=== PATIENT | female | born 1955 | race Asian ===

== ENCOUNTER → 2018-05-23 09:51 | Outpatient (CLI) | payer MEDICARE, SELFPAY ==
[2018-05-25 14:52] LABS: HPV Reflexed? NOT INDICATED
== END ==
PROVIDERS: Visit Provider Obstetrics & Gynecology
DX: Z12.4 Encounter for screening for malignant neoplasm of cervix (principal)
CPT/HCPCS: 88175; G0145

== ENCOUNTER → 2019-08-10 09:49 | Outpatient (CLI) | payer MEDICARE, OTHER, SELFPAY ==
[2019-08-10 12:29] LABS: Absolute Lymphocyte Count 2.22 X10^3/uL (0.83-4.51); Absolute Neutrophil Count 1.4 X10^3/uL (2.0-7.7); Basophil# 0.04 X10^3/uL; Eosinophil# 0.21 X10^3/uL; Eosinophils% 5.1 % (0-5); Hematocrit 44.2 % (37-47); Hemoglobin 14.5 g/dL (12.0-15.0); Lymphocyte # 2.22 X10^3/ul (4.0); Lymphocyte % 54.3 % (19-41); Mean Corp Hgb Conc 32.8 g/dL (32-36); Mean Corpuscular Hgb 28.4 pg (27.0-32.0); Mean Corpuscular Volume 86.7 fL (81-99); Mean Platelet Vol. 9.8 fl (6.2-12.0); Monocyte# 0.25 X10^3/uL; Monocyte% 6.1 % (0-10); NRBC Flagged by Analyzer 0 % (0-5); Neutrophil # 1.36 X10^3/uL (2.7-7.7); Neutrophil % 33.3 % (47-70); Platelet Count 239 K/mm3 (150-450); RBC Distribution Width CV 12.4 % (11.6-14.6); RBC Distribution Width SD 39.4 fl (35.1-43.9); White Blood Count 4.1 K/mm3 (4.4-11.0)
[2019-08-10 12:59] LABS: AST(SGOT) 19 U/L (15-37); Alanine Aminotransfer ALT/SGPT 24 U/L (13-56); Alkaline Phosphatase 66 U/L (45-117); Anion Gap 6 (5-15); BUN 14 mg/dL (7-18); BUN/Creat Ratio 24.7 RATIO (10-20); Calcium,Total 9.3 mg/dL (8.5-10.1); Chloride 105 mmol/L (98-107); Cholesterol 195 mg/dL (200); Creatinine, Serum 0.57 mg/dL (0.55-1.02); EST Glomerular Filtration Rate 114 mL/min (>60); Est Glom Filt Rate - Afr Amer 137 mL/min (>60); Globulin 3.9 g/dL (2.2-4.2); Glucose 82 mg/dL (74-106); High Density Lipoprotein 60 mg/dL; Potassium 3.5 mmol/L (3.5-5.1); Protein, Total 7.9 g/dL (6.4-8.2); Sodium Level 139 mmol/L (136-145); Triglycerides 105 mg/dL; Very Low Density Lipoprotein 21 mg/dL (5-40)
[2019-08-10 13:30] LABS: Hepatitis C Antibody Non-Reactive (Nonreactive)
[2019-08-11 13:04] LABS: H. Pylori Antibody (IgG) 0.44 (0.00-0.79)
== END ==
PROVIDERS: Family Provider Family Medicine; PCP Family Medicine; Visit Provider Family Medicine
DX: Z00.00 Encounter for general adult medical examination without abnormal findings (principal); E78.5 Hyperlipidemia, unspecified; K21.9 Gastro-esophageal reflux disease without esophagitis
CPT/HCPCS: 36415; 80053; 80061; 85025; 86677; 86803

== ENCOUNTER → 2019-10-17 08:36 | Outpatient (CLI) | payer MEDICARE, OTHER, SELFPAY ==
--- NOTE | 2019-10-17 08:42 | BI_ITS ---
MAMMOGRAPHY - BILATERAL SCREENING REASON FOR EXAM: Female, 64 years old. Routine annual screening examination. PERTINENT HISTORY: Sister with breast cancer. TECHNIQUE: Digital bilateral breast jil (3D mammographic acquisition) in the CC and MLO projections. 2-D mediolateral oblique (MLO) and craniocaudad (CC) views of both breasts were obtained. CAD: Full Field Digital Mammography with Computer Added Detection was performed. COMPARISON: Comparison is made with prior study in August 14, 2013. FINDINGS: Breast Composition: The breasts are heterogeneously dense, which may obscure small masses. There are no dominant masses or suspicious calcifications. Stable benign-appearing bilateral axillary lymph nodes. No other significant abnormalities are identified. There has been no significant change since the prior study. BI/SCREEN MAMM (CAD) W/JIL BILAT IMPRESSION: Stable bilateral screening mammogram. Yearly follow-up mammogram recommended. (A) ASSESSMENT CATEGORY: BIRADS Category 2: Benign. A letter regarding these results will be sent to the patient by the facility within 30 days. Approximately 10% of breast cancers are not detected by mammography. A normal mammogram should not delay biopsy of a clinically suspicious abnormality. [id number] Electronically Signed: Alexander Hopkins, at 9:39 EST , Service support ,
== END ==
PROVIDERS: Family Provider Family Medicine; PCP Family Medicine; Referring Provider Family Medicine; Visit Provider Family Medicine
DX: Z12.31 Encounter for screening mammogram for malignant neoplasm of breast (principal); Z80.3 Family history of malignant neoplasm of breast; R51 Headache; Z86.73 Personal history of transient ischemic attack (TIA), and cerebral infarction without residual deficits
CPT/HCPCS: 77063; 77067

== ENCOUNTER → 2020-02-26 13:33 | Outpatient (CLI) | payer MEDICARE, OTHER, SELFPAY ==
[2015-07-04 11:35] VITALS: BMI 22.7
[2020-02-26 16:49] LABS: Absolute Neutrophil Count 1.5 X10^3/uL (2.0-7.7); Basophil# 0.03 X10^3/uL; Basophil% 0.6 % (0-1); Eosinophil# 0.24 X10^3/uL; Eosinophils% 4.6 % (0-5); Hematocrit 41.7 % (37-47); Hemoglobin 13.7 g/dL (12.0-15.0); Lymphocyte % 59.8 % (19-41); Mean Corp Hgb Conc 32.9 g/dL (32-36); Mean Corpuscular Hgb 28.2 pg (27.0-32.0); Mean Corpuscular Volume 85.8 fL (81-99); Mean Platelet Vol. 9.9 fl (6.2-12.0); Monocyte# 0.34 X10^3/uL; Monocyte% 6.6 % (0-10); NRBC Flagged by Analyzer 0 % (0-5); Neutrophil # 1.47 X10^3/uL (2.7-7.7); Neutrophil % 28.4 % (47-70); Platelet Count 254 K/mm3 (150-450); RBC Distribution Width CV 12.7 % (11.6-14.6); RBC Distribution Width SD 39.3 fl (35.1-43.9); Red Blood Count 4.86 M/mm3 (4.2-5.4); White Blood Count 5.2 K/mm3 (4.4-11.0)
== END ==
PROVIDERS: PCP Family Medicine; Visit Provider Family Medicine
DX: L65.9 Nonscarring hair loss, unspecified (principal)
CPT/HCPCS: 36415; 84443; 85025

== ENCOUNTER → 2021-06-29 09:26 | Outpatient (CLI) | payer MEDICARE, OTHER, SELFPAY ==
--- NOTE | 2021-06-29 09:32 | RAD_ITS ---
EXAMINATION: Air contrast UPPER GI SERIES INDICATION: Female, 66 years epigastric pain. Dysphagia. FLUOROSCOPY TIME (if supplied): (1:00) minutes/seconds. 13 images were obtained. TECHNIQUE: Radiographic and fluoroscopic images of the distal esophagus, stomach, and proximal small intestine were obtained following the oral ingestion of barium. COMPARISON: None. FINDINGS: There is no evidence for organomegaly, abnormal calcifications, or abnormal bowel gas pattern. The psoas margins and flank stripes are normal. The visualized osseous structures are normal. The mucosa of the esophagus, stomach and duodenum is normal in appearance without evidence for stricture, ulceration, mass or diverticulum. There is no evidence for hiatal hernia or gastroesophageal reflux. The stomach and duodenum are unremarkable. No evidence of ulceration. RAD/Upper GI Dual Contrast IMPRESSION: 1. Normal upper gastrointestinal study. Electronically Signed: Alexander Hopkins MD at 10:23 EDT , Service support ,
== END ==
LOC: RAD 09:30
PROVIDERS: PCP Family Medicine; Referring Provider Family Medicine; Visit Provider Family Medicine
DX: R13.10 Dysphagia, unspecified (principal)
CPT/HCPCS: 74246

== ENCOUNTER → 2022-07-01 | Outpatient (CLI) | payer MEDICARE, OTHER, SELFPAY ==
--- NOTE | 2022-07-01 10:18 | US_ITS ---
STUDY: ULTRASOUND OF THE FEMALE PELVIS - COMPLETE REASON FOR EXAM: Female, 67 years old. PAIN AND BLOATING LMP: Unknown. TECHNIQUE: Transabdominal and Transvaginal TECHNICAL QUALITY: Adequate. COMPARISON: None. FINDINGS: The uterus is anteverted and is in a midline position. The uterus measures 10.3 x 10.4 x 5.0 cm. Normal uterine cervix. The endometrium measures 2.1 mm in thickness, and is hyperechoic. There is no demonstrated endometrial mass. Multiple uterine fibroids, largest measures 3.6 x 3.8 x 3.4 cm. I.U.D. - The patient does not have an I.U.D. Neither ovary visualized. There is no fluid in the cul-de-sac. The bladder is sonographically normal US/Pelvic (Non ) IMPRESSION: Enlarged fibroid uterus, normal appearing endometrium Neither ovary visualized, no demonstrated free fluid Electronically Signed: Darly Louis MD at 11:52 EDT ,
--- NOTE | 2022-07-01 10:41 | US_ITS ---
STUDY: ULTRASOUND OF THE FEMALE PELVIS - COMPLETE REASON FOR EXAM: Female, 67 years old. PAIN AND BLOATING LMP: Unknown. TECHNIQUE: Transabdominal and Transvaginal TECHNICAL QUALITY: Adequate. COMPARISON: None. FINDINGS: The uterus is anteverted and is in a midline position. The uterus measures 10.3 x 10.4 x 5.0 cm. Normal uterine cervix. The endometrium measures 2.1 mm in thickness, and is hyperechoic. There is no demonstrated endometrial mass. Multiple uterine fibroids, largest measures 3.6 x 3.8 x 3.4 cm. I.U.D. - The patient does not have an I.U.D. Neither ovary visualized. There is no fluid in the cul-de-sac. The bladder is sonographically normal US/Transvaginal Non- IMPRESSION: Enlarged fibroid uterus, normal appearing endometrium Neither ovary visualized, no demonstrated free fluid Electronically Signed: Daryl Louis MD at 11:52 EDT ,
== END | disposition home or self-care (01) ==
PROVIDERS: PCP Family Medicine; Visit Provider Family Medicine
DX: D25.9 Leiomyoma of uterus, unspecified (principal)
CPT/HCPCS: 76830; 76856

== ENCOUNTER → 2022-07-15 | Outpatient (CLI) | payer MEDICARE, OTHER, SELFPAY ==
--- NOTE | 2022-07-15 14:39 | BI_ITS ---
MAMMOGRAPHY - BILATERAL DIAGNOSTIC REASON FOR EXAM: Female, 67 years old. Left breast lump. PERTINENT HISTORY: Sister with breast cancer. TECHNIQUE: Digital bilateral breast jorge (3D mammographic acquisition) in the CC and MLO projections. 2-D mediolateral oblique (MLO) and craniocaudad (CC) views of both breasts were obtained. CAD: Full Field Digital Mammography with Computer Added Detection was performed. COMPARISON: Comparison is made with prior study dated 10/17/2019. FINDINGS: Breast Composition: The breasts are heterogeneously dense, which may obscure small masses. There now is evidence of a 2.5 cm x 1.5 cm spiculated nodule in the slightly upper retroareolar region of the left breast. There is also evidence of a 1.4 cm x 1 cm irregular nodule in the upper lateral aspect of the right breast. Correlation with ultrasound is recommended. Stable small benign-appearing bilateral axillary lymph nodes. No other significant abnormalities are identified. BI/DIAG MAMM W/CAD, BILAT IMPRESSION: Suspicious nodule seen in both breasts as described. These are new as compared to prior study. Correlation with ultrasound recommended. ASSESSMENT CATEGORY: BIRADS Category 0: Incomplete. Need additional imaging evaluation. A letter regarding these results will be sent to the patient by the facility within 30 days. Approximately 10% of breast cancers are not detected by mammography. A normal mammogram should not delay biopsy of a clinically suspicious abnormality. Electronically Signed: Alexander Hopkins MD at 15:39 EDT ,
--- NOTE | 2022-07-15 15:08 | US_ITS ---
STUDY: ULTRASOUND BREAST - LEFT REASON FOR EXAM: Female, 67 years old. Palpable lump left breast. TECHNIQUE: Axial and longitudinal images of the LEFT breast were performed with a high resolution ultrasound transducer. # OF IMAGES: 57 COMPARISON: Comparison is made with prior mammogram done earlier today. FINDINGS: LEFT Breast: There is a 2 cm x 1.8 cm x 1.5 cm hypoechoic irregular solid mass at the 11 o''clock position of the breast at 3 cm from the nipple. Increased vascularity is seen. There is also evidence of a 9 mm x 10 mm by 8mm hypoechoic solid nodule at the 11 o''clock position of the breast. Biopsy is recommended. IMPRESSION: 2 cm x 1.8 cm x 1.5 cm irregular hypoechoic solid mass at 11 o''clock position of the breast at 3 cm from the nipple. Similar appearing nodule measuring 9 mm x 10 mm by 8mm is seen at that site as well. Biopsy recommended. ASSESSMENT CATEGORY: BIRADS Category 4: Suspicious - Biopsy Should Be Considered. A letter regarding these results will be sent to the patient by the facility within 30 days. Electronically Signed: Alexander Hopkins MD at 8:42 EDT , STUDY: ULTRASOUND BREAST - RIGHT REASON FOR EXAM: Female, 67 years old. Abnormal mammogram. TECHNIQUE: Axial and longitudinal images of the RIGHT breast were performed with a high resolution ultrasound transducer. # OF IMAGES: 57 COMPARISON: Comparison is made with prior mammogram done earlier today. FINDINGS: RIGHT Breast: There is a 2 cm x 2 cm x 0.8 cm heterogeneous solid mass at the 10 o''clock position of the breast at 7 cm from the nipple. Biopsy recommended. US/Breast Limited Unilateral IMPRESSION: 2 cm x 2 cm x 0.8 cm heterogeneous solid mass at the 10 o''clock position of the breast at 7 cm a nipple. Biopsy is recommended. ASSESSMENT CATEGORY: BIRADS Category 4: Suspicious - Biopsy Should Be Considered. A letter regarding these results will be sent to the patient by the facility within 30 days. Electronically Signed: Alexander Hopkins MD at 8:44 EDT ,
== END | disposition home or self-care (01) ==
PROVIDERS: PCP Family Medicine; Visit Provider Family Medicine
DX: N63.21 Unspecified lump in the left breast, upper outer quadrant (principal); N63.11 Unspecified lump in the right breast, upper outer quadrant; Z80.3 Family history of malignant neoplasm of breast
CPT/HCPCS: 76642; 77062; 77066; G0279

== ENCOUNTER → 2022-08-17 | Outpatient (CLI) | payer MEDICARE, OTHER, SELFPAY ==
--- NOTE | 2022-08-17 | IMM_PTH ---
PATIENT: CEASAR PALACIOS LOC: [facility] U#:[id number] AGE/SX: 67/F ROOM: RE08/17/[address]: Dr. Lana Mcwilliams MD : 1955 BED: DIS: 08/17/2022 SPEC #: [id number] RECD: 08/18/22 12:36 STATUS: GWEN REQ #: [id number] LELA: 08/17/22 00:[address]: Lana Mcwilliams DEPT: IMMUNOHISTOCHEMISTRY RECD BY: Tara Strauss ENTERED: 08/18/22 12:36 SP TYPE: IMMUNO OTHR DR: Dr. Ifrah Omalley MD Tissues: Right breast, NOS Procedures: Calponin-1(initial) P40 (add) PHYSICIAN & INSTITUTION [place] [id number] SPECIMEN INFORMATION: Tissue Source: Right breast Clinical Info: Right breast mass Specimen Number: [id number] CPT code: 34549, 06692 METHODOLOGY: Deparaffinized sections of prefer/formalin-fixed tissue or PAP/DQ stained slides are incubated with monoclonal/polyclonal antibodies/oligonucleotide probes. Localization is made via biotin free immunoperoxidase method. Appropriate controls are performed and reacted as expected. Results on target cell population are indicated in the following table: RESULTS: ANTIBODY / CLONE RESULT P40 (BC28) positive Calponin-1 (GO262E) positive These tests were developed and their performance characteristics determined by [facility]. They may not have been cleared or approved by the U.S. Food and Drug Administration. The FDA has determined that such clearance or approval is not necessary. The above immunohistochemical/dualISH markers are ordered and reviewed by the Pathologist. INTERPRETATION: Right breast, ultrasound-guided biopsy: Negative for malignancy. JASMYNE:esperanza 08/19/2022
--- NOTE | 2022-08-17 11:52 | US_ITS ---
STUDY: ULTRASOUND BREAST - RIGHT REASON FOR EXAM: Female, 67 years old. Right breast mass. Ultrasound guided core biopsy. TECHNIQUE: Axial and longitudinal images of the RIGHT breast were performed with a high resolution ultrasound transducer. # OF IMAGES: 9 COMPARISON: Comparison is made with prior sonogram of the right breast dated 07/15/2022. FINDINGS: RIGHT Breast: Under direct sonographic guidance, the surgeon performed core biopsies of the 2 cm x 2 cm x 0.8 cm heterogeneous solid mass at the 10 o''clock position of the breast at 7 cm from nipple. US/US Breast Biopsy 1st Lesion IMPRESSION: Successful ultrasound-guided breast biopsy. ASSESSMENT CATEGORY: BIRADS Category 4: Suspicious - Biopsy Should Be Considered. A letter regarding these results will be sent to the patient by the facility within 30 days. Electronically Signed: Alexander Hopkins MD at 15:27 EST ,
--- NOTE | 2022-08-17 12:15 | BRBX_PTH ---
PATIENT: CEASAR PALACIOS LOC: [facility] U#:[id number] AGE/SX: 67/F ROOM: RE08/17/[address]: Dr. Lana Mcwilliams MD : 1955 BED: DIS: 08/17/2022 SPEC #: [id number] RECD: 08/17/22 13:22 STATUS: GWEN REMichelle #: [id number] LELA: 08/17/22 12:[address]: Lana Mcwilliams DEPT: SURGICAL PATHOLOGY RECD BY: Luis Eduardo Caruso ENTERED: 08/17/22 13:57 SP TYPE: BREAST BX OTHR DR: Dr. Ifrah Omalley MD Tissues: Right breast, NOS Procedures: Surgery Specimen Level IV HEADER OPERATION: Right breast biopsy, ultrasound-guided PRE-OP DIAGNOSIS: Right breast mass TISSUE SUBMITTED: Right breast tissue MICROSCOPIC DIAGNOSIS Right breast mass, ultrasound-guided core biopsy: Hyalinized fibroadenoma with focal intraductal hyperplasia without atypia. Focal microcalcification. Negative for malignancy. See comment. JASMYNE:esperanza 08/18/2022 COMMENT Immunohistochemistry ([id number]) supports the above diagnosis. Correlation with clinical, radiologic findings and appropriate follow up are necessary. MICROSCOPIC DESCRIPTION Slides are reviewed. GROSS DESCRIPTION Received in fixative is one container labeled with the patient's name and designated right breast. The specimen consists of multiple elongated fragments of montilla-yellow fibroadipose tissue mixed with blood clot that in aggregate measure 2.5 x 2 x 0.1 cm. The entire specimen is submitted in one cassette. / JASMYNE:esperanza 08/17/2022 TC:1 CPT: 39599
--- NOTE | 2022-08-17 13:24 | PCM.OPRPT ---
Report of Operation Date of Procedure: 08/17/22 Pre-Operative Diagnosis: abnormal ultrasound of right breast Post-Operative Diagnosis: same Surgery/Procedure Performed:: US guided right breast needle core biopsy Surgeon: Lana Mcwilliams Type of Anesthesia: Local Specimen's removed: right breast tissue Estimated Blood Loss (mL): minimal Description of Procedure: After informed consent was given, the patient was brought to the ultrasound suite. Appropriate time out protocol was followed. She was then placed in the supine position. Using the ultrasound transducer, the suspicious lesion was localized and then marked with a marking pen on the patient?s breast. The skin at where the biopsy stylus would be entering into the patient?s breast was then cleansed with alcohol and the skin and subcutaneous tissues at the biopsy site were infiltrated with 1% xylocaine. A small skin incision was made with an 11 blade scalpel. Holding the transducer in my left hand, I guided the biopsy stylus to just beneath the lesion under direct ultrasound guidance. The biopsy trough was then opened and noted under ultrasound guidance, such that it was ensured that the lesion was able to be biopsied. Several core samples of breast tissue were then obtained and this was visualized under ultrasound guidance. A marker clip was then placed into the patient?s breast at the biopsy site and this was visualized under ultrasound guidance. Hemostasis was achieved using pressure. The skin incision was then reapproximated using steristrips and a sterile dressing was applied. The patient tolerated the procedure well. She was discharged from the radiology suite in stable condition. Complications none noted
== END | disposition home or self-care (01) ==
PROVIDERS: PCP Family Medicine; Referring Provider Surgery; Visit Provider Surgery
DX: D24.1 Benign neoplasm of right breast (principal); N60.91 Unspecified benign mammary dysplasia of right breast; R92.0 Mammographic microcalcification found on diagnostic imaging of breast
CPT/HCPCS: 19083; 88305; 88341; 88342

== ENCOUNTER → 2024-05-10 | Outpatient (CLI) | payer MEDICARE, OTHER, SELFPAY ==
--- NOTE | 2024-05-10 13:18 | ECHOD_ITS ---
Reason For Study: ABNORMAL EKG Procedure This was a 2D Doppler, Color Flow transthoracic echocardiogram. Myocardial strain analysis was performed in this exam to aid in the assessment of cardiac function. Exam performed in department. Left Ventricle Normal LV size. The estimated ejection fraction is 60 %. No evidence for diastolic dysfunction. No regional wall motion abnormalities noted. Right Ventricle Normal RV size. Normal systolic function. Atria The left and right atria are normal. No doppler evidence for ASD. Mitral Valve There is no mitral valve stenosis. No mitral valve insufficiency. Tricuspid Valve There is no tricuspid stenosis. Trivial tricuspid valve insufficiency. Pulmonary artery systolic pressure is 30 mmHg. Aortic Valve Trisinus/trileaflet aortic valve. There is no aortic stenosis. No aortic valve insufficiency. Pulmonic Valve There is no pulmonic valvular stenosis. No pulmonic valve insufficiency. Great Vessels Normal aortic root. Pericardium/Pleural No pericardial effusion. Medication 22 gauge I.V. with prn adaptor inserted into right arm. Performed a rapid injection of agitated mix of 9 cc saline and 1cc air to assess for atrial septal defect. MMode/2D Measurements & Calculations LVIDd: 3.7 cm IVSd: 0.97 cm Ao root diam: 3.1 cm LVIDs: 2.5 cm LVPWd: 1.0 cm RVDd: 2.5 cm FS: 33.4 % LAV(MOD-bp): 17.8 ml LVAd ap4: 22.7 cm2 SV(MOD-sp4): 37.0 ml LAV(MOD-bp) Indexed: 12.2 ml/m2 LVLd ap4: 6.7 cm LAV(MOD-sp2): 18.6 ml EDV(MOD-sp4): 62.4 ml LAV(MOD-sp4): 15.6 ml EDV(sp4-el): 65.2 ml LVAs ap4: 13.0 cm2 LVLs ap4: 5.6 cm ESV(MOD-sp4): 25.4 ml ESV(sp4-el): 25.6 ml EF(MOD-sp4): 59.3 % EF(sp4-el): 60.7 % SV(sp4-el): 39.6 ml LA A4 area: 8.7 cm2 LA dimension(2D): 2.7 cm RA A4 area: 8.4 cm2 TAPSE: 1.8 cm Time Measurements MV dec time: 0.24 sec Doppler Measurements & Calculations MV E max laron: 47.1 cm/sec Lat Peak E' Laron: 7.3 cm/sec Med Peak E' Laron: 5.9 cm/sec MV A max laron: 78.6 cm/sec E/E' lat: 6.4 E/E' med: 8.0 MV E/A: 0.60 Ao V2 max: 124.6 cm/sec LV V1 max: 88.6 cm/sec TR max laron: 239.4 cm/sec Ao max P.2 mmHg LV V1 max P.1 mmHg TR max P.9 mmHg ECHO/Echo Complete Interpretation Summary The estimated ejection fraction is 60 %. No evidence for diastolic dysfunction. Ordering Physician: Pam Morris Referring Physician: Pam Morris Performed By: Margie Kerr RDCS
== END | disposition home or self-care (01) ==
PROVIDERS: PCP Internal Medicine; Referring Provider Internal Medicine; Visit Provider Internal Medicine
DX: R94.31 Abnormal electrocardiogram [ECG] [EKG] (principal)
CPT/HCPCS: 93306; A4216

== ENCOUNTER → 2025-05-21 | Outpatient (CLI) | payer MEDICARE, OTHER, SELFPAY ==
--- NOTE | 2025-05-21 08:12 | CT_ITS ---
PROCEDURE: CHEST WITHOUT CONTRAST 05/21/2025 REASON FOR EXAM: LUNG NODULES Follow-up examination. TECHNIQUE: Chest CT without contrast. Coronal and Sagittal reconstruction series were provided. One or more dose reduction techniques were used (e.g., Automated exposure control, adjustment of the mA and/or kV according to patient size, use of iterative reconstruction technique RADIATION DOSE SUMMARY: CTDlvol: 7.24 mGy DLP: 224.24 mGycm COMPARISON: None FINDINGS: Hardware: None Lymph nodes: Small benign-appearing bilateral axillary lymph nodes. Small benign-appearing mediastinal lymph nodes. Heart and Vasculature: The heart is nonenlarged. Coronary Artery Calcifications: Present Lungs and Airways: No pulmonary nodule is seen. Pleura: No pleural effusion. Upper Abdomen: Unremarkable Bones: Degenerative changes of the thoracic spine. CT/Chest without Contrast IMPRESSION: Coronary artery calcification (CAC) is is present No acute abnormality is seen. Reading Location: [place] [id number]
== END | disposition home or self-care (01) ==
LOC: CT 08:11
PROVIDERS: PCP Internal Medicine; Referring Provider Internal Medicine; Visit Provider Internal Medicine
DX: R91.8 Other nonspecific abnormal finding of lung field (principal); E78.5 Hyperlipidemia, unspecified
CPT/HCPCS: 71250

== ENCOUNTER → 2025-07-31 | Outpatient (CLI) | payer MEDICARE, OTHER, SELFPAY ==
--- OUTSIDE RECORDS SUMMARY | 2025-07-31 06:53 | XMS RPT_ITS | CCD ---
Author Organization [facility] Care Team Providers Care Cogeneration Operator Name Role Phone Ifrah Omalley Primary Care Provider Fast DO, Krystle A Unavailable Dr. Emiliano Saleh Unavailable Radha CURRY Yvonne Unavailable Unavailable Neonatal Nurse Practitioner, System Unavailable Unavailable Thania DO Ligia Unavailable [phone] Unavailable Unavailable Ifrah Omalley Primary Care Provider Fast DO, Krystle A Primary Care Provider [phone] Emiliano Saleh DO Unavailable EMILIANO SALEH Referring Unavailable FAST, KRYSTLE A Primary Care Unavailable EMILIANO SALEH Referring Unavailable FAST, KRYSTLE A Primary Care Unavailable KASANDRA CARUSO Attending Unavailable FAST, KRYSTLE A Primary Care Unavailable FAST, KRYSTLE A Referring Unavailable KASANDRA CARUSO Referring Unavailable ROSY DELEON Attending Unavailable FAST, KRYSTLE A Primary Care Unavailable FAST, KRYSTLE A Primary Care Unavailable KASANDRA CARUSO Admitting Unavailable KASANDRA CARUSO Attending Unavailable KASANDRA CARUSO Referring Unavailable FAST, KRYSTLE A Primary Care Unavailable KASANDRA CARUSO Referring Unavailable FAST, KRYSTLE A Primary Care Unavailable KASANDRA CARUSO Referring Unavailable KASANDRA CARUSO Attending Unavailable FAST, KRYSTLE A Primary Care Unavailable FAST, KRYSTLE A Referring Unavailable FAST, KRYSTLE A Primary Care Unavailable CIERRA WHITTEN Attending Unavailabl e FAST, KRYSTLE A Primary Care Unavailable KASANDRA CARUSO Referring Unavailable FAST, KRYSTLE A Primary Care Unavailable KASANDRA CARUSO Referring Unavailable FAST, KRYSTLE A Primary Care Unavailable FAST, KRYSTLE A Primary Care Unavailable AYSE, MELIDA A Attending Unavailabl e KASANDRA CARUSO Attending Unavailable FAST, KRYSTLE A Referring Unavailable FAST, KRYSTLE A Primary Care Unavailable MELIDA TAVERA Attending Unavailabl e FAST, KRYSTLE A Primary Care Unavailable MELIDA TAVERA Attending Unavailabl e FAST, KRYSTLE A Primary Care Unavailable MASCI, EMILIANO A Referring Unavailable IFRAH OMALLEY Primary Care Unavailable Fast DO, Krystle A Attending Unavailable Fast DO, Krystle A Consulting Unavailable Fast DO, Krystle A Referring Unavailable Fast DO, Krystle A Unavailable Fast DO, Krystle A Primary Care Provider [phone] Dr. Deepa Sahni Unavailable Fast DO, Krystle A Primary Care Provider [phone] Ifrah Omalley MD Primary Care Provider Fast DO, Krystle Primary Care Provider [phone] FAST, KRYSTLE Primary Care Unavailable SCOTT ARIAS Attending Unavailable REFERRED, SELF Referring Unavailable FAST, KRYSTLE Primary Care Unavailable SCOTT ARIAS Attending Unavailable SCOTT ARIAS Referring Unavailable Fast DO, Dr. Orozco Primary Care Provider [phone] Fast DO, Dr. Orozco Attending Provider [phone] Fast DO, Dr. Orozco Referring Provider [phone] FAST, KRYSTLE A Primary Care Unavailable IGLESIAS, LIZETTE Attending Unavailable IGLESIAS, LIZETTE Referring Unavailable FAST, KRYSTLE A Primary Care Unavailable MASCI, EMILIANO A Referring Unavailable FAST, KRYSTLE A Primary Care Unavailable IGLESIAS, LIZETTE Referring Unavailable IGLESIAS, LIZETTE Referring Unavailable IGLESIAS, LIZETTE Attending Unavailable FAST, KRYSTLE A Primary Care Unavailable MASCI, EMILIANO A Referring Unavailable FAST, KRYSTLE A Primary Care Unavailable IGLESIAS, LIZETTE Referring Unavailable FAST, KRYSTLE A Primary Care Unavailable IGLESIAS, LIZETTE Referring Unavailable IGLESIAS, LIZETTE Attending Unavailable FAST, KRYSTLE A Primary Care Unavailable MASCI, EMILIANO A Referring Unavailable FAST, KRYSTLE A Primary Care Unavailable IGLESIAS, LIZETTE Referring Unavailable FAST, KRYSTLE A Primary Care Unavailable IGLESIAS, LIZETTE Referring Unavailable FAST, KRYSTLE A Primary Care Unavailable Fast, Krystle Referring Unavailable Fast, Krystle Primary Care Unavailable Fast, Krystle Attending Unavailable Fast, Krystle Referring Unavailable Fast, Krystle Primary Care Unavailable Fast, Krystle Attending Unavailable Fast, Krystle Referring Unavailable Fast, Krystle Primary Care Unavailable Fast, Krystle Attending Unavailable Fast, Krystle Referring Unavailable Fast, Krystle Primary Care Unavailable LemuelMurrayMcintosh Attending Unavailable Medications Current Medications Medication Drug Class(es) Dates Sig (Normalized) Sig (Original) acetaminophen 325 mg / oxyCODONE hydrochloride 5 mg oral tablet (4 sources) Opioid Agonist Start: 07-04-2015 Oxycodone-Acetamin ophen 1 TABLET tablet Active 1 - 2 {tbl} PO EVERY 4 HOURS NEEDED as needed for Pain July 04, 2015 12:00am Start: 07-04-2015 take 1 tablet by sánchez th every four hours as needed Oxycodone-Acetaminophen Active 1 - 2 TABLET PO EVERY 4 HOURS NEEDED July 03, 2015 11:00pm biotin 0.8 mg oral tablet (14 sources) biotin 800 MCG t ablet Take 1 Tablet (800 mcg) by mouth Active End: 01-03-2023 take 1 tablet by mouth once daily BIOTIN ORAL Take 1 tablet by mouth once daily. 0 01/03/2023 Discontinued (Patient chooses alternative therapy) take 1 tablet by sánchez th once daily BIOTIN ORAL Take 1 tablet by mouth once daily. 0 Active Comment on above: Take 1 tablet by sánchez once daily. cyclobenzaprine hydrochloride 10 mg oral tablet (4 sources) Muscle Relaxant Start: 07-04-20 15 take 1 tablet by mouth three times daily as needed for muscle spasms Cyclobenzaprine 10 MG tablet Active 10 mg PO THREE TIMES A DAY as needed for Muscle Spasm 14 July 04, 2015 12:00am doxycycline hyclate 100 mg oral capsule (2 sources) Tetracycline-class Drug Start: 01-11-20 End: 01-21-20 23 take 1 capsule by mouth twice daily doxycycline hyclate (VIBRAMYCIN) 100 mg capsule Take 1 capsule by mouth twice daily for 10 days. 20 capsule 0 01/10/2023 01/20/2023 Active Comment on above: Take 1 capsule by mo [facility] twice daily for 10 days. fexofenadine hydrochloride 180 mg oral tablet (1 source) Histamine-1 Receptor Antagonist Start: 08-17-20 24 take 1 tablet by mouth once daily fexofenadine (SOSA) 180 MG tablet Take 1 Tablet (180 mg) by mouth daily 30 Tablet 11 08/17/2024 Active iv contrast (will be provided with radiology test) (2 sources) Start: 10-28-19 End: 10-29-19 iv contrast (will be provided with radiology test) MRI RT Breast Bx Inject, intravenously, once for 1 dose. No IV access, insert saline lock prior to the beginning of sedation, infusion, injection of imaging exam. Discontinue saline lock post exam. If Pt has a central line or IVAD, may access for administration according to line specific nursing protocol. Once exam is complete flush line and de-access according to line specific nursing protocol in the MR contrast administration guidelines link 1 Each 0 10/28/2022 10/29/2022 Active Start: 09-03-2022 End: 09-04-2022 iv contrast (will be provide d with radiology test) Indications: Malignant neoplasm of upper-inner quadrant of left breast in female, estrogen receptor positive (HCC) MRI Breast [place] Inject, intravenously, once for 1 dose. No IV access, insert saline lock prior to the beginning of sedation, infusion, injection of imaging exam. Discontinue saline lock post exam. If Pt has a central line or IVAD, may access for administration according to line specific nursing protocol. Once exam is complete flush line and de-access according to line specific nursing protocol in the MR contrast administration guidelines link 1 Each 0 09/03/2022 09/04/2022 Active Comment on above: MRI Breast [place] Injec t, intravenously, once for 1 dose. No IV access, insert saline lock prior to the beginning of sedation, infusion, injection of imaging exam. Discontinue saline lock post exam. If Pt has a central line or IVAD, may access for administration according to line specific nursing protocol. Once exam is complete flush line and de-access according to line specific nursing protocol in the MR contrast administration guidelines link MRI RT Breast Bx Inj ect, intravenously, once for 1 dose. No IV access, insert saline lock prior to the beginning of sedation, infusion, injection of imaging exam. Discontinue saline lock post exam. If Pt has a central line or IVAD, may access for administration according to line specific nursing protocol. Once exam is complete flush line and de-access according to line specific nursing protocol in the MR contrast administration guidelines link letrozole 2.5 mg oral tablet (20 sources) Aromatase Inhibitor Start: 4 End: 5 take 1 tablet by mouth once daily letrozole (FEMARA) 2.5 mg tablet Take 1 tablet by mouth once daily. 90 tablet 3 12/19/2024 Active Comment on above: Take 1 tablet by sánchez th once daily. losartan potassium 25 mg oral tablet (1 source) Angiotensin 2 Receptor Arthur take 1 tablet by mouth once daily losartan (COZAAR) 25 MG TABS tablet Take 1 Tablet (25 mg) by mouth daily Active omeprazole 20 mg delayed release oral capsule (20 sources) Proton Pump Inhibitor Start: 3 take 1 capsule by mouth once daily omeprazole (PRILOSEC) 20 mg capsule Take 20 mg by mouth once daily. 12/21/2022 Active Comment on above: Take 20 mg by mouth once daily. Completed/Discontinued Medications Medication Drug Class(es) Dates Sig (Normalized) Sig (Original) anastrozole 1 mg oral tablet (20 sources) Aromatase Inhibitor Start: 10-28-2022 End: 12-22-2022 take 1 tablet by mouth once daily anastrozole (ARIMIDEX) 1 mg tablet Take 1 tablet by mouth once daily. 30 tablet 11 12/22/2022 Active Comment on above: Take 1 tablet by sánchez th once daily. CANCER DOCTOR Calcium (9 sources) Phosphate Binder, Calcium End: 09-03-2022 CALCIUM ORAL Take by mouth once daily. 09/03/2022 Discontinued End: 09-03-2022 CALCIUM ORAL Take by mouth o nce daily. 0 09/03/2022 Discontinued CALCIUM ORAL Robert e by mouth once daily. 0 Active Comment on above: Take by mouth once d aily. calcium carbonate 1250 mg / cholecalciferol 0.01 mg oral tablet (20 sources) Vitamin D End: 5 take 1 tablet by mouth once daily Calcium-Cholecalcifer ol, D3, 500 mg-10 mcg (400 unit) per tablet Take 1 tablet by mouth once daily. 12/19/2024 Discontinued Comment on above: Take 1 tablet by sánchez th once daily. cholecalciferol 0.125 mg oral tablet (20 sources) Vitamin D Start: 3 take 1 tablet by mouth once daily Vitamin D3 125 mcg (5,000 unit) oral tablet 1 (one) tablet qd for 0 days Quantity: 30 {Tablet} Refills: 2 Ordered: 02-Aug-2023 Fast DO, Krystle A Fast DO, Krystle A Start : 02-Aug-2023 Active take 1 tablet by mouth once mervat y Cholecalciferol (VITAMIN D3) 25 MCG (1000 UT) tablet Take 800 Units by mouth daily Active Comment on above: Take 5,000 Units by mouth once daily. cholecalciferol, vitamin D3, (VITAMIN D3 ORAL) (9 sources) End: 09-03-2022 cholecalciferol, vitamin D3, (VITAMIN D3 ORAL) Take by mouth once daily. 09/03/2022 Discontinued End: 09-03-2022 cholecalciferol, vitamin D3, (VITAMIN D3 ORAL) Take by mouth once daily. 0 09/03/2022 Discontinued cholecalciferol, vitamin D3, (VITAMIN D3 ORAL) Take by mouth once daily. 0 Active Comment on above: Take by mouth once d aily. ciprofloxacin 500 mg oral tablet (6 sources) Quinolone Antimicrobial Start: 08-02-20 23 take 1 tablet by mouth twice daily ciprofloxacin HCl 500 mg oral tablet 1 (one) tablet bid for 0 days Quantity: 14 {Tablet} Refills: 0 Ordered: 02-Aug-2023 Fast DO, Krystle A Fast DO, Krystle A Start : 02-Aug-2023 Active glucosamine HCl/chondroitin grover (GLUCOSAMINE-CHONDROI TIN ORAL) (20 sources) End: 12-20-19 25 take 1 tablet by mouth once daily glucosamine HCl/chondroitin grover (GLUCOSAMINE-CHONDROI TIN ORAL) Take 1 tablet by mouth once daily. 12/19/2024 Discontinued take 1 tablet by mouth once mervat y glucosamine HCl/chondroitin grover (GLUCOSAMINE-CHONDROITIN ORAL) Take 1 tablet by mouth once daily. Active take 1 tablet by mouth once mervat y glucosamine HCl/chondroitin grover (GLUCOSAMINE-CHONDROITIN ORAL) Take 1 tablet by mouth once daily. 0 Suspended take 1 tablet by mouth once mervat y glucosamine HCl/chondroitin grover (GLUCOSAMINE-CHONDROITIN ORAL) Take 1 tablet by mouth once daily. 0 Active Comment on above: Take 1 tablet by sánchez th once daily. hydrocortisone valerate 2 mg/ml topical cream (12 sources) Corticosteroid Start: 023 End: 023 apply 1 g topically once daily hydrocortisone valerate 0.2 % topical cream 1 (one) gram apply daily as directed for 0 days Quantity: 30 {Gram} Refills: 0 Ordered: 02-Aug-2023 Fast DO, Krystle A Fast DO, Krystle A Start : 26-Apr-2023 End : 02-Aug-2023 Inactive Start: 02-22-2023 apply 1 g topically twice mervat y hydrocortisone valerate 0.2 % topical cream 1 (one) gram twice a day to affected area for 0 days Quantity: 30 {Gram} Refills: 0 Ordered: 22-Feb-2023 Yvonne Garcia CMA Start : 22-Feb-2023 Active levoFLOXacin 500 mg oral tablet (20 sources) Quinolone Antimicrobial Start: 12-09-2006 End: 08-20-2022 take 1 tablet by mouth once daily LEVAQUIN, 500MG (Oral Tablet) Tablet QD for 0 days Quantity: 10 {Tablet} Refills: 0 Ordered: 09-Dec-2006 Yvonne Garcia CMA Start : 09-Dec-2006 End : 20-Aug-2022 Discontinued Comments: This order discontinued per [facility]. Comment on above: finish course of ant ibiotic This order discontin ued per [facility]. lidocaine 25 mg/ml / prilocaine 25 mg/ml topical cream (9 sources) Antiarrhythmic, Amide Local Anesthetic Start: 11-25-2022 lidocaine-prilocai ne (EMLA) 2.5-2.5 % cream Apply 1 application to affected area as needed. 10 g 0 11/25/2022 Active Comment on above: Apply 1 application to affected area as needed. Magnesium (8 sources) End: 09-03-2022 Magnesium 200 mg tab Take by mouth once daily. 0 09/03/2022 Discontinued Magnesium 200 mg tab Take by mouth once daily. 0 Active Comment on above: Take by mouth once d aily. Multivitamin preparation (13 sources) End: 01-03-2023 take 1 tablet by mouth once daily multivitamin (MULTIPLE VITAMIN ORAL) Take 1 tablet by mouth once daily. 0 01/03/2023 Discontinued (Patient chooses alternative therapy) take 1 tablet by mouth once mervat y multivitamin (MULTIPLE VITAMIN ORAL) Take 1 tablet by mouth once daily. 0 Active Comment on above: Take 1 tablet by sánchez th once daily. OTC NUTRITIONAL SUPPLEMENT (9 sources) End: 09-03-2022 End: 09-03-2022 Comment on above: assorted supplements - unknown OTC PRODUCT (13 sources) End: 01-03-2023 OTC PRODUCT Tumeric 1 capsule daily 0 01/03/2023 Discontinued (Patient chooses alternative therapy) OTC PRODUCT Tume gaby 1 capsule daily 0 Active Comment on above: Tumeric 1 capsule da jen oxyCODONE hydrochloride 5 mg oral tablet (4 sources) Opioid Agonist Start: 01-11-20 take 1 tablet by mouth every four hours as needed for pain oxyCODONE IR (ROXICODONE) 5 mg immediate release tablet Indications: Cancer of central portion of left breast (HCC) Take 1 tablet by mouth every 4 hours as needed for pain. Take by mouth as directed. 15 tablet 0 01/10/2023 Active Comment on above: Take 1 tablet by sánhcez th every 4 hours as needed for pain. Take by mouth as directed. predniSONE 10 mg oral tablet (12 sources) Start: 03-30-20 End: 04-26-20 predniSONE 10 mg oral tablet 3 (three) Tablet for 4 days 2 tabs for 4 days 1 tab for 4 days for 0 days Quantity: 24 {Tablet} Refills: 0 Ordered: 26-Apr-2023 Yvonne Garcia CMA Start : 30-Mar-2023 End : 26-Apr-2023 Inactive Comments: take with food in am Comment on above: take with food in am 72 hr scopolamine 0.0139 mg/hr transdermal system (8 sources) Anticholinergic Start: 07-04-20 End: 08-02-20 scopolamine 1 mg over 3 days transdermal patch 1 (one) patch,transdermal 3 day q 72 hours for 0 days Quantity: 8 {Patch} Refills: 0 Ordered: 02-Aug-2023 Fast DO, Krystle A Fast DO, Krystle A Start : 04-Jul-2023 End : 02-Aug-2023 Inactive Vitamin B Complex (9 sources) End: 09-03-20 vitamin B complex (B COMPLEX 1 ORAL) Take by mouth once daily. 09/03/2022 Discontinued End: 09-03-2022 vitamin B complex (B COMPLEX 1 ORAL) Take by mouth once daily. 0 09/03/2022 Discontinued vitamin B comple x (B COMPLEX 1 ORAL) Take by mouth once daily. 0 Active Comment on above: Take by mouth once d aily. 100 ml zoledronic acid 0.04 mg/ml injection (3 sources) Bisphosphonate Start: 06-07-2025 End: 06-07-2025 4 mg, INTRAVENOUS, Administer over 15 Minutes, ONCE, 1 dose, On Tue06/07/25 at 1000, Hazardous Potential Reproductive Risk Drug: Use appropriate PPE. Start: 12-19-2024 End: 12-19-2024 4 mg, INTRAVENOUS, Administe r over 15 Minutes, ONCE, 1 dose, On Tue12/19/24 at 1130, Hazardous Potential Reproductive Risk Drug: Use appropriate PPE. Start: 06-28-2024 End: 06-28-2024 4 mg, INTRAVENOUS, Administe r over 15 Minutes, ONCE, 1 dose, On Zandra 06/28/24 at 1000, Hazardous Potential Reproductive Risk Drug: Use appropriate PPE. Problems Active Problems Problem Classification Problem Date Documented Da te Episodic/Chronic Acquired foot deformities (12 sources) Bunion; Translations: [Bunion, left foot] 08-02-2023 Episodic Allergic reactions (20 sources) Inflammatory dermatosis; Translations: [Dermatitis] Onset: 4 03-30-2023 Episodic Cancer of breast (20 sources) Malignant tumor of breast ; Translations: [Breast cancer] Onset: 2 08-19-2022 Chronic Comment on above: has followup esperanza com ing up with masci Coronary atherosclerosis and other heart disease (1 source) Atherosclerotic heart disease of [place] coronary artery without angina pectoris; Translations: [Atherosclerotic heart disease of [place] coronary artery without angina pectoris] Onset: Chronic Deficiency and other anemia (1 source) Increased hemoglobin; Translations: [Other hemoglobinopathies] 08-03-2023 Chronic Diabetes mellitus without complication (20 sources) High hemoglobin A1c level; Translations: [Elevated hemoglobin A1c] 12-21-2022 Episodic Comment on above: discussed diet and e x sugar higher was jus t on cruise discussed diet and ex Disorders of lipid metabolism (20 sources) Hyperlipidemia; Translations: [Hyperlipidemia] Onset: 5 12-21-2022 Chronic Esophageal disorders (20 sources) Gastroesophageal reflux disease; Translations: [GERD (gastroesophageal reflux disease)] Onset: 3 08-23-2022 Chronic Comment on above: try otc prilosec for 4-6 weeks minimize caffeine dont eat 3 hours prior to bed take med daily avoid eating late or overeating hob up good if takes meds encourage med routin angelic Nonmalignant breast conditions (20 sources) Lump in upper inner quadrant of left breast; Translations: [Unspecified lump in the left breast, upper inner quadrant] Resolved: 3 Episodic Comment on above: have asked her to st op using as much continue massage ice- Nutritional deficiencies (20 sources) Vitamin D deficiency; Translations: [Vitamin D deficiency] 12-21-2022 Chronic Other and unspecified benign neoplasm (20 sources) Leiomyoma; Translations: [Fibroid] 08-23-2022 Episodic Comment on above: stable Other and unspecified benign neoplasm (1 source) Fibroadenoma of right breast; Translations: [Benign neoplasm of right breast] Episodic Other and unspecified benign neoplasm (1 source) Benign neoplasm of right breast; Translations: [Fibroadenoma of right breast] Onset: 3 Episodic Other circulatory disease (1 source) Elevated blood-pressure reading, without diagnosis of hypertension; Translations: [Elevated blood-pressure reading without diagnosis of hypertension] Onset: 3 Episodic Other connective tissue disease (20 sources) Osteophyte of bone; Translations: [Bone spur of foot] 08-23-2022 Episodic Comment on above: gave stretching exer cises Other connective tissue disease (20 sources) Pain in both feet; Translations: [Bilateral foot pain] 12-21-2022 Episodic Comment on above: feet ache but the no t the pain she was having Other ear and sense organ disorders (20 sources) Hearing loss; Translations: [Hearing loss] 12-21-2022 Chronic Comment on above: refer to sanitary landfill operator Other gastrointestinal disorders (20 sources) Alteration in bowel elimination; Translations: [Change in bowel habits] 08-23-2022 Episodic Comment on above: get copy of last col onosoocpy Other gastrointestinal disorders (20 sources) Altered bowel function; Translations: [Change in bowel habits] 08-23-2022 Episodic Comment on above: get copy of last col onosoocpy Other lower respiratory disease (1 source) Other nonspecific abnormal finding of lung field; Translations: [Other nonspecific abnormal finding of lung field] Onset: 5 Episodic Other nutritional; endocrine; and metabolic disorders (20 sources) Overweight in adulthood with body mass index of 25 or more but less than 30; Translations: [BMI 25.0-25.9,adult] 08-23-2022 Episodic Other screening for suspected conditions (not mental disorders or infectious disease) (20 sources) Ultrasonography of breast abnormal; Translations: [Other abnormal and inconclusive findings on diagnostic imaging of breast] Onset: 3 Episodic Other skin disorders (20 sources) Skin lesion; Translations: [Skin lesion] Resolved: 9 03-27-2009 Episodic Comment on above: orally Other skin disorders (20 sources) Eruption; Translations: [Rash] 03-30-2023 Episodic Comment on above: she used a product t hat was outdated so dont use again use sparinlgy onface - encourage call and followup with masci as think could be due to med better Other skin disorders (2 sources) Rash and other nonspecific skin eruption; Translations: [Rash and other nonspecific skin eruption] Onset: 4 11-28-2024 Episodic Other upper respiratory disease (1 source) Allergic rhinitis due to pollen; Translations: [Allergic rhinitis due to pollen] Onset: 4 08-17-2024 Chronic Pneumonia (except that caused by tuberculosis or sexually transmitted disease) (20 sources) Bacterial pneumonia; Translations: [Pneumonia due to other specified bacteria] Resolved: 9 03-27-2009 Episodic Comment on above: still some [facility] in [facility] use mucinez, more ATB Residual codes; unclassified (20 sources) Obstructive sleep apnea syndrome; Translations: [Obstructive sleep apnea (adult) (pediatric)] Onset: 3 Chronic Residual codes; unclassified (1 source) Obstructive sleep apnea (adult) (pediatric); Translations: [LAMINE (obstructive sleep apnea)] Onset: 3 Chronic Residual codes; unclassified (20 sources) Non-smoker; Translations: [Nonsmoker] 08-23-2022 Episodic Residual codes; unclassified (3 sources) Family history of malignant neoplasm of breast in first degree relative; Translations: [Family history of malignant neoplasm of breast] Episodic Residual codes; unclassified (20 sources) Middle insomnia; Translations: [Trouble staying asleep] 12-21-2022 Episodic Comment on above: will try melatonin Residual codes; unclassified (1 source) Postoperative state; Translations: [Other specified postprocedural states] Episodic Residual codes; unclassified (1 source) Other specified postprocedural states; Translations: [Post-operative state] Onset: 3 Episodic Residual codes; unclassified (20 sources) Postmenopausal state; Translations: [Postmenopausal (Renamed from Postmenopausal status)] 04-26-2023 Episodic Unclassified (20 sources) Unclassified (1 source) New Patient Onset: 3 Unclassified (12 sources) traveling 08-02-2023 Unclassified (2 sources) Patient encounter status 12-19-2024 Varicose veins of lower extremity (20 sources) Venous varices; Translations: [Varicose veins] Resolved: 2 08-23-2022 Episodic Comment on above: wear support hose Past or Other Problems Problem Classification Problem Date Documented Da te Episodic/Chronic Esophageal disorders (12 sources) Esophageal disorders Other circulatory disease (20 sources) Elevated blood-pressure reading without diagnosis of hypertension; Translations: [Elevated blood-pressure reading without diagnosis of hypertension] Onset: 01-03-2023 07-15-2015 Episodic Comment on above: no history of htn watch salt and caffe ine BETTER Other lower respiratory disease (2 sources) Multiple nodules of lung; Translations: [Other nonspecific abnormal finding of lung field] 11-05-2023 Episodic Pneumonia (except that caused by tuberculosis or sexually transmitted disease) (20 sources) Pneumonia (except that caused by tuberculosis or sexually transmitted disease) Residual codes; unclassified (3 sources) Estrogen receptor positive status [ER+]; Translations: [Malignant neoplasm of upper-inner quadrant of left breast in female, estrogen receptor positive (HCC)] Onset: 09-15-2022 Episodic Residual codes; unclassified (20 sources) Family history of breast cancer; Translations: [Family history of malignant neoplasm of breast] Onset: 10-28-2022 10-28-2022 Episodic Residual codes; unclassified (2 sources) Family history of malignant neoplasm of breast; Translations: [Family history of malignant neoplasm of breast] Onset: 10-28-2022 Episodic Unclassified (20 sources) no past medical history Resolved: 08-23-2022 11-17-2006 Unclassified (20 sources) MDVI WELLNESS EXAM 12-21-2022 Unclassified (16 sources) Unspecified Diagnosis 07-04-2023 Unclassified (2 sources) Cancer of central portion of left breast (HCC) 03-26-2025 Results Test Name Value Interpretation Reference Range Facility Basic metabolic 2000 panelon 06-07-2025 Anion gap [Moles/Vol] 9 mmol/L Normal 8-15 [facility] Comment on above: Order Comment: Speci men Type: BLOOD SPECIMENOrdering Facility: [facility] Address: [address] [place] [address] Performed By: #### 2 4321-2 ####[facility] KENNETH MILLTOWNCLIA [id number] [place] [address] [place] Calcium [Mass/Vol] 9.8 mg/dL Normal 8.5-10.2 [facility] Comment on above: Order Comment: Speci men Type: BLOOD SPECIMENOrdering Facility: [facility] Address: [address] [place] [address] Performed By: #### 2 4321-2 ####[facility] KENNETH MILLTOWNCLIA [id number] [place] [address] [place] Chloride [Moles/Vol] 103 mmol/L Normal 98-107 [facility] Comment on above: Order Comment: Speci men Type: BLOOD SPECIMENOrdering Facility: [facility] Address: [address] [place] [address] Performed By: #### 2 4321-2 ####[facility] KENNETH MILLTOWNCLIA [id number] [place] [address] [place] CO2 [Moles/Vol] 28 mmol/L Normal 22-30 [facility] Comment on above: Order Comment: Speci men Type: BLOOD SPECIMENOrdering Facility: [facility] Address: [address] [place], [place] [address] Performed By: #### 2 4321-2 ####[facility] KENNETH MILLTOWNCLIA [id number] [place] [address] [place] Creatinine [Mass/Vol] 0.63 mg/dL Normal 0.58-0.96 [facility] Comment on above: Order Comment: Rachel cam Type: BLOOD SPECIMENOrdering Facility: [facility] Address: [address] [place] [address] Performed By: #### 2 4321-2 ####[facility] [id number] [place] [address] [place] eGFRcr SerPlBld CKD-EPI 2020 94 mL/min/1.73m??? Normal >=60 [facility] Comment on above: Order Comment: Rachel cam Type: BLOOD SPECIMENOrdering Facility: [facility] Address: [address] [place] [address] Result Comment: Sherry mated Glomerular Filtration Rate (eGFR) is calculated using the 2020 CKD-EPI creatinine equation. This equation utilizes serum creatinine, sex, and age as parameters. The creatinine assay has traceable calibration to isotope dilution-mass spectrometry. Refer to KDIGO guidelines for clinical interpretation. In patients with unstable renal function, e.g. those with acute kidney injury, the eGFR may not accurately reflect actual GFR. Performed By: #### 2 4321-2 ####[facility] [id number] [place] [address] [place] Glucose [Mass/Vol] 109 mg/dL High 74-99 [facility] Comment on above: Order Comment: Rachel cam Type: BLOOD SPECIMENOrdering Facility: [facility] Address: [address] [place] [address] Result Comment: The [place] Diabetes Association (ADA) provides guidance for cutoff values for fasting glucose and random glucose. The ADA defines fasting as no caloric intake for at least 8 hours. Fasting plasma glucose results between 100 to 125 mg/dL indicate increased risk for diabetes (prediabetes). Fasting plasma glucose results greater than or equal to 126 mg/dL meet the criteria for diagnosis of diabetes. In the absence of unequivocal hyperglycemia, results should be confirmed by repeat testing. In a patient with classic symptoms of hyperglycemia or hyperglycemic crisis, random plasma glucose results greater than or equal to 200 mg/dL meet the criteria for diagnosis of diabetes. Reference: Standards of Medical Care in Diabetes 2016, [place] Diabetes Association. Diabetes Care. 2016.39(Suppl 1). Performed By: #### 2 4321-2 ####[facility] TARANShardaNCZENAKale [id number] [place] [address] [place] Potassium [Moles/Vol] 5.0 mmol/L Normal 3.7-5.1 [facility] Comment on above: Order Comment: Rachel cam Type: BLOOD SPECIMENOrdering Facility: [facility] Address: [address] [place] [address] Performed By: #### 2 4321-2 ####[facility]OSPITALHERMINIAKale [id number] [place] [address] [place] Sodium [Moles/Vol] 140 mmol/L Normal 136-144 [facility] Comment on above: Order Comment: Rachel cam Type: BLOOD SPECIMENOrdering Facility: [facility] Address: [address] [place] [address] Performed By: #### 2 4321-2 ####[facility] [id number] [place] [address] [place] Urea nitrogen [Mass/Vol] 14 mg/dL Normal 7-21 [facility] Comment on above: Order Comment: Rachel cam Type: BLOOD SPECIMENOrdering Facility: [facility] Address: [address] [place] [address] Performed By: #### 2 4321-2 ####[facility] CENTERLIA [id number] [place] [address] [place] CNOVSPon 06-07-2025 CNOVSP Visit (SP) Office (HEMAWS) CEASAR PALACIOS ([id number]) 1955 F BEV Date Time Provider Department 06/07/25 9:00 AM LIZETTE IGLESIAS During your visit today, we recorded the following information about you: Temperature Pulse Blood pressure Weight 98.7 degrees 62/minute 132/76 55.7 kg Lizette Iglesias APRN.SISAL PICKER 06/07/2025 9:52 AM Signed Chief Complaint Patient presents with: Established Patient HPI: Ceasar Palacios is a 70 year old female who presents here today for follow up breast cancer. Per Dr. Saleh's previous note: H/o varicose veins. Patient underwent recent evaluation for palpable mass in the left breast. She appreciated a lump around 03/2022. A diagnostic mammogram at [facility] 07/15/2022 revealed heterogeneously dense breasts but with evidence of a 2.5 x 1.5 cm spiculated nodule in the slightly upper retroareolar region of the LEFT breast. There was also evidence of a 1.4 x 1 cm irregular nodule in the upper lateral aspect of the RIGHT breast. Ultrasound of the LEFT breast same day on 07/15/2022 revealed a 2 x 1.8 x 1.5 cm hypoechoic irregular solid mass at the 11 o'clock position 3 cm from the nipple in the left breast. There was also evidence of a 9 x 10 mm x 8 mm hypoechoic solid nodule at the 11 o'clock position in the LEFT breast. Patient underwent ultrasound-guided biopsy of the LEFT breast lesion along with clip placement on 08/04/[address] Mcwilliams here in the office. The lesion in the right breast was not able to be identified by ultrasound. Pathology: Invasive ductal carcinoma with micropapillary features, provisional Friona grade 2, measuring 7 mm in greatest dimension ER positive, 91 200%, strong staining intensity. HI positive, 91 to 100%, strong staining intensity HER2 2+ on IHC. HER2 (ERBB2) Status by FISH: Non amplified Patient returned to [facility] on 08/17 for an ultrasound of the RIGHT breast. That study identified a 2 x 2 x 0.8 cm heterogeneous solid mass at the 10 o'clock position 7 cm from the nipple in the right breast. This lesion was biopsied at that time. Clip was placed according to operative note by Dr. Mcwilliams. Pathology: Hyalinized fibroadenoma with focal intraductal hyperplasia without atypia. Focal microcalcification. Negative for malignancy. MRI breasts and subsequent b/l diagnostic mammogram and b/l US. Started on anastrozole piror to surgery due to travel delays. Tolerating well. Pathology: A. 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 - Margins are negative for carcinoma. - Biopsy site changes present. - Unremarkable nipple/areola complex. - Please see comment and synoptic report. B. [place] lymph node, left axillary, excision: - 1 lymph node, negative for carcinoma (0/1). C. [place] lymph node, left axillary, excision: - 3 lymph nodes, negative for carcinoma (0/3). Current therapy:Femara Previous therapy:arimidex Began February 2023. Stopped due to rash. Pt. here today with her daughter. No new concerns today. Pt. was in [place] for 2 months. Daughter not sure if she was taking her femara regularly while there. Appetite:"Good." Wt. down 6# since last visit. Energy level:"Ok." Denies fevers. Resp:denies cough or sob Cardiac:denies chest pain/palpitations GI:denies abd pain, n/v, moving bowels regularly :denies dysuria/hematuria Extrem:chronic R knee pain, denies new pain Endo:denies hot flashes Skin:denies new rash, followed by derm Heme:denies bleeding The ROS is otherwise negative. Past medical history, appointments, medications, allergies reviewed. No changes. EXAM: BP 132/76 Pulse 62 Temp 37.1 ?C (98.7 ?F) (Temporal) Wt 55.7 kg (122 lb 12.7 oz) SpO2 97% BMI 26.57 kg/m? APPEARANCE Well appearing, alert, in no acute distress, well-hydrated, well nourished. HEART RRR with normal S1 and S2, no murmurs LUNG clear to auscultation BREAST FEMALE R no mass/nodule, L mastectomy scar no nodule/skin changes LYMPH NODES No cervical lymphadenopathy, No supraclavicular lymphadenopathy, and No axillary lymphadenopathy. ABDOMEN bowel sounds normoactive, soft, non-tender EXTREMITIES No edema NEURO Awake, alert and oriented x 3, Normal gait, and No involuntary motions. SKIN Skin color, texture, turgor normal, no suspicious rashes or lesions LABS: BMP: Pending ASSESSMENT/PLAN: 1. Malignant neoplasm of upper-inner quadrant of left breast in female, estrogen receptor positive (HCC) - ICD9: 174.2, V86.0, ICD10: C50.212, Z17.0 (primary diagnosis) - No concerning findings on exam. - Tolerating femara well. - BMP pending. - Continue femara. - Continue follow up with PCP for routine care and for chronic R knee pain. - Continue zometa every 6 months with BMP for a total of 6 dos (more content not included)... Normal [facility] Chest without Contraston Chest without Contrast [facility] Imaging Services [address] [place] [address] [id number] Chest without Contrast MR#: [id number] Acct: [id number] Name: CEASAR PALACIOS Rep #: [id number] : 1955 F 70 From: Alexander fox MD PCP: Dr. Krystle Alford DO Status: REG CLI Study: Chest without Contrast Date of Exam: 05/21/25 Exam# [id number] Ordering Dr: Krystle Alford DO PROCEDURE: CHEST WITHOUT CONTRAST 05/21/2025 REASON FOR EXAM: LUNG NODULES Follow-up examination. TECHNIQUE: Chest CT without contrast. Coronal and Sagittal reconstruction series were provided. One or more dose reduction techniques were used (e.g., Automated exposure control, adjustment of the mA and/or kV according to patient size, use of iterative reconstruction technique RADIATION DOSE SUMMARY: CTDlvol: 7.24 mGy DLP: 224.24 mGycm COMPARISON: None FINDINGS: Hardware: None Lymph nodes: Small benign-appearing bilateral axillary lymph nodes. Small benign-appearing mediastinal lymph nodes. Heart and Vasculature: The heart is nonenlarged. Coronary Artery Calcifications: Present Lungs and Airways: No pulmonary nodule is seen. Pleura: No pleural effusion. Upper Abdomen: Unremarkable Bones: Degenerative changes of the thoracic spine. CT/Chest without Contrast IMPRESSION: Coronary artery calcification (CAC) is is present No acute abnormality is seen. Reading Location: [facility] CC: Dr. Krystle Alford DO Grinding And Polishing Laborer: Signed Normal [facility] Coronary Angiography CTon Coronary Angiography CT [facility] Imaging Services [address] [address] 05/21/251910 MR#: [id number] Acct: [id number] Name: CEASAR PALACIOS Rep #: [id number] : 1955 70 From: Marco Hdez MD PCP: Dr. Krystle Alford DO Status:REG REF Y Location: CT Calcium Scoring Date of Study:: 05/21/25 Indications Indications: Screening Coronary Calcium Scoring: High-resolution Computed Tomographic imaging of the chest was performed on [05/21/2025], with particular attention paid to the coronary arteries. Images from the examination were analyzed for the presence and extent of coronary artery calcification , using coronary calcium quantification software. The patient tolerated the procedure well and there were no complications. The results of the coronary calcification analysis are provided below. Findings Coronary Artery Left Main (LM): 47 Left Anterior Descending (LAD): 33.5 Left Circumflex (LCX): 0 Right Coronary Artery (RCA): 297 Total Agatston Score: 377.5 Percentile Rankinth to 90th percentile Calcium Scoring Interpretation: Different methods to categorize the overall amount of coronary plaque. Overall amount CAC SIS Visual of coronary plaque P1 Mild -100 <2 1-2 vessels with mild amount of plaque P2 Moderate 101-300 3-4 1-2 vessels with moderate amount, 3 vessels with mild amount of plaque P3 Severe 301-999 5-7 3 vessels with moderate amount, 1 vessel with severe amount of plaque P4 Extensive >1000 >8 2-3 vessels with severe amount of plaque Calcium Score: Severe: 3 vessels w/moderate amount, 1 vessel w/severe amt of plaque Conclusion: Significant single-vessel atherosclerotic calcification and mild one-vessel calcification 05/21/251911 Date Marco Hdez MD Cosigner Signature (if applicable): Date CC: Dr. Marco Hdez MD; Dr. Krystle Alford DO Signed Normal [facility] Limited Chest CT Cardiac Onl yon 05-21-[address] Cardiac Only [facility] Imaging Services [address] [place], [place] [address] Limited Chest CT Cardiac Only MR#: [id number] Acct: [id number] Name: CEASAR PALACIOS Rep #: [id number] : 1955 F 70 From: Alexander fox MD PCP: Dr. Krystle Alford DO Status: REG REF Study: Limited Chest CT Cardiac Only Date of Exam: Exam# [id number] Ordering Dr: Krystle Alford DO PROCEDURE: LIMITED CHEST CT CARDIAC ONLY 05/21/2025 REASON FOR EXAM: HYPERLIPIDEMIA TECHNIQUE: LIMITED CHEST CT CARDIAC ONLY CONTRAST: None One or more dose reduction techniques were used (e.g., Automated exposure control, adjustment of the mA and/or kV according to patient size, use of iterative reconstruction technique). RADIATION DOSE SUMMARY: CTDlvol: 12.19 mGy DLP: 219.42 mGycm COMPARISON: None FINDINGS: Atherosclerotic calcification of the aortic arch. Coronary artery calcification. The heart is nonenlarged. The lungs are clear. Left breast implant. CT/Limited Chest CT Cardiac Only IMPRESSION: Coronary artery calcification. Reading Location: [place] [address] CC: Dr. Krystle Alford DO Grinding And Polishing Laborer: Signed Normal [facility] LORENA SCREENING W TOMOon 01-22 LORENA SCREENING W JIL * * *Final Report* * * DATE OF EXAM: Jan 22 2025 8:55AM [id number] - LORENA SCREENING W JIL / PROCEDURE REASON: multiple diagnoses * * * * Physician Interpretation * * * * RESULT: [facility] [address] [place] [address] #[id number] - LORENA SCREENING W JIL HISTORY: 69 year-old patient seen for screening, and focal pain in the right breast. The patient has the following personal history of breast cancer: breast cancer in the left breast in 2022. COMPARISON STUDIES: The present examination has been compared to prior imaging studies dated 10/25/2022 (mammogram), 10/25/2022 (ultrasound), 11/17/2022 (mammogram) and 01/11/2024 (mammogram). MAMMOGRAM TECHNIQUE: The study was acquired using full field digital technology and interpreted from soft copy. Digital Breast Tomosynthesis (DBT) images were obtained and used to assist in the interpretation of this examination. MAMMOGRAM FINDINGS: There are scattered areas of fibroglandular density. Finding 1: There are post-operative changes from left mastectomy with tissue flap reconstruction. There are biopsy markers seen in the right breast. Finding 2: There are no suspicious mammographic findings to correspond with the focal pain in the right breast. IMPRESSION: Finding 1: Post-operative changes from left mastectomy with tissue flap reconstruction is benign. Finding 2: The focal pain in the right breast requires additional evaluation. Diagnostic ultrasound is recommended. BI-RADS Category 0: Incomplete: Needs Additional Imaging Evaluation RISK: Due to the reported patient's history, the patient's estimated lifetime risk of developing breast cancer cannot be assessed at this time. We encourage all patients to talk with their providers about their risk assessment, further recommendations for managing breast health, and appropriate supplemental screening options if the patient has dense breast tissue. Interpreting Radiologist: Aman Metcalf M.D. Electronically signed on: 01/23/2025 Grinding And Polishing Laborer: BHARGAVI Transcribe Date/Time: Jan 22 2025 8:27A Dictated by: AMAN METCALF MD This examination was interpreted and the report reviewed and electronically signed by: AMAN METCALF MD on Jan 23 2025 9:20AM EST [id number] Normal [facility] Basic metabolic 2000 panelon 12-19-2024 Anion gap [Moles/Vol] 9 mmol/L Normal 8-15 [facility] Comment on above: Order Comment: Speci men Type: BLOOD SPECIMENOrdering Facility: [facility] Address: [address] [place] [address] Performed By: #### 2 4321-2 ####[facility] DIONICIOA [id number] [place] [address] [place] Calcium [Mass/Vol] 9.5 mg/dL Normal 8.5-10.2 [facility] Comment on above: Order Comment: Speci men Type: BLOOD SPECIMENOrdering Facility: [facility] Address: [address] [place] [address] Performed By: #### 2 4321-2 ####[facility]ITALNCLIA [id number] [place] [address] [place] Chloride [Moles/Vol] 102 mmol/L Normal 98-107 [facility] Comment on above: Order Comment: Speci men Type: BLOOD SPECIMENOrdering Facility: [facility] Address: [address] [place] [address] Performed By: #### 2 4321-2 ####[facility] [id number] [place] [address] [place] CO2 [Moles/Vol] 24 mmol/L Normal 22-30 [facility] Comment on above: Order Comment: Speci men Type: BLOOD SPECIMENOrdering Facility: [facility] Address: [address] [place] [address] Performed By: #### 2 4321-2 ####[facility]ITALNCLIA [id number] [place] [address] [place] Creatinine [Mass/Vol] 0.56 mg/dL Low 0.58-0.96 [facility] Comment on above: Order Comment: Speci men Type: BLOOD SPECIMENOrdering Facility: [facility] Address: [address] [place] [address] Performed By: #### 2 4321-2 ####[facility]ITALNCDAV[facility] [id number] [place] [address] [place] Creatinine and Glomerular filtration rate.predicted panel (S/P/Bld) 98 mL/min/1.73m??? Normal >=60 [facility] Comment on above: Order Comment: Rachel cam Type: BLOOD SPECIMENOrdering Facility: [facility] Address: [address] [place] [address] Result Comment: Sherry mated Glomerular Filtration Rate (eGFR) is calculated using the 2020 CKD-EPI creatinine equation. This equation utilizes serum creatinine, sex, and age as parameters. The creatinine assay has traceable calibration to isotope dilution-mass spectrometry. Refer to KDIGO guidelines for clinical interpretation. In patients with unstable renal function, e.g. those with acute kidney injury, the eGFR may not accurately reflect actual GFR. Performed By: #### 2 4321-2 ####[facility] [id number] [place] [address] [place] Glucose [Mass/Vol] 121 mg/dL High 74-99 [facility] Comment on above: Order Comment: Rachel cam Type: BLOOD SPECIMENOrdering Facility: [facility] Address: [address] [place] [address] Result Comment: The [place] Diabetes Association (ADA) provides guidance for cutoff values for fasting glucose and random glucose. The ADA defines fasting as no caloric intake for at least 8 hours. Fasting plasma glucose results between 100 to 125 mg/dL indicate increased risk for diabetes (prediabetes). Fasting plasma glucose results greater than or equal to 126 mg/dL meet the criteria for diagnosis of diabetes. In the absence of unequivocal hyperglycemia, results should be confirmed by repeat testing. In a patient with classic symptoms of hyperglycemia or hyperglycemic crisis, random plasma glucose results greater than or equal to 200 mg/dL meet the criteria for diagnosis of diabetes. Reference: Standards of Medical Care in Diabetes 2016, [place] Diabetes Association. Diabetes Care. 2016.39(Suppl 1). Performed By: #### 2 4321-2 ####[facility] [id number] [place] [address] [place] Potassium [Moles/Vol] 4.1 mmol/L Normal 3.7-5.1 [facility] Comment on above: Order Comment: Speci men Type: BLOOD SPECIMENOrdering Facility: [facility] Address: [address] [place] [address] Performed By: #### 2 4321-2 ####[facility]ENTERLI [id number] [place] [address] [place] Sodium [Moles/Vol] 135 mmol/L Low 136-144 [facility] Comment on above: Order Comment: Speci men Type: BLOOD SPECIMENOrdering Facility: [facility] Address: [address] [place] [address] Performed By: #### 2 4321-2 ####[facility] HOSPITALNCLIKale [id number] [place] [address] [place] Urea nitrogen [Mass/Vol] 9 mg/dL Normal 7-21 [facility] Comment on above: Order Comment: Speci men Type: BLOOD SPECIMENOrdering Facility: [facility] Address: [address] [place] [address] Performed By: #### 2 4321-2 ####[facility]ITALNCLIA [id number] [place] [address] [place] CNOVSPon 12-19-2024 CNOVSP Visit (SP) Office (BREANN) CEASAR PALACIOS ([id number]) 1955 [facility] Date Time Provider Department 12/19/24 11:00 LIZETTE LINDSEY During your visit today, we recorded the following information about you: Temperature Pulse Blood pressure Weight 97.4 degrees 66/minute 147/87 58.4 kg Lizette Iglesias APRN.CNP 12/19/2024 12:30 PM Signed Chief Complaint Patient presents with: Established Patient HPI: Ceasar Palacios is a 69 year old female who presents here today for follow up breast cancer. Per Dr. Saleh's previous note: H/o varicose veins. Patient underwent recent evaluation for palpable mass in the left breast. She appreciated a lump around 03/2022. A diagnostic mammogram at [facility] 07/15/2022 revealed heterogeneously dense breasts but with evidence of a 2.5 x 1.5 cm spiculated nodule in the slightly upper retroareolar region of the LEFT breast. There was also evidence of a 1.4 x 1 cm irregular nodule in the upper lateral aspect of the RIGHT breast. Ultrasound of the LEFT breast same day on 07/15/2022 revealed a 2 x 1.8 x 1.5 cm hypoechoic irregular solid mass at the 11 o'clock position 3 cm from the nipple in the left breast. There was also evidence of a 9 x 10 mm x 8 mm hypoechoic solid nodule at the 11 o'clock position in the LEFT breast. Patient underwent ultrasound-guided biopsy of the LEFT breast lesion along with clip placement on 08/04/[address] Mcwilliams here in the office. The lesion in the right breast was not able to be identified by ultrasound. Pathology: Invasive ductal carcinoma with micropapillary features, provisional Dolores grade 2, measuring 7 mm in greatest dimension ER positive, 91 200%, strong staining intensity. HI positive, 91 to 100%, strong staining intensity HER2 2+ on IHC. HER2 (ERBB2) Status by FISH: Non amplified Patient returned to [facility] on 08/17 for an ultrasound of the RIGHT breast. That study identified a 2 x 2 x 0.8 cm heterogeneous solid mass at the 10 o'clock position 7 cm from the nipple in the right breast. This lesion was biopsied at that time. Clip was placed according to operative note by Dr. Mcwilliams. Pathology: Hyalinized fibroadenoma with focal intraductal hyperplasia without atypia. Focal microcalcification. Negative for malignancy. MRI breasts and subsequent b/l diagnostic mammogram and b/l US. Started on anastrozole piror to surgery due to travel delays. Tolerating well. Pathology: A. 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 - Margins are negative for carcinoma. - Biopsy site changes present. - Unremarkable nipple/areola complex. - Please see comment and synoptic report. B. [place] lymph node, left axillary, excision: - 1 lymph node, negative for carcinoma (0/1). C. [place] lymph node, left axillary, excision: - 3 lymph nodes, negative for carcinoma (0/3). Current therapy:Femara Previous therapy:arimidex Began February 2023. Stopped due to rash. Pt. here today with her grandson. No new concerns today. Appetite:"Good." Wt. stable. Energy level:"Ok." Denies fevers. Resp:denies cough or sob Cardiac:denies chest pain/palpitations GI:denies abd pain, n/v, moving bowels regularly :denies dysuria/hematuria Extrem:chronic R knee pain, denies new pain Endo:denies hot flashes Skin:denies new rash Heme:denies bleeding The ROS is otherwise negative. Past medical history, appointments, medications, allergies reviewed. No changes. EXAM: BP 147/87 Pulse 66 Temp 36.3 ?C (97.4 ?F) Wt 58.4 kg (128 lb 12 oz) SpO2 97% BMI 27.86 kg/m? APPEARANCE Well appearing, alert, in no acute distress, well-hydrated, well nourished. HEART RRR with normal S1 and S2, no murmurs LUNG clear to auscultation BREAST FEMALE R no mass/nodule, L mastectomy scar no nodule LYMPH NODES No cervical lymphadenopathy, No supraclavicular lymphadenopathy, and No axillary lymphadenopathy. ABDOMEN bowel sounds normoactive, soft, non-tender EXTREMITIES No edema NEURO Awake, alert and oriented x 3, Normal gait, and No involuntary motions. SKIN Skin color, texture, turgor normal, no suspicious rashes or lesions LABS: Pending ASSESSMENT/PLAN: 1. Malignant neoplasm of upper-inner quadrant of left breast in female, estrogen receptor positive (HCC) - ICD9: 174.2, V86.0, ICD10: C50.212, Z17.0 - No concerning findings on exam. - Tolerating femara well. - BMP pending. - Continue femara. Rx sent. - Continue follow up with PCP for routine care and for chronic R knee pain. - Continue zometa every 6 months with BMP for a total of 6 doses. - Proceed with #4 zometa today-pending today's BMP. - R mammogram due next month. - Follow up as scheduled otherwise. - Pt. aware to call office with any questions/concerns. (more content not included)... Normal [facility] VINEET AB WITH REFLEXon 025 VINEET AB Screen Negative Invalid Interpretation Code Negative [facility] Comment on above: Order Comment: TEST METHOD: Indirect fluorescent antibody technique for qualitative and semi-quantitative detection of circulating antinuclear antibodies in human sera using HEp-2000 cells. Release to patient->Automatic COMPLETE BLOOD COUNT WITH DI FFERENTIALon 11-28-2024 Basophil \\P\\ 0.03 10E3/???L Invalid Interpretation Code 0.02-0.06 [facility] Comment on above: Order Comment: Has t he specimen been drawn from a line flushed with Heparin?->No Release to patient->Automatic Basophils/100 WBC (Bld) 0.6 % Invalid Interpretation Code 0.3-0.9 [facility] Comment on above: Order Comment: Has t he specimen been drawn from a line flushed with Heparin?->No Release to patient->Automatic Eosinophil \\P\\ 0.22 10E3/???L Invalid Interpretation Code 0.04-0.27 [facility] Comment on above: Order Comment: Has t he specimen been drawn from a line flushed with Heparin?->No Release to patient->Automatic Eosinophils/100 WBC (Bld) 4.5 % High 0.6-3.8 [facility] Comment on above: Order Comment: Has t he specimen been drawn from a line flushed with Heparin?->No Release to patient->Automatic Erythrocyte distribution width (RBC) [Ratio] 12.7 % Invalid Interpretation Code 11.9-14.8 [facility] Comment on above: Order Comment: Has t he specimen been drawn from a line flushed with Heparin?->No Release to patient->Automatic Hematocrit (Bld) [Volume fraction] 39.9 % Invalid Interpretation Code 35.5-44.6 [facility] Comment on above: Order Comment: Has t he specimen been drawn from a line flushed with Heparin?->No Release to patient->Automatic Hemoglobin (Bld) [Mass/Vol] 13.6 g/dL Invalid Interpretation Code 11.4-14.8 [facility] Comment on above: Order Comment: Has t he specimen been drawn from a line flushed with Heparin?->No Release to patient->Automatic Immature granulocytes/100 WBC (Bld) 0.2 % Invalid Interpretation Code 0.2-0.5 [facility] Comment on above: Order Comment: Has t he specimen been drawn from a line flushed with Heparin?->No Release to patient->Automatic Result Comment: Harriet ture Granulocyte Percent includes promyelocytes, myelocytes,and metamyelocytes. IG% > 1.0 indicates a left shift is present. With automated differentials, bands are included in the neutrophil count and not in the Immature Granulocyte Percent. Lymphocyte \\P\\ 2.74 10E3/???L Invalid Interpretation Code 1.51-2.99 [facility] Comment on above: Order Comment: Has t he specimen been drawn from a line flushed with Heparin?->No Release to patient->Automatic Lymphocytes/100 WBC (Bld) 56.4 % High 21.8-42.1 [facility] Comment on above: Order Comment: Has t he specimen been drawn from a line flushed with Heparin?->No Release to patient->Automatic MCH (RBC) [Entitic mass] 28.8 pg Invalid Interpretation Code 25.7-31.2 [facility] Comment on above: Order Comment: Has t he specimen been drawn from a line flushed with Heparin?->No Release to patient->Automatic MCHC 34.1 % High 31.3-34.0 [facility] Comment on above: Order Comment: Has t he specimen been drawn from a line flushed with Heparin?->No Release to patient->Automatic MCV (RBC) [Entitic vol] 84.5 fL Invalid Interpretation Code 80.7-93.7 [facility] Comment on above: Order Comment: Has t he specimen been drawn from a line flushed with Heparin?->No Release to patient->Automatic Monocyte \\P\\ 0.34 10E3/???L Low 0.36-0.77 [facility] Comment on above: Order Comment: Has t he specimen been drawn from a line flushed with Heparin?->No Release to patient->Automatic Monocytes/100 WBC (Bld) 7.0 % Invalid Interpretation Code 5.6-10.2 [facility] Comment on above: Order Comment: Has t he specimen been drawn from a line flushed with Heparin?->No Release to patient->Automatic Neutrophil \\P\\ 1.52 10E3/???L Low 2.43-6.42 [facility] Comment on above: Order Comment: Has t he specimen been drawn from a line flushed with Heparin?->No Release to patient->Automatic Neutrophils/100 WBC (Bld) 31.3 % Low 46.0-68.6 [facility] Comment on above: Order Comment: Has t he specimen been drawn from a line flushed with Heparin?->No Release to patient->Automatic Nucleated RBC/100 WBC (Bld) [Ratio] 0.0 % Invalid Interpretation Code 0.0-0.0 [facility] Comment on above: Order Comment: Has t he specimen been drawn from a line flushed with Heparin?->No Release to patient->Automatic Platelet mean volume (Bld) [Entitic vol] 10.4 fL Invalid Interpretation Code 9.6-11.9 [facility] Comment on above: Order Comment: Has t he specimen been drawn from a line flushed with Heparin?->No Release to patient->Automatic Platelets 144 10E3/???L Low 150-400 [facility] Comment on above: Order Comment: Has t he specimen been drawn from a line flushed with Heparin?->No Release to patient->Automatic RBC 4.72 10E6/???L Invalid Interpretation Code 4.03-4.91 [facility] Comment on above: Order Comment: Has t he specimen been drawn from a line flushed with Heparin?->No Release to patient->Automatic WBC 4.9 10E3/???L Invalid Interpretation Code 4.9-10.0 [facility] Comment on above: Order Comment: Has t he specimen been drawn from a line flushed with Heparin?->No Release to patient->Automatic COMPREHENSIVE METABOLIC PANE Carl 11-28-2024 Albumin [Mass/Vol] 4.2 g/dL Invalid Interpretation Code 3.4-4.8 [facility] Comment on above: Order Comment: Relea se to patient->Automatic ALP [Catalytic activity/Vol] 49 U/L Invalid Interpretation Code 35-104 [facility] Comment on above: Order Comment: Relea se to patient->Automatic ALT [Catalytic activity/Vol] 24 U/L Invalid Interpretation Code <=34 [facility] Comment on above: Order Comment: Relea se to patient->Automatic AST [Catalytic activity/Vol] 30 U/L Invalid Interpretation Code <=31 [facility] Comment on above: Order Comment: Relea se to patient->Automatic BILI,TOTAL 0.4 mg/dL Invalid Interpretation Code <=1.0 [facility] Comment on above: Order Comment: Relea se to patient->Automatic Calcium [Mass/Vol] 9.3 mg/dL Invalid Interpretation Code 7.6-11.0 [facility] Comment on above: Order Comment: Relea se to patient->Automatic Chloride [Moles/Vol] 105 mmol/L Invalid Interpretation Code 96-108 [facility] Comment on above: Order Comment: Relea se to patient->Automatic CO2 [Moles/Vol] 23.6 mmol/L Invalid Interpretation Code 22.0-29.0 [facility] Comment on above: Order Comment: Relea se to patient->Automatic Creatinine [Mass/Vol] 0.58 mg/dL Invalid Interpretation Code 0.50-1.00 [facility] Comment on above: Order Comment: Relea se to patient->Automatic GFR/1.73 sq M.predicted among non-blacks MDRD (S/P/Bld) [Vol rate/Area] mL/min/{1.73_m2} Invalid Interpretation Code >=60 [facility] Comment on above: Order Comment: Relea se to patient->Automatic Glucose [Mass/Vol] 99 mg/dL Invalid Interpretation Code 70-99 [facility] Comment on above: Order Comment: Relea se to patient->Automatic Result Comment: Preet myles for Diagnosis of Diabetes: Fasting Specimen (no caloric intake for at least 8 hours): <100 mg/dL Normal 100-125 mg/dL Increased risk for Diabetes >125 mg/dL Diagnostic for Diabetes Random Glucose (any time of day without regard to last meal): > or = 200 mg/dL plus Classic Symptoms of Diabetes Potassium [Moles/Vol] 4.1 mmol/L Invalid Interpretation Code 3.3-5.1 [facility] Comment on above: Order Comment: Relea se to patient->Automatic Protein [Mass/Vol] 6.9 g/dL Invalid Interpretation Code 5.9-8.4 [facility] Comment on above: Order Comment: Relea se to patient->Automatic Sodium [Moles/Vol] 139 mmol/L Invalid Interpretation Code 133-145 [facility] Comment on above: Order Comment: Relea se to patient->Automatic Urea nitrogen [Mass/Vol] 14 mg/dL Invalid Interpretation Code 4-19 [facility] Comment on above: Order Comment: Relea se to patient->Automatic Complete Blood Count with Di fferentialOrdered By: Monique Gardner on 11-28-2024 Basophils (Bld) [#/Vol] 0.03 10*3/uL [facility] Basophils/100 WBC (Bld) 0.6 % 0.3 - 0.9 % [facility] Eosinophils (Bld) [#/Vol] 0.22 10*3/uL [facility] Eosinophils/100 WBC (Bld) 4.5 % High 0.6 - 3.8 % [facility] Erythrocyte distribution width (RBC) [Ratio] 12.7 % 11.9 - 14.8 % [facility] Hematocrit (Bld) [Volume fraction] 39.9 % 35.5 - 44.6 % [facility] Hemoglobin (Bld) [Mass/Vol] 13.6 g/dL 11.4 - 14.8 g/dL [facility] Immature granulocytes/100 WBC (Bld) 0.2 % 0.2 - 0.5 % [facility] Comment on above: Immature Granulocyte Percent includes promyelocytes, myelocytes,and metamyelocytes. IG% > 1.0 indicates a left shift is present. With automated differentials, bands are included in the neutrophil count and not in the Immature Granulocyte Percent. Interpretation and review of laboratory results Abnormal [facility] Lymphocytes (Bld) [#/Vol] 2.74 10*3/uL [facility] Lymphocytes/100 WBC (Bld) 56.4 % High 21.8 - 42.1 % [facility] MCH (RBC) [Entitic mass] 28.8 pg 25.7 - 31.2 pg [facility] MCHC (RBC) [Mass/Vol] 34.1 % High 31.3 - 34.0 % [facility] MCV (RBC) [Entitic vol] 84.5 fL 80.7 - 93.7 fL [facility] Monocytes (Bld) [#/Vol] 0.34 10*3/uL Low [facility] Monocytes/100 WBC (Bld) 7 % 5.6 - 10.2 % [facility] Neutrophils (Bld) [#/Vol] 1.52 10*3/uL Low [facility] Neutrophils/100 WBC (Bld) 31.3 % Low 46.0 - 68.6 % [facility] Nucleated RBC/100 WBC (Bld) [Ratio] 0 % 0.0 - 0.0 % [facility] Platelet mean volume (Bld) [Entitic vol] 10.4 fL 9.6 - 11.9 fL [facility] Platelets (Bld) [#/Vol] 144 10*3/uL Low [facility] RBC (Bld) [#/Vol] 4.72 10*6/uL [facility] WBC (Bld) [#/Vol] 4.9 10*3/uL [facility] Comprehensive metabolic pane lOrdered By: Background Lab on 11-28-2024 Albumin BCG dye [Mass/Vol] 4.2 g/dL 3.4 - 4.8 g/dL [facility] ALP [Catalytic activity/Vol] 49 U/L 35 - 104 U/L [facility] ALT With P-5'-P [Catalytic activity/Vol] 24 U/L BANNER - 34 U/L [facility] AST With P-5'-P [Catalytic activity/Vol] 30 U/L [place]ANNER - 31 U/L [facility] Bilirubin [Mass/Vol] 0.4 mg/dL NINF - 1.0 mg/dL [facility] Calcium [Mass/Vol] 9.3 mg/dL 7.6 - 11. 0 mg/dL [facility] Chloride [Moles/Vol] 105 mmol/L 96 - 10 8 mmol/L [facility] Creatinine [Mass/Vol] 0.58 mg/dL 0.50 - 1.00 mg/dL [facility] eGFR - PINF [facility] Glucose [Mass/Vol] 99 mg/dL 70 - 99 mg/dL [facility] Comment on above: Criteria for Diagnos is of Diabetes: Fasting Specimen (no caloric intake for at least 8 hours): <100 mg/dL Normal 100-125 mg/dL Increased risk for Diabetes >125 mg/dL Diagnostic for Diabetes Random Glucose (any time of day without regard to last meal): > or = 200 mg/dL plus Classic Symptoms of Diabetes HCO3 (P) [Moles/Vol] 23.6 mmol/L 22.0 - 29.0 mmol/L [facility] Potassium (BldA) [Moles/Vol] 4.1 mmol/L 3.3 - 5.1 mmol/L [facility] Protein [Mass/Vol] 6.9 g/dL 5.9 - 8.4 g/dL [facility] Sodium [Moles/Vol] 139 mmol/L 133 - 145 mmol/L [facility] Urea nitrogen [Mass/Vol] 14 mg/dL 4 - 19 mg/dL [facility] MISCELLANEOUS SENDOUTon 11-28-2024 Interface Scan Result SEE COMMENTS Invalid Interpretation Code [facility] Comment on above: Order Comment: [place]' s Test ID and Test Name:->STRNG Reason for preventing automatic release->Other Release to patient->Manual release only Result Comment: Test Result Flag Unit RefValue ------- Strongyloides Ab, IgG, S Negative Negative No detectable levels of IgG antibodies to Strongyloides. Repeat testing in 1-2 weeks if clinically indicated. Test Performed by: [facility] [address] [place] [address] Oil Pipe Inspector: Jayne Wood Ph.D.; CLIA# [id number] No Panel InformationOrdered By: Background Lab on 11-28-2024 Interpretation and review of laboratory results Normal [facility] PROTEIN ELECTROPHORESIS, SER UMon 11-28-2024 Flag, M-protein Isotype Negative Invalid Interpretation Code Negative [facility] Comment on above: Order Comment: Relea se to patient->Automatic Glycosylation DNR Invalid Interpretation Code [facility] Comment on above: Order Comment: Relea se to patient->Automatic Immunoglobulin A (IgA) 164 mg/dL Invalid Interpretation Code 61 356 [facility] Comment on above: Order Comment: Relea se to patient->Automatic Immunoglobulin G (IgG) 1020 mg/dL Invalid Interpretation Code 507 - 4520 [facility] Comment on above: Order Comment: Relea se to patient->Automatic Immunoglobulin M (IgM) 43 mg/dL Invalid Interpretation Code 37 - 710 [facility] Comment on above: Order Comment: Relea se to patient->Automatic M-protein AK DNR Invalid Interpretation Code [facility] Comment on above: Order Comment: Relea se to patient->Automatic M-protein AL DNR Invalid Interpretation Code [facility] Comment on above: Order Comment: Relea se to patient->Automatic M-protein GK DNR Invalid Interpretation Code [facility] Comment on above: Order Comment: Relea se to patient->Automatic M-protein GL DNR Invalid Interpretation Code [facility] Comment on above: Order Comment: Relea se to patient->Automatic M-protein MK DNR Invalid Interpretation Code [facility] Comment on above: Order Comment: Mariza bradley to patient->Automatic M-protein ML DNR Invalid Interpretation Code [facility] Comment on above: Order Comment: [place] to patient->Automatic QMPTS Interpretation SEE COMMENTS Invalid Interpretation Code [facility] Comment on above: Order Comment: [place] se to patient->Automatic Result Comment: RESU LT: No monoclonal protein detected. ADDITIONAL INFORMATION The submitted sample was assayed by five separate immunopurifications for IgG, IgA, IgM, kappa and lambda. The result reflects the findings of either no monoclonal protein detected or those monoclonal immunoglobulins that were detected. This test was developed and its performance characteristics determined by [facility] in a manner consistent with CLIA requirements. This test has not been cleared or approved by the U.S. Food and Drug Administration. Therapeutic Antibody Administered? Unknown Invalid Interpretation Code [facility] Comment on above: Order Comment: Mariza bradley to patient->Automatic Result Comment: Test Performed by: [facility] [address] [place] [address] Oil Pipe Inspector: Jayne Wood Ph.D.; CLIA# [id number] [facility] 11-28-2024 TSH Qn 1.51 m[IU]/L [facility] TSH 1.510 ???IU/mL Invalid Interpretation Code 0.300-4.200 [facility] Comment on above: Order Comment: Mariza bradley to patient->Automatic CNPNon 11-16-2024 NADIAN Telephone (SHANE) CEASAR PALACIOS ([id number]) 1955 F BEV Date Time Provider Department 11/16/24 JORDAN DELATORRE During your visit today, we recorded the following information about you: Jordan Delatorre APRN.NADIA 11/16/2024 12:04 PM Signed Actionable Finding Follow up Patient Name: Ceasar Palacios eMRN: [id number] : 1955 Patient Preferred PCP: Krystle Alford, DO 12/21/2024 in LAB [facility] with LAB [facility] - (SO)BMP(S)* 12/21/2024 in [facility] with LIZETTE IGLESIAS - OV/LAB EARLY/ZOMETA TODAY* [facility] - pt requested date/time, 2nd, Q6MO ZOMETA/LABANDOV EARLY/AUTH EXP 05/16/25* Situation: Date of Actionable Finding Scan: 01/04/2024 Type of Imaging: CT chest Actionable Finding(s): Multiple subcentimeter groundglass nodules are unchanged" Radiologist recommendation: Consider additional follow-up in 6 to 12 months Chart review summarized: Breast cancer diagnosis No imaging ordered Outreach attempts for Actionable Finding: MYC user active Outcome: Per our protocol, this Actionable Finding is Closed based on the Final Criterion : Added to Lung Nodule High Priority List [phone] Caesar Palacios 8 mm groundglass AW Cancer diagnosis Jordan Delatorre APRN.NADIA Actionable Findings Diagnostic [place] Office: [phone] Allergies As of Date: 11/16/2024 (No Known Allergies) Date Reviewed: 06/28/2024 Reviewed by: Charu Tello, YIMI - Fully Assessed Prescriptions as of 11/16/2024 - letrozole (FEMARA) 2.5 mg tablet Take 1 tablet by mouth once daily. - cholecalciferol (VITAMIN D-3) 5,000 unit tab Take 5,000 Units by mouth once daily. - omeprazole (PRILOSEC) 20 mg capsule Take 20 mg by mouth once daily. - glucosamine HCl/chondroitin grover (GLUCOSAMINE-CHONDROI TIN ORAL) Take 1 tablet by mouth once daily. - Calcium-Cholecalcifer ol, D3, 500 mg-10 mcg (400 unit) per tablet Take 1 tablet by mouth once daily. Problem List As Of Date 11/16/2024 Noted Resolved Cancer of central portion of left breast (HCC) *10/28/2022 Abnormal finding on breast imaging [R92.8] 10/28/2022 Family history of breast cancer [Z80.3] 10/28/2022 Elevated blood-pressure reading without diagnos*01/03/2023 Gastroesophageal reflux disease [K21.9] 01/03/2023 LAMINE (obstructive sleep apnea) [G47.33] 01/03/2023 Preop testing [Z01.818] 01/03/2023 Breast cancer, female (HCC) [C50.919] 01/10/2023 Encounter Status:Closed by JORDAN DELATORRE on 11/16/24 [facility] Gold 10-30-2024 VLADIMIR Telephone (BREANN) CEASAR PALACIOS ([id number]) 1955 [facility] Time Provider Department 10/30/24 LIZETTE IGLESIAS During your visit today, we recorded the following information about you: Lizette Iglesias APRN.SISAL PICKER 10/30/2024 12:48 PM Signed Please see my chart request. This needs to be addressed by PCP. Thank you. Lizette Iglesias APRN.Monika Davidson LPN 10/30/2024 1:16 PM Signed Spoke with pts. Daughter informed a referral for colonoscopy, which was requested on my chart message needs to come from her PCP. Daughter voiced understanding. Monika Churchill LPN Allergies As of Date: 10/30/2024 (No Known Allergies) Date Reviewed: 06/28/2024 Reviewed by: Charu Tello, RN - Fully Assessed Prescriptions as of 10/30/2024 - letrozole (FEMARA) 2.5 mg tablet Take 1 tablet by mouth once daily. - cholecalciferol (VITAMIN D-3) 5,000 unit tab Take 5,000 Units by mouth once daily. - omeprazole (PRILOSEC) 20 mg capsule Take 20 mg by mouth once daily. - glucosamine HCl/chondroitin grover (GLUCOSAMINE-CHONDROI TIN ORAL) Take 1 tablet by mouth once daily. - Calcium-Cholecalcifer ol, D3, 500 mg-10 mcg (400 unit) per tablet Take 1 tablet by mouth once daily. Problem List As Of Date 10/30/2024 Noted Resolved Cancer of central portion of left breast (HCC) *10/28/2022 Abnormal finding on breast imaging [R92.8] 10/28/2022 Family history of breast cancer [Z80.3] 10/28/2022 Elevated blood-pressure reading without diagnos*01/03/2023 Gastroesophageal reflux disease [K21.9] 01/03/2023 LAMINE (obstructive sleep apnea) [G47.33] 01/03/2023 Preop testing [Z01.818] 01/03/2023 Breast cancer, female (HCC) [C50.919] 01/10/2023 Encounter Status:Closed by MONIKA CHURCHILL on 10/30/24 Normal [facility] Basic metabolic 2000 panelon 06-28-2024 Anion gap [Moles/Vol] 11 mmol/L Normal 8-15 [facility] Comment on above: Order Comment: Speci men Type: BLOOD SPECIMENOrdering Facility: [facility] Address: [address] [place] [address] Performed By: #### 2 4321-2 ####[facility] [id number] [place] [address] [place] Calcium [Mass/Vol] 9.2 mg/dL Normal 8.5-10.2 [facility] Comment on above: Order Comment: Speci men Type: BLOOD SPECIMENOrdering Facility: [facility] Address: [address] [place] [address] Performed By: #### 2 4321-2 ####[facility]ITALNCPIPE [id number] [place] [address] [place] Chloride [Moles/Vol] 101 mmol/L Normal 98-107 [facility] Comment on above: Order Comment: Speci men Type: BLOOD SPECIMENOrdering Facility: [facility] Address: [address] [place] [address] Performed By: #### 2 4321-2 ####[facility] [id number] [place] [address] [place] CO2 [Moles/Vol] 24 mmol/L Normal 22-30 [facility] Comment on above: Order Comment: Speci men Type: BLOOD SPECIMENOrdering Facility: [facility] Address: [address] [place] [address] Performed By: #### 2 4321-2 ####[facility] [id number] [place] [address] [place] Creatinine [Mass/Vol] 0.58 mg/dL Normal 0.58-0.96 [facility] Comment on above: Order Comment: Speci men Type: BLOOD SPECIMENOrdering Facility: [facility] Address: [address] [place] [address] Performed By: #### 2 4321-2 ####[facility] [id number] [place] [address] [facility] Creatinine and Glomerular filtration rate.predicted panel (S/P/Bld) 97 mL/min/1.73m??? Normal >=60 [facility] Comment on above: Order Comment: Speci men Type: BLOOD SPECIMENOrdering Facility: [facility] Address: [address] [place] [address] Result Comment: Sherry mated Glomerular Filtration Rate (eGFR) is calculated using the 2020 CKD-EPI creatinine equation. This equation utilizes serum creatinine, sex, and age as parameters. The creatinine assay has traceable calibration to isotope dilution-mass spectrometry. Refer to KDIGO guidelines for clinical interpretation. In patients with unstable renal function, e.g. those with acute kidney injury, the eGFR may not accurately reflect actual GFR. Performed By: #### 2 4321-2 ####[facility] TARANWNCLIA [id number] [place] [id number] [place] Glucose [Mass/Vol] 103 mg/dL High 74-99 [facility] Comment on above: Order Comment: Speci men Type: BLOOD SPECIMENOrdering Facility: [facility] Address: [address] [place] [address] Result Comment: The Citizen Of [place] Diabetes Association (ADA) provides guidance for cutoff values for fasting glucose and random glucose. The ADA defines fasting as no caloric intake for at least 8 hours. Fasting plasma glucose results between 100 to 125 mg/dL indicate increased risk for diabetes (prediabetes). Fasting plasma glucose results greater than or equal to 126 mg/dL meet the criteria for diagnosis of diabetes. In the absence of unequivocal hyperglycemia, results should be confirmed by repeat testing. In a patient with classic symptoms of hyperglycemia or hyperglycemic crisis, random plasma glucose results greater than or equal to 200 mg/dL meet the criteria for diagnosis of diabetes. Reference: Standards of Medical Care in Diabetes 2016, Citizen Of [place] Diabetes Association. Diabetes Care. 2016.39(Suppl 1). Performed By: #### 2 4321-2 ####[facility] [id number] [place] [address] [place] Potassium [Moles/Vol] 3.8 mmol/L Normal 3.7-5.1 [facility] Comment on above: Order Comment: Speci men Type: BLOOD SPECIMENOrdering Facility: [facility] Address: [address] [place] [address] Performed By: #### 2 4321-2 ####[facility] [id number] [place] [address] [place] Sodium [Moles/Vol] 136 mmol/L Normal 136-144 [facility] Comment on above: Order Comment: Speci men Type: BLOOD SPECIMENOrdering Facility: [facility] Address: [address] [place], [place] [id number] Performed By: #### 2 4321-2 ####[facility] TARANTOWNCLIA [id number] [address] [place] Urea nitrogen [Mass/Vol] 15 mg/dL Normal 7-21 [facility] Comment on above: Order Comment: Speci men Type: BLOOD SPECIMENOrdering Facility: [facility] Address: [facility] [place] [address] Performed By: #### 2 4321-2 ####[facility] TARANWNCLIA [id number] [place], [place] [id number] [place] [address] OF [facility] CNOVSPon 06-28-2024 CNOVSP Visit (SP) Office (HEMAWS) CEASAR PALACIOS ([id number]) 1955 [facility] Date Time Provider Department 06/28/24 9:30 AM TREATMENT RM 15 JÚ[facility]OR [facility] WSTRHEMAWS During your visit today, we recorded the following information about you: Referring Provider: EMILIANO SALEH [[id number]] Allergies As of Date: 06/28/2024 (No Known Allergies) Date Reviewed: 06/28/2024 Reviewed by: Charu Tello RN - Fully Assessed Reason for Visit: Non-Chemotherapy Treatment [795] Primary Visit Diagnosis:Malignant neoplasm of upper-inner quadrant of left breast in female, estrogen receptor positive (HCC) [C50.212, Z17.0] Other Visit Diagnosis:Cancer of central portion of left breast (HCC) [C50.112] Order(s):PHARMACY COMMUNICATION PATIENT ARRIVEDDisp: Rfl: [] zoledronic wa-cmomalkn-5.9NaCl 4 mg iv piggyback 100 mL (ZOMETA)Disp: Rfl: BCN NURSING COMMUNICATION [[id number]] Order #: [id number]: 1 STANDING Prescriptions as of 06/28/2024 - letrozole (FEMARA) 2.5 mg tablet Take 1 tablet by mouth once daily. - cholecalciferol (VITAMIN D-3) 5,000 unit tab Take 5,000 Units by mouth once daily. - omeprazole (PRILOSEC) 20 mg capsule Take 20 mg by mouth once daily. - glucosamine HCl/chondroitin grover (GLUCOSAMINE-CHONDROI TIN ORAL) Take 1 tablet by mouth once daily. - Calcium-Cholecalcifer ol, D3, 500 mg-10 mcg (400 unit) per tablet Take 1 tablet by mouth once daily. Facility-Administered Medications as of 06/28/2024 - PHARMACY COMMUNICATION PATIENT ARRIVED Problem List As Of Date 06/28/2024 Noted Resolved Cancer of central portion of left breast (HCC) *10/28/2022 Abnormal finding on breast imaging [R92.8] 10/28/2022 Family history of breast cancer [Z80.3] 10/28/2022 Elevated blood-pressure reading without diagnos*01/03/2023 Gastroesophageal reflux disease [K21.9] 01/03/2023 LAMINE (obstructive sleep apnea) [G47.33] 01/03/2023 Preop testing [Z01.818] 01/03/2023 Breast cancer, female (HCC) [C50.919] 01/10/2023 Encounter Status:Closed by CHARU TELLO on 06/28/24 [facility] Visit (SP) Office (BREANN) CEASAR PALACIOS ([id number]) 1955 F BEV Date Time Provider Department 06/28/24 8:30 AM LIZETTE IGLESIAS During your visit today, we recorded the following information about you: Temperature Pulse Blood pressure Weight 98 degrees 62/minute 157/88 58.8 kg Lizette Iglesias APRN.SISAL PICKER 06/28/2024 1:56 PM Signed Chief Complaint Patient presents with: Established Patient HPI: Ceasar Palacios is a 69 year old female who presents here today for follow up breast cancer. Per Dr. Saleh's previous note: H/o varicose veins. Patient underwent recent evaluation for palpable mass in the left breast. She appreciated a lump around 03/2022. A diagnostic mammogram at [facility] 07/15/2022 revealed heterogeneously dense breasts but with evidence of a 2.5 x 1.5 cm spiculated nodule in the slightly upper retroareolar region of the LEFT breast. There was also evidence of a 1.4 x 1 cm irregular nodule in the upper lateral aspect of the RIGHT breast. Ultrasound of the LEFT breast same day on 07/15/2022 revealed a 2 x 1.8 x 1.5 cm hypoechoic irregular solid mass at the 11 o'clock position 3 cm from the nipple in the left breast. There was also evidence of a 9 x 10 mm x 8 mm hypoechoic solid nodule at the 11 o'clock position in the LEFT breast. Patient underwent ultrasound-guided biopsy of the LEFT breast lesion along with clip placement on 08/04/[address] Mcwilliams here in the office. The lesion in the right breast was not able to be identified by ultrasound. Pathology: Invasive ductal carcinoma with micropapillary features, provisional Friona grade 2, measuring 7 mm in greatest dimension ER positive, 91 200%, strong staining intensity. HI positive, 91 to 100%, strong staining intensity HER2 2+ on IHC. HER2 (ERBB2) Status by FISH: Non amplified Patient returned to [facility] on 08/17 for an ultrasound of the RIGHT breast. That study identified a 2 x 2 x 0.8 cm heterogeneous solid mass at the 10 o'clock position 7 cm from the nipple in the right breast. This lesion was biopsied at that time. Clip was placed according to operative note by Dr. Mcwilliams. Pathology: Hyalinized fibroadenoma with focal intraductal hyperplasia without atypia. Focal microcalcification. Negative for malignancy. MRI breasts and subsequent b/l diagnostic mammogram and b/l US. Started on anastrozole piror to surgery due to travel delays. Tolerating well. Pathology: A. 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 - Margins are negative for carcinoma. - Biopsy site changes present. - Unremarkable nipple/areola complex. - Please see comment and synoptic report. B. [place] lymph node, left axillary, excision: - 1 lymph node, negative for carcinoma (0/1). C. [place] lymph node, left axillary, excision: - 3 lymph nodes, negative for carcinoma (0/3). Current therapy:Femara Previous therapy:arimidex Began February 2023. Stopped due to rash. Pt. here today with her daughter. Pt. on prednisone for facial rash that has occurred twice. Has appt. with allergy in August. Appetite:"Good." Wt. up. Energy level:"Ok." Denies fevers. Resp:denies cough or sob Cardiac:denies chest pain/palpitations GI:denies abd pain, n/v, moving bowels regularly :denies dysuria/hematuria Extrem:chronic R knee pain, denies new pain Endo:denies hot flashes Skin:rashes as above Heme:denies bleeding The ROS is otherwise negative. Past medical history, appointments, medications, allergies reviewed. No changes. EXAM: BP 157/88 Pulse 62 Temp 36.7 ?C (98 ?F) (Temporal) Wt 58.8 kg (129 lb 10.1 oz) SpO2 96% BMI 28.05 kg/m? APPEARANCE Well appearing, alert, in no acute distress, well-hydrated, well nourished. HEART RRR with normal S1 and S2, no murmurs LUNG clear to auscultation BREAST FEMALE R no mass/nodule, L mastectomy scar no nodule LYMPH NODES No cervical lymphadenopathy, No supraclavicular lymphadenopathy, and No axillary lymphadenopathy. ABDOMEN bowel sounds normoactive, soft, non-tender EXTREMITIES No edema NEURO Awake, alert and oriented x 3, Normal gait, and No involuntary motions. SKIN Skin color, texture, turgor normal, no suspicious rashes or lesions, no current facial rash LABS: BMP: Pending ASSESSMENT/PLAN: 1. Malignant neoplasm of upper-inner quadrant of left breast in female, estrogen receptor positive (HCC) - ICD9: 174.2, V86.0, ICD10: C50.212, Z17.0 - No concerning findings on exam. - Tolerating femara well. - BMP pending. - Continue femara. - Follow up with Dr. Caruso as scheduled. - Continue follow up with PCP for routine care and for chronic R knee pain. - Continue zometa every 6 months with BMP for a total of 6 doses. - Proceed with #3 zometa pending tod (more content not included)... Normal [facility] CBC W Auto Differential pane l (Bld)on 08-03-2023 Basophils (Bld) [#/Vol] 0.04 10*3/uL <0.11 k/uL [facility] Basophils/100 WBC (Bld) 0.8 % [facility] Differential cell count method Nom (Bld) Auto [facility] Eosinophils (Bld) [#/Vol] 0.18 10*3/uL <0.46 k/uL [facility] Eosinophils/100 WBC (Bld) 3.5 % [facility] Erythrocyte distribution width (RBC) [Ratio] 13.2 % 11.5 - 15.0 % [facility] Hematocrit (Bld) [Volume fraction] 41.5 % 36.0 - 46.0 % [facility] Hemoglobin (Bld) [Mass/Vol] 13.9 g/dL 11.5 - 15.5 g/dL [facility] Immature granulocytes (Bld) [#/Vol] <0.10 k/uL [facility] Immature granulocytes/100 WBC (Bld) 0.2 % [facility] Lymphocytes (Bld) [#/Vol] 2.46 10*3/uL 1.00 - 4.00 k/uL [facility] Lymphocytes/100 WBC (Bld) 48.3 % [facility] MCH (RBC) [Entitic mass] 28.0 pg 26.0 - 34.0 pg [facility] MCHC (RBC) [Mass/Vol] 33.5 g/dL 30.5 - 36.0 g/dL [facility] MCV (RBC) [Entitic vol] 83.5 fL 80.0 - 100.0 fL [facility] Monocytes (Bld) [#/Vol] 0.46 10*3/uL <0.87 k/uL [facility] Monocytes/100 WBC (Bld) 9.0 % [facility] Neutrophils (Bld) [#/Vol] 1.94 10*3/uL 1.45 - 7.50 k/uL [facility] Neutrophils/100 WBC (Bld) 38.2 % [facility] Nucleated RBC (Bld) [#/Vol] <0.01 k/uL [facility] Nucleated RBC/100 WBC (Bld) [Ratio] 0.0 /100 WBC [facility] Platelet mean volume (Bld) [Entitic vol] 9.3 fL 9.0 - 12.7 fL [facility] Platelets (Bld) [#/Vol] 255 10*3/uL 150 - 400 k/uL [facility] RBC (Bld) [#/Vol] 4.97 10*6/uL 3.90 - 5.2 0 m/uL [facility] WBC (Bld) [#/Vol] 5.09 10*3/uL 3.70 - 11.00 k/uL [facility] Comprehensive metabolic 2000 panelon 08-03-2023 Albumin [Mass/Vol] 4.6 g/dL 3.9 - 4.9 g/dL [facility] ALP [Catalytic activity/Vol] 61 U/L 34 - 123 U/L [facility] ALT [Catalytic activity/Vol] 13 U/L 7 - 38 U/L [facility] Anion gap [Moles/Vol] 12 mmol/L 9 - 18 mmol/L [facility] AST [Catalytic activity/Vol] 14 U/L 13 - 35 U/L [facility] Bilirubin [Mass/Vol] 0.6 mg/dL 0.2 - 1 .3 mg/dL [facility] Calcium [Mass/Vol] 9.3 mg/dL 8.5 - 10. 2 mg/dL [facility] Chloride [Moles/Vol] 102 mmol/L 97 - 10 5 mmol/L [facility] CO2 [Moles/Vol] 24 mmol/L 22 - 30 mmol/L [facility] Creatinine [Mass/Vol] 0.60 mg/dL 0.58 - 0.96 mg/dL [facility] Estimated Glomerular Filtration Rate 97 mL/min/1.73m >=60 mL/min/1.73 m [facility] Glucose [Mass/Vol] 96 mg/dL 74 - 99 mg/dL [facility] Potassium [Moles/Vol] 4.1 mmol/L 3.7 - 5.1 mmol/L [facility] Protein [Mass/Vol] 7.4 g/dL 6.3 - 8.0 g/dL [facility] Sodium [Moles/Vol] 138 mmol/L 136 - 144 mmol/L [facility] Urea nitrogen [Mass/Vol] 12 mg/dL 7 - 21 mg/dL [facility] Lipid 1996 panelon Cholesterol [Mass/Vol] 204 mg/dL High <200 mg/dL Cl [facility] Cholesterol in HDL [Mass/Vol] 50 mg/dL >39 mg/dL [facility] Cholesterol in LDL [Mass/Vol] 135 mg/dL High <100 mg/dL [facility] Cholesterol in LDL/Cholesterol in HDL [Mass ratio] 2.70 {ratio} High <2.54 [facility] Cholesterol in VLDL [Mass/Vol] 19 mg/dL <30 mg/dL [facility] Cholesterol non HDL [Mass/Vol] 154 mg/dL High <130 mg/dL [facility] Cholesterol.total/Chol esterol in HDL [Mass ratio] 4.08 {ratio} <5.10 [facility] Fasting Time 12 hrs [facility] Triglyceride [Mass/Vol] 97 mg/dL <150 mg/dL [facility] VITAMIN D 25 HYDROXYon 08-03 25-hydroxyvitamin D3 [Mass/Vol] 51.9 ng/mL 31.0 - 80.0 ng/mL [facility] HgA1C , Office ([id number])on HbA1c (Bld) [Mass fraction] 5.9 % Normal 4.6 - 7.1 [facility] Work Phone: DXA-AXIAL SKELETONon 023 [facility] CNOVon 02-08-2023 CNOV Office Visit (AGPLASBTH) CEASAR PALACIOS ([id number]) 1955 F BEV Date Time Provider Department 02/08/23 2:00 PM MELIDA TAVERA During your visit today, we recorded the following information about you: Melida Tavera PA-C 02/08/2023 2:16 PM Signed Plastic Surgery Postop Note Subjective: Ceasar Palacios is a 67 year old female who presents 1 month(s) post-op: Left mastectomy with complex closure . Has obtained full arm ROM. Some discomfort with reaching up. 2/10 pain. 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 Incision healing well. ROS: Review of Systems Constitutional: Negative for chills and fever. Cardiovascular: Negative for chest pain. Skin: Negative for rash. Physical Exam There were no vitals taken for this visit. General Appearance: Well appearing, alert, in no acute distress, well-hydrated, well nourished.. Skin: Skin color, texture, turgor normal, no suspicious rashes or lesions. Neurologic: Gait normal. Reflexes normal and symmetric. Sensation grossly intact.. INCISION: left breast incision Dry and intact, without redness Assessment:(Z98.890) Post-operative state (primary encounter diagnosis) Plan: - Aquaphor massage to incisions - Progress to full activity - FU as needed Melida Tavera PA-C Allergies As of Date: 02/08/2023 (No Known Allergies) Date Reviewed: 02/08/2023 Reviewed by: Dionne Blum MA - Fully Assessed Reason for Visit: Post Op [174] Primary Visit Diagnosis:Post-operat [place] [Z98.890] Prescriptions as of 02/08/2023 - oxyCODONE IR (ROXICODONE) 5 mg immediate release tablet Take 1 tablet by mouth every 4 hours as needed for pain. Take by mouth as directed. - omeprazole (PRILOSEC) 20 mg capsule Take 20 mg by mouth once daily. - anastrozole (ARIMIDEX) 1 mg tablet Take 1 tablet by mouth once daily. - lidocaine-prilocaine (EMLA) 2.5-2.5 % cream Apply 1 application to affected area as needed. - glucosamine HCl/chondroitin grover (GLUCOSAMINE-CHONDROI TIN ORAL) Take 1 tablet by mouth once daily. - Calcium-Cholecalcifer ol, D3, 500 mg-10 mcg (400 unit) per tablet Take 1 tablet by mouth once daily. Problem List As Of Date 02/08/2023 Noted Resolved Cancer of central portion of left breast (HCC) *10/28/2022 Abnormal finding on breast imaging [R92.8] 10/28/2022 Family history of breast cancer [Z80.3] 10/28/2022 Elevated blood-pressure reading without diagnos*01/03/2023 Gastroesophageal reflux disease [K21.9] 01/03/2023 LAMINE (obstructive sleep apnea) [G47.33] 01/03/2023 Preop testing [Z01.818] 01/03/2023 Breast cancer, female (HCC) [C50.919] 01/10/2023 Encounter Status:Closed by MELIDA TAVERA on 02/08/23 [facility] CNOVon 01-25-2023 CN Office Visit (AGPLASBTH) CEASAR PALACIOS ([id number]) 1955 [facility] Date Time Provider Department 01/25/23 2:00 PM [facility] During your visit today, we recorded the following information about you: Melida Tavera PA-C 01/25/2023 4:50 PM Signed Plastic Surgery Postop Note Subjective: Ceasar Palacios is a 67 year old female who presents 3 week(s) post-op: left breast complex closure s/p mastectomy. With daughter for translation assistance. She is still having some superior lateral discomfort and feels some firm scar formation. ROS: Review of Systems Constitutional: Negative for chills and fever. Skin: Negative for rash. Physical Exam General Appearance: Well appearing, alert, in no acute distress, well-hydrated, well nourished.. Skin: Skin color, texture, turgor normal, no suspicious rashes or lesions. Neurologic: Gait normal. Sensation grossly intact.. INCISION: Dry and intact, without redness, No e/o hematoma or infection Assessment: (Z98.890) Post-operative state (primary encounter diagnosis) Plan: - OK to shower - continue activity/ lifting restrictions until 3 weeks post-op - breast massage and Aquaphor to incision once tape comes off - FU in a month Melida Tavera PA-C Allergies As of Date: 01/25/2023 (No Known Allergies) Date Reviewed: 01/25/2023 Reviewed by: Dionne lBum MA - Fully Assessed Primary Visit Diagnosis:Post-operat [place] [Z98.890] Prescriptions as of 01/25/2023 - oxyCODONE IR (ROXICODONE) 5 mg immediate release tablet Take 1 tablet by mouth every 4 hours as needed for pain. Take by mouth as directed. - omeprazole (PRILOSEC) 20 mg capsule Take 20 mg by mouth once daily. - anastrozole (ARIMIDEX) 1 mg tablet Take 1 tablet by mouth once daily. - lidocaine-prilocaine (EMLA) 2.5-2.5 % cream Apply 1 application to affected area as needed. - glucosamine HCl/chondroitin grover (GLUCOSAMINE-CHONDROI TIN ORAL) Take 1 tablet by mouth once daily. - Calcium-Cholecalcifer ol, D3, 500 mg-10 mcg (400 unit) per tablet Take 1 tablet by mouth once daily. Problem List As Of Date 01/25/2023 Noted Resolved Cancer of central portion of left breast (HCC) *10/28/2022 Abnormal finding on breast imaging [R92.8] 10/28/2022 Family history of breast cancer [Z80.3] 10/28/2022 Elevated blood-pressure reading without diagnos*01/03/2023 Gastroesophageal reflux disease [K21.9] 01/03/2023 LAMINE (obstructive sleep apnea) [G47.33] 01/03/2023 Preop testing [Z01.818] 01/03/2023 Breast cancer, female (HCC) [C50.919] 01/10/2023 Disposition: Return in about 1 month (around 02/24/2023). Follow-up and Disposition History for Encounter Date Provider Department Center 01/[facility]2023 [facility] Encounter Status:Closed by MELIDA TAVERA on 01/25/23 [facility] CNOVon 01-19-2023 CNOV Office Visit (AGGBRCR) CEASAR PALACIOS ([id number]) 1955 F BEV Date Time Provider Department 01/19/23 10:15 AM [facility] During your visit today, we recorded the following information about you: Pulse Blood pressure Weight Height 71/minute 132/79 56[address] [facility] 01/19/2023 10:33 AM Signed Patient is here for her post op visit. Patient states that she is having constant dull pain at the middle of her chest and at the surgical site. Patient states that for the first 3 days she was fine but once the nerve block wore off is when the pain begun. Patient states that she is having trouble breathing. ST Kasandra Ruff MD 01/19/2023 11:01 AM Signed Kasandra Caruso MD [facility] [address] [place] [address] HPI: Ms. Palacios is a Unavailable 67 year old woman who presents for follow up after left breast mastectomy with complex closure by plastics for recent diagnosis of left breast cancer. FAMILY HISTORY Problem Relation Age of Onset Diabetes Mother Cancer Father 79 stomach Breast Cancer Sister 50 Diabetes Sister Diabetes Brother PAST MEDICAL HISTORY Diagnosis Date Arthritis Breast cancer (HCC) 2022 left GERD (gastroesophageal reflux disease) HTN (hypertension) diet controlled Osteopenia Sleep apnea moderate, no cpap Varicose veins of lower extremities with inflammation PAST SURGICAL HISTORY Procedure Laterality Date BREAST BIOPSY HX Left 08/04/2022 BREAST BIOPSY HX Right 08/17/2022 BX OF BREAST; INCISIONAL Right 11/17/2022 COLONOSCOPY 02/24/2015 MASTECTOMY, SIMPLE, COMPLETE Left 01/10/2023 Social History Tobacco Use Smoking status: Never Smokeless tobacco: Never Vaping Use Vaping Use: Never used Substance Use Topics Alcohol use: Never Drug use: Never No question data found. LAB AND IMAGING RESULTS: FINAL DIAGNOSIS A. 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 - Margins are negative for carcinoma. - Biopsy site changes present. - Unremarkable nipple/areola complex. - Please see comment and synoptic report. B. [place] lymph node, left axillary, excision: - 1 lymph node, negative for carcinoma (0/1). C. [place] lymph node, left axillary, excision: - 3 lymph nodes, negative for carcinoma (0/3). Diagnosis Comment A. Sampling of the tumor shows predominantly well-formed tubules with approximately 30% of the tumor showing micropapillary architecture. Dr. Flori Underwood has reviewed part A of this case and agrees with the above diagnosis. Synoptic Report INVASIVE CARCINOMA OF THE BREAST: Resection 8th Edition - Protocol posted: 09/22/2022 INVASIVE CARCINOMA OF THE BREAST: EXCISION - All Specimens SPECIMEN Procedure Total mastectomy Specimen Laterality Left TUMOR Tumor Site Upper inner quadrant Histologic Type Invasive carcinoma with features of: micropapillary Histologic Grade (Friona Histologic Score) Glandular (Acinar) / Tubular Differentiation Score 2 Nuclear Pleomorphism Score 2 Mitotic Rate Score 1 Overall Grade Grade 1 (scores of 3, 4 or 5) Tumor Size Greatest dimension of largest invasive focus (Millimeters): 17 mm Tumor Focality Single focus of invasive carcinoma Ductal Carcinoma In Situ (DCIS) Not identified Lobular Carcinoma In Situ (LCIS) Not identified Lymphatic and / or Vascular Invasion Not identified Dermal Lymphovascular Invasion Not identified Microcalcifications Present in invasive carcinoma Treatment Effect in the Breast No known presurgical therapy MARGINS Margin Status for Invasive Carcinoma All margins negative for invasive carcinoma Distance from Invasive Carcinoma to Closest Margin 2 mm Closest Margin(s) to Invasive Carcinoma Superior REGIONAL LYMPH NODES Regional Lymph Node Status All regional lymph nodes negative for tumor Total Number of Lymph Nodes Examined (sentinel and non-sentinel) 4 Number of [place] Nodes Examined 4 pTNM CLASSIFICATION (AJCC 8th Edition) Reporting of pT, pN, and (when applicable) pM categories is based on information available to the pathologist at the time the report is issued. As per the AJCC (Chapter 1, 8th Ed.) it is the managing physician?s responsibility to establish the final pathologic stage based upon all pertinent information, including but potentially not limited to this pathology report. pT Category pT1c pN Category pN0 N Suffix (sn) Review of Systems Constitutional: Positive for malaise/fatigue. Negative for chills and fever. PHYSICAL EXAMINATION: BP 132/79 Pulse 71 Ht 144.8 cm (4' 9") Wt 56.2 kg (124 lb) SpO2 97% BMI 26.83 kg/m? General appearance: Well appearing, alert, in no acute distress Skin (more content not included)... Normal [facility] CNOVon 01-18-2023 CN Office Visit (AGPLASBTH) CEASAR PALACIOS ([id number]) 1955 BEV Time Provider Department 01/18/23 3:30 PM MELIDA TAVERA [facility] During your visit today, we recorded the following information about you: Melida Tavera PA-C 01/18/2023 5:13 PM Signed Plastic Surgery Postop Note Subjective: Ceasar Palacios is a 67 year old female who presents 1 week(s) post-op: left breast complex closure s/p mastectomy . With daughter for translation assistance. No complaints, pain is mild. Taking Tylenol as needed. No bleeding or drainage. Left drain 15 cc the past 2 days, fluid serosang ROS: Review of Systems Constitutional: Negative for chills and fever. Skin: Negative for rash. Physical Exam General Appearance: Well appearing, alert, in no acute distress, well-hydrated, well nourished.. Skin: Skin color, texture, turgor normal, no suspicious rashes or lesions. Neurologic: Gait normal. Sensation grossly intact.. INCISION: Dry and intact, without redness, drain removed, no e/o hematoma or infection Assessment: (Z98.890) Post-operative state (primary encounter diagnosis) Plan: - OK to shower - Continue activity/lifting restrictions - Continue surgical bra - FU in 1 week Melida Tavera PA-C Allergies As of Date: 01/18/2023 (No Known Allergies) Date Reviewed: 01/18/2023 Reviewed by: Dionne Blum MA - Fully Assessed Reason for Visit: Established Patient [175] Primary Visit Diagnosis:Post-operat [place] [Z98.890] Prescriptions as of 01/18/2023 - oxyCODONE IR (ROXICODONE) 5 mg immediate release tablet Take 1 tablet by mouth every 4 hours as needed for pain. Take by mouth as directed. - doxycycline hyclate (VIBRAMYCIN) 100 mg capsule Take 1 capsule by mouth twice daily for 10 days. - omeprazole (PRILOSEC) 20 mg capsule Take 20 mg by mouth once daily. - anastrozole (ARIMIDEX) 1 mg tablet Take 1 tablet by mouth once daily. - lidocaine-prilocaine (EMLA) 2.5-2.5 % cream Apply 1 application to affected area as needed. - glucosamine HCl/chondroitin grover (GLUCOSAMINE-CHONDROI TIN ORAL) Take 1 tablet by mouth once daily. - Calcium-Cholecalcifer ol, D3, 500 mg-10 mcg (400 unit) per tablet Take 1 tablet by mouth once daily. Problem List As Of Date 01/18/2023 Noted Resolved Cancer of central portion of left breast (HCC) *10/28/2022 Abnormal finding on breast imaging [R92.8] 10/28/2022 Family history of breast cancer [Z80.3] 10/28/2022 Elevated blood-pressure reading without diagnos*01/03/2023 Gastroesophageal reflux disease [K21.9] 01/03/2023 LAMINE (obstructive sleep apnea) [G47.33] 01/03/2023 Preop testing [Z01.818] 01/03/2023 Breast cancer, female (HCC) [C50.919] 01/10/2023 Disposition: Return in about 1 week (around 01/25/2023) for Post Op. Follow-up and Disposition History for Encounter Date Provider Department Center 01/18/2023 2545-MELIDA TAVERA [facility] Encounter Status:Closed by MELIDA TAVERA on 01/18/23 [facility] Basic metabolic 2000 panelon 01-11-2023 Anion gap [Moles/Vol] 10 mmol/L Normal 9-18 [facility] Comment on above: Order Comment: Speci men Type: BLOOD SPECIMENOrdering Facility: [facility] Address: [address] [place] [address] Performed By: #### 2 4321-2 ####[facility]ATORYCLIA [id number] [place] [address] [place] Calcium [Mass/Vol] 9.1 mg/dL Normal 8.5-10.2 [facility] Comment on above: Order Comment: Speci men Type: BLOOD SPECIMENOrdering Facility: [facility] Address: [address] [place] [address] Performed By: #### 2 4321-2 ####[facility] LABORATORYCLIA [id number] [place] [address] [place] Chloride [Moles/Vol] 107 mmol/L High 97-105 [facility] Comment on above: Order Comment: Speci men Type: BLOOD SPECIMENOrdering Facility: [facility] Address: [address] [place] [address] Performed By: #### 2 4321-2 ####[facility]ATORYCLIA [id number] [place] [address] [place] CO2 [Moles/Vol] 24 mmol/L Normal 22-30 [facility] Comment on above: Order Comment: Speci men Type: BLOOD SPECIMENOrdering Facility: [facility] Address: [address] [place] [address] Performed By: #### 2 4321-2 ####[facility]ATORYCLIA [id number] [place] [address] [place] Creatinine [Mass/Vol] 0.54 mg/dL Low 0.58-0.96 [facility] Comment on above: Order Comment: Speci men Type: BLOOD SPECIMENOrdering Facility: [facility] Address: [address] [place] [address] Performed By: #### 2 4321-2 ####[facility]ORATORYCLIA [id number] [place] [id number] [place] ESTIMATED GLOMERULAR FILTRATION RATE 100 mL/min/1.73m??? Normal >=60 [facility] Comment on above: Order Comment: Rachel cam Type: BLOOD SPECIMENOrdering Facility: [facility] Address: [address] [place] [address] Result Comment: Sherry mated Glomerular Filtration Rate (eGFR) is calculated using the 2020 CKD-EPI creatinine equation. This equation utilizes serum creatinine, sex, and age as parameters. The creatinine assay has traceable calibration to isotope dilution-mass spectrometry. Refer to KDIGO guidelines for clinical interpretation. In patients with unstable renal function, e.g. those with acute kidney injury, the eGFR may not accurately reflect actual GFR. Performed By: #### 2 4321-2 ####[facility] [id number] [place] [address] [place] Glucose [Mass/Vol] 118 mg/dL High 74-99 [facility] Comment on above: Order Comment: Rachel cam Type: BLOOD SPECIMENOrdering Facility: [facility] Address: [address] [place] [address] Result Comment: The Citizen Of [place] Diabetes Association (ADA) provides guidance for cutoff values for fasting glucose and random glucose. The ADA defines fasting as no caloric intake for at least 8 hours. Fasting plasma glucose results between 100 to 125 mg/dL indicate increased risk for diabetes (prediabetes). Fasting plasma glucose results greater than or equal to 126 mg/dL meet the criteria for diagnosis of diabetes. In the absence of unequivocal hyperglycemia, results should be confirmed by repeat testing. In a patient with classic symptoms of hyperglycemia or hyperglycemic crisis, random plasma glucose results greater than or equal to 200 mg/dL meet the criteria for diagnosis of diabetes. Reference: Standards of Medical Care in Diabetes 2016, Citizen Of [place] Diabetes Association. Diabetes Care. 2016.39(Suppl 1). Performed By: #### 2 4321-2 ####[facility] LABORATORYCLIA [id number] [place] [id number] [place] Potassium [Moles/Vol] 4.2 mmol/L Normal 3.7-5.1 [facility] Comment on above: Order Comment: Speci men Type: BLOOD SPECIMENOrdering Facility: [facility] Address: [address] [place] [address] Performed By: #### 2 4321-2 ####[facility] LABORATORYCLIA [id number] [address] [place] [facility] Sodium [Moles/Vol] 141 mmol/L Normal 136-144 [facility] Comment on above: Order Comment: Speci men Type: BLOOD SPECIMENOrdering Facility: [facility] Address: [address] [place] [address] Performed By: #### 2 4321-2 ####[facility] LABORATORYCLIA [id number] [address] [place] [facility] Urea nitrogen [Mass/Vol] 12 mg/dL Normal 7-21 [facility] Comment on above: Order Comment: Speci men Type: BLOOD SPECIMENOrdering Facility: [facility] Address: [address] [place] [address] Performed By: #### 2 4321-2 ####[facility] LABORATORYCLIA [id number] [address] [place] CBC W Auto Differential pane l (Bld)on 01-11-2023 Basophils (Bld) [#/Vol] 10*3/uL Normal <0.11 [facility] Comment on above: Order Comment: Speci men Type: BLOOD SPECIMENOrdering Facility: [facility] Address: [address] [place] [address] Performed By: #### 5 7021-8 ####[facility] LABORATORYCLIA [id number] [address] [place] [facility] Basophils/100 WBC (Bld) 0.1 % Normal [facility] Comment on above: Order Comment: Speci men Type: BLOOD SPECIMENOrdering Facility: [facility] Address: [address] [place] [address] Performed By: #### 5 7021-8 ####[facility] LABORATORYCLIA [id number] [place] [address] [place] Differential cell count method Nom (Bld) Auto Normal [facility] Comment on above: Order Comment: Speci men Type: BLOOD SPECIMENOrdering Facility: [facility] Address: [address] [place] [address] Performed By: #### 5 7021-8 ####[facility]ATORYCLIA [id number] [address] [place] Eosinophils (Bld) [#/Vol] 10*3/uL Normal <0.46 [facility] Comment on above: Order Comment: Speci men Type: BLOOD SPECIMENOrdering Facility: [facility] Address: [address] [place] [address] Performed By: #### 5 7021-8 ####[facility] LABORATORYCLIA [id number] [address] Eosinophils/100 WBC (Bld) 0.0 % Normal [facility] Comment on above: Order Comment: Speci men Type: BLOOD SPECIMENOrdering Facility: [facility] Address: [address] [place] [address] Performed By: #### 5 7021-8 ####[facility]ATORYCLIA [id number] [address] Erythrocyte distribution width (RBC) [Ratio] 12.7 % Normal 11.5-15.0 [facility] Comment on above: Order Comment: Speci men Type: BLOOD SPECIMENOrdering Facility: [facility] Address: [address] [place] [address] Performed By: #### 5 7021-8 ####[facility]ORYCLIA [id number] [address] [place] Hematocrit (Bld) [Volume fraction] 36.2 % Normal 36.0-46.0 [facility] Comment on above: Order Comment: Speci men Type: BLOOD SPECIMENOrdering Facility: [facility] Address: [address] [place] [address] Performed By: #### 5 7021-8 ####[facility]ATORYCLIA [id number] [place] [address] [place] Hemoglobin (Bld) [Mass/Vol] 12.3 g/dL Normal 11.5-15.5 [facility] Comment on above: Order Comment: Speci men Type: BLOOD SPECIMENOrdering Facility: [facility] Address: [address] [place] [address] Performed By: #### 5 7021-8 ####[facility] LABORATORYCLIA [id number] [place] [address] [place] Immature granulocytes (Bld) [#/Vol] 0.03 10*3/uL Normal <0.10 [facility] Comment on above: Order Comment: Speci men Type: BLOOD SPECIMENOrdering Facility: [facility] Address: [address] [place] [address] Performed By: #### 5 7021-8 ####[facility] LABORATORYCLIA [id number] [address] [place] Immature granulocytes/100 WBC (Bld) 0.3 % Normal [facility] Comment on above: Order Comment: Speci men Type: BLOOD SPECIMENOrdering Facility: [facility] Address: [address] [place] [address] Performed By: #### 5 7021-8 ####[facility] LABORATORYCLIA [id number] [place] [address] [place] Lymphocytes (Bld) [#/Vol] 1.36 10*3/uL Normal 1.00-4.00 [facility] Comment on above: Order Comment: Speci men Type: BLOOD SPECIMENOrdering Facility: [facility] Address: [address] [place] [address] Performed By: #### 5 7021-8 ####[facility] LABORATORYCLIA [id number] [address] [place] Lymphocytes/100 WBC (Bld) 15.6 % Normal [facility] Comment on above: Order Comment: Speci men Type: BLOOD SPECIMENOrdering Facility: [facility] Address: [address] [place] [address] Performed By: #### 5 7021-8 ####[facility] LABORATORYCLIA [id number] [address] MCH (RBC) [Entitic mass] 28.9 pg Normal 26.0-34.0 [facility] Comment on above: Order Comment: Speci men Type: BLOOD SPECIMENOrdering Facility: [facility] Address: [address] [place] [address] Performed By: #### 5 7021-8 ####[facility] LABORATORYCLIA [id number] [address] OF [facility] MCHC (RBC) [Mass/Vol] 34.0 g/dL Normal 30.5-36.0 [facility] Comment on above: Order Comment: Speci men Type: BLOOD SPECIMENOrdering Facility: [facility] Address: [address] [place] [address] Performed By: #### 5 7021-8 ####[facility] LABORATORYCLIA [id number] [address] MCV (RBC) [Entitic vol] 85.2 fL Normal 80.0-100.0 [facility] Comment on above: Order Comment: Speci men Type: BLOOD SPECIMENOrdering Facility: [facility] Address: [address] [place] [address] Performed By: #### 5 7021-8 ####[facility] LABORATORYCLIA [id number] [address] Monocytes (Bld) [#/Vol] 0.40 10*3/uL Normal <0.87 [facility] Comment on above: Order Comment: Speci men Type: BLOOD SPECIMENOrdering Facility: [facility] Address: [address] [place] [address] Performed By: #### 5 7021-8 ####[facility] LABORATORYCLIA [id number] [address] Monocytes/100 WBC (Bld) 4.6 % Normal [facility] Comment on above: Order Comment: Speci men Type: BLOOD SPECIMENOrdering Facility: [facility] Address: [address] [place] [address] Performed By: #### 5 7021-8 ####[facility] LABORATORYCLIA [id number] [address] [place] Neutrophils (Bld) [#/Vol] 6.94 10*3/uL Normal 1.45-7.50 [facility] Comment on above: Order Comment: Speci men Type: BLOOD SPECIMENOrdering Facility: [facility] Address: [address] [place] [address] Performed By: #### 5 7021-8 ####[facility] LABORATORYCLIA [id number] [address] Neutrophils/100 WBC (Bld) 79.4 % Normal [facility] Comment on above: Order Comment: Speci men Type: BLOOD SPECIMENOrdering Facility: [facility] Address: [address] [place] [address] Performed By: #### 5 7021-8 ####[facility] LABORATORYCLIA [id number] [address] Nucleated RBC (Bld) [#/Vol] 10*3/uL Normal <0.01 [facility] Comment on above: Order Comment: Speci men Type: BLOOD SPECIMENOrdering Facility: [facility] Address: [address] [place] [address] Performed By: #### 5 7021-8 ####[facility] LABORATORYCLIA [id number] [address] Nucleated RBC/100 WBC (Bld) [Ratio] 0.0 /100 WBC Normal [facility] Comment on above: Order Comment: Speci men Type: BLOOD SPECIMENOrdering Facility: [facility] Address: [address] [place] [address] Performed By: #### 5 7021-8 ####[facility] LABORATORYCLIA [id number] [address] [place] [facility] Platelet mean volume (Bld) [Entitic vol] 10.1 fL Normal 9.0-12.7 [facility] Comment on above: Order Comment: Speci men Type: BLOOD SPECIMENOrdering Facility: [facility] Address: [address] [place] [address] Performed By: #### 5 7021-8 ####[facility] LABORATORYCLIA [id number] [place] [address] [place] Platelets (Bld) [#/Vol] 221 10*3/uL Normal 150-400 [facility] Comment on above: Order Comment: Speci men Type: BLOOD SPECIMENOrdering Facility: [facility] Address: [address] [place] [address] Performed By: #### 5 7021-8 ####[facility] LABORATORYCLIA [id number] [address] RBC (Bld) [#/Vol] 4.25 10*6/uL Normal 3.90-5.20 [facility] Comment on above: Order Comment: Speci men Type: BLOOD SPECIMENOrdering Facility: [facility] Address: [address] [place] [address] Performed By: #### 5 7021-8 ####[facility] LABORATORYCLIA [id number] [address] [place] WBC (Bld) [#/Vol] 8.74 10*3/uL Normal 3.70-11.00 [facility] Comment on above: Order Comment: Speci men Type: BLOOD SPECIMENOrdering Facility: [facility] Address: [address] [place] [address] Performed By: #### 5 7021-8 ####[facility] LABORATORYCLIA [id number] [address] OF [facility] ALLIED HEALTHon 01-10-2023 ALLIED HEALTH HNO ID: [id number] Author: Chaplain Karen Student Service: Spiritual Care Author Type: Student Type: Allied Health Filed: 01/10/2023 10:41 AM Note Text: SPIRITUAL CARE PROGRESS NOTE SERVICE DATE: 01/10/2023 SERVICE TIME: 10:11AM I was paged that patient requested prayer before surgery. Patient's daughter was bedside and assisted with translation. I offered prayer for the patient and her daughter. I encouraged them to contact spiritual care should additional needs arise. To contact the Spiritual Care Department: Please call [phone]. SIGNATURE: Chaplain Karen Student PATIENT NAME: Ceasar Palacios DATE: January 10, 2023 TIME: 10:40 AM PAGER/CONTACT #: [phone] Normal [facility] ANES POSTPROC EVALon 023 ANES POSTPROC EVAL HNO ID: [id number] Author: Thalia Gonzales MD Service: Anesthesiology Author Type: Anesthesiologist Type: Anesthesia Postprocedure Evaluation Filed: 01/10/2023 4:27 PM Note Text: POST ANESTHESIA EVALUATION NOTE : 1955 Procedure Summary Date: 01/10/23 Room / Location: [place] OR 02 / [place] Anesthesia Start: 1154 Anesthesia Stop: 1439 Procedures: LEFT BREAST NIPPLE SKIN SPARING MASTECTOMY, RIGHT PROPHYLACTIC NIPPLE SKIN SPARING MASTECTOMY (Bilateral: Breast) SENTINEL NODE BIOPSY (Left: Breast) NUCLEAR INJECTION (Left: Breast) INJECTION OF LYMPHAZURIN (Left: Breast) LEFT VS BILATERAL COMPLEX CLOSURE FOLLOWING MASTECTOMY (Bilateral: Breast) Diagnosis: Cancer of central portion of left breast (HCC) (Cancer of central portion of left breast (HCC) [C50.112]) Surgeons: Kasandra Caruso MD; Cierra Whitten MD Responsible Provider: Thalia Gonzales MD Anesthesia Type: general ASA Status: 2 Anesthesia Type: general Airway Type: ETT Last Vitals Vitals Value Taken Time BP 147/78 01/10/23 1530 Temp 36 ?C (96.8 ?F) 01/10/23 1515 HR SpO2 58 01/10/23 1534 Resp 17 01/10/23 1534 SpO2 98 % 01/10/23 1534 Vitals shown include unvalidated device data. Post Anesthesia Patient Status Patient Evaluation: PACU. PACU/ICU Patient Condition: stable. Anticipated Disposition: phase 2 then home. Neurological Status: aware and responsive. Pulmonary Status: breathing comfortably on room air Airway Control: returned to baseline unsupported. Cardiovascular Status: stable. Pain Management: clinically adequate Postoperative Hydration: acceptable. Intraoperative Events: no significant anesthesia events Post Operative Nausea/Vomiting Status: no significant post operative nausea or vomiting Recommendation: continue current plan of care. Anesthesia Observations No Documentation SIGNATURE: Thalia Gonzales MD PATIENT NAME: Ceasar Palacios DATE: January 10, 2023 TIME: 4:27 PM CSN: [id number] Normal [facility] ANES PRE-OPon 01-10-2023 ANES PRE-OP HNO ID: [id number] Author: Thalia Gonzales MD Service: Anesthesiology Author Type: Anesthesiologist Type: Anesthesia Preprocedure Evaluation Filed: 01/10/2023 11:14 AM Note Text: ANESTHESIOLOGY DAY OF SURGERY NOTE : 1955 Procedure Information Date/Time: 01/10/23 1130 Procedures: LEFT BREAST NIPPLE SKIN SPARING MASTECTOMY, RIGHT PROPHYLACTIC NIPPLE SKIN SPARING MASTECTOMY (Bilateral: Breast) - ERAS PROTOCOL, PEC BLOCK SENTINEL NODE BIOPSY (Left: Breast) NUCLEAR INJECTION (Left: Breast) INJECTION OF LYMPHAZURIN (Left: Breast) LEFT VS BILATERAL COMPLEX CLOSURE FOLLOWING MASTECTOMY (Bilateral: Breast) Location: [place] Surgeons: Kasandra Caruso MD; Cierra Whitten MD Estimated body mass index is 26.4 kg/m? as calculated from the following: Height as of 01/03/23: 144.8 cm (4' 9"). Weight as of 01/03/23: 55.3 kg (122 lb). Most recent hematocrit and potassium results: Hematocrit 39.6 10/28/2022 Potassium 3.8 10/28/2022 Relevant Problems ANESTHESIA (+) LAMINE (obstructive sleep apnea) GI (+) Gastroesophageal reflux disease PULMONARY (+) LAMINE (obstructive sleep apnea) I - PHYSICAL EVALUATION AIRWAY Patient intubated: No. Tracheostomy tube not present Mallampati: III. TM distance: >3 FB. Neck ROM: full ROM without neurological symptoms. Mouth opening: adequate. Short neck: no. Thick neck: no DENTAL Dentures, upper: complete. II - ANESTHESIA PLAN ASA Score: 2 Anesthetic Plan: general Airway type: ETT The patient is not a current smoker. NPO Status: adequate Beta Arthur Perioperative beta-arthur/statin: n/a. Monitoring Plan Monitoring plan: standard ASA. Post Procedure Analgesic Plan Postoperative analgesic plan: multimodal analgesia. Informed Consent Anesthetic risks, benefits, alternatives, personnel and consent discussed: yes. Patient / Responsible Republican agrees to proceed: yes Patient / Surrogate agrees to blood products: blood products not planned Significant changes in the patient condition since the History and Physical, not otherwise documented in primary service progress note: no. Potential Anesthesia issues that may suggest increased risk of complications or contraindication to planned procedure: none. Vitals Value Taken Time BP 147/78 01/10/23 1040 Pulse 64 01/10/23 1040 Resp 18 01/10/23 1040 Temp 35.9 ?C (96.6 ?F) 01/10/23 1040 SpO2 97 % 01/10/23 1040 Facility-Administered Medications as of 01/10/2023 Medication Dose Route Frequency - lidocaine 10 mg/mL (1 %) 1-2 mg injection (XYLOCAINE) 0.1-0.2 mL INTRADERMAL PRN - lactated ringers iv infusion 5-30 mL/hr INTRAVENOUS CONTINUOUS - NaCl 0.9% iv flush bag 20 mL INTRAVENOUS PRN - [COMPLETED] acetaminophen 975 mg tab(s) (TYLENOL) 975 mg ORAL Pre-Op Once - [COMPLETED] celecoxib 400 mg cap(s) (CeleBREX) 400 mg ORAL Pre-Op Once - [COMPLETED] gabapentin 100 mg cap(s) (NEURONTIN) 100 mg ORAL Pre-Op Once - ceFAZolin iv piggyback 2 g in D5W (iso-osmotic) 100 mL (ANCEF) 2 g INTRAVENOUS Pre-Op Once - [COMPLETED] dronabinol 2.5 mg cap(s) (MARINOL) 2.5 mg ORAL ONCE Outpatient Medications as of 01/10/2023 Medication Sig - omeprazole (PRILOSEC) 20 mg capsule Take 20 mg by mouth once daily. - lidocaine-prilocaine (EMLA) 2.5-2.5 % cream Apply 1 application to affected area as needed. - glucosamine HCl/chondroitin grover (GLUCOSAMINE-CHONDROI TIN ORAL) Take 1 tablet by mouth once daily. - Calcium-Cholecalcifer ol, D3, 500 mg-10 mcg (400 unit) per tablet Take 1 tablet by mouth once daily. I have interviewed and examined the patient. I have reviewed the medical record and/or the pre-anesthesia evaluation, pertinent labs, and test results. This contains updated information obtained within 48 hours of Surgery/Procedure. SIGNATURE: Thalia Gonzales MD PATIENT NAME: Ceasar Palacios DATE: January 10, 2023 TIME: 11:09 AM CSN: [id number] [facility] BRIEF OP NOTon 01-10-2023 BRIEF OP NOT HNO ID: [id number] Author: Cierra Whitten MD Service: Plastic Surgery Author Type: Physician Type: Brief Op Note Filed: 01/10/2023 5:54 PM Note Text: BRIEF OPERATIVE / PROCEDURE NOTE LOG ID: [id number] SURGERY/PROCEDURE DATE: 01/10/2023 INCISION/PROCEDURE START TIME: 12:36 PM INCISION CLOSE/PROCEDURE END TIME: 2:26 PM SURGEON(S)/PROCEDURAL IST(S) AND FAUCETS ASSEMBLER(S): Surgeon(s) and Role: Panel 1: * Kasandra Caruso MD - Primary * Tasneem Lockwood MD - Fellow Panel 2: * Cierra Whitten MD - Primary Floriculture Professor: Ines Ledezma SA; Mike Hanson SA SURGERY/PROCEDURE(S): 1. Complex closure left chest [id number] 2. ATT trunk 30cm2 ANESTHESIA: General FINDINGS: see dictation - nerve sparing ESTIMATED BLOOD LOSS: 10 mls SPECIMENS: None COMPLICATIONS: None DRAINS: Modified CLOSURE TECHNIQUE: Non-primary PRE-OP/PRE-PROCEDURE DIAGNOSIS: acquired absence of left breast POST-OP/POST-PROCEDUR E DIAGNOSIS: Same as Preop SIGNATURE: Cierra Whitten MD PATIENT NAME: Ceasar Palacios DATE: January 10, 2023 TIME: 5:53 PM [facility] BRIEF OP NOT HNO ID: [id number] Author: Kasandra Caruso MD Service: General Surgery Author Type: Physician Type: Brief Op Note Filed: 01/10/2023 1:48 PM Note Text: BRIEF OPERATIVE / PROCEDURE NOTE LOG ID: [id number] SURGERY/PROCEDURE DATE: 01/10/2023 INCISION/PROCEDURE START TIME: 12:36 PM INCISION CLOSE/PROCEDURE END TIME: SURGEON(S)/PROCEDURAL IST(S) AND FAUCETS ASSEMBLER(S): Surgeon(s) and Role: Panel 1: * Kasandra Caruso MD - Primary * Tasneem Lockwood MD - Fellow Panel 2: * Cierra Whitten MD - Primary Floriculture Professor: Ines Ledezma SA; Mike Hanson SA SURGERY/PROCEDURE(S): left breast skin sparing mastectomy ANESTHESIA: General FINDINGS: clip was in the specimen ESTIMATED BLOOD LOSS: 50 mls SPECIMENS: left breast mastectomy, sentinel lymph node x 2 COMPLICATIONS: None CLOSURE TECHNIQUE: Primary PRE-OP/PRE-PROCEDURE DIAGNOSIS: left breast cancer POST-OP/POST-PROCEDUR E DIAGNOSIS: same SIGNATURE: Kasandra Caruso MD PATIENT NAME: Ceasar Palacios DATE: January 10, 2023 TIME: 1:46 PM [facility] SURGICAL BREAST SPECIMEN LTon 01-10-2023 [facility] SURGICAL BREAST SPECIMEN LT * * *Final Report* * * DATE OF EXAM: Jan 10 2023 2:01PM [facility] 0638 - [facility] SURGICAL BREAST SPECIMEN LT / PROCEDURE REASON: BREAST SPECIMEN * * * * Physician Interpretation * * * * #[id number] - [facility] SURGICAL BREAST SPECIMEN LT UNI-PLANAR RADIOGRAPH SPECIMEN IMAGING LEFT BREAST: 01/10/2023 HISTORY: /Breast specimen radiograph. Correlation is made to exams dated: 09/15/2022 breast MRI - [facility], 08/17/2022 ultrasound biopsy, 07/15/2022 mammogram, and 07/15/2022 ultrasound. A full mastectomy specimen was imaged using uni-planar radiograph specimen imaging for the concerning previous biopsy site located in the left breast. This was described on the previous biopsy report. The imaged specimen includes the mass and a biopsy clip. IMPRESSION: UNI-PLANAR RADIOGRAPH SPECIMEN IMAGING The imaged specimen includes the mass and a biopsy clip. The specimen shows characteristics of the findings. Addie crawford/stephanie:01/11/2023 16:17:42 [employer] Mill Grader(s): Papo [facility] Multiple national specialty organizations have released breast cancer screening guidelines for women at average risk for developing breast cancer - guidelines that are based on both evidence and opinion, yet differ on when to start and how often to screen for breast cancer. With representation from Breast Imaging, Internal Medicine, Women's Health, Family Medicine, and Medical/Surgical Oncology, the [facility] has carefully reviewed the data and reached the following consensus: 1) All women should engage in shared decision-making with their providers to decide when to start and how often to screen; 2) All women should have the opportunity to start screening mammography at age 40; 3) For women ages 45-55, we recommend annual screening mammograms; 4) For women ages 55 and over, we support both the transition from an annual to a biennial interval if this aligns more with patient's values and preferences, or continuation with annual screening; 5) All women should discuss with their providers when to stop screening mammograms. Grinding And Polishing Laborer: Stephanie Transcribe Date/Time: Jan 10 2023 7:10A Dictated by : ADDIE TOM MD This examination was interpreted and the report reviewed and electronically signed by: ADDIE TOM MD on Jan 11 2023 4:17PM EST [id number] N Normal [facility] NM INJ SENT NODE BREAST LTon 01-10-2023 NM INJ SENT NODE BREAST LT * * *Final Report* * * DATE OF EXAM: Jan 10 2023 9:44AM [facility] 2191 - NM INJ SENT NODE BREAST LT / PROCEDURE REASON: C50.112 * * * * Physician Interpretation * * * * EXAM TITLE: SENTINEL LYMPH NODE INJECTION DATE: 01/10/2023 9:44 AM CLINICAL INDICATION/HISTORY: The patient is a 67-year-old female with carcinoma of the left breast. COMPARISON: None TECHNIQUE: A total dose of 1.1 mCi of 99m Technetium Tilmanocept was injected in 4 nearly equal aliquots. Four subdermal injections were made in each of the 4 quadrants of the left breast in the periareolar region. FINDINGS: Successful injection of radionuclide in 4 separate regions at the juan pablo-areolar skin of the left breast for sentinel lymph node identification. IMPRESSION: Successful left-sided sentinel lymph node breast injection prior to sentinel lymph node biopsy. Grinding And Polishing Laborer: ELYSIA Transcribe Date/Time: Jan 10 2023 11:15A Dictated by : KELSEY TAYLOR MD This examination was interpreted and the report reviewed and electronically signed by: KELSEY TAYLOR MD on Jan 10 2023 11:36AM EST [id number] N [facility] NM INJ SENTINEL NODE BREAST LEFTon 01-10-2023 [facility] NURSING PROGon 01-10-2023 NURSING PROG HNO ID: [id number] Author: Kasandra Velazco, RN Service: Nursing Author Type: Registered Nurse Type: Nursing Progress Note Filed: 01/10/2023 3:04 PM Note Text: Other: Dr. Lockwood notified of pt's AND daughter stating " that pt's to stay tonight not being discharged home. Dr. Lockwood will speak with the attending physicians. [facility] OPERATIVE NOon 01-10-2023 OPERATIVE NO HNO ID: [id number] Author: Kasandra Caruso MD Service: General Surgery Author Type: Physician Type: Operative Report Filed: 01/10/2023 3:12 PM Note Text: OPERATIVE/PROCEDURE REPORT LOG ID: [id number] SURGERY/PROCEDURE DATE: 01/10/2023 INCISION/PROCEDURE START TIME: 12:36 PM INCISION CLOSE/PROCEDURE END TIME: 2:26 PM SURGEON(S)/PROCEDURAL IST(S) AND FAUCETS ASSEMBLER(S): Surgeon(s) and Role: Panel 1: * Kasandra Caruso MD - Primary * Tasneem Lockwood MD - Fellow Panel 2: * Cierra Whitten MD - Primary Floriculture Professor: Ines Ledezma SA; Mike Hanson SA SURGERY/PROCEDURE(S): Left skin sparing mastectomy Left axillary sentinel lymph node biopsy Injection of blue dye Complex wound closure by plastic surgery team (see separate operative dictation) ANESTHESIA: General SURGERY/PROCEDURE DETAILS: Indications and Consent: The patient is a 67 year old female was found to have a invasive ductal carcinoma of the left breast. Discussed a skin sparing mastectomy and sentinel lymph node biopsy with the patient. The risks, benefits, options potential complications of reaction to anesthesia, infection, bleeding, nerve injury, lymphedema, seroma, skin necrosis, anaphylaxis, and need for additional procedures have been reviewed with the patient. All questions have been answered and the patient wishes to proceed. Informed consent was obtained preoperatively. Description of procedure: The patient was brought to the operating room after injection of technetium sulfur colloid in the left breast in the radiology suite. She was placed in the supine position on the operating table. After satisfactory induction of anesthesia, a time-out was completed verifying correct patient, procedure, site, positioning, and implant(s) and/or special equipment prior to beginning this procedure. The patient was provided a pectoralis block by anesthesia. The procedure was begun by injecting 5cc of isosulfan blue followed by 10cc of injectable saline in an upper out subareolar space and massaging the breast for five minutes prior to an incision. The patient's left breast and axilla were prepped with ChloraPrep and draped in the usual sterile fashion. She was given intravenous antibiotics. Using hand-held gamma probe, there was no evidence of internal mammary or infraclavicular moraima drainage. A hot spot was identified in the axilla. An elliptical skin incision was made using a 10 blade scalpel encompassing the nipple areolar complex and approximately 4 cm of surrounding skin. Skin flaps were developed in the avascular plane using electrocautery between subcutaneous tissue and breast tissue from the clavicle superiorly, the sternum medially, the anterior rectus sheath inferiorly, and past the lateral border of the pectoralis major muscle laterally. The breast was then removed from the chest wall using electrocautery progressing medially to laterally, including the pectoral fascia when at all possible. At the lateral border of the pectoralis major muscle, the breast tissue was swung laterally and a lateral pedicle identified where breast tissue gave way to fat of axilla. The lateral pedicle was incised and the specimen removed. Perforating branches of the internal mammary vessels were spared spared. Hemostasis was achieved using electrocautery. The specimen was oriented with short suture superiorly and long suture laterally and submitted as permanent pathology. A specimen mammogram was obtained which revealed the presence of the biopsy clip. The wound was irrigated with sterile saline and packed. Via the left mastectomy incision clavipectoral fascia was divided and the axilla was explored. Two sentinel nodes were identified. First node had the ex-vivo count of 1567 and was blue stained. The second [place] [address] and was blue stained. No other palpable blue or hot sentinel lymph nodes were identified in the axilla. Background counts were less than 90. The sentinel lymph nodes were sent for permanent pathology. At this point the plastic surgical team took over to perform the reconstruction. A separate operative note will be dictated for that portion of the surgery. The patient tolerated this portion of the procedure well. All instrument, sponge, and needle counts were correct at the end of the case. Surgical debriefing was completed prior to leaving the operating room. PRE-OP/PRE-PROCEDURE DIAGNOSIS: Invasive ductal carcinoma of the left breast POST-OP/POST-PROCEDUR E DIAGNOSIS: Same as Preop [place] Node Biopsy for Breast Cancer - Left Operation performed with curative intent. Yes Tracer(s) used to identify sentinel nodes in the upfront surgery (non-neoadjuvant) setting (select all that apply). Dye and Radioactive tracer Tracer(s) used to identify sentinel nodes in the neoadjuvant setting (select all that apply). N/A All nodes (colored or non-colored) present a (more content not included)... [facility] OPERATIVE NO HNO ID: [id number] Author: Cierra Whitten MD Service: Plastic Surgery Author Type: Physician Type: Operative Report Filed: 01/24/2023 8:13 PM Note Text: OPERATIVE / PROCEDURE NOTE LOG ID: [id number] SURGERY/PROCEDURE DATE: 01/10/2023 INCISION/PROCEDURE START TIME: 12:36 PM INCISION CLOSE/PROCEDURE END TIME: 2:26 PM SURGEON(S)/PROCEDURAL IST(S) AND FAUCETS ASSEMBLER(S): Surgeon(s) and Role: Panel 1: * Kasandra Caruso MD - Primary * Tasneem Lockwood MD - Fellow Panel 2: * Cierra Whitten MD - Primary Floriculture Professor: Ines Ledezma SA; Mike Hanson SA SURGERY/PROCEDURE(S): 1. Complex closure left chest [id number] 2. ATT trunk 30cm2 ANESTHESIA: General FINDINGS: see dictation - nerve sparing ESTIMATED BLOOD LOSS: 10 mls SPECIMENS: None COMPLICATIONS: None DRAINS: Modified CLOSURE TECHNIQUE: Non-primary PRE-OP/PRE-PROCEDURE DIAGNOSIS: invasive ductal carcinoma of the left breast POST-OP/POST-PROCEDUR E DIAGNOSIS: Same as Preop SIGNATURE: Cierra Whitten MD PATIENT NAME: Ceasar Palacios DATE: January 10, 2023 TIME: 5:53 PM Indications for procedure: This is a 67-year-old female undergoing left-sided mastectomy. She was seen in the office and despite the fact that she is a reconstructive candidate, after discussing the expected perioperative and postoperative courses as well as the potential for complications, the patient is electing to not have any reconstruction and instead a complex closure with adjacent tissue transfer. We discussed all the risk and benefits with the patient. She signed a written informed consent. Description of procedure: The patient was already brought back to the operating room and in the supine position. She received appropriate perioperative antibiotics. The left sided skin sparing mastectomy had already been performed. Meticulous hemostasis was achieved under normotension. A 19 Lao drain was placed and secured. The upper flap was then mobilized over the lower flap to assess the lower incision. This was marked and then incised using a 10 blade. This portion of tissue measured approximately 3 x 10 cm for a total area 30 cm?. This was de-epithelialized and then a backcut was made through the dermis alone. There was bright red bleeding from the edges of the tissue and therefore this was advanced underneath the superior flap and secured to the chest wall using 2-0 Vicryl in interrupted fashion. We then proceeded with placing progressive tension sutures in the upper flap using 2-0 Vicryl to obliterate the space and decrease the tension on the final closure. The total closure measured approximately 25 cm. This was closed in layers using 3-0 and 4-0 Monocryl for the deep dermal and subcuticular layers respectively. Dressings and a surgical bra and fluffs were placed. At that point the patient was emerged from anesthesia uneventfully be transferred to the PACU in stable condition. There were no immediate complications and I was present for the critical portions of my procedure. [facility] SURGICAL PATHOLOGYon 023 CASE REPORT Normal [facility] Comment on above: Order Comment: Speci men Type: TISSUE SPECIMEN Ordering Facility: [facility] Address: [address] [place] [id number] Result Comment: Surg [facility] Pathology Report Case: [id number] Authorizing Provider: Kasandra Caruso MD Collected: 01/10/2023 01:16 PM Ordering Location: [facility] Received: 01/11/2023 11:13 AM Pathologist: Kassandra Birmingham DO Specimens: A) - BREAST MASTECTOMY LEFT, LEFT BREAST SHORT SUPERIOR LONG LATERAL OOB @13:14 B) - SENTINEL LYMPH NODE LEFT, oob @ 13:32 SLN # 1 # [id number] HOT & BLUE C) - SENTINEL LYMPH NODE LEFT, SNLN # 2 #[id number] HOT & BLUE OOB at 13:36 Performed By: #### S #### [facility] CLIA [id number] [address] CLINICAL HISTORY Normal [facility] Comment on above: Order Comment: Speci dorina Type: TISSUE SPECIMEN Ordering Facility: [facility] Address: [address] [place] [address] Result Comment: Pre- op diagnosis: Cancer of central portion of left breast (HCC) [C50.112] Performed By: #### S #### [facility] CLIA [id number] [address] DIAGNOSIS COMMENT Normal [facility] Comment on above: Order Comment: Speci men Type: TISSUE SPECIMEN Ordering Facility: [facility] Address: [address] [place] [address] Result Comment: A. S ampling of the tumor shows predominantly well-formed tubules with approximately 30% of the tumor showing micropapillary architecture. Dr. Flori Underwood has reviewed part A of this case and agrees with the above diagnosis. Performed By: #### S #### [facility] CLIA [id number] [address] FINAL DIAGNOSIS Normal [facility] Comment on above: Order Comment: Speci dorina Type: TISSUE SPECIMEN Ordering Facility: [facility] Address: [address] [place] [address] Result Comment: A. L eft breast, mastectomy: - Invasive ductal carcinoma with focal micropapillary features, histologic grade 1 (17 mm, pT1c). - Margins are negative for carcinoma. - Biopsy site changes present. - Unremarkable nipple/areola complex. - Please see comment and synoptic report. B. [place] lymph node, left axillary, excision: - 1 lymph node, negative for carcinoma (0/1). C. [place] lymph node, left axillary, excision: - 3 lymph nodes, negative for carcinoma (0/3). Performed By: #### S #### [facility] CLIA [id number] [address] FINAL PERFORMING LAB Normal [facility] Comment on above: Order Comment: Speci men Type: TISSUE SPECIMEN Ordering Facility: [facility] Address: [address] Result Comment: Diag nostic interpretation performed at [facility], [address] [place] [address] CLIA# [id number] Reconnaissance Crewmember: David Benavidez M.D. Performed By: #### S #### [facility] CLIA [id number] [address] GROSS DESCRIPTION Normal [facility] Comment on above: Order Comment: Speci men Type: TISSUE SPECIMEN Ordering Facility: [facility] Address: [place] [address] Result Comment: A. B REAST MASTECTOMY LEFT Received in formalin labeled "left breast mastectomy" is an oriented left nipple skin sparing mastectomy weighing 276 g and measuring 14.0 cm (medial to lateral) x 13.0 cm (superior to inferior) x 4.0 cm (anterior to posterior). The specimen is oriented per requisition as short suture pierre the superior margin and a long suture pierre the lateral margin. There are no segments of muscle. There is an unremarkable excision of skin on the radial margin measuring 7.5 cm (medial to lateral) x 3.5 cm (superior to inferior). The unremarkable nipple-areolar complex measures 3.0 cm in greatest diameter. The everted nipple measures 1.5 x 1.5 x 0.5 cm. Epic imaging does reveal one biopsy marker clip. The specimen is inked by the surgeon as follows: Upper inner quadrant-green, upper outer quadrant-orange, lower outer quadrant-blue, lower inner quadrant-red, deep margin-black, and skin-yellow. The breast is serially sectioned to reveal one lesion. Mass #1: White firm with barbell clip measuring 1.7 cm (medial to lateral) x 1.3 cm (superior to inferior) x 0.7 cm (anterior to posterior). The lesion is situated at 11:00, 5.0 cm from the nipple in the upper inner quadrant. This lesion is located 1.1 cm from the deep margin, 0.5 cm from the superior radial margin, and 5.0 cm from the nipple. The remaining breast parenchyma is soft adipose tissue with dense fibrous tissue (10%). An axillary tail is not present. Lymph nodes are not identified. The specimen was removed from the patient on 01/11/2023 at 1314 hrs. and placed in formalin at 1407 hrs. Artist'S Manager sections are submitted as follows: A1-A7 mass #1 associated with barbell clip in upper inner quadrant; consecutive section along the longest linear dimension from lateral to medial: A1-A3 lesion with radial margin A4-A5 lesion with radial and deep margins A6-A7 remainder of lesion with radial margin A8-life assurance representative slice medial to lesion with radial margin A9-life assurance representative slice lateral to lesion with radial margin S20-jvbyr inner quadrant with inferior radial margin L38-jgobh outer quadrant with inferior radial margin A12-A14 entire nipple Gross examination performed at [facility], [address] [place] [id number] CLIA#[id number] [facility] January 12, 2023 9:20 AM B. SENTINEL LYMPH NODE LEFT Received in formalin labeled as "sentinel lymph node left #1" is irregular shaped segment of yellow fibrofatty tissue measuring 2.0 x 1.0 x 0.5 cm. Palpation reveals 1 mnotilla firm nodule, resembling a lymph node, measuring 1.5 cm in greatest dimension. The nodule is serially sectioned and totally submitted in formalin in 1 cassette. The specimen was removed from the patient at 1332 hrs. on 01/11/2023 and placed in formalin at 1334 hrs. C. SENTINEL LYMPH NODE LEFT Received in formalin labeled as "sentinel lymph node left #2" is irregular shaped segment of yellow fibrofatty tissue measuring 3.0 x 2.5 x 0.8 cm. Palpation reveals three montilla firm nodules, resembling a lymph node, ranging in size from 1.0- 1.5 cm in greatest dimension. The nodules are serially sectioned and totally submitted in formalin as follows: C1- one nodule C2- one nodule C3- one nodule The specimen was removed from the patient at 1336 hrs. on 01/11/2023 and placed in formalin at 1339 hrs. Gross examination performed at [facility], [address] [place] [id number] CLIA#[id number] [facility] January 12, 2023 9:30 AM Performed By: #### S #### [facility] CLIA [id number] [address] [place] [id number] [facility] SYNOPTIC REPORT Normal [facility] Comment on above: Order Comment: Speci men Type: TISSUE SPECIMEN Ordering Facility: [facility] Address: [place] [address] Result Comment: INVA SIVE CARCINOMA OF THE BREAST: Resection INVASIVE CARCINOMA OF THE BREAST: EXCISION - All Specimens 8th Edition - Protocol posted: 09/22/2022 SPECIMEN Procedure: Total mastectomy Specimen Laterality: Left TUMOR Tumor Site: Upper inner quadrant Histologic Type: Invasive carcinoma with features of: micropapillary Histologic Grade (Friona Histologic Score): Glandular (Acinar) / Tubular Differentiation: Score 2 Nuclear Pleomorphism: Score 2 Mitotic Rate: Score 1 Overall Grade: Grade 1 (scores of 3, 4 or 5) Tumor Size: Greatest dimension of largest invasive focus (Millimeters): 17 mm Tumor Focality: Single focus of invasive carcinoma Ductal Carcinoma In Situ (DCIS): Not identified Lobular Carcinoma In Situ (LCIS): Not identified Lymphatic and / or Vascular Invasion: Not identified Dermal Lymphovascular Invasion: Not identified Microcalcifications: Present in invasive carcinoma Treatment Effect in the Breast: No known presurgical therapy MARGINS Margin Status for Invasive Carcinoma: All margins negative for invasive carcinoma Distance from Invasive Carcinoma to Closest Margin: 2 mm Closest Margin(s) to Invasive Carcinoma: Superior REGIONAL LYMPH NODES Regional Lymph Node Status: : All regional lymph nodes negative for tumor Total Number of Lymph Nodes Examined (sentinel and non-sentinel): 4 Number of [place] Nodes Examined: 4 pTNM CLASSIFICATION (AJCC 8th Edition) Reporting of pT, pN, and (when applicable) pM categories is based on information available to the pathologist at the time the report is issued. As per the AJCC (Chapter 1, 8th Ed.) it is the managing physician???s responsibility to establish the final pathologic stage based upon all pertinent information, including but potentially not limited to this pathology report. pT Category: pT1c pN Category: pN0 N Suffix: (sn) SPECIAL STUDIES Testing Performed on Performed By: #### S #### [facility] CLIA [id number] [address] [place] HISTORY PHYSICALon HISTORY PHYSICAL HNO ID: [id number] Author: Emmy Lopez APRN.SISAL PICKER Service: ? Author Type: Nurse Practitioner Type: HANDP Filed: 01/03/2023 2:08 PM Note Text: HISTORY AND PHYSICAL EXAMINATION SERVICE DATE: 01/03/2023 SERVICE TIME: 2:07 PM PRIMARY CARE PHYSICIAN: Krystle Alford, REASON FOR VISIT: Ceasar Palacios is a 67 year old female who is scheduled for Procedure(s) with comments: LEFT BREAST NIPPLE SKIN SPARING MASTECTOMY, RIGHT PROPHYLACTIC NIPPLE SKIN SPARING MASTECTOMY (Bilateral) - ERAS PROTOCOL, PEC BLOCK SENTINEL NODE BIOPSY (Left) NUCLEAR INJECTION (Left) INJECTION OF LYMPHAZURIN (Left) LEFT VS BILATERAL COMPLEX CLOSURE FOLLOWING MASTECTOMY (Bilateral) at the request of Dr. Kasandra Caruso for routine HANDP. My final recommendation will be communicated back to the requesting physician by way of shared medical record or letter. 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 CHIEF COMPLAINT: The reason for this visit is to perform a comprehensive review of the patient's past medical history, assess their current health status and obtain any additional testing required based on anesthesia guidelines. We will also identify any potential anesthesia problems or contraindications to the planned procedure. HPI: Ceasar is a 67 year old female presenting for PAT. She is here with her daughter who will help interpret. She was fund to have left breast cancer and plans to have mastectomy with reconstruction. Does have a family history of breast cancer. Denies pain today. Taking Arimidex. After discussion with the surgeon, the patient agrees to surgical intervention. REVIEW OF SYSTEMS: General: No weight loss, malaise or fevers. Neurological: No history of TIA's, stroke, PANAMA HAT HYDRAULIC PRESS OPERATOR tumor, impaired sensorium, hemiplegia, paraplegia or quadraplegia. No neurological symptoms or problems. Respiratory: Positive for: obstructive sleep apnea and CPAP/BiPAP noncompliant. Negative for: asthma, COPD, current cough, home oxygen, pneumonia within 6 weeks and tobacco use. Cardiovascular: Positive for: hypertension Negative for: abdominal aortic aneurysm, AICD/PPM, anticoagulation therapy, CAD, chest pain, CHF, DVT/PE and hyperlipidemia. GI: Positive for: GERD Negative for: abdominal pain. : No history of dysuria, frequency or incontinence, stones or chronic kidney disease. No difficulty urinating, nocturia > 1 time per night or hematuria. ROLLER INSPECTOR AND MENDER: Negative for abnormal vaginal bleeding, abnormal vaginal discharge. Endocrine: No history of diabetes. Has not taken steroids within the past 30 days. No history of endocrinological symptoms or problems. Hematology: No history of bleeding or clotting disorder. Patient is not taking anti-coagulation or platelet medications. No history of hematological symptoms or problems. Oncology: No history of CA metastasis, chemo within 30 days, or radiotherapy within 90 days. No history of oncological symptoms or problems. Psych: No history of psychiatric symptoms or problems. Musculoskeletal: Negative for joint pain or swelling, back pain or muscle pain. Skin: Negative for lesions, rash and itching. PAST MEDICAL HISTORY Diagnosis Date Breast cancer (HCC) 2022 left GERD (gastroesophageal reflux disease) HTN (hypertension) diet controlled Osteopenia Sleep apnea moderate, no cpap Varicose veins of lower extremities with inflammation PAST SURGICAL HISTORY Procedure Laterality Date BREAST BIOPSY HX Left 08/04/2022 BREAST BIOPSY HX Right 08/17/2022 BX OF BREAST; INCISIONAL Right 11/17/2022 COLONOSCOPY 02/24/2015 FAMILY HISTORY Problem Relation Age of Onset Diabetes Mother Cancer Father 79 stomach Breast Cancer Sister 50 Diabetes Sister Diabetes Brother Social History Tobacco Use Smoking status: Never Smokeless tobacco: Never Vaping Use Vaping Use: Never used Substance Use Topics Alcohol use: Never Drug use: Never Prior to Admission medications as of 01/03/23 1343 Medication Sig Last Dose Taking omeprazole (PRILOSEC) 20 mg capsule Take 20 mg by mouth once daily. Taking Yes anastrozole (ARIMIDEX) 1 mg tablet Take 1 tablet by mouth once daily. Taking Yes glucosamine HCl/chondroitin grover (GLUCOSAMINE-CHONDROI TIN ORAL) Take 1 tablet by mouth once daily. Taking Yes Calcium-Cholecalcifer ol, D3, 500 mg-10 mcg (400 unit) per tablet Take 1 tablet by mouth once daily. Taking Yes lidocaine-prilocaine (EMLA) 2.5-2.5 % cream Apply 1 application to affected area as neede (more content not included)... Normal [facility] CNOVon 11-26-2022 CNOV Office Visit (PLHWBA ) CEASAR PALACIOS ([id number]) 1955 F BEV Date Time Provider Department 11/26/22 9:00 AM [facility] your visit today, we recorded the following information about you: Weight Height 55.8 kg 1.448 m Cierra Whitten MD 11/29/2022 10:40 AM Signed [facility] Department of Plastic Surgery BREAST RECONSTRUCTION EVALUATION Name: Ceasar Palacios : 1955 Comorbidities: Hypertension Sleep Apnea Type of Mastectomy: Bilateral Mastectomy Side of Diagnosis: left Prior Breast Surgery: None Prior Abdominal Surgery: None History of Bleeding Disorder: No History of DVT/Pulmonary Embolism: No History of MRSA: No MRSA Infection History of Diabetes: No History of Sleep Apnea: Yes History of HTN: Yes History of Nicotine Use: No CC: breast cancer HPI: Ceasar Palacios is a 67 year old female that presents today for breast reconstruction evaluation. Ceasar Palacios was found to have left breast cancer by recent biopsy. She would like to learn more about her options for reconstruction decide if she would like to proceed with reconstructive surgery. Current Bra Size: 36 B Genetic Testing Results: Negative Radiation Therapy: N/A Chemotherapy: N/A Breast Surgeon: Dr. Caruso Oncologist: Dr. Emiliano Saleh Family History of Breast Cancer: Yes: sister Family History of Bleeding Disorder: No OB HISTORY: OB History No obstetric history on file. PMH: PAST MEDICAL HISTORY Diagnosis Date Breast cancer (HCC) 2022 Osteopenia Sleep apnea Varicose veins of lower extremities with inflammation PSH: PAST SURGICAL HISTORY Procedure Laterality Date BREAST BIOPSY HX Left 08/04/2022 BREAST BIOPSY HX Right 08/17/2022 BX OF BREAST; INCISIONAL Right 11/17/2022 COLONOSCOPY 02/24/2015 Social History Tobacco Use Smoking status: Never Smokeless tobacco: Never Vaping Use Vaping Use: Never used Substance Use Topics Alcohol use: Never Drug use: Never Breast Fed: Yes REVIEW OF SYSTEMS: ROS Meds: Current Outpatient Medications Medication Sig Dispense Refill anastrozole (ARIMIDEX) 1 mg tablet Take 1 tablet by mouth once daily. 30 tablet 1 lidocaine-prilocaine (EMLA) 2.5-2.5 % cream Apply 1 application to affected area as needed. 10 g 0 glucosamine HCl/chondroitin grover (GLUCOSAMINE-CHONDROI TIN ORAL) Take 1 tablet by mouth once daily. multivitamin (MULTIPLE VITAMIN ORAL) Take 1 tablet by mouth once daily. Calcium-Cholecalcifer ol, D3, 500 mg-10 mcg (400 unit) per tablet Take 1 tablet by mouth once daily. BIOTIN ORAL Take 1 tablet by mouth once daily. OTC PRODUCT Tumeric 1 capsule daily No current facility-administered medications for this visit. Use of OTC or Vitamins/Supplements: Yes PHYSICAL EXAM: Ht 4' 9" (1.45m) Wt 123 lb (55.8kg) BMI 26.61 kg/(m2). GENERAL: Well appearing, in no acute distress, speaking in complete sentences. Breast Exam/Assessment: Asymmetry: Minimal Masses: no Subaxillary Rolls: No Notch to Nipple: L 21 R23 Nipple to Crease: L 8 R 7 Base Diameter: 12.5 Note: measurements are in centimeters Ptosis: R: Grade I L: Grade I Medial Displacement of the Nipple: None Striae of the breast skin: No Assessment: 67 year old female who desires to have the least amount of surgery with least amount of risk involved. After a long discussion with the daughter and patient, patient is electing for left sided mastectomy and complex closure without implant reconstruction. She would like to avoid a right sided mastectomy if possible. Plan: Plan for below The risks/benefits of surgery were discussed. I have explained the risks and benefits including but not limited to infection, hematoma, seroma, open wounds, chronic wounds, prolonged time off and possibility for additional surgery. I have answered all patients questions to the best of my ability and to the patients satisfaction. The patient voiced understanding of the above and had no further questions and agreed to proceed with surgery. The patient is seen and examined by Dr. Whitten and the following reflects his/her service. Scribed by Dionne Blum MA I agree with the Chief Complaint, ROS, and Past Histories independently gathered by the clinical technical support internship and the remaining scribed note accurately describes my personal service to the patient. Surgery Scheduling Ceasar Palacios 1955 Procedure: left vs bilateral complex closure following mastectomy OR Time Needed: 1.5 vs 3 hours [place] or [facility] Equipment Request: plastics set, lighted retractors (do not open), 19F drain SA Requested: Yes Anesthesia: General Post op appointment: 1,3,6 Inpatient stay:No Block Needed: Yes Pre Testing Needed: Yes Occupati (more content not included)... 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 She was last seen on 10/28/22 and her diagnosis was discussed at that time. Given the volume of her breast tissue in relation to the size of the IDC, it was recommended she undergo a left breast mastectomy as BCT would result in poor cosmesis. She also elects for contralateral right prophylactic mastectomy with reconstruction as well. A referral was made to plastic surgery as well as genetics due to a history of breast cancer in her sister and she was started on anastrozole in the interim. She is here today for pre-operative planning. PAST MEDICAL HISTORY Diagnosis Date Breast cancer (HCC) 2022 Osteopenia Sleep apnea Varicose veins of lower extremities with inflammation PAST SURGICAL HISTORY Procedure Laterality Date BREAST BIOPSY HX Left 08/04/2022 BREAST BIOPSY HX Right 08/17/2022 BX OF BREAST; INCISIONAL Right 11/17/2022 COLONOSCOPY 02/24/2015 FAMILY HISTORY Problem Relation Age of Onset Diabetes Mother Cancer Father 79 stomach Breast Cancer Sister 50 Diabetes Sister Diabetes Brother Social History Tobacco Use Smoking status: Never Smokeless tobacco: Never Vaping Use Vaping Use: Never used Substance Use Topics Alcohol use: Never Drug use: Never ALLERGIES No Known Allergies There are no exam notes on file for this visit. No question data found. Pathology: FINAL DIAGNOSIS A. Breast, right 9:30 8 cm FN, core biopsy: - Fibroadenoma. REVIEW OF SYSTEMS GENERAL: No weight loss, malaise or fevers Current Outpatient Medications Medication Sig Dispense Refill glucosamine HCl/chondroitin grover (GLUCOSAMINE-CHONDROI TIN ORAL) Take 1 tablet by mouth once daily. multivitamin (MULTIPLE VITAMIN ORAL) Take 1 tablet by mouth once daily. Calcium-Cholecalcifer ol, D3, 500 mg-10 mcg (400 unit) per tablet Take 1 tablet by mouth once daily. BIOTIN ORAL Take 1 tablet by mouth once daily. OTC PRODUCT Tumeric 1 capsule daily anastrozole (ARIMIDEX) 1 mg tablet Take 1 tablet by mouth once daily. 30 tablet 1 No current facility-administered medications for this visit. There were no vitals taken for this visit. PHYSICAL EXAMINATION Exam: General: Alert and oriented x 3. No acute distress. HEENT: Atraumatic, no midline tenderness, no step off deformities CV: Regular rate Respiratory: Unlabored breathing on RA, equal chest rise bilaterally. Abdomen: Soft, nondistended, NTP, no rebound, guarding. Neuro: AANDOx3, CNII-XII grossly intact, sensorimotor function grossly intact. Heme: No bleeding, no ecchymoses Skin: Skin warm and dry. MSK: AROM grossly wnl in all four extremities. Breast: The incision is clean dry intact. There is no evidence of infection or hematoma. ASSESSMENT/PLAN Patient has biopsy proven stage Ib (T2, N0, M0) invasive ductal carcinoma grade 2 ER/HI positive, HER 2 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 Will plan for left nipple sparing mastectomy with left sentinel lymph node biopsy with prophylactic right nipple sparing mastectomy and immediate reconstruction with plastic surgery. She meets with plastic surgery tomorrow. Consent form was signed and surgery will be scheduled. Procedure: Bilateral nipple skin sparing mastectomy and left sentinel lymph node biopsy, nuclear injection, injection of Lymphazurin The risks, benefits and anticipated outcomes of the procedure, the risks and benefits of the alternatives to the procedure, and the roles and tasks of the personnel to be involved, were discussed with the patient, and the patient consents to the procedure and agrees to proceed. Name: Chandler DelarosaDO yolanda Date: 11/25/2022 Time: 7:03 AM SONJA Camacho 11/25/2022 9:08 AM Signed Patient here for follow up after breast biopsy. Patient states steri strips are still intact. Denies redness, swelling, or drainage at biopsy site. SONJA Camacho Referring Provider: KRYSTLE ALFORD [[id number]] Allergies As of Date: 11/25/2022 (No Known Allergies) Date Reviewed: 11/25/2022 Reviewed by: Kasandra Caruso MD - Fully Assessed Reason for Visit: Follow Up Tests Results [770] Primary Visit Diagnosis:Cancer of central portion of left breast (HCC) [C50.112] Other Visit Diagnoses:Fibroadenom a of right breast [D24.1] Fami (more content not included)... Normal [facility]20[facility] PALACOISCE[facility]AR GROSS ([id number]) 1955 F BEV Date Time Provider Department 11/22/22 KASANDRA CARUSO During your visit today, we recorded the following information about you: Amita Acevedo RN 11/22/2022 1:21 PM Signed Called and spoke with patient's daughter Adelaida and reviewed pathology results. Patient speaks limited Cymraes. No questions at this time. Instructed to keep follow up appointment as physician will discuss final recommendations for care. Understanding verbalized. Amita Acevedo, MSN, RN Allergies As of Date: 11/22/2022 (No Known Allergies) Date Reviewed: 11/17/2022 Reviewed by: RT Zina(R) - Fully Assessed Reason for Visit: Results [95] Prescriptions as of 11/22/2022 - glucosamine HCl/chondroitin grover (GLUCOSAMINE-CHONDROI TIN ORAL) Take 1 tablet by mouth once daily. - multivitamin (MULTIPLE VITAMIN ORAL) Take 1 tablet by mouth once daily. - Calcium-Cholecalcifer ol, D3, 500 mg-10 mcg (400 unit) per tablet Take 1 tablet by mouth once daily. - BIOTIN ORAL Take 1 tablet by mouth once daily. - OTC PRODUCT Tumeric 1 capsule daily - anastrozole (ARIMIDEX) 1 mg tablet Take 1 tablet by mouth once daily. Problem List As Of Date 11/22/2022 Noted Resolved Cancer of central portion of left breast (HCC) *10/28/2022 Abnormal finding on breast imaging [R92.8] 10/28/2022 Family history of breast cancer [Z80.3] 10/28/2022 Encounter Status:Closed by AMITA ACEVEDO on 11/22/22 Normal [facility] DIAGNOSTIC RTon 11-17-19 [facility] RT * * *Final Report* * * * * * SEE BOTTOM OF REPORT FOR ADDENDED TEXT * * * DATE OF EXAM: Nov 17 2022 11:43AM AAW [id number] - [facility] RT / PROCEDURE REASON: Abnormal finding on breast imaging * * * * Physician Interpretation * * * * FINAL REPORT #[id number] - LORENA US BIOPSY BREAST RT #[id number] - [facility] DIAG[facility]IC RT #[id number] - MRI BREAST CLIP PLACEMENT RT -NB ULTRASOUND GUIDED BIOPSY RIGHT BREAST WITH MARKING DEVICE INSERTED AND POST DIGITAL MAMMOGRAPHIC, ULTRASOUND, AND MRI IMAGIN11/17/2022 HISTORY: Abnormal Finding On Breast Imaging /Patient presents for an ultrasound guided biopsy of the right breast. Abnormal Finding On Breast Imaging /Post breast biopsy clip placement. Abnormal Finding On Breast Imaging The right breast was re-evaluated sonographically in the region of the mammographic asymmetry and region of enhancement described on prior breast MRI. There is a 2.3 x 2.3 x 1.8 cm area at 9:30 9 cm FN, which is felt to correlate with the breast MRI finding in question. As such, ultrasound guided core biopsy was performed, as below. PATIENT CONSENT: A time out was performed immediately prior to procedure start with the nursing and radiology team, correctly identifying the patient name, date of , procedure, anatomy (including marking of site and side), patient position, relevant diagnostic and radiology test results, safety precautions, and procedure-specific equipment needs. The procedure was explained to the patient including the risks, benefits and alternatives. Medications were also reviewed. The risks, including but not limited to infection and bleeding, were reviewed by the performing physician and the patient agreed to undergo the procedure. Dr. Tom and a electroneurodiagnostic technologist were present throughout the entire procedure. Audible Time Out Time: 1120 Procedure Start Time: 1125 Procedure Stop Time: 1130 Dr. Tom performed the entire procedure without an administrative sales assistant. PROCEDURE: Correlation is made to exams dated: 09/15/2022 breast MRI - [facility], 08/17/2022 ultrasound biopsy, 07/15/2022 ultrasound, and 07/15/2022 mammogram. An ultrasound guided biopsy using real-time ultrasound was performed for the concerning region located in the right breast at 10 o'clock middle depth. This was described on the previous ultrasound and MRI reports. The skin was prepped in the usual manner. Local anesthetic was administered to the access site. A skin virginia was made in the breast. The abnormality was approached from the lateral aspect. A 14 gauge biopsy needle was placed adjacent to the abnormality under ultrasound guidance. Once the needle was documented to be in the correct location, three cores were obtained using a BARD biopsy device. A coil type clip was inserted into the biopsy cavity. Post procedure digital mammographic, ultrasound, and MRI imaging demonstrates the location device at the targeted area. The specimens were sent to the laboratory for pathological analysis. IMPRESSION: ULTRASOUND GUIDED BIOPSY BENIGN Ultrasound guided biopsy of the region in the right breast at 10 o'clock middle depth with placement of a clip was successful with no apparent post procedure complications. Pathology indicates benign fibroadenoma (FA). Pathology results are concordant with imaging findings. SUMMARY: Pathology results are as follows: FINAL DIAGNOSIS A. Breast, right 9:30 8 cm FN, core biopsy: ? Fibroadenoma. The patient is under the care of Dr. Kasandra Caruso for follow up of the above benign concordant biopsy results. Addie crawford/stephanie:12/01/2022 17:31:29 [employer] Mill Grader(s): Sebastián Izaguirre(R)(M), [facility]; Monica Kaur, [facility]; RT Chad(R)(M), [facility] Multiple national specialty organizations have released breast cancer screening guidelines for women at average risk for developing breast cancer - guidelines that are based on both evidence and opinion, yet differ on when to start and how often to screen for breast cancer. With representation from Breast Imaging, Internal Medicine, Women's Health, Family Medicine, and Medical/Surgical Oncology, the [facility] has carefully reviewed the data and reached the following consensus: 1) All women should engage in shared decision-making with their providers to decide when to start and how often to screen; 2) All women should have the opportunity to start screening mammography at age 40; 3) For women ages 45-55, we recommend annual screening mammograms; 4) For women ages 55 and over, we support both the transition from an annual to a biennial interval if this aligns more with patient's values and preferences, or continuation with annual screening; 5) All women should discuss with their providers when to stop screening mammograms. Grinding And Polishing Laborer: Stephanie (more content not included)... Normal [facility] US BIOPSY BREAST RTon [facility] US BIOPSY BREAST RT * * *Final Report* * * * * * SEE BOTTOM OF REPORT FOR ADDENDED TEXT * * * DATE OF EXAM: Nov 17 2022 11:42AM AAW 0598 - [facility] US BIOPSY BREAST RT / PROCEDURE REASON: Abnormal finding on breast imaging * * * * Physician Interpretation * * * * FINAL REPORT #[id number] - [facility] US BIOPSY BREAST RT #[id number] - [facility] DIAGNOSTIC RT #[id number] - MRI BREAST CLIP PLACEMENT RT -NB ULTRASOUND GUIDED BIOPSY RIGHT BREAST WITH MARKING DEVICE INSERTED AND POST DIGITAL MAMMOGRAPHIC, ULTRASOUND, AND MRI IMAGIN11/17/2022 HISTORY: Abnormal Finding On Breast Imaging /Patient presents for an ultrasound guided biopsy of the right breast. Abnormal Finding On Breast Imaging /Post breast biopsy clip placement. Abnormal Finding On Breast Imaging The right breast was re-evaluated sonographically in the region of the mammographic asymmetry and region of enhancement described on prior breast MRI. There is a 2.3 x 2.3 x 1.8 cm area at 9:30 9 cm FN, which is felt to correlate with the breast MRI finding in question. As such, ultrasound guided core biopsy was performed, as below. PATIENT CONSENT: A time out was performed immediately prior to procedure start with the nursing and radiology team, correctly identifying the patient name, date of , procedure, anatomy (including marking of site and side), patient position, relevant diagnostic and radiology test results, safety precautions, and procedure-specific equipment needs. The procedure was explained to the patient including the risks, benefits and alternatives. Medications were also reviewed. The risks, including but not limited to infection and bleeding, were reviewed by the performing physician and the patient agreed to undergo the procedure. Dr. Tom and a electroneurodiagnostic technologist were present throughout the entire procedure. Audible Time Out Time: 1120 Procedure Start Time: 1125 Procedure Stop Time: 1130 Dr. Tom performed the entire procedure without an administrative sales assistant. PROCEDURE: Correlation is made to exams dated: 09/15/2022 breast MRI - [facility], 08/17/2022 ultrasound biopsy, 07/15/2022 ultrasound, and 07/15/2022 mammogram. An ultrasound guided biopsy using real-time ultrasound was performed for the concerning region located in the right breast at 10 o'clock middle depth. This was described on the previous ultrasound and MRI reports. The skin was prepped in the usual manner. Local anesthetic was administered to the access site. A skin virginia was made in the breast. The abnormality was approached from the lateral aspect. A 14 gauge biopsy needle was placed adjacent to the abnormality under ultrasound guidance. Once the needle was documented to be in the correct location, three cores were obtained using a Moneero biopsy device. A coil type clip was inserted into the biopsy cavity. Post procedure digital mammographic, ultrasound, and MRI imaging demonstrates the location device at the targeted area. The specimens were sent to the laboratory for pathological analysis. IMPRESSION: ULTRASOUND GUIDED BIOPSY BENIGN Ultrasound guided biopsy of the region in the right breast at 10 o'clock middle depth with placement of a clip was successful with no apparent post procedure complications. Pathology indicates benign fibroadenoma (FA). Pathology results are concordant with imaging findings. SUMMARY: Pathology results are as follows: FINAL DIAGNOSIS A. Breast, right 9:30 8 cm FN, core biopsy: ? Fibroadenoma. The patient is under the care of Dr. Kasandra Caruso for follow up of the above benign concordant biopsy results. Addie crawford/stephanie:12/01/2022 17:31:29 [employer] Mill Grader(s): Sebastián Izaguirre(R)(M), [facility]; Monica Kuar, [facility]; RT Chad(R)(M), [facility] Multiple national specialty organizations have released breast cancer screening guidelines for women at average risk for developing breast cancer - guidelines that are based on both evidence and opinion, yet differ on when to start and how often to screen for breast cancer. With representation from Breast Imaging, Internal Medicine, Women's Health, Family Medicine, and Medical/Surgical Oncology, the [facility] has carefully reviewed the data and reached the following consensus: 1) All women should engage in shared decision-making with their providers to decide when to start and how often to screen; 2) All women should have the opportunity to start screening mammography at age 40; 3) For women ages 45-55, we recommend annual screening mammograms; 4) For women ages 55 and over, we support both the transition from an annual to a biennial interval if this aligns more with patient's values and preferences, or continuation with annual screening; 5) All women should discuss with their providers when to stop screening mammograms. Grinding And Polishing Laborer: (more content not included)... Normal [facility] MRI BREAST CLIP PLACEMENT RT on 11-17-2022 [facility] MRI BREAST CLIP PLACEMENT RT -NBon 11-17-2022 MRI BREAST CLIP PLACEMENT RT -NB * * *Final Report* * * * * * SEE BOTTOM OF REPORT FOR ADDENDED TEXT * * * DATE OF EXAM: Nov 17 2022 12:16PM [facility] 0766 - MRI BREAST CLIP PLACEMENT RT -NB / PROCEDURE REASON: Abnormal finding on breast imaging * * * * Physician Interpretation * * * * FINAL REPORT #[id number] - [facility] US BIOPSY BREAST RT #[id number] - [facility] DIAGNOSTIC RT #[id number] - MRI BREAST CLIP PLACEMENT RT -NB ULTRASOUND GUIDED BIOPSY RIGHT BREAST WITH MARKING DEVICE INSERTED AND POST DIGITAL MAMMOGRAPHIC, ULTRASOUND, AND MRI IMAGIN11/17/2022 HISTORY: Abnormal Finding On Breast Imaging /Patient presents for an ultrasound guided biopsy of the right breast. Abnormal Finding On Breast Imaging /Post breast biopsy clip placement. Abnormal Finding On Breast Imaging The right breast was re-evaluated sonographically in the region of the mammographic asymmetry and region of enhancement described on prior breast MRI. There is a 2.3 x 2.3 x 1.8 cm area at 9:30 9 cm FN, which is felt to correlate with the breast MRI finding in question. As such, ultrasound guided core biopsy was performed, as below. PATIENT CONSENT: A time out was performed immediately prior to procedure start with the nursing and radiology team, correctly identifying the patient name, date of , procedure, anatomy (including marking of site and side), patient position, relevant diagnostic and radiology test results, safety precautions, and procedure-specific equipment needs. The procedure was explained to the patient including the risks, benefits and alternatives. Medications were also reviewed. The risks, including but not limited to infection and bleeding, were reviewed by the performing physician and the patient agreed to undergo the procedure. Dr. Tom and a electroneurodiagnostic technologist were present throughout the entire procedure. Audible Time Out Time: 1120 Procedure Start Time: 1125 Procedure Stop Time: 1130 Dr. Tom performed the entire procedure without an administrative sales assistant. PROCEDURE: Correlation is made to exams dated: 09/15/2022 breast MRI - [facility], 08/17/2022 ultrasound biopsy, 07/15/2022 ultrasound, and 07/15/2022 mammogram. An ultrasound guided biopsy using real-time ultrasound was performed for the concerning region located in the right breast at 10 o'clock middle depth. This was described on the previous ultrasound and MRI reports. The skin was prepped in the usual manner. Local anesthetic was administered to the access site. A skin virginia was made in the breast. The abnormality was approached from the lateral aspect. A 14 gauge biopsy needle was placed adjacent to the abnormality under ultrasound guidance. Once the needle was documented to be in the correct location, three cores were obtained using a BARD biopsy device. A coil type clip was inserted into the biopsy cavity. Post procedure digital mammographic, ultrasound, and MRI imaging demonstrates the location device at the targeted area. The specimens were sent to the laboratory for pathological analysis. IMPRESSION: ULTRASOUND GUIDED BIOPSY BENIGN Ultrasound guided biopsy of the region in the right breast at 10 o'clock middle depth with placement of a clip was successful with no apparent post procedure complications. Pathology indicates benign fibroadenoma (FA). Pathology results are concordant with imaging findings. SUMMARY: Pathology results are as follows: FINAL DIAGNOSIS A. Breast, right 9:30 8 cm FN, core biopsy: ? Fibroadenoma. The patient is under the care of Dr. Kasandra Caruso for follow up of the above benign concordant biopsy results. Addie crawford/stephanie:12/01/2022 17:31:29 [employer] Grader(s): Sebastián Izaguirre(R)(M), [facility]; Monica Kaur, [facility]; RT Chad(R)(M), [facility] Multiple national specialty organizations have released breast cancer screening guidelines for women at average risk for developing breast cancer - guidelines that are based on both evidence and opinion, yet differ on when to start and how often to screen for breast cancer. With representation from Breast Imaging, Internal Medicine, Women's Health, Family Medicine, and Medical/Surgical Oncology, the [facility] has carefully reviewed the data and reached the following consensus: 1) All women should engage in shared decision-making with their providers to decide when to start and how often to screen; 2) All women should have the opportunity to start screening mammography at age 40; 3) For women ages 45-55, we recommend annual screening mammograms; 4) For women ages 55 and over, we support both the transition from an annual to a biennial interval if this aligns more with patient's values and preferences, or continuation with annual screening; 5) All women should discuss with their providers when to stop screening mammograms. Transcrip (more content not included)... Normal [facility] SURGICAL PATHOLOGYon 023 CASE REPORT Normal [facility] Comment on above: Order Comment: Speci men Type: TISSUE SPECIMENOrdering Facility: [facility] Address: [address] [place] [address] Result Comment: Surg ical Pathology Report Case: [id number] Authorizing Provider: Addie Tom MD Collected: 11/17/2022 11:27 AM Ordering Location: [facility] Received: 11/18/2022 09:35 AM [facility] Pathologist: Soledad Hamilton MD Specimen: BREAST CORE BIOPSY RIGHT, 9:30 8 cm FN, collection 1127, formulin 1127, coil clip Performed By: #### S ####[facility] [id number] [address] CLINICAL HISTORY Suspicious irregular mass. Known breast cancer in the contralateral breast Normal [facility] Comment on above: Order Comment: Speci men Type: TISSUE SPECIMENOrdering Facility: [facility] Address: [address] [place] [address] Performed By: #### S ####[facility] [id number] [address] DIAGNOSIS COMMENT Dr. Flori Underwood reviewed the case and agrees with the diagnosis. [facility] Comment on above: Order Comment: Speci men Type: TISSUE SPECIMENOrdering Facility: [facility] Address: [address] [place] [address] Performed By: #### S ####[facility] LABORATORYCLIA [id number] [address] FINAL DIAGNOSIS Normal [facility] Comment on above: Order Comment: Speci men Type: TISSUE SPECIMENOrdering Facility: [facility] Address: [address] [place] [address] Result Comment: A. B reast, right 9:30 8 cm FN, core biopsy: - Fibroadenoma. Performed By: #### S ####[facility] LABORATORYCLIA [id number] [address] FINAL PERFORMING LAB Normal [facility] Comment on above: Order Comment: Speci men Type: TISSUE SPECIMENOrdering Facility: [facility] Address: [address] [place] [address] Result Comment: Diag nostic interpretation performed at [facility], [address] [place] [address] CLIA# [id number] Reconnaissance Crewmember: David Benavidez M.D. Performed By: #### S ####[facility] LABORATORYCLIA [id number] [address] GROSS DESCRIPTION Normal [facility] Comment on above: Order Comment: Speci men Type: TISSUE SPECIMENOrdering Facility: [facility] Address: [address] [place] [address] Result Comment: A. B REAST CORE BIOPSY RIGHT A. Received in formalin labeled "breast core biopsy right 938 cm from nipple coil clip" are multiple white-yellow cylindrical segments of tissue aggregating to 1.5 x 0.6 x 0.2 cm. The specimens are totally submitted in formalin and one cassette. Time or from patient is 11:27 AM on 11/17/2022. Time placed in formalin is 1127 on 11/17/2022. Gross examination performed at [facility], [address] [place] [address] KVB November 18, 2022 11:38 AM Performed By: #### S ####[facility] LABORATORYCLIA [id number] [address] [place] US BIOPSY BREAST RTon 2022 [facility] CBC W/AUTO DIFF WBC (80790)O rdered By: Loss Prevention Officer on 11-04-2022 Basophils (Bld) [#/Vol] 0.0 10*3/uL Normal 0.0-0.2 [facility]; [facility] Work Phone: Comment on above: PATIENT WAS FASTINGP ERFORMED BY: [facility] [address]Dublin [place] [id number] Basophils/100 WBC (Bld) 1 % Normal [facility]; [facility] Work Phone: Comment on above: PATIENT WAS FASTINGP ERFORMED BY: RICH Verdugolin6370 [facility] [id number] Eosinophils (Bld) [#/Vol] 0.3 10*3/uL Normal 0.0-0.4 [facility]; [facility] Work Phone: Comment on above: PATIENT WAS FASTINGP ERFORMED BY: Lab[place] [id number] [facility] [id number] Eosinophils/100 WBC (Bld) 6 % Normal [facility]; [facility] Work Phone: Comment on above: PATIENT WAS FASTINGP ERFORMED BY: [facility] Yscfwr0926 [facility] [id number] Erythrocyte distribution width (RBC) [Ratio] 13.2 % Normal 11.7-15.4 [facility]; [facility] Work Phone: Comment on above: PATIENT WAS FASTINGP ERFORMED BY: [facility] Modlad7444 [facility] [id number] Hematocrit (Bld) [Volume fraction] 43.7 % Normal 34.0-46.6 [facility]; [facility] Work Phone: Comment on above: PATIENT WAS FASTINGP ERFORMED BY: [facility] [id number] [facility] [id number] Hemoglobin (Bld) [Mass/Vol] 13.9 g/dL Normal 11.1-15.9 [facility]; [facility] Work Phone: Comment on above: PATIENT WAS FASTINGP ERFORMED BY: LabcoHealthSouth [facility] Hospital of UnionNwafjs[address] [facility] [id number] Immature granulocytes (Bld) [#/Vol] 0.0 10*3/uL Normal 0.0-0.1 [facility]; [facility] Work Phone: Comment on above: PATIENT WAS FASTINGP ERFORMED BY: LabMcLaren Oakland[address] [facility] [place] [id number] Immature granulocytes/100 WBC (Bld) 0 % Normal [facility]; [facility] Work Phone: Comment on above: PATIENT WAS FASTINGP ERFORMED BY: [facility]st[facility] Qwulan[address] [facility] [id number] Lymphocytes (Bld) [#/Vol] 2.7 10*3/uL Normal 0.7-3.1 [facility]; [facility] Work Phone: Comment on above: PATIENT WAS FASTINGP ERFORMED BY: LabMcLaren Oakland[address] [facility] [id number] Lymphocytes/100 WBC (Bld) 55 % Normal [facility]; [facility] Work Phone: Comment on above: PATIENT WAS FASTINGP ERFORMED BY: [facility]6370 [facility] [id number] MCH (RBC) [Entitic mass] 27.7 pg Normal 26.6-33.0 [facility]; [facility] Work Phone: Comment on above: PATIENT WAS FASTINGP ERFORMED BY: [facility]6370 [facility] [id number] MCHC (RBC) [Mass/Vol] 31.8 g/dL Normal 31.5-35.7 [facility] prehensive Internal Medicine; [facility] Work Phone: Comment on above: PATIENT WAS FASTINGP ERFORMED BY: LabMc[facility]6370 [facility] [id number] MCV (RBC) [Entitic vol] 87 fL Normal 79-97 [facility]; [facility] Work Phone: Comment on above: PATIENT WAS FASTINGP ERFORMED BY: LabMc[facility] [facility] [id number] Monocytes (Bld) [#/Vol] 0.4 10*3/uL Normal 0.1-0.9 [facility]; [facility] Work Phone: Comment on above: PATIENT WAS FASTINGP ERFORMED BY: CB [facility] Fxkisv4837 [address] RoadDublin [place] [id number] Monocytes/100 WBC (Bld) 8 % Normal [facility]; [facility] Work Phone: Comment on above: PATIENT WAS FASTINGP ERFORMED BY: CB [facility] Mgvcwu6[address] RoadDublin [place] [id number] Neutrophils (Bld) [#/Vol] 1.5 10*3/uL Normal 1.4-7.0 [facility]; [facility] Work Phone: Comment on above: PATIENT WAS FASTINGP ERFORMED BY: CB [facility] Jikafo45[address] RoadDublin [place] [id number] Neutrophils/100 WBC (Bld) 30 % Normal [facility]; [facility] Work Phone: Comment on above: PATIENT WAS FASTINGP ERFORMED BY: CB [facility] Dyynla6735 [address] RoadDublin [place] [id number] Platelets (Bld) [#/Vol] 256 10*3/uL Normal 150-450 [facility]; [facility] Work Phone: Comment on above: PATIENT WAS FASTINGP ERFORMED BY: CB [facility] Mmokpe60[address] RoadDublin [place] [id number] RBC (Bld) [#/Vol] 5.02 10*6/uL Normal 3.77-5.28 Compr ehensive Internal Medicine; [facility] Work Phone: Comment on above: PATIENT WAS FASTINGP ERFORMED BY: CB [facility] Zenkhw1506 [address] RoadDublin [place] [id number] WBC (Bld) [#/Vol] 4.9 10*3/uL Normal 3.4-10.8 Compre hensive Internal Medicine; [facility] Work Phone: Comment on above: PATIENT WAS FASTINGP ERFORMED BY: CB [facility] Pfghos1965 [address] RoadDublin [place] [id number] METABOLIC PANEL, COMPREHENSI VE ([id number])Ordered By: Loss Prevention Officer on 11-04-2022 Albumin [Mass/Vol] 4.2 g/dL Normal 3.8-4.8 [facility] Internal Medicine; [facility] Work Phone: Comment on above: PATIENT WAS FASTINGP ERFORMED BY: RICH Labcojaime Fzkzwh5119 [address] Roadblin [place] [id number]; these are her wellness labs, nothing urgent Albumin/Globulin [Mass ratio] 1.6 {ratio} Normal 1.2-2.2 [facility]; [facility] Work Phone: Comment on above: PATIENT WAS FASTINGP ERFORMED BY: RICH [facility] Kupbxz62[address] Roadblin [place] [id number]; these are her wellness labs, nothing urgent ALP [Catalytic activity/Vol] 60 U/L Normal 44-121 [facility]; [facility] Work Phone: Comment on above: PATIENT WAS FASTINGP ERFORMED BY: RICH [facility] Qveidb70[address] Roadblin [place] [id number]; these are her wellness labs, nothing urgent ALT [Catalytic activity/Vol] 13 U/L Normal 0-32 [facility]; [facility] Work Phone: Comment on above: PATIENT WAS FASTINGP ERFORMED BY: RICH [facility] Cueqah7[address] Roadblin [place] [id number]; these are her wellness labs, nothing urgent AST [Catalytic activity/Vol] 19 U/L Normal 0-40 [facility]; [facility] Work Phone: Comment on above: PATIENT WAS FASTINGP ERFORMED BY: CB [facility] Hnqqbm4573 [address] RoadMartin General Hospitalin [place] [id number]; these are her wellness labs, nothing urgent Bilirubin [Mass/Vol] 0.6 mg/dL Normal 0.0-1.2 [facility] Internal Medicine; [facility] Work Phone: Comment on above: PATIENT WAS FASTINGP ERFORMED BY: RICH [facility] Hgdfpa7080 [address] Roadblin [place] [id number]; these are her wellness labs, nothing urgent Calcium [Mass/Vol] 9.4 mg/dL Normal 8.7-10.3 [facility] Internal Medicine; [facility] Work Phone: Comment on above: PATIENT WAS FASTINGP ERFORMED BY: RICH Labsabrina Oojgde30[address] RoadDublin [place] [id number]; these are her wellness labs, nothing urgent Chloride [Moles/Vol] 102 mmol/L Normal 96-106 [facility] rehensive Internal Medicine; [facility] Work Phone: Comment on above: PATIENT WAS FASTINGP ERFORMED BY: RICH [facility] Sfzahy8[address] RoadDublin [place] [id number]; these are her wellness labs, nothing urgent CO2 [Moles/Vol] 23 mmol/L Normal 20-29 [facility] Internal Medicine; [facility] Work Phone: Comment on above: PATIENT WAS FASTINGP ERFORMED BY: RICH [facility] Zfvrke17[address] RoadMartin General Hospitalin [place] [id number]; these are her wellness labs, nothing urgent Creatinine [Mass/Vol] 0.66 mg/dL Normal 0.57-1.00 [facility]; [facility] Work Phone: Comment on above: PATIENT WAS FASTINGP ERFORMED BY: RICH Labsabrina Xlvegu2354 [address] RoadMartin General Hospitalin [place] [id number]; these are her wellness labs, nothing urgent GFR/1.73 sq M.predicted among non-blacks MDRD (S/P/Bld) [Vol rate/Area] 95 mL/min/{1.73_m2} Normal Comprehens e Internal Medicine; [facility] Work Phone: Comment on above: PATIENT WAS FASTINGP ERFORMED BY: RICH [facility] Yodewo3339 [address] RoadMartin General Hospitalin [place] [id number]; these are her wellness labs, nothing urgent Globulin (S) [Mass/Vol] 2.7 g/dL Normal 1.5-4.5 [facility]; [facility] Work Phone: Comment on above: PATIENT WAS FASTINGP ERFORMED BY: RICH [facility] Jbossi67[address] Roadblin [place] [id number]; these are her wellness labs, nothing urgent Glucose [Mass/Vol] 98 mg/dL Normal 70-99 [facility] Internal Medicine; [facility] Work Phone: Comment on above: PATIENT WAS FASTINGP ERFORMED BY: RICH Labcojaime Xnlyjk13[address] RoadDublin [place] [id number]; these are her wellness labs, nothing urgent Potassium [Moles/Vol] 4.4 mmol/L Normal 3.5-5.2 [facility] [email or web address]] Internal Medicine; [facility] Work Phone: Comment on above: PATIENT WAS FASTINGP ERFORMED BY: RICH [facility] Hvcvxy6624 [address] Roadblin [place] [id number]; these are her wellness labs, nothing urgent Protein [Mass/Vol] 6.9 g/dL Normal 6.0-8.5 [facility] Internal Medicine; [facility] Work Phone: Comment on above: PATIENT WAS FASTINGP ERFORMED BY: RICH [facility] Pqpofw3[address] RoadMartin General Hospitalin [place] [id number]; these are her wellness labs, nothing urgent Sodium [Moles/Vol] 138 mmol/L Normal 134-144 [facility] Internal Medicine; [facility] Work Phone: Comment on above: PATIENT WAS FASTINGP ERFORMED BY: RICH Labsabrina [id number] Weaver RoadMartin General Hospitalin [place] [id number]; these are her wellness labs, nothing urgent Urea nitrogen [Mass/Vol] 16 mg/dL Normal 8-27 [facility] Internal Medicine; [facility] Work Phone: Comment on above: PATIENT WAS FASTINGP ERFORMED BY: RICH [facility] [id number]blin [place] [id number]; these are her wellness labs, nothing urgent Urea nitrogen/Creatinine [Mass ratio] 24 mg/mg Normal 12-28 [facility] Internal Medicine; [facility] Work Phone: Comment on above: PATIENT WAS FASTINGP ERFORMED BY: RICH [facility] [id number]bl[address] [place] [id number]; these are her wellness labs, nothing urgent URINALYSIS, W/ MICRO ([id number]) Ordered By: Loss Prevention Officer on 11-04-2022 Appearance (U) Clear Normal Comprehens [place] Internal Medicine; [facility] Work Phone: Comment on above: PATIENT WAS FASTINGP ERFORMED BY: RICH Loo6370 [facility] [id number] Bilirubin Ql (U) Negative Normal Comprehe nsive Internal Medicine; [facility] Work Phone: Comment on above: PATIENT WAS FASTINGP ERFORMED BY: RICH Loo6370 [facility] [id number] Color (U) Yellow Normal [facility]; [facility] Work Phone: Comment on above: PATIENT WAS FASTINGP ERFORMED BY: RICH Verdugolin6370 [facility] [id number] Glucose Ql (U) Negative Normal Comprehens [place] Internal Medicine; [facility] Work Phone: Comment on above: PATIENT WAS FASTINGP ERFORMED BY: RICH Verdugolin6370 [facility] [id number] Hemoglobin Ql (U) Negative Normal Compreh ensive Internal Medicine; [facility] Work Phone: Comment on above: PATIENT WAS FASTINGP ERFORMED BY: RICH Verdugolin6370 [facility] [id number] Ketones Ql (U) Negative Normal Comprehens [place] Internal Medicine; [facility] Work Phone: Comment on above: PATIENT WAS FASTINGP ERFORMED BY: RICH Verdugolin6370 [facility] [id number] Leukocyte esterase Test strip Ql (U) Negative Normal [facility]; [facility] Work Phone: Comment on above: PATIENT WAS FASTINGP ERFORMED BY: RICH Verdugolin6370 [facility] [id number] Microscopic observation LM Nom (Urine sed) MICRON Normal [facility]; [facility] Work Phone: Comment on above: Microscopic follows if indicated. PATIENT WAS FASTINGP ERFORMED BY: RICH Verdugo60 King StreetDublin [place] [id number] Microscopic observation LM Nom (Urine sed) See below: Normal [facility]; [facility] Work Phone: Comment on above: Microscopic was sarmad cated and was performed. PATIENT WAS FASTINGP ERFORMED BY: RICH [facility] [id number] [facility] [place] [id number] Nitrite Ql (U) Negative Normal Comprehens [place] Internal Medicine; [facility] Work Phone: Comment on above: PATIENT WAS FASTINGP ERFORMED BY: RICH [facility] [id number] [facility] [id number] pH (U) 6.0 [pH] Normal 5.0-7.5 [facility]; [facility] Work Phone: Comment on above: PATIENT WAS FASTINGP ERFORMED BY: Lab[facility]6370 [facility] [id number] Protein Ql (U) Negative Normal Comprehens [place] Internal Medicine; [facility] Work Phone: Comment on above: PATIENT WAS FASTINGP ERFORMED BY: LabMc[facility]6370 [facility] [id number] Specific gravity (U) [Rel density] 1.011 1 Normal 1.005-1.030 [facility]; [facility] Work Phone: Comment on above: PATIENT WAS FASTINGP ERFORMED BY: [facility] [id number] [facility] [id number] Urobilinogen (U) [Mass/Vol] 0.2 mg/dL Normal 0.2-1.0 [facility]; [facility] Work Phone: Comment on above: PATIENT WAS FASTINGP ERFORMED BY: [facility] [id number] [facility] [id number] CBC W Auto Differential pane l (Bld)on 10-28-2022 Basophils (Bld) [#/Vol] 0.04 10*3/uL <0.11 k/uL [facility] Basophils/100 WBC (Bld) 0.8 % [facility] Differential cell count method Nom (Bld) Auto [facility] Eosinophils (Bld) [#/Vol] 0.24 10*3/uL <0.46 k/uL [facility] Eosinophils/100 WBC (Bld) 5.0 % [facility] Erythrocyte distribution width (RBC) [Ratio] 13.2 % 11.5 - 15.0 % [facility] Hematocrit (Bld) [Volume fraction] 39.6 % 36.0 - 46.0 % [facility] Hemoglobin (Bld) [Mass/Vol] 13.3 g/dL 11.5 - 15.5 g/dL [facility] Immature granulocytes (Bld) [#/Vol] <0.10 k/uL [facility] Immature granulocytes/100 WBC (Bld) 0.2 % [facility] Lymphocytes (Bld) [#/Vol] 2.30 10*3/uL 1.00 - 4.00 k/uL [facility] Lymphocytes/100 WBC (Bld) 48.3 % [facility] MCH (RBC) [Entitic mass] 29.0 pg 26.0 - 34.0 pg [facility] MCHC (RBC) [Mass/Vol] 33.6 g/dL 30.5 - 36.0 g/dL [facility] MCV (RBC) [Entitic vol] 86.5 fL 80.0 - 100.0 fL [facility] Monocytes (Bld) [#/Vol] 0.42 10*3/uL <0.87 k/uL [facility] Monocytes/100 WBC (Bld) 8.8 % [facility] Neutrophils (Bld) [#/Vol] 1.75 10*3/uL 1.45 - 7.50 k/uL [facility] Neutrophils/100 WBC (Bld) 36.9 % [facility] Nucleated RBC (Bld) [#/Vol] <0.01 k/uL [facility] Nucleated RBC/100 WBC (Bld) [Ratio] 0.0 /100 WBC [facility] Platelet mean volume (Bld) [Entitic vol] 9.4 fL 9.0 - 12.7 fL [facility] Platelets (Bld) [#/Vol] 242 10*3/uL 150 - 400 k/uL [facility] RBC (Bld) [#/Vol] 4.58 10*6/uL 3.90 - 5.2 0 m/uL [facility] WBC (Bld) [#/Vol] 4.76 10*3/uL 3.70 - 11.00 k/uL [facility] CNOVon 10-28-2022 CNOV Office Visit (AGGBRCR) CEASAR PALACIOS ([id number]) 1955 F BEV Date Time Provider Department 10/28/22 2:00 PM KASANDRA CARUSO AGGBRCR During your visit today, we recorded the following information about you: Pulse Blood pressure Weight Height 72/minute 121/67 56.2 kg 1.448 m SONJA Camacho 10/28/2022 2:10 PM Signed New patient here for second opinion. SONJA Camacho MD 10/29/2022 9:46 AM [place] [address] HPI: Ceasar Palacios is a 67 year old female who presents to discuss surgical management of recent diagnosis of left breast cancer. The patient found the left breast lump in March 2022. She underwent diagnostic breast imaging revealing bilateral breast lesions for which biopsy was recommended. 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 Biopsy of the right breast lesion revealed fibroadenoma. Bilateral breast MRI revealed additional enhancing foci concerning for satellite lesions in the left breast. In addition, it could not be determined if clip placement from the right biopsy was centered within the area of enhancement on MRI. A second look ultrasound was recommended and either ultrasound guided or MRI guided biopsy to ensure that the area of right breast MRI enhancement was adequately sampled. The biopsy proven IDC measures 2.6 cm in max dimension on MRI. There are no abnormal axillary or internal mammary lymph nodes. Nursing Notes: SONJA Camacho 10/28/2022 2:10 PM Signed New patient here for second opinion. SONJA Camacho No question data found. Obstetric History No data available PAST MEDICAL HISTORY Diagnosis Date Breast cancer (HCC) 2022 Osteopenia Sleep apnea Varicose veins of lower extremities with inflammation PAST SURGICAL HISTORY Procedure Laterality Date BREAST BIOPSY HX Left 08/04/2022 BREAST BIOPSY HX Right 08/17/2022 COLONOSCOPY 02/24/2015 FAMILY HISTORY Problem Relation Age of Onset Diabetes Mother Cancer Father stomach Breast Cancer Sister Diabetes Sister Diabetes Brother CURRENT MEDICATIONS: glucosamine HCl/chondroitin grover (GLUCOSAMINE-CHONDROI TIN ORAL) Take 1 tablet by mouth once daily. multivitamin (MULTIPLE VITAMIN ORAL) Take 1 tablet by mouth once daily. Calcium-Cholecalcifer ol, D3, 500 mg-10 mcg (400 unit) per tablet Take 1 tablet by mouth once daily. BIOTIN ORAL Take 1 tablet by mouth once daily. OTC PRODUCT Tumeric 1 capsule daily iv contrast (will be provided with radiology test) MRI RT Breast Bx Inject, intravenously, once for 1 dose. No IV access, insert saline lock prior to the beginning of sedation, infusion, injection of imaging exam. Discontinue saline lock post exam. If Pt has a central line or IVAD, may access for administration according to line specific nursing protocol. Once exam is complete flush line and de-access according to line specific nursing protocol in the MR contrast administration guidelines link anastrozole (ARIMIDEX) 1 mg tablet Take 1 tablet by mouth once daily. CURRENT ALLERGIES: ALLERGIES No Known Allergies Social History Tobacco Use Smoking status: Never Smokeless tobacco: Never Vaping Use Vaping Use: Never used Substance Use Topics Alcohol use: Never Drug use: Never LABS AND IMAGING: IMPRESSION: SUSPICIOUS FINDING - BIOPSY SHOULD BE CONSIDERED The 2.3 cm area in the right breast at 10 o'clock middle depth is indeterminate. This area is felt to correlate with the previously imaged mammographic/sonograp hic finding (10:00 7 cm FN), which was targeted for biopsy. Clip placement is documented on biopsy images dated 08/17/2022. However, no post biopsy mammogram was performed and potential clip artifact by MRI is not centered within the area of enhancement. Repeat/second look ultrasound and diagnostic mammography is recommended to confirm correlation of findings as well as clip placement. If the biopsy clip is not centered within the mammographic/sonograp hic finding, re-biopsy would be recommended given enhancement by MRI. The 2.6 cm x 1.8 cm x 2.2 cm irregular mass in the left breast at 11 o'clock posterior depth is consistent with the known carcinoma and is a known biopsy positive for malignancy. Note that this measurement is inclusive of both masses described on prior ultrasound, which appear contiguous by MRI. A surgical consult is recommended. - Multiple additional small foci of enhancement inferior/inferior lateral to the index malignancy may represent satellite lesions. If breast conservation is desired, then second look ultrasound and biopsy of the two farthest away (1.2 and 1.7 cm apart) could be performed. If no sonographic correlate, these would be amenable to MRI guided biopsy. - Diagno (more content not included)... Normal [facility] Comprehensive metabolic 2000 panelon 10-28-2022 Albumin [Mass/Vol] 4.1 g/dL 3.9 - 4.9 g/dL [facility] ALP [Catalytic activity/Vol] 63 U/L 34 - 123 U/L [facility] ALT [Catalytic activity/Vol] 13 U/L 7 - 38 U/L [facility] Anion gap [Moles/Vol] 7 mmol/L Low 9 - 18 mmol/L [facility] AST [Catalytic activity/Vol] 14 U/L 13 - 35 U/L [facility] Bilirubin [Mass/Vol] 0.5 mg/dL 0.2 - 1 .3 mg/dL [facility] Calcium [Mass/Vol] 9.4 mg/dL 8.5 - 10. 2 mg/dL [facility] Chloride [Moles/Vol] 104 mmol/L 97 - 10 5 mmol/L [facility] CO2 [Moles/Vol] 29 mmol/L 22 - 30 mmol/L [facility] Creatinine [Mass/Vol] 0.61 mg/dL 0.58 - 0.96 mg/dL [facility] Estimated Glomerular Filtration Rate 97 mL/min/1.73m >=60 mL/min/1.73 m [facility] Glucose [Mass/Vol] 97 mg/dL 74 - 99 mg/dL [facility] Potassium [Moles/Vol] 3.8 mmol/L 3.7 - 5.1 mmol/L [facility] Protein [Mass/Vol] 6.7 g/dL 6.3 - 8.0 g/dL [facility] Sodium [Moles/Vol] 140 mmol/L 136 - 144 mmol/L [facility] Urea nitrogen [Mass/Vol] 19 mg/dL 7 - 21 mg/dL [facility] GRACE Robin JIL BILon 2022 [facility] GRACE Robin JIL MONROE * * *Final Report* * * DATE OF EXAM: Oct 25 2022 2:09PM [facility] 0627 - [place] Robin JIL MONROE / PROCEDURE REASON: Malignant neoplasm of upper-inner quadrant of left breast in female, * * * * Physician Interpretation * * * * BILATERAL DIGITAL DIAGNOSTIC MAMMOGRAM TOMOSYNTHESIS WITH CAD: 10/25/2022 CLINICAL: Malignant Neoplasm Of Upper-Inner Quadrant Of Left Breast In Female, Comparison is made to exam dated: 07/15/2022 mammogram - [facility]. The tissue of both breasts is heterogeneously dense. This may lower the sensitivity of mammography. Digital Breast Tomosynthesis was performed. Current study was also evaluated with a Computer Aided Detection (CAD) system. There is an irregular focal asymmetry with an indistinct margin in the right breast upper outer aspect middle depth. There is a biopsy clip which is 8 mm lateral and 1.2 cm superior to the asymmetry. There is an irregular mass with a circumscribed margin in the left breast upper inner aspect anterior depth. There is a biopsy clip associated with the mass. No other significant masses or calcifications are seen in either breast. SUSPICIOUS OF MALIGNANCY The irregular focal asymmetry in the right breast upper outer aspect middle depth is suspicious of malignancy. An MRI guided biopsy is recommended. The irregular mass in the left breast upper inner aspect anterior depth is a known biopsy positive for malignancy. The false-negative rate of mammography is approximately 10%. Management of a palpable abnormality must be based upon clinical grounds. ULTRASOUND OF RIGHT BREAST: 10/25/2022 Comparison is made to exam dated: 07/15/2022 mammogram - [facility]. Color flow ultrasound of the right breast was performed. Bland scale images of the real-time examination were reviewed. There is a 2.8 cm irregular mass with an indistinct margin in the right breast upper outer aspect middle depth. This irregular mass is of mixed echogenicity. This abnormality is increased in size compared to prior ultrasound. No biopsy clip seen. Color flow imaging demonstrates that there is increased vascularity in surrounding tissue. IMPRESSION: SUSPICIOUS OF MALIGNANCY - FOLLOW-UP RECOMMENDED 2.8 cm irregular mass in the right breast. This mass may correlate with the MRI finding or be incidental however no clip was seen within the mass. An MRI guided biopsy of the MRI finding is recommended. Results discussed with the patient and patient's daughter. Nurse navigator was notified. ULTRASOUND OF LEFT BREAST: 10/25/2022 Comparison is made to exam dated: 07/15/2022 mammogram - [facility]. Color flow ultrasound of the left breast was performed. Bland scale images of the real-time examination were reviewed. There is a 2.4 cm irregular mass in the left breast upper inner aspect middle depth. This abnormality is increased in size. There is an associated biopsy clip. IMPRESSION: KNOWN BIOPSY PROVEN MALIGNANCY - FOLLOW-UP RECOMMENDED The 2.4 cm irregular mass in the left breast is consistent with known malignancy. No ultrasound correlate for the satellite lesions seen on MRI. Surgical consult is recommended. Findings discussed with the patient and patient's daughter. The nurse navigator was notified. Martin Leger M.D. kk/:10/25/2022 15:39:05 [employer] Grader: Melida MENON(Joshua)(Zoila), [facility] letter sent: Abnormal Exam BI-RADS: 4 Suspicious abnormality Ultrasound BI-RADS: 4 Suspicious abnormality [employer]inding [employer] Polishing Laborer: Stephanie Transcribe Date/Time: Oct 25 2022 1:16P Dictated by : MARTIN LEGER MD This examination was interpreted and the report reviewed and electronically signed by: MARTIN LEGER MD on Oct 25 2022 3:39PM EST [id number] N [facility] [email or web address] BREAST LTD LTon 10-25 [facility] [email or web address] BREAST LTD LT * * *Final Report* * * DATE OF EXAM: Oct 25 2022 2:55PM [facility] 0[facility] - [place] US BREAST LTD LT / PROCEDURE REASON: Malignant neoplasm of upper-inner quadrant of left breast in female, * * * * Physician Interpretation * * * * BILATERAL DIGITAL DIAGNOSTIC MAMMOGRAM TOMOSYNTHESIS WITH CAD: 10/25/2022 CLINICAL: Malignant Neoplasm Of Upper-Inner Quadrant Of Left Breast In Female, Comparison is made to exam dated: 07/15/2022 mammogram - [facility]. The tissue of both breasts is heterogeneously dense. This may lower the sensitivity of mammography. Digital Breast Tomosynthesis was performed. Current study was also evaluated with a Computer Aided Detection (CAD) system. There is an irregular focal asymmetry with an indistinct margin in the right breast upper outer aspect middle depth. There is a biopsy clip which is 8 mm lateral and 1.2 cm superior to the asymmetry. There is an irregular mass with a circumscribed margin in the left breast upper inner aspect anterior depth. There is a biopsy clip associated with the mass. No other significant masses or calcifications are seen in either breast. SUSPICIOUS OF MALIGNANCY The irregular focal asymmetry in the right breast upper outer aspect middle depth is suspicious of malignancy. An MRI guided biopsy is recommended. The irregular mass in the left breast upper inner aspect anterior depth is a known biopsy positive for malignancy. The false-negative rate of mammography is approximately 10%. Management of a palpable abnormality must be based upon clinical grounds. ULTRASOUND OF RIGHT BREAST: 10/25/2022 Comparison is made to exam dated: 07/15/2022 mammogram - [facility]. Color flow ultrasound of the right breast was performed. Bland scale images of the real-time examination were reviewed. There is a 2.8 cm irregular mass with an indistinct margin in the right breast upper outer aspect middle depth. This irregular mass is of mixed echogenicity. This abnormality is increased in size compared to prior ultrasound. No biopsy clip seen. Color flow imaging demonstrates that there is increased vascularity in surrounding tissue. IMPRESSION: SUSPICIOUS OF MALIGNANCY - FOLLOW-UP RECOMMENDED 2.8 cm irregular mass in the right breast. This mass may correlate with the MRI finding or be incidental however no clip was seen within the mass. An MRI guided biopsy of the MRI finding is recommended. Results discussed with the patient and patient's daughter. Nurse navigator was notified. ULTRASOUND OF LEFT BREAST: 10/25/2022 Comparison is made to exam dated: 07/15/2022 mammogram - [facility]. Color flow ultrasound of the left breast was performed. Bland scale images of the real-time examination were reviewed. There is a 2.4 cm irregular mass in the left breast upper inner aspect middle depth. This abnormality is increased in size. There is an associated biopsy clip. IMPRESSION: KNOWN BIOPSY PROVEN MALIGNANCY - FOLLOW-UP RECOMMENDED The 2.4 cm irregular mass in the left breast is consistent with known malignancy. No ultrasound correlate for the satellite lesions seen on MRI. Surgical consult is recommended. Findings discussed with the patient and patient's daughter. The nurse navigator was notified. Martin Leger M.D. kk/:10/25/2022 15:39:05 [employer]ader: Melida Brice RTFrench)(Zoila), [facility] letter sent: Abnormal Exam BI-RADS: 4 Suspicious abnormality Ultrasound BI-RADS: 4 Suspicious abnormality [employer] Laborer: Stephanie Transcribe Date/Time: Oct 25 2022 1:16P Dictated by : MARTIN LEGER MD This examination was interpreted and the report reviewed and electronically signed by: MARTIN LEGER MD on Oct 25 2022 3:39PM EST [id number] N [facility] US BREAST LTD RTon 10-25 [facility] US BREAST LTD RT * * *Final Report* * * DATE OF EXAM: Oct 25 2022 2:55PM [facility] 0[facility] - [facility] US BREAST LTD RT / PROCEDURE REASON: Malignant neoplasm of upper-inner quadrant of left breast in female, * * * * Physician Interpretation * * * * BILATERAL DIGITAL DIAGNOSTIC MAMMOGRAM TOMOSYNTHESIS WITH CAD: 10/25/2022 CLINICAL: Malignant Neoplasm Of Upper-Inner Quadrant Of Left Breast In Female, Comparison is made to exam dated: 07/15/2022 mammogram - [facility]. The tissue of both breasts is heterogeneously dense. This may lower the sensitivity of mammography. Digital Breast Tomosynthesis was performed. Current study was also evaluated with a Computer Aided Detection (CAD) system. There is an irregular focal asymmetry with an indistinct margin in the right breast upper outer aspect middle depth. There is a biopsy clip which is 8 mm lateral and 1.2 cm superior to the asymmetry. There is an irregular mass with a circumscribed margin in the left breast upper inner aspect anterior depth. There is a biopsy clip associated with the mass. No other significant masses or calcifications are seen in either breast. SUSPICIOUS OF MALIGNANCY The irregular focal asymmetry in the right breast upper outer aspect middle depth is suspicious of malignancy. An MRI guided biopsy is recommended. The irregular mass in the left breast upper inner aspect anterior depth is a known biopsy positive for malignancy. The false-negative rate of mammography is approximately 10%. Management of a palpable abnormality must be based upon clinical grounds. ULTRASOUND OF RIGHT BREAST: 10/25/2022 Comparison is made to exam dated: 07/15/2022 mammogram - [facility]. Color flow ultrasound of the right breast was performed. Bland scale images of the real-time examination were reviewed. There is a 2.8 cm irregular mass with an indistinct margin in the right breast upper outer aspect middle depth. This irregular mass is of mixed echogenicity. This abnormality is increased in size compared to prior ultrasound. No biopsy clip seen. Color flow imaging demonstrates that there is increased vascularity in surrounding tissue. IMPRESSION: SUSPICIOUS OF MALIGNANCY - FOLLOW-UP RECOMMENDED 2.8 cm irregular mass in the right breast. This mass may correlate with the MRI finding or be incidental however no clip was seen within the mass. An MRI guided biopsy of the MRI finding is recommended. Results discussed with the patient and patient's daughter. Nurse navigator was notified. ULTRASOUND OF LEFT BREAST: 10/25/2022 Comparison is made to exam dated: 07/15/2022 mammogram - [facility]. Color flow ultrasound of the left breast was performed. Bland scale images of the real-time examination were reviewed. There is a 2.4 cm irregular mass in the left breast upper inner aspect middle depth. This abnormality is increased in size. There is an associated biopsy clip. IMPRESSION: KNOWN BIOPSY PROVEN MALIGNANCY - FOLLOW-UP RECOMMENDED The 2.4 cm irregular mass in the left breast is consistent with known malignancy. No ultrasound correlate for the satellite lesions seen on MRI. Surgical consult is recommended. Findings discussed with the patient and patient's daughter. The nurse navigator was notified. Martin Leger M.D. kk/:10/25/2022 15:39:05 [employer]: Melida Brice RT(R)(M), [facility] letter sent: Abnormal Exam BI-RADS: 4 Suspicious abnormality Ultrasound BI-RADS: 4 Suspicious abnormality Grinding And Polishing Laborer: Stephanie Transcribe Date/Time: Oct 25 2022 1:16P Dictated by : MARTIN LEGER MD This examination was interpreted and the report reviewed and electronically signed by: MARTIN LEGER MD on Oct 25 2022 3:39PM EST [id number] N Normal [facility] MRI BREAST WO/W IVCON BILon 09-15-2022 MRI BREAST WO/W IVCON MONROE * * *Final Report* * * DATE OF EXAM: Sep 15 2022 9:23AM [id number] - MRI BREAST WO/W IVCON MONROE / PROCEDURE REASON: multiple diagnoses * * * * Physician Interpretation * * * * #[id number] - MRI BREAST WO/W IVCON [place] BREAST MRI OF BOTH BREASTS- WITH CAD: 09/15/2022 HISTORY: Patient with newly diagnosed left breast invasive ductal carcinoma (11:00 3 cm FN). Additional right breast core biopsy (10:00 7 cm FN) yielded benign concordant results. MRI performed for evaluation of extent of/occult disease. RESULT: Comparison is made to exams dated: 07/15/2022 mammogram, 07/15/2022 ultrasound, and 08/17/2022 ultrasound biopsy. Interpretation of this MRI was correlated with available mammograms, ultrasounds, and clinical information. MRI images were obtained with a dedicated breast coil. Post processing was performed including 3D multiplanar reconstruction. TECHNIQUE: MRI images were obtained with a dedicated breast coil. The patient was studied using the dedicated breast coil in the Siemens 1.5 Heena scanner. Initial axial STIR imaging was carried out followed by axial T1-weighted GRE imaging both before and after IV administration of 11 ml of Dotarem. Subsequently, subtraction imaging and 3-D reconstruction were completed on an independent workstation. An additional 4 minute high resolution sequence was performed after the first two 1 minute post-contrast sequences. RESULT: The tissue of both breasts is heterogeneously fibroglandular tissue. Bilateral background breast enhancement is mild. Current study was also evaluated with a Computer Aided Detection (CAD) system. There is 2.3 cm area in the right breast at 10 o'clock middle depth. This shows non-mass like enhancement and delayed persistent type vascular enhancement. The abnormality is best seen on the subtraction axial 104 slice. This area is felt to correlate with the previously imaged mammographic/sonograp hic finding (10:00 7 cm FN), which was targeted for biopsy. Images from the ultrasound guided biopsy document a clip was placed. However, the likely clip artifact by MRI is not centered within the area, rather oriented anterior and superior to the enhancement. There is 2.6 cm x 1.8 cm x 2.2 cm irregular mass with an irregular margin in the left breast at 11 o'clock posterior depth. This shows heterogeneous enhancement and rapid initial rise and delayed washout type vascular enhancement. The abnormality is best seen on the subtraction axial 87 slice. This correlates with mammography and ultrasound findings. This measurement is inclusive of both masses described on prior ultrasound, which appear contiguous by MRI. A biopsy clip is seen along the superior aspect of the larger component. No abnormal enhancement is seen extending to the nipple, skin, or pectoralis muscle. There are multiple foci of enhancement inferior to the index malignancy, which may represent small satellite lesions. One is located approximately 5-6 mm inferiorly, and will likely be included in the surgical excision. Two additional foci are located central to the nipple and 9:00 axis middle depth; these are located approximately 1.2 cm and 1.7 cm from the index malignancy. These foci are relatively discrete from the background parenchyma. There are no abnormalities seen in the axillary nodes region or internal mammary nodes. IMPRESSION: SUSPICIOUS FINDING - BIOPSY SHOULD BE CONSIDERED The 2.3 cm area in the right breast at 10 o'clock middle depth is indeterminate. This area is felt to correlate with the previously imaged mammographic/sonograp hic finding (10:00 7 cm FN), which was targeted for biopsy. Clip placement is documented on biopsy images dated 08/17/2022. However, no post biopsy mammogram was performed and potential clip artifact by MRI is not centered within the area of enhancement. Repeat/second look ultrasound and diagnostic mammography is recommended to confirm correlation of findings as well as clip placement. If the biopsy clip is not centered within the mammographic/sonograp hic finding, re-biopsy would be recommended given enhancement by MRI. The 2.6 cm x 1.8 cm x 2.2 cm irregular mass in the left breast at 11 o'clock posterior depth is consistent with the known carcinoma and is a known biopsy positive for malignancy. Note that this measurement is inclusive of both masses described on prior ultrasound, which appear contiguous by MRI. A surgical consult is recommended. - Multiple additional small foci of enhancement inferior/inferior lateral to the index malignancy may represent satellite lesions. If breast conservation is desired, then second look ultrasound and biopsy of the two farthest away (1.2 and 1.7 cm apart) could be performed. If no sonographic correlate, these would be amenable to MRI guided biopsy. - Diagnostic mammogram is also recommended for evaluation of clip placement (not performed post biopsy (more content not included)... 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 Bilateral hallux valgus deformity. Grinding And Polishing Laborer: ELYSIA Transcribe Date/Time: Jun 04 2021 3:13P Dictated by : Carli THOMAS MD This examination was interpreted and the report reviewed and electronically signed by: Carli THOMAS MD on Jun 04 2021 3:20PM [facility] DIVISION OF RADIOLOGY * * *Final Report* * * DATE OF EXAM: Jun 04 2021 2:46PM [id number] - XR FOOT 3V AP/LAT/OBL RT / PROCEDURE REASON: heel pain * * * * Physician Interpretation * * * * EXAM: XR FOOT 3V AP/LAT/OBL RT HISTORY: Right heel pain x2 months. VIEWS: Bilateral weightbearing AP, right foot oblique and lateral. COMPARISON: No relevant comparison. FINDINGS: No dislocation or acute fracture. Bilateral hallux valgus deformity, worse at left foot. Right plantar heel spur. Benign cyst at right tarsal navicular. 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 DIVISION OF RADIOLOGY Provider, [facility] Antonio gibbons Dixon - 06/04/2021 * * *Final Report* * * DATE OF EXAM: Jun 04 2021 2:46PM [id number] - XR FOOT 3V AP/LAT/OBL RT / PROCEDURE REASON: heel pain * * * * Physician Interpretation * * * * EXAM: XR FOOT 3V AP/LAT/OBL RT HISTORY: Right heel pain x2 months. VIEWS: Bilateral weightbearing AP, right foot oblique and lateral. COMPARISON: No relevant comparison. FINDINGS: No dislocation or acute fracture. Bilateral hallux valgus deformity, worse at left foot. Right plantar heel spur. Benign cyst at right tarsal navicular. 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 Bilateral hallux valgus deformity. Grinding And Polishing Laborer: ELYSIA Transcribe Date/Time: Jun 04 2021 3:13P Dictated by : Carli THOMAS MD This examination was interpreted and the report reviewed and electronically signed by: Carli THOMAS MD on Jun 04 2021 3:20PM EST [facility] Radiology Study observation (narrative) [facility] XR Foot - right AP and Later al and obliqueOrdered By: [facility] Provider on 06-04-2021 [facility] Vital Signs Date Time Vital Sign Value Performing Clinician Facility 06-07-2025 09:05-0400 Body mass index (BMI) [Ratio] 26.57 kg/m2 Lizette Iglesias [employer]LE[employer]ER[employer] Work Phone: [facility] 06-07-2025 09:05-0400 Body temperature 98.71 [degF] [place] Iglesias [employer]LE[employer]ER Work Phone: [facility] 06-07-2025 09:05-0400 Body weight 55.7 kg Lizette Iglesias [employer]LE[employer]ER[employer] Work Phone: [facility] 06-07-2025 09:05-0400 Diastolic blood pressure 76 mm[Hg] Lizette Iglesias [employer]LE[employer]ER[employer] PICKER Work Phone: [facility] 06-07-2025 09:05-0400 Heart rate 62 /min Lizette Iglesias [employer]LE[employer]ER[employer] PICKER Work Phone: [facility] 06-07-2025 09:05-0400 SaO2% (BldA) [Mass fraction] 97 % Lizette Iglesias [employer] Work Phone: [facility] 06-07-2025 09:05-0400 Systolic blood pressure 132 mm[Hg] [place] Iglesias [employer]LE[employer] Work Phone: [facility] 12-19-2024 10:50-0400 Body mass index (BMI) [Ratio] 27.86 kg/m2 [place] Iglesias [employer]LE[employer]ER[employer] P[employer]ER Work Phone: [facility] 12-19-2024 10:50-0400 Body temperature 97.39 [degF] [place] Iglesias [employer]LE[employer] P[employer]ER Work Phone: [facility] 12-19-2024 10:50-0400 Body weight 58.4 kg Lizette Iglesias [employer]LE[employer]ER[employer]ER Work Phone: [facility] 12-19-2024 10:50-0400 Diastolic blood pressure 87 mm[Hg] Lizette Iglesias [employer]LE[employer]ER[employer] P[employer]ER Work Phone: [facility] 12-19-2024 10:50-0400 Heart rate 66 /min Lizette Iglesias [employer]LETTER[employer]SIS[employer] PICKER Work Phone: [facility] 12-19-2024 10:50-0400 SaO2% (BldA) [Mass fraction] 97 % [place] Iglesias [employer]LETTER[employer]SIS[employer] PICKER Work Phone: [facility] 12-19-2024 10:50-0400 Systolic blood pressure 147 mm[Hg] Lizette Iglesias [employer]LETTER[employer]SIS[employer] PICKER Work Phone: [facility] 06-28-2024 08:59-0400 Body mass index (BMI) [Ratio] 28.05 kg/m2 [place] Iglesias [employer]LE[employer]ER[employer]SIS[employer] PICKER Work Phone: [facility] 06-28-2024 08:59-0400 Body temperature 98.01 [degF] [place] Iglesias [employer]LE[employer] P[employer]ER Work Phone: [facility] 06-28-2024 08:59-0400 Body weight 58.8 kg [place] Iglesias [employer]LE[employer]ER[employer]SIS[employer] PICKER Work Phone: [facility] 06-28-2024 08:59-0400 Diastolic blood pressure 88 mm[Hg] Lizette Iglesias [employer]LE[employer]ER[employer] P[employer]ER Work Phone: [facility] 06-28-2024 08:59-0400 Heart rate 62 /min Lizette Iglesias EYELETTER[employer]SISAL PICKER Work Phone: [facility] 06-28-2024 08:59-0400 SaO2% (BldA) [Mass fraction] 96 % [place] Iglesias [employer]LE[employer]ER[employer]SISAL PICKER Work Phone: [facility] 06-28-2024 08:59-0400 Systolic blood pressure 157 mm[Hg] [place] Iglesias [employer]LE[employer]ER[employer] PICKER Work Phone: [facility] 01-12-2024 08:33-0400 Body temperature 99.1 [degF] [place] Iglesias [employer]LE[employer]ER[employer]SIS[employer] PICKER Work Phone: [facility] 01-12-2024 08:33-0400 Body weight 56.52 kg [place] Iglesias [employer]LE[employer]ER[employer]SIS[employer] PICKER Work Phone: [facility] 01-12-2024 08:33-0400 Diastolic blood pressure 95 mm[Hg] [place] Iglesias [employer]LE[employer]ER[employer]IS[employer] P[employer]ER Work Phone: [facility] 01-12-2024 08:33-0400 Heart rate 57 /min [place] Iglesias [employer]LETTER[employer]SIS[employer] PICKER Work Phone: [facility] 01-12-2024 08:33-0400 SaO2% (BldA) [Mass fraction] 95 % Lizette Iglesias EYELETTER[employer]SISAL PICKER Work Phone: [facility] 01-12-2024 08:33-0400 Systolic blood pressure 171 mm[Hg] [place] Iglesias [employer]LE[employer]ER Work Phone: [facility] 08-03-2023 08:31-0400 Body temperature 98.2 [degF] [place] Iglesias [employer] Work Phone: [facility] 08-03-2023 08:31-0400 Body weight 56.93 kg [place] Iglesias [employer]LE[employer]ER[employer] P[employer]ER Work Phone: [facility] 08-03-2023 08:31-0400 Diastolic blood pressure 77 mm[Hg] Lizette Iglesias [employer]LE[employer]ER[employer]SIS[employer] PICKER Work Phone: [facility] 08-03-2023 08:31-0400 Heart rate 76 /min Lizette Iglesias [employer]LE[employer]ER[employer]SIS[employer] PICKER Work Phone: [facility] 08-03-2023 08:31-0400 SaO2% (BldA) [Mass fraction] 95 % Lizette Iglesias [employer]LETTER[employer]SISAL PICKER Work Phone: [facility] 08-03-2023 08:31-0400 Systolic blood pressure 119 mm[Hg] [place] Igelsias [employer]LE[employer]ER[employer]SIS[employer] PICKER Work Phone: [facility] 08-02-2023 08:34-0400 Body height 147.32 cm Yvonne Garcia CMA [facility]; [facility] Work Phone: 08-02-2023 08:34-0400 Body mass index (BMI) [Ratio] 25.94 kg/m2 Yvonne Garcia CMA [facility]; [facility] Work Phone: 08-02-2023 08:34-0400 Body surface area Derived from formula 1.49 m2 Yvonne Garcia CMA [facility]; [facility] Work Phone: 08-02-2023 08:34-0400 Body temperature 98.2 [degF] Yvonne Garcia CMA Comprehensi ve [facility]; [facility] Work Phone: Comment on above: Method: Thermal Scan 08-02-2023 08:34-0400 Body weight 56.3 kg Yvonne Garcia CMA [facility]; [facility] Work Phone: 08-02-2023 08:34-0400 Diastolic blood pressure 70 mm[Hg] Yvonne Garcia CMA [facility]; [facility] Work Phone: Comment on above: Patient Position: Sitting; Cuff Location : Left Arm; Cuff Size: Standard 08-02-2023 08:34-0400 Heart rate 69 /min Yvonne Garcia CMA [facility]; [facility] Work Phone: Comment on above: Pattern: Regular 08-02-2023 08:34-0400 Respiratory rate 16 /min Yvonne Garcia CMA [facility]; [facility] Work Phone: Comment on above: Pattern: Unlabored 08-02-2023 08:34-0400 SaO2% (BldA) [Mass fraction] 99 % Yvonne Garcia [facility]; [facility] Work Phone: Comment on above: Room air 08-02-2023 08:34-0400 Systolic blood pressure 124 mm[Hg] Yvonne Garcia TEACHER'S ASSISTANT [facility]; [facility] Work Phone: Comment on above: Patient Position: Sitting; Cuff Location : Left Arm; Cuff Size: Standard 06-07-2023 14:42-0400 Body temperature 97.59 [degF] Treatment Wstr Work Phone: [facility] 06-07-2023 14:42-0400 Diastolic blood pressure 70 mm[Hg] Treatment Wstr Work Phone: [facility] 06-07-2023 14:42-0400 Heart rate 92 /min Treatment Wstr Work Phone: [facility] 06-07-2023 14:42-0400 Respiratory rate 18 /min Treatment Wstr Work Phone: [facility] 06-07-2023 14:42-0400 SaO2% (BldA) [Mass fraction] 99 % Treatment Wstr Work Phone: [facility] 06-07-2023 14:42-0400 Systolic blood pressure 152 mm[Hg] Treatment Wstr Work Phone: [facility] 04-26-2023 08:33-0400 Body height 147.[address] [facility] Comprehens[facility] e [facility]; [facility] Work Phone: 04-26-2023 08:33-0400 Body mass index (BMI) [Ratio] 25.56 kg/m2 [facility]; [facility] Work Phone: 04-26-2023 08:33-0400 Body surface area Derived from formula 1.[address] [facility]; [facility] Work Phone: 04-26-2023 08:33-0400 Body temperature 98.8 [degF] [facility]; [facility] Work Phone: Comment on above: Method: Thermal Scan 04-26-2023 08:33-0400 Body weight 55.[address] [facility] Comprehensiv e [facility]; [facility] Work Phone: 04-26-2023 08:33-0400 Diastolic blood pressure 62 mm[Hg] Yvonne Garcia CMA [facility]; [facility] Work Phone: Comment on above: Patient Position: Sitting; Cuff Location : Left Arm; Cuff Size: Standard 04-26-2023 08:33-0400 Heart rate 73 /min Yvonne Garcia CMA [facility]; [facility] Work Phone: Comment on above: Pattern: Regular 04-26-2023 08:33-0400 Respiratory rate 16 /min Yvonne Garcia CMA [facility]; [facility] Work Phone: Comment on above: Pattern: Unlabored 04-26-2023 08:33-0400 Systolic blood pressure 108 mm[Hg] Yvonne Garcia CMA [facility]; [facility] Work Phone: Comment on above: Patient Position: Sitting; Cuff Location : Left Arm; Cuff Size: Standard 03-30-2023 13:38-0400 Body height 147.32 cm Yvonne Garcia CMA [facility]; [facility] Work Phone: 03-30-2023 13:38-0400 Body mass index (BMI) [Ratio] 25.56 kg/m2 Yvonne Garcia TEACHER'S ASSISTANT [facility]; [facility] Work Phone: 03-30-2023 13:38-0400 Body surface area Derived from formula 1.48 m2 Yvonne Garcia CMA [facility]; [facility] Work Phone: 03-30-2023 13:38-0400 Body temperature 98.4 [degF] Yvonne Garcia CMA [facility]; [facility] Work Phone: Comment on above: Method: Thermal Scan 03-30-2023 13:38-0400 Body weight 55.48 kg Yvonne Garcia CMA [facility]; [facility] Work Phone: 03-30-2023 13:38-0400 Diastolic blood pressure 68 mm[Hg] Yvonne Garcia CMA [facility]; [facility] Work Phone: Comment on above: Patient Position: Sitting; Cuff Location : Left Arm; Cuff Size: Standard 03-30-2023 13:38-0400 Heart rate 67 /min Yvonne Garcia [facility] Comprehensiv e Internal Medicine; [facility] Work Phone: Comment on above: Pattern: Regular 03-30-2023 13:38-0400 Respiratory rate 16 /min Yvonne Garcia [facility] Comprehensi ve [facility]; [facility] Work Phone: Comment on above: Pattern: Unlabored 03-30-2023 13:38-0400 Systolic blood pressure 112 mm[Hg] Yvonne Garcia [facility]; [facility] Work Phone: Comment on above: Patient Position: Sitting; Cuff Location : Left Arm; Cuff Size: Standard 02-22-2023 11:51-0400 Body height 147.32 cm Santiago Salas [facility]; [facility] Work Phone: 02-22-2023 11:51-0400 Body mass index (BMI) [Ratio] 25.56 kg/m2 Santiago [facility]; [facility] Work Phone: 02-22-2023 11:51-0400 Body surface area Derived from formula 1.48 m2 Santiago [facility]; [facility] Work Phone: 02-22-2023 11:51-0400 Body temperature 96.9 [degF] Santiago Salas [facility]; [facility] Work Phone: 02-22-2023 11:51-0400 [facility] Work Phone: 02-22-2023 11:51-0400 Diastolic blood pressure 80 mm[facility]Hg[facility]; [facility] Work Phone: Comment on above: Patient Position: Sitting; Cuff Location : Left Arm; Cuff Size: Standard 02-22-2023 11:51-0400 Heart rate 76 /min Santiago Salas [facility]; [facility] Work Phone: Comment on above: Pattern: Regular 02-22-2023 11:51-0400 Respiratory rate 16 /min Santiago Tian [facility] Comprehens[facility] e [facility]; [facility] Work Phone: Comment on above: Pattern: Unlabored 02-22-2023 11:51-0400 SaO2% (BldA) [Mass fraction] 96 % Santiago Salas [facility]; [facility] Work Phone: Comment on above: Room air 02-22-2023 11:51-0400 Systolic blood pressure 130 mm[Hg] Santiago Tian [facility]; [facility] Work Phone: Comment on above: Patient Position: Sitting; Cuff Location : Left Arm; Cuff Size: Standard 01-19-2023 10:28-0400 Body height 144.8 cm Kasandra Caruso MD Work Phone: [facility] 01-19-2023 10:280400 Body weight 56.25 kg Kasandra Caruso MD Work Phone: [facility] 01-19-2023 10:28-0400 Diastolic blood pressure 79 mm[Hg] Kasandra Caruso MD Work Phone: [facility] 01-19-2023 10:28-0400 Heart rate 71 /min Kasandra Caruso MD Work Phone: [facility] 01-19-2023 10:28-0400 SaO2% (BldA) [Mass fraction] 97 % Kasandra Caruso MD Work Phone: [facility] 01-19-2023 10:28-0400 Systolic blood pressure 132 mm[Hg] Kasandra Caruso MD Work Phone: [facility] 01-03-2023 13:49-0400 Body height 144.8 cm Pst 1 [facility] 01-03-2023 13:49-0400 Body temperature 99.1 [degF] Pst 1 [facility] 01-03-2023 13:49-0400 Body weight 55.34 kg Pst 1 [facility] 01-03-2023 13:49-0400 Diastolic blood pressure 54 mm[Hg] Pst 1 [facility] 01-03-2023 13:49-0400 Heart rate 70 /min Pst 1 [facility] 01-03-2023 13:49-0400 Respiratory rate 18 /min Pst 1 [facility] 01-03-2023 13:49-0400 SaO2% (BldA) [Mass fraction] 96 % Pst 1 [facility] 01-03-2023 13:49-0400 Systolic blood pressure 129 mm[Hg] Pst 1 [facility] 12-21-2022 10:52-0400 Body height 147.32 cm Yvonne Garcia CMA [facility]; [facility] Work Phone: 12-21-2022 10:52-0400 Body mass index (BMI) [Ratio] 25.56 kg/m2 Yvonne Garcia CMA [facility]; [facility] Work Phone: 12-21-2022 10:52-0400 Body surface area Derived from formula 1.48 m2 Yvonne Garica CMA [facility]; [facility] Work Phone: 12-21-2022 10:52-0400 Body temperature 99 [degF] Yvonne Garcia CMA [facility]; [facility] Work Phone: Comment on above: Method: Infrared 12-21-2022 10:52-0400 Body weight 55.48 kg Yvonne Garcia CMA [facility]; [facility] Work Phone: 12-21-2022 10:52-0400 Diastolic blood pressure 70 mm[Hg] Yvonne Garcia CMA [facility]; [facility] Work Phone: Comment on above: Patient Position: Sitting; Cuff Location : Left Arm; Cuff Size: Standard 12-21-2022 10:52-0400 Heart rate 75 /min Yvonne Garcia CMA [facility]; [facility] Work Phone: Comment on above: Pattern: Regular 12-21-2022 10:52-0400 Respiratory rate 16 /min Yvonne Garcia CMA [facility]; [facility] Work Phone: Comment on above: Pattern: Unlabored 12-21-2022 10:52-0400 SaO2% (BldA) [Mass fraction] 98 % Yvonne Garcia CMA [facility]; [facility] Work Phone: Comment on above: Room air 12-21-2022 10:52-0400 Systolic blood pressure 120 mm[Hg] Yvonne Garcia TEACHER'S ASSISTANT [facility]; [facility] Work Phone: Comment on above: Patient Position: Sitting; Cuff Location : Left Arm; Cuff Size: Standard 11-26-2022 09:05-0500 Body height 144.8 cm Cierra Whitten MD Work Phone: [facility] 11-26-2022 09:05-0500 Body weight 55.79 kg Cierra Whitten MD Work Phone: [facility] 11-25-2022 09:05-0500 Body height 144.8 cm Kasandra Caruso MD Work Phone: [facility] 11-25-2022 09:05-0500 Body weight 56.25 kg Kasandra Caruso MD Work Phone: [facility] 11-25-2022 09:05-0500 Diastolic blood pressure 76 mm[Hg] Kasandra Caruso MD Work Phone: [facility] 11-25-2022 09:05-0500 Heart rate 73 /min Kasandra Caruso MD Work Phone: [facility] 11-25-2022 09:05-0500 Systolic blood pressure 153 mm[Hg] Kasandra Caruso MD Work Phone: [facility] 10-28-2022 14:03-0500 Body height 144.8 cm Kasandra Caruso MD Work Phone: [facility] 10-28-2022 14:03-0500 Body weight 56.25 kg Kasandra Caruso MD Work Phone: [facility] 10-28-2022 14:03-0500 Diastolic blood pressure 67 mm[Hg] Kasandra Caruso MD Work Phone: [facility] 10-28-2022 14:03-0500 Heart rate 72 /min Kasandra Caruso MD Work Phone: [facility] 10-28-2022 14:03-0500 Systolic blood pressure 121 mm[Hg] Kasandra Caruso MD Work Phone: [facility] 10-28-2022 09:57-0500 Body height 146.3 cm Emiliano Masci DO Work Phone: [facility] 10-28-2022 09:57-0500 Body temperature 97.9 [degF] Emiliano Masci DO Work Phone: [facility] 10-28-2022 09:57-0500 Body weight 56.25 kg Emiliano Masci DO Work Phone: [facility] 10-28-2022 09:57-0500 Diastolic blood pressure 65 mm[Hg] Emiliano Masci DO Work Phone: [facility] 10-28-2022 09:57-0500 Heart rate 70 /min Emiliano Masci DO Work Phone: [facility] 10-28-2022 09:57-0500 Systolic blood pressure 140 mm[Hg] Emiliano Masci DO Work Phone: [facility] 09-03-2022 13:34-0500 Body height 146.1 cm Emiliano Masci DO Work Phone: [facility] 09-03-2022 13:34-0500 Body temperature 98.1 [degF] Emiliano Masci DO Work Phone: [facility] 09-03-2022 13:34-0500 Body weight 55.11 kg Emiliano Masci DO Work Phone: [facility] 09-03-2022 13:34-0500 Diastolic blood pressure 62 mm[Hg] Emiliano Masci DO Work Phone: [facility] 09-03-2022 13:34-0500 Heart rate 73 /min Emiliano Masci DO Work Phone: [facility] 09-03-2022 13:34-0500 Systolic blood pressure 111 mm[Hg] Emiliano Saleh DO Work Phone: [facility] 08-23-2022 16:09-0500 Body height 147.32 cm Yvonne Garcia CMA [facility]; [facility] Work Phone: 08-23-2022 16:09-0500 Body mass index (BMI) [Ratio] 25.56 kg/m2 Yvonne Garcia CMA [facility]; [facility] Work Phone: 08-23-2022 16:09-0500 Body surface area Derived from formula 1.48 m2 Yvonne Garcia CMA [facility]; [facility] Work Phone: 08-23-2022 16:09-0500 Body temperature 97.9 [degF] Yvonne Garcia CMA Comprehensi ve Internal Medicine; [facility] Work Phone: Comment on above: Method: Thermal Scan 08-23-2022 16:09-0500 Body weight 55.48 kg Yvonne Garcia CMA [facility]; [facility] Work Phone: 08-23-2022 16:09-0500 Diastolic blood pressure 80 mm[Hg] Yvonne Garcia CMA [facility]; [facility] Work Phone: Comment on above: Patient Position: Sitting; Cuff Location : Left Arm; Cuff Size: Standard 08-23-2022 16:09-0500 Heart rate 59 /min Yvonne Garcia CMA [facility]prehens[facility]; [facility] Work Phone: Comment on above: Pattern: Regular 08-23-2022 16:09-0500 Respiratory rate 16 /min Yvonne Garcia CMA Comprehensi ve Internal [facility]; [facility] Work Phone: Comment on above: Pattern: Unlabored 08-23-2022 16:09-0500 Systolic blood pressure 140 mm[Hg] Yvonne Garcia CMA [facility]; [facility] Work Phone: Comment on above: Patient Position: Sitting; Cuff Location : Left Arm; Cuff Size: Standard 08-03-2022 08:36-0400 Body height 152.4 cm Lana Mcwilliams MD Work Phone: [facility] 08-03-2022 08:36-0400 Body temperature 98.49 [degF] Lana Mcwilliams MD Work Phone: [facility] 08-03-2022 08:36-0400 Body weight 55.34 kg Lana Mcwilliams MD Work Phone: [facility] 08-03-2022 08:36-0400 Diastolic blood pressure 80 mm[Hg] Lana Mcwilliams MD Work Phone: [facility] 08-03-2022 08:36-0400 Heart rate 66 /min Lana Mcwilliams MD Work Phone: [facility] 08-03-2022 08:36-0400 SaO2% (BldA) [Mass fraction] 99 % Lana Mcwilliams MD Work Phone: [facility] 08-03-2022 08:36-0400 Systolic blood pressure 138 mm[Hg] Lana Mcwilliams MD Work Phone: [facility] 12-09-2006 12:04-0500 Body height 0 cm Krystle Fast DO Work Phone: [facility]; [facility] Work Phone: 12-09-2006 12:04-0500 Body temperature 97.7 [degF] Krystle Fast DO Work Phone: [facility]; [facility] Work Phone: Comment on above: Method: Oral 12-09-2006 12:04-0500 Body weight 0 kg Krystle Fast DO Work Phone: [facility]; [facility] Work Phone: 12-09-2006 12:04-0500 Diastolic blood pressure 62 mm[Hg] Krystle Fast DO Work Phone: [facility]; [facility] Work Phone: Comment on above: Patient Position: Sitting; Cuff Location : Left Arm; Cuff Size: Standard 12-09-2006 12:04-0500 Head Occipital-frontal circumference 0 cm Krystle Fast DO Work Phone: [facility]; [facility] Work Phone: 12-09-2006 12:04-0500 Heart rate 72 /min Krystle Fast DO Work Phone: [facility]; [facility] Work Phone: Comment on above: Pattern: Regular 12-09-2006 12:04-0500 Respiratory rate 16 /min Krystle Fast DO Work Phone: [facility]; [facility] Work Phone: Comment on above: Pattern: Unlabored 12-09-2006 12:04-0500 Systolic blood pressure 98 mm[Hg] Krystle Fast DO Work Phone: [facility]; [facility] Work Phone: Comment on above: Patient Position: Sitting; Cuff Location : Left Arm; Cuff Size: Standard 11-17-2006 11:37-0500 Body height 151.13 cm Krystle Fast DO Work Phone: [facility]; [facility] Work Phone: 11-17-2006 11:37-0500 Body mass index (BMI) [Ratio] 23.1 kg/m2 Krystle Fast DO Work Phone: [facility]; [facility] Work Phone: 11-17-2006 11:37-0500 Body surface area Derived from formula 1.47 m2 Krystle Fast DO Work Phone: [facility]; [facility] Work Phone: 11-17-2006 11:37-0500 Body temperature 98.5 [degF] Krystle Fast DO Work Phone: [facility]; [facility] Work Phone: Comment on above: Method: Undefined 11-17-2006 11:37-0500 Body weight 52.76 kg Krystle Fast DO Work Phone: [facility]; [facility] Work Phone: 11-17-2006 11:37-0500 Diastolic blood pressure 80 mm[Hg] Krystle Fast DO Work Phone: [facility]; [facility] Work Phone: Comment on above: Patient Position: Sitting; Cuff Location : Right Arm; Cuff Size: Standard 11-17-2006 11:37-0500 Head Occipital-frontal circumference 0 cm Krystle Fast DO Work Phone: [facility]; [facility] Work Phone: 11-17-2006 11:37-0500 Heart rate 68 /min Krystle Fast DO Work Phone: [facility]; [facility] Work Phone: Comment on above: Pattern: Regular 11-17-2006 11:37-0500 Respiratory rate 16 /min Krystle Fast DO Work Phone: [facility]; [facility] Work Phone: Comment on above: Pattern: Undefined 11-17-2006 11:37-0500 Systolic blood pressure 160 mm[Hg] Krystle Fast DO Work Phone: [facility]; [facility] Work Phone: Comment on above: Patient Position: Sitting; Cuff Location : Right Arm; Cuff Size: Standard Encounters Encounter Date Encounter Type Care Provider Facility Start: 07-31-2025 ambulatory Krystle Alford Facility:[facility] Start: 06-07-2025 End: 06-07-2025 Patient encounter procedure Lizette Iglesias EYELETTER.SISAL PICKER Work Phone: Hematology/Oncology Start: 06-07-2025 End: 06-07-2025 ambulatory Lizette Iglesias EYELETTER.SISAL PICKER Work Phone: Hematology/Oncology Comment on above: 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 Krystle Alford D O -Cat Scan [facility] Work Phone: Start: 05-21-2025 End: 05-21-[address] Krystle Alford DO Work Phone: -Cat Scan [facility] Start: 05-21-2025 End: 05-21-[address] 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, estrogen receptor positive (HCC) [C50.212, Z17.0] Start: 12-19-2024 End: 12-19-2024 ambulatory Treatment Rm 18 Júnior [facility] Work Phone: Hematology/Oncology Comment on above: Cancer of central po rtion of left breast (HCC) (Primary Dx) 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, estrogen receptor positive (HCC) (Primary Dx); Encounter for screening mammogram for high-risk patient Start: 12-19-2024 End: 12-19-2024 Patient encounter procedure Lizette Iglesias APRN.SISAL PICKER Work Phone: Hematology/Oncology Start: 12-19-2024 End: 12-19-2024 ambulatory [facility] Facility:[facility] Start: 12-17-2024 End: 12-17-2024 ambulatory Twyla Mancia [facility] Pulmonary Medicine Start: 12-10-2024 End: 12-10-2024 ambulatory Twyla Mancia [facility] Pulmonary Medicine Start: 11-30-2024 End: 11-30-2024 ambulatory Gely Salazar APRN.SISAL PICKER Work Phone: Pulmonary Medicine Start: 11-28-2024 End: 11-28-2024 ambulatory [facility] Start: 11-28-2024 End: 11-28-2024 Subsequent hospital visit by physician Scott Arias MD Work Phone: [facility] Comment on above: Chronic idiopathic u rticaria; Urticaria; Facial rash Start: 11-16-2024 End: 11-16-2024 Telephone encounter Jordan Delatorre APRN.SISAL PICKER Work Phone: [facility] Start: 10-30-2024 End: 10-30-2024 Telephone encounter Lizette Iglesias EYELETTER.SISAL PICKER Work Phone: Hematology/Oncology Start: 08-17-2024 End: 08-17-2024 ambulatory [facility] Start: 06-28-2024 End: 06-28-2024 ambulatory Lizette Iglesias APRN.SISAL PICKER Work Phone: Hematology/Oncology Comment on above: 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, estrogen receptor positive (HCC) (Primary Dx); Cancer of central portion of left breast (HCC) 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, estrogen receptor positive (HCC) (Primary Dx) Start: 06-28-2024 End: 06-28-2024 Patient encounter procedure Treatment Rm 15 Júnior [facility] Work Phone: Hematology/Oncology Start: 01-12-2024 Documentation procedure Mammog seamus Coordinator [facility] Start: 01-12-2024 Letter encounter Mammography Coordinator [facility] Department Start: 01-12-2024 Telephone encounter Lizette ndiaye APRN.SISAL PICKER Work Phone: Hematology/Oncology Start: 01-12-2024 End: 01-12-2024 ambulatory Treatment Rm 7 Júnior [facility] Work Phone: Hematology/Oncology Comment on above: Cancer of central po rtion of left breast (HCC) (Primary Dx) 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, estrogen receptor positive (HCC) (Primary Dx); Lung nodules Start: 01-12-2024 End: 01-12-2024 Patient encounter procedure Lizettealtagracia Iglesias EYELETTER.SISAL PICKER Work Phone: [facility] Start: 01-11-2024 End: 01-11-2024 Subsequent hospital visit by physician Screen Mammo [facility] Comment on above: Visit for screening mammogram [Z12.31] Start: 11-05-2023 Telephone encounter Emiliano cerrato DO Work Phone: Hematology/Oncology Comment on above: Follow Up Start: 08-03-2023 End: 08-03-2023 ambulatory Lizette Iglesias EYELETTER.SISAL PICKER Work Phone: Hematology/Oncology Comment on above: 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, estrogen receptor positive (HCC) (Primary Dx); Hyperlipidemia, unspecified hyperlipidemia type; Elevated hemoglobin (HCC); Vitamin D deficiency Start: 08-03-2023 End: 08-03-2023 Patient encounter procedure Lizette Iglesias APRN.SISAL PICKER Work Phone: [facility] Start: 08-02-2023 Review Krystle Fast DO Work Phone: [facility] Start: 08-02-2023 End: 08-02-2023 Office outpatient visit 25 minutes Krystle Fast DO Work Phone: [facility] Start: 07-04-2023 End: 07-04-2023 Phone Encounter Krystle Fast DO Work Phone: [facility] Start: 07-04-2023 End: 07-04-2023 Subsequent hospital visit by physician Bone Density [facility] Work Phone: Radiology Start: 06-07-2023 End: 06-07-2023 ambulatory Treatment Rm 2 J[facility]ior [facility] Work Phone: Hematology/Oncology Comment on above: Cancer of central po rtion of left breast (HCC) (Primary Dx) Start: 04-26-2023 End: 05-24-2023 Office outpatient visit 15 minutes Krystle Fast DO Work Phone: [facility] Start: 04-26-2023 Review Krystle Fast DO Work Phone: [facility] Start: 03-30-2023 End: 04-11-2023 Office outpatient visit 10 minutes Krystle Fast DO Work Phone: [facility] Start: 02-22-2023 End: 02-24-2023 Office outpatient visit 25 minutes Krystle Fast DO Work Phone: [facility] Start: 02-21-2023 ambulatory Krystle A Fast DO Com[facility] Start: 02-10-2023 Telephone encounter Emiliano cerrato DO Work Phone: Hematology/Oncology Comment on above: Results (Oncotype DX ) Start: 02-08-2023 End: 02-08-2023 ambulatory MELIDA TAVERA Facility:[facility] Start: 01-25-2023 End: 01-25-2023 ambulatory MELIDA TAVERA Facility:[facility] Start: 01-19-2023 End: 01-19-2023 ambulatory KASANDRA CARUSO Facility:[facility] Start: 01-19-2023 End: 01-19-2023 Patient encounter procedure Kasandra Caruso MD Work Phone: [facility] Comment on above: Cancer of central po rtion of left breast (HCC) (Primary Dx); Family history of breast cancer in sister; Visit for screening mammogram Start: 01-18-2023 End: 01-18-2023 ambulatory KRYSTLE A FAST Facility:[facility] Start: 01-18-2023 End: 01-18-2023 Patient encounter procedure Melida Tavera PA-C Work Phone: [facility] Plastic Surgery Comment on above: Post-operative state (Primary Dx) Start: 01-16-2023 Telephone encounter Emiliano cerrato DO Work Phone: Hematology/Oncology Comment on above: Follow Up Start: 01-10-2023 End: 01-11-2023 Evaluation and management of inpatient KRYSTLE A FAST Facility:[facility] Start: 01-10-2023 ambulatory KRYSTLE A FAST Facility:[facility] Start: 01-10-2023 End: 01-10-2023 Subsequent hospital visit by physician Thang Gore Work Phone: Molecular Imaging Comment on above: Cancer of central po rtion of left breast (HCC) [C50.112] Start: 01-03-2023 Encounter for other preprocedural examination KAASNDRA CARUSO [facility] Start: 01-03-2023 End: 01-04-2023 ambulatory KRYSTLE A FAST Facility:[facility] Start: 01-03-2023 End: 01-03-2023 Admission to establishment [facility] Start: 01-03-2023 End: 01-03-2023 ambulatory Pst 1 Pre Surgical Testing Comment on above: Cancer of central po rtion of left breast (HCC) [C50.112 (ICD-10-CM)] (Primary Dx); LAMINE (obstructive sleep apnea); Preop testing; Elevated blood-pressure reading without diagnosis of hypertension; Gastroesophageal reflux disease without esophagitis Start: 01-03-2023 End: 01-03-2023 Patient encounter status Pst 1 Pre Surgical Te sting Start: 12-22-2022 Refill Kasandra Caruso MD Work Phone: [facility] Start: 12-21-2022 Review Krystle Fast DO Work Phone: [facility] Start: 11-26-2022 End: 11-26-2022 ambulatory KRYSTLE A FAST Facility:[facility] Start: 11-26-2022 End: 11-26-2022 Patient encounter procedure Cierra Whitten MD Work Phone: Plastic Surgery Comment on above: Abnormal finding on breast imaging (Primary Dx) Start: 11-25-2022 End: 11-25-2022 ambulatory KASANDRA CARUSO Facility:[facility] Start: 11-25-2022 End: 11-25-2022 Patient encounter procedure Kasandra Caruso MD Work Phone: [facility] Comment on above: Cancer of central po rtion of left breast (HCC) (Primary Dx); Fibroadenoma of right breast; Family history of breast cancer in sister Start: 11-22-2022 Telephone encounter Kasandra berrios MD Work Phone: [facility] Comment on above: Results Start: 11-17-2022 ambulatory KRYSTLE A FAST [facility] Start: 11-17-2022 Telephone encounter Rosy ponce [facility] Work Phone: [facility] Comment on above: Results (Genetic juan j ting negative ) Start: 11-17-2022 End: 11-17-2022 Subsequent hospital visit by physician Mri 2 [facility] (I-Stat/Lg Bore/1.5t) [facility] Start: 11-17-2022 ambulatory KRYSTLE A FAST Facility:[facility] Start: 11-17-2022 End: 11-17-2022 Subsequent hospital visit by physician Procedure Mammo [facility] M[facility]MO REFLE[facility] Comment on above: Abnormal finding on breast imaging [R92.8] Start: 11-03-2022 End: 11-03-2022 ambulatory KASANDRA CARUSO Facility:[facility] Start: 11-03-2022 End: 11-03-2022 ambulatory Rosy Deleon [facility] Work Phone: [facility] Comment on above: Cancer of central po rtion of left breast (HCC) (Primary Dx); Family history of malignant neoplasm of breast Start: 11-03-2022 End: 11-03-2022 Telemedicine consultation with patient Rosy Deleon [facility] Work Phone: [facility] Start: 10-29-2022 Telephone encounter Emiliano cerrato DO Work Phone: Hematology/Oncology Comment on above: Results (Mildly low vit D) Start: 10-28-2022 End: 10-28-2022 ambulatory KASANRDA CARUSO Facility:[facility] Start: 10-28-2022 End: 10-28-2022 ambulatory Emiliano Saleh DO Work Phone: Hematology/Oncology Comment on above: 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, estrogen receptor positive (HCC) (Primary Dx) Start: 10-28-2022 End: 10-28-2022 Patient encounter procedure Emiliano Saleh DO Work Phone: [facility] Comment on above: Cancer of central po rtion of left breast (HCC) (Primary Dx); Abnormal finding on breast imaging; Family history of breast cancer in sister; Family history of breast cancer Start: 10-25-2022 ambulatory EMILIANO SALEH Facility:1 [id number] Start: 10-25-2022 End: 10-25-2022 Subsequent hospital visit by physician Screen/Diagnostic Mammo [facility] Comment on above: 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, estrogen receptor positive (HCC) [C50.212, Z17.0] Start: 09-13-2022 Telephone encounter Emiliano cerrato DO Work Phone: Hematology/Oncology Comment on above: Appointment Start: 09-07-2022 Telephone encounter Emiliano cerrato DO Work Phone: Hematology/Oncology Comment on above: Patient Question Start: 09-03-2022 End: 09-03-2022 ambulatory Emiliano Saleh DO Work Phone: Hematology/Oncology Comment on above: 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, estrogen receptor positive (HCC) (Primary Dx) Start: 09-03-2022 End: 09-03-2022 Patient encounter procedure Emiliano Saleh DO Work Phone: [facility] Start: 09-01-2022 Review Krystle Alford DO Work Phone: [facility] Start: 08-24-2022 Telephone encounter Emiliano cerrato DO Work Phone: Hematology/Oncology Comment on above: New Patient Start: 08-23-2022 End: 09-06-2022 Office outpatient new 45 minutes Krystle Fast DO Work Phone: [facility] Start: 08-23-2022 Review Krystle Fast DO Work Phone: [facility] Start: 08-20-2022 Telephone encounter Lana Cortes MD Work Phone: General Surgery Comment on above: Results Start: 08-19-2022 End: 08-19-2022 Phone Encounter Krystle Fast DO Work Phone: [facility] Start: 08-17-2022 End: 08-17-2022 ambulatory [facility] Work Phone: Start: 08-17-2022 End: 08-17-2022 Patient encounter procedure [facility]-Breast Imaging - Biopsy/Stero Start: 08-09-2022 Telephone encounter Lana Cortes MD Work Phone: General Surgery Comment on above: 08/17 RT U/S GUIDED B REATS NEEDLE CORE BX [facility] Start: 08-06-2022 Telephone encounter Lana Cortes MD Work Phone: General Surgery Comment on above: 08-17-22 [facility] US GUID ED BREAST NEEDLE CORE BX Start: 08-05-2022 Telephone encounter Lana Cortes MD Work Phone: General Surgery Comment on above: Results Start: 08-04-2022 End: 08-04-2022 Patient encounter procedure Lana Mcwilliams MD Work Phone: General Surgery Comment on above: Abnormal ultrasound of breast; Mass of upper inner quadrant of left breast Start: 08-03-2022 End: 08-03-2022 Patient encounter procedure Lana Mcwilliams MD Work Phone: General Surgery Comment on above: Mass of upper outer quadrant of left breast (Primary Dx); Abnormal mammogram; Abnormal ultrasound of breast Start: 07-15-2022 End: 07-15-2022 [facility] Work Phone: Start: 07-15-2022 End: 07-15-2022 Patient encounter procedure [facility]-Outpatient Breast Imaging Start: 07-01-2022 End: 07-01-2022 ambulatory [facility] Work Phone: Start: 07-01-2022 End: 07-01-2022 Patient encounter procedure [facility]-Ultrasound, [facility] Start: 06-04-2021 End: 06-04-2021 Subsequent hospital visit by physician Xr [facility] Work Phone: Radiology Start: 12-09-2006 End: 12-09-2006 Patient encounter procedure Krystle Alford DO Work Phone: [facility] Start: 11-17-2006 End: 11-17-2006 Office outpatient new 45 minutes Krystle Alford DO Work Phone: [facility] Procedures Date Procedure Procedure Detail Performing Clinician Start: 05-21-2025 CT angiography of co ronary arteries Dr. Krystle Alford DO Work Phone: Start: 05-21-2025 CT of chest without contrast Dr. Krystle Alford DO Work Phone: Start: 11-28-2024 Comprehensive metabo lic panel Scott Arias MD Work Phone: Start: 08-03-2023 Lipid 1996 panel - S ramez or Plasma Lizette Iglesias EYELETTER.SISAL PICKER Work Phone: Start: 07-04-2023 Dxa bone density jennifer dy 1/> sites axial skel [facility] Provider Start: 01-10-2023 Lymphatics & lymph n odes imaging Kasandra Caruso MD Work Phone: Start: 11-17-2022 End: 11-17-2022 Perq breast loc device placemd 1st lesio mr guid Kasandra Caruso MD Work Phone: Start: 11-17-2022 Diagnostic mammograp hy computer-aided detcj uni Kasandra Caruso MD Work Phone: Start: 10-25-2022 Mammography Emiliano Yasmeencheri DO Work Phone: Start: 08-17-2022 Ultrasonography guid ed biopsy of breast Start: 08-04-2022 US BREAST BIOPSY RIG HT (POC) SURG USE ONLY Lana Mcwilliams MD Work Phone: Start: 07-15-2022 Bilateral mammography Start: 07-15-2022 End: 07-15-2022 Ultrasonography of breast Start: 07-01-2022 Transvaginal echography Start: 07-01-2022 Pelvic echography Start: 06-04-2021 Radex foot complete minimum 3 views [facility] Provider colooscopy / Krystle A Fast DO Work Phone: colooscopy 5/15 Yvonne Manc hak TEACHER'S ASSISTANT colooscopy /15 Yvonne Manc hak TEACHER'S ASSISTANT colooscopy /15 Yvonne Manc hak TEACHER'S ASSISTANT colooscopy /15 Yvonne Manc hak TEACHER'S ASSISTANT left breat mastectomy 2022 D ebra A Fast DO Work Phone: Plan of Treatment Date Care Activity Detail Author Start: 08-03-2028 Lipid 1996 panel - S ramez or Plasma Lipid Screening [facility] Start: 08-03-2028 Lipid panel Lipid Screening [facility] Start: 06-07-2028 Diabetes Screening Diabetes Screenin [facility] Start: 2028 RSV Vaccine (1 - 1-d ose 75+ series) RSV Vaccine (1 - 1-dose 75+ series) [facility] Start: 12-20-2027 Diabetes Screening Diabetes Screenin [facility] Start: 06-28-2027 Diabetes Screening Diabetes Screenin g [facility] Start: 01-11-2027 Diabetes Screening Diabetes Screenin g [facility] Start: 10-17-2026 Diabetes Screening Diabetes Screenin g [facility] Start: 08-03-2026 Diabetes Screening Diabetes Screenin g [facility] Start: 06-07-2026 DIABETES SCREEN DIABETES SCREEN [facility] Start: 01-29-2026 End: 01-29-2026 Patient encounter procedure 01/29/2026 9:10 AM EDT Appointment Mammogram [address] [place] [place] [address] LORENA SCREENING [facility] Mammogram Comment on above: LORENA SCREENING W JIL Start: 01-11-2026 DIABETES SCREEN DIABETES SCREEN [facility] Start: 12-11-2025 End: 12-11-2025 ambulatory [facility] Comment on above: (SO)BMP(S)* OV/LAB EARLY/ZOMETA TODAY* 2nd Start: 10-28-2025 DIABETES SCREEN DIABETES SCREEN [facility] Start: 06-10-2025 Influenza vaccination Influenza Vacc ine (#1) [facility] Start: 06-07-2025 End: 06-07-2025 ambulatory [facility] Comment on above: (SO)BMP(S)* OV/LAB EARLY/ZOMETA TODAY* 2nd Start: 01-22-2025 End: 01-22-2025 Patient encounter procedure 01/22/2025 8:30 AM EDT Appointment Mammogram [address] [place] [address] MAMMO W JIL Mammogram Comment on above: MAMMO W JIL Start: 01-19-2025 End: 01-18-2026 DBT Breast - bilateral screening LORENA SCREENING W JIL Radiology Routine Malignant neoplasm of upper-inner quadrant of left breast in female, estrogen receptor positive (HCC) Encounter for screening mammogram for high-risk patient Expected: 01/19/2025 (Approximate), Expires: 01/18/2026 [facility] Work Phone: Comment on above: Expected: 01/19/2025 (Approximate), Expires: 01/18/2026 Start: 01-10-2025 Screening for malign ant neoplasm of breast Mammogram Screening [facility] Start: 12-21-2024 End: 12-21-2024 [facility] Comment on above: (SO)BMP(S)* OV/LAB EARLY/ZOMETA TODAY* pt requested date/ti me Start: 12-20-2024 End: 12-20-2024 Patient encounter procedure 12/20/2024 1:50 PM EDT Office Visit [facility] [address] [place] [address] Scott Arias MD [place], [place] [id number] [facility] Comment on above: [facility] Start: 12-19-2024 End: 12-19-2024 Patient encounter procedure 12/19/2024 11:00 AM EDT Visit (SP) Office Hematology/Oncology [address] [place] [address] Lizette Iglesias APRN.SISAL PICKER [address] [place] [address] Daughter called stating numerical control machine operator over the phone will be needed if she is unable to make appointment with patient Hematology/Oncology Comment on above: Daughter called stat ing numerical control machine operator over the phone will be needed if she is unable to make appointment with patient Start: 12-19-2024 End: 12-19-2024 ambulatory [facility] Comment on above: (SO)BMP(S)* daughter requested d ate/time Start: 12-13-2024 End: 12-13-2024 ambulatory [facility] Comment on above: (SO)BMP(S)* OV/LAB EARLY/ZOMETA TODAY* 2nd Start: 10-10-2024 Advance Directive Discussion Advance Directive Discussion [facility] Start: 10-10-2024 Medicare Advantage Annual Wellness Visit Medicare Advantage Annual Wellness Visit [facility] Start: 06-10-2024 COVID-19 (2023-11 5 season) COVID-19 ( season) [facility] Start: 06-10-2024 Covid-19 Vaccine ( season) Covid-19 Vaccine ( season) [facility] Start: 06-10-2024 Covid-19 Vaccine ( season) Covid-19 Vaccine ( season) [facility] Start: 06-10-2024 FLU (#1) FLU (#1) [facility] Start: 06-10-2024 Influenza vaccination Influenza Vacc ine (#1) [facility] Start: 10-25-2023 Mammography [facility] Start: 10-25-2023 Screening for malign ant neoplasm of breast Mammogram Screening [facility] Start: 10-10-2023 Advance Directive Discussion Advance Directive Discussion [facility] Start: 10-10-2023 Behavioral Health Screening Behavioral Health Screening [facility] Start: 10-10-2023 Depression Assessment Depression Ass essment [facility] Start: 08-29-2023 Shingrix Vaccine (2 of 2) Shingrix Vaccine (2 of 2) [facility] Start: 08-02-2023 Procedure Education Eprescribe d prescriptions (G8553) [facility]; [facility] Work Phone: Start: 08-02-2023 Blood count complete auto&auto difrntl wbc CBC W/AUTO DIFF WBC (83042) [facility]; [facility] Work Phone: Start: 08-02-2023 Comprehensive metabo lic panel METABOLIC PANEL, COMPREHENSIVE (05507) [facility]; [facility] Work Phone: Start: 08-02-2023 Blood count complete auto&auto difrntl wbc CBC W/AUTO DIFF WBC (03372) [facility]; [facility] Work Phone: Start: 08-02-2023 Comprehensive metabo lic panel METABOLIC PANEL, COMPREHENSIVE (75594) [facility]; [facility] Work Phone: Start: 08-02-2023 25 hydroxy includes fractions if performed Vitamin D Hydroxy (06583) [facility]; [facility] Work Phone: Start: 08-02-2023 Lipid panel LIPID PANEL (26858) [facility]; [facility] Work Phone: Start: 06-22-2023 Pneumococcal Vaccine : 50+ (2 of 2 - PCV) Pneumococcal Vaccine: 50+ (2 of 2 - PCV) [facility] Start: 06-22-2023 Pneumococcal Vaccine : 65+ (2 - PCV) Pneumococcal Vaccine: 65+ (2 - PCV) [facility] Start: 06-22-2023 Pneumococcal Vaccine : 65+ (2 of 2 - PCV) Pneumococcal Vaccine: 65+ (2 of 2 - PCV) [facility] Start: 06-10-2023 Covid-19 Vaccine () Covid-19 Vaccine () [facility] Start: 09-01-2023 Influenza vaccination INFLUENZA (#1) [facility] Start: 04-26-2023 Procedure Education Eprescribe d prescriptions (G8553) [facility]; [facility] Work Phone: Start: 04-26-2023 25 hydroxy includes fractions if performed Vitamin D Hydroxy (61776) [facility]; [facility] Work Phone: Start: 04-26-2023 Blood count complete auto&auto difrntl wbc CBC with auto diff (15507) [facility]; [facility] Work Phone: Start: 04-26-2023 Urine albumin quantitative MICROALBUMIN: CREATININE RATIO (44884) AND (54713) [facility]; [facility] Work Phone: Start: 04-26-2023 Comprehensive metabo lic panel METABOLIC PANEL, COMPREHENSIVE (29982) [facility]; [facility] Work Phone: Start: 04-26-2023 Lipid panel LIPID PANEL (64125) [facility]; [facility] Work Phone: Start: 04-26-2023 Hemoglobin glycosyla maggie a1c HGB A1C (71392) [facility]; [facility] Work Phone: Start: 04-09-2023 Urine microalbumin profile DTaP,Tdap,Td Vaccine (2 - Td or Tdap) [facility] Start: 03-30-2023 Procedure Education Eprescribe d prescriptions (G8553) [facility]; [facility] Work Phone: Start: 02-22-2023 Procedure Education Eprescribe d prescriptions (G8553) [facility]; [facility] Work Phone: Start: 12-21-2022 Procedure Education Eprescribe d prescriptions (G8553) [facility]; [facility] Work Phone: Start: 12-21-2022 Lipid panel LIPID PANEL (84840) [facility]; [facility] Work Phone: Start: 12-21-2022 Comprehensive metabo lic panel METABOLIC PANEL, COMPREHENSIVE (74834) [facility]; [facility] Work Phone: Start: 12-21-2022 Hemoglobin glycosyla maggie a1c HGB A1C (40908) [facility]; [facility] Work Phone: Start: 12-21-2022 25 hydroxy includes fractions if performed Vitamin D Hydroxy (73298) [facility]; [facility] Work Phone: Start: 11-03-2022 End: 01-03-2023 MISC SEND OUT TST 1 MISC SEND OUT TST 1 Lab Routine Cancer of central portion of left breast (HCC) Family history of malignant neoplasm of breast Expected: 11/03/2022, Expires: 01/03/2023 [facility] Work Phone: Comment on above: Expected: 11/03/2022 , Expires: 01/03/2023 Start: 10-28-2022 End: 12-28-2022 25-hydroxyvitamin D3 [Mass/volume] in Serum or Plasma [facility] Work Phone: Comment on above: Expected: 10/28/2022 , Expires: 12/28/2022 Start: 10-28-2022 End: 12-28-2022 Chronic hepatitis differentiation between hepatitis B and C virus panel - Serum or Plasma [facility] Work Phone: Comment on above: Expected: 10/28/2022 , Expires: 12/28/2022 Start: 10-10-2022 ADVANCE DIRECTIVE DISCUSSION ADVANCE DIRECTIVE DISCUSSION [facility] Start: 10-10-2022 DEPRESSION ASSESSMENT DEPRESSION ASS ESSMENT [facility] Start: 08-23-2022 25 hydroxy includes fractions if performed Vitamin D Hydroxy (94612) [facility]; [facility] Work Phone: Start: 08-23-2022 Urnls dip stick/tabl et reagent auto microscopy URINALYSIS, W/ MICRO (10207) [facility]; [facility] Work Phone: Start: 08-23-2022 Blood count complete auto&auto difrntl wbc CBC W/AUTO DIFF WBC (02786) [facility]; [facility] Work Phone: Start: 08-23-2022 Comprehensive metabo lic panel METABOLIC PANEL, COMPREHENSIVE (93819) [facility]; [facility] Work Phone: Start: 08-23-2022 Procedure Education Eprescribe d prescriptions (G8553) [facility]; [facility] Work Phone: Start: 10-10-2021 ADVANCE DIRECTIVE DISCUSSION ADVANCE DIRECTIVE DISCUSSION [facility] Start: 10-10-2021 DEPRESSION ASSESSMENT DEPRESSION ASS ESSMENT [facility] Start: 2018 BONE DENSITY BONE DENSITY [facility] Start: 2018 PNEUMOCOCCAL: 65+ (1 - PCV) PNEUMOCOCCAL: 65+ (1 - PCV) [facility] Start: 2013 RSV Vaccine (1 - 1-d ose 60+ series) RSV Vaccine (1 - 1-dose 60+ series) [facility] Start: 2013 RSV Vaccine (1 - Ris k 60-74 years 1-dose series) RSV Vaccine (1 - Risk 60-74 years 1-dose series) [facility] Start: 11-17-2006 Provider Instruction s for Treatment [facility]; [facility] Work Phone: Start: 2003 SHINGRIX VACCINE (1 of 2) SHINGRIX VACCINE (1 of 2) [facility] Start: 1998 COLOGUARD (FIT-DNA) COLOGUARD (FIT-D NA) [facility] Start: 1998 Colonoscopy COLONOSCOPY [facility] Start: 1998 COLORECTAL CANCER SCREENING COLORECTAL CANCER SCREENING [facility] Start: [address] COLONOGRAPHY [facility] Start: 1998 DIABETES SCREEN DIABETES SCREEN [facility] Start: 1998 FECAL OCCULT BLOOD FECAL OCCULT BLOO D [facility] Start: 1998 LIPID SCREEN LIPID SCREEN [facility] Start: 1998 Screening for malign ant neoplasm of colon [facility] Start: 1998 SIGMOIDOSCOPY SIGMOIDOSCOPY [facility] Start: 1993 Mammography MAMMOGRAM [facility] Start: 1974 Microscopic observat ion [Identifier] in Cervix by Cyto stain Pap Smear [facility] Start: 1972 Urine microalbumin profile DTAP,TDAP,TD (1 - Tdap) [facility] Start: 1971 Anxiety Screening Anxiety Screening [facility] Start: 1971 Depression Screening Depression Scre randal [facility] Start: 1971 HEPATITIS C SCREENING HEPATITIS C SC SHILPIMATI [facility] Start: 1969 MenB (1 of 2 - MenB 2-Dose Series Bexsero) MenB (1 of 2 - MenB 2-Dose Series Bexsero) [facility] Start: 1966 Varicella (1 of 2 - 13+ 2-dose series) Varicella (1 of 2 - 13+ 2-dose series) [facility] Start: 1960 Tetanus Diphtheria a nd Pertussis Vaccines (1 - Tdap) Tetanus Diphtheria and Pertussis Vaccines (1 - Tdap) [facility] Start: 1954 MMR (1 of 1 - Standa rd series) MMR (1 of 1 - Standard series) [facility] Start: 1953 COVID-19 VACCINE (#1) COVID-19 VACCI NE (#1) [facility] End: 11-28-2024 VINEET Ab with reflex [facility] Work Phone: Comment on above: 1 Occurrences starti ng 11/28/2024 until 11/28/2024 End: 11-27-2023 Bx breast w/device 1st lesion magnetic res guid MRI BREAST BX WO/W IVCON RT Radiology Routine Abnormal finding on breast imaging 1 Occurrences starting 10/28/2022 until 11/27/2023 [facility] Work Phone: Comment on above: 1 Occurrences starti ng 10/28/2022 until 11/27/2023 End: 11-27-2023 Bx breast w/device 1st lesion ultrasound guid US BIOPSY BREAST RT Radiology Routine Abnormal finding on breast imaging 1 Occurrences starting 10/28/2022 until 11/27/2023 [facility] Work Phone: Comment on above: 1 Occurrences starti ng 10/28/2022 until 11/27/2023 End: 12-04-2024 Ct thorax w/o contrast material CT CHEST WO IVCON Radiology Routine Lung nodules Cancer of central portion of left breast (HCC) 1 Occurrences starting 11/05/2023 until 12/04/2024 [facility] Work Phone: Comment on above: 1 Occurrences starti ng 11/05/2023 until 12/04/2024 DBT Breast - bilater al screening LORENA SCREENING W JIL Radiology Routine Visit for screening mammogram 01/11/2024 2:[address] [facility] Work Phone: DBT Breast - bilater al screening LORENA SCREENING W JIL Radiology Routine Malignant neoplasm of upper-inner quadrant of left breast in female, estrogen receptor positive (HCC) Encounter for screening mammogram for high-risk patient 01/22/2025 8:[address] [facility] Work Phone: End: 07-07-2026 DBT Breast - bilateral screening LORENA SCREENING W JIL Radiology Routine Malignant neoplasm of upper-inner quadrant of left breast in female, estrogen receptor positive (HCC) Encounter for screening mammogram for high-risk patient 1 Occurrences starting 06/07/2025 until 07/07/2026 [facility] Work Phone: Comment on above: 1 Occurrences starti ng 06/07/2025 until 07/07/2026 End: 09-03-2023 Diagnostic mammography computer-aided detcj bi [facility] DIAGNOSTIC BILAT Radiology Routine Abnormal ultrasound of breast 1 Occurrences starting 08/04/2022 until 09/03/2023 [facility] Work Phone: Comment on above: 1 Occurrences starti ng 08/04/2022 until 09/03/2023 End: 10-17-2023 Diagnostic mammography computer-aided detcj [facility] Work Phone: Comment on above: 1 Occurrences starti ng 09/17/2022 until 10/17/2023 Digital breast tomosynthesis bilateral LORENA DIAG W JIL BILAT Radiology Routine 10/25/2022 2:[address] [facility] Work Phone: End: 02-18-2024 LORENA SCREENING W JIL LORENA SCREENING W JIL Radiology Routine Visit for screening mammogram 1 Occurrences starting 01/19/2023 until 02/18/2024 [facility] Work Phone: Comment on above: 1 Occurrences starti ng 01/19/2023 until 02/18/2024 End: 02-23-2026 MG Breast - right Diagnostic for implant L[facility] DIAGNOSTIC RIGHT Radiology Routine Cancer of central portion of left breast (HCC) Abnormal mammogram of right breast 1 Occurrences starting 01/24/2025 until 02/23/2026 [facility] Work Phone: Comment on above: 1 Occurrences starti ng 01/24/2025 until 02/23/2026 End: 11-28-2024 Miscellaneous Sendout: Strongyloides Antibody, IgG [facility] Comment on above: 1 Occurrences starti ng 11/28/2024 until 11/28/2024 End: 10-03-2023 Mri breast without&with contrast w/cad bilateral MRI BREAST WO/W IVCON BILAT Radiology STAT Malignant neoplasm of upper-inner quadrant of left breast in female, estrogen receptor positive (HCC) 1 Occurrences starting 09/03/2022 until 10/03/2023 [facility] Work Phone: Comment on above: 1 Occurrences starti ng 09/03/2022 until 10/03/2023 End: 09-15-2022 Mri breast without&with contrast w/cad bilateral [facility] Work Phone: Comment on above: 1 Occurrences starti ng 09/15/2022 until 09/15/2022 End: 12-25-2023 NM INJ SENTINEL NODE BREAST LT NM INJ SENTINEL NODE BREAST LT Radiology Routine Cancer of central portion of left breast (HCC) 1 Occurrences starting 11/25/2022 until 12/25/2023 [facility] Work Phone: Comment on above: 1 Occurrences starti ng 11/25/2022 until 12/25/2023 End: 01-10-2023 NM INJ SENTINEL NODE BREAST LT NM INJ SENTINEL NODE BREAST LT Radiology Routine Cancer of central portion of left breast (HCC) 1 Occurrences starting 01/10/2023 until 01/10/2023 [facility] Work Phone: Comment on above: 1 Occurrences starti ng 01/10/2023 until 01/10/2023 Patient Education RAD RN Ultraso und Breast Biopsy Discharge Instructions [facility] Work Phone: Patient referral [facility] Work Phone: End: 11-28-2024 Protein electrophoresis, serum [facility] Comment on above: 1 Occurrences starti ng 11/28/2024 until 11/28/2024 SURGICAL PATHOLOGY SURGICAL PATH OLOGY Lab Routine Abnormal ultrasound of breast 08/04/2022 2:[address] [facility] Work Phone: End: 02-23-2026 US Breast - right limited US BREAST LTD RIGHT Radiology Routine Cancer of central portion of left breast (HCC) Abnormal mammogram of right breast 1 Occurrences starting 01/24/2025 until 02/23/2026 [facility] Comment on above: 1 Occurrences starti ng 01/24/2025 until 02/23/2026 US BREAST BIOPSY LEF T (POC) SURG USE ONLY US BREAST BIOPSY LEFT (POC) SURG USE ONLY Imaging Procedures Routine Abnormal ultrasound of breast Ordered: 08/04/2022 [facility] Work Phone: Comment on above: Ordered: 08/04/2022 End: 10-17-2023 Us breast uni real time with image limited [facility] Work Phone: Comment on above: 1 Occurrences starti ng 09/17/2022 until 10/17/2023 End: 10-25-2022 Us breast uni real time with image limited [facility] Work Phone: Comment on above: 1 Occurrences starti ng 10/25/2022 until 10/25/2022 End: 11-27-2023 Us breast uni real time with image limited US BREAST LTD RT Radiology Routine Abnormal finding on breast imaging 1 Occurrences starting 10/28/2022 until 11/27/2023 [facility] Work Phone: Comment on above: 1 Occurrences starti ng 10/28/2022 until 11/27/2023 End: 11-17-2022 Us breast uni real time with image limited US BREAST LTD RT Radiology Routine Abnormal finding on breast imaging 1 Occurrences starting 11/17/2022 until 11/17/2022 [facility] Work Phone: Comment on above: 1 Occurrences starti ng 11/17/2022 until 11/17/2022 [facility] Work Phone: [facility] Work Phone: [facility]; [facility] Work Phone: [facility]; [facility] Work Phone: [facility] Immunizations Immunization Date Immunization Notes Care Provider Inder adrian 10-15-2024 influenza virus vacc ine, unspecified formulation Lizette Iglesias EYELETTER.SISAL PICKER Work Phone: [facility] 07-04-2023 influenza virus vacc ine, unspecified formulation Treatment Wstr Work Phone: [facility] Payers Date Payer Category Payer Self-pay [id number] 2021 Medicare [id number] 2020 Medicare (Managed Care) [employer] [id number] 2020 Unknown [id number] 2020 Medicare [id number] 2018 Private Health Insurance [id number] 2018 Private Health Insurance [facility] [id number] 2018 Medicare MEDICARE MEDICAR E A AND B [id number] 2018-2018 [address] [address] [place] [address] Medicare [id number] 2014 Unknown [id number] 2005 Unknown [id number] 1953 Unknown [id number] 1953 Unknown [id number] 1953 Unknown [id number] Unknown [id number] Unknown [id number] Unknown [id number] Unknown [id number] Social History Date Type Detail Facility Start: 07-04-2015 End: 07-04-2015 Tobacco smoking status NHIS Unknown if ever smoked [facility] Work Phone: Start: 1955 Sex Assigned At Female W [facility] Start: 07-04-2015 End: 08-03-2022 Tobacco smoking status NHIS Never smoked tobacco [facility] Start: 04-21-2020 End: 08-03-2022 Tobacco use and exposure Smokeless tobacco non-user [facility] Start: 08-03-2022 End: 06-07-2025 Alcohol intake Lifetime non-drinker (finding) [facility] Start: 1955 Sex Assigned At Not on file [facility] Start: 07-24-2022 End: 08-03-2022 Exposure to SARS-CoV-2 (event) Not sure [facility] Work Phone: Start: 03-01-2023 End: 06-07-2025 No Drug Use No Drug Use [facility]; [facility] Work Phone: Start: 03-01-2023 End: 06-07-2025 Tobacco use panel [facility] Start: 08-01-2013 National Score (1-100), lower number is lower risk 35 [facility] How often to you hav e a drink containing alcohol? Never [facility] Functional Status Date Assessment Result Facility 06-07-2025 Total score [AUDIT-C] 0 06/07/20 9:[address] MA [facility] 01-11-2023 Are you deaf, or do you have serious difficulty hearing No 01/11/2023 12:22 PM Jen Paniagua RN No [facility] 01-11-2023 Are you blind, or do you have serious difficulty seeing, even when wearing glasses No 01/11/2023 12:22 PM Jen Paniagua RN No [facility] 01-11-2023 Do you have serious difficulty walking or climbing stairs No 01/11/2023 12:22 PM Jen Paniagua RN No [facility] 01-11-2023 Do you have difficul ty dressing or bathing No 01/11/2023 12:22 PM EDT Jen Ibarra RN No [facility] 01-11-2023 Because of a physica l, mental, or emotional condition, do you have difficulty doing errands alone such as visiting a physician's office or shopping No 01/11/2023 12:22 PM EDT Jen Ibarra RN No [facility] Mental Status Date Assessment Result Facility 01-11-2023 Because of a physica l, mental, or emotional condition, do you have serious difficulty concentrating, remembering, or making decisions No 01/11/2023 12:22 PM EDT Jen Ibarra RN No [facility] Clinical Notes 06-04-2021 to 06-07-2025 Lizette Iglesias APRN.SISAL PICKER - 06/07/2025 8:56 AM EDTTelephone Encounter - Lidia Waller LPN - 01/25/2025 9:57 AM EDTTelephone Encounter - Lidia Waller LPN - 01/25/2025 9:57 AM EDT Note Date & Type Note Facility 06-07-2025 Note HNO ID: [id number] Author: LIZETTE IGLESIAS APRN.SISAL PICKER Service: ? Author Type: Nurse Practitioner Type: Progress Notes Filed: 06/07/2025 09:52 Note Text: Chief Complaint Patient presents with: Established Patient HPI: Ceasar Palacios is a 70 year old female who presents here today for follow up breast cancer. Per Dr. Saleh's previous note: H/o varicose veins. Patient underwent recent evaluation for palpable mass in the left breast. She appreciated a lump around 03/2022. A diagnostic mammogram at [facility] 07/15/2022 revealed heterogeneously dense breasts but with evidence of a 2.5 x 1.5 cm spiculated nodule in the slightly upper retroareolar region of the LEFT breast. There was also evidence of a 1.4 x 1 cm irregular nodule in the upper lateral aspect of the RIGHT breast. Ultrasound of the LEFT breast same day on 07/15/2022 revealed a 2 x 1.8 x 1.5 cm hypoechoic irregular solid mass at the 11 o'clock position 3 cm from the nipple in the left breast. There was also evidence of a 9 x 10 mm x 8 mm hypoechoic solid nodule at the 11 o'clock position in the LEFT breast. Patient underwent ultrasound-guided biopsy of the LEFT breast lesion along with clip placement on 08/04/[address] Mcwilliams here in the office. The lesion in the right breast was not able to be identified by ultrasound. Pathology: Invasive ductal carcinoma with micropapillary features, provisional Dolores grade 2, measuring 7 mm in greatest dimension ER positive, 91 200%, strong staining intensity. HI positive, 91 to 100%, strong staining intensity HER2 2+ on IHC. HER2 (ERBB2) Status by FISH: Non amplified Patient returned to [facility] on 08/17 for an ultrasound of the RIGHT breast. That study identified a 2 x 2 x 0.8 cm heterogeneous solid mass at the 10 o'clock position 7 cm from the nipple in the right breast. This lesion was biopsied at that time. Clip was placed according to operative note by Dr. Mcwilliams. Pathology: Hyalinized fibroadenoma with focal intraductal hyperplasia without atypia. Focal microcalcification. Negative for malignancy. MRI breasts and subsequent b/l diagnostic mammogram and b/l US. Started on anastrozole piror to surgery due to travel delays. Tolerating well. Pathology: A. 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 - Margins are negative for carcinoma. - Biopsy site changes present. - Unremarkable nipple/areola complex. - Please see comment and synoptic report. B. [place] lymph node, left axillary, excision: - 1 lymph node, negative for carcinoma (0/1). C. [place] lymph node, left axillary, excision: - 3 lymph nodes, negative for carcinoma (0/3). Current therapy:Femara Previous therapy:arimidex Began February 2023. Stopped due to rash. Pt. here today with her daughter. No new concerns today. Pt. was in [place] for 2 months. Daughter not sure if she was taking her femara regularly while there. Appetite:"Good." Wt. down 6# since last visit. Energy level:"Ok." Denies fevers. Resp:denies cough or sob Cardiac:denies chest pain/palpitations GI:denies abd pain, n/v, moving bowels regularly :denies dysuria/hematuria Extrem:chronic R knee pain, denies new pain Endo:denies hot flashes Skin:denies new rash, followed by derm Heme:denies bleeding The ROS is otherwise negative. Past medical history, appointments, medications, allergies reviewed. No changes. EXAM: BP 132/76 Pulse 62 Temp 37.1 ?C (98.7 ?F) (Temporal) Wt 55.7 kg (122 lb 12.7 oz) SpO2 97% BMI 26.57 kg/m? APPEARANCE Well appearing, alert, in no acute distress, well-hydrated, well nourished. HEART RRR with normal S1 and S2, no murmurs LUNG clear to auscultation BREAST FEMALE R no mass/nodule, L mastectomy scar no nodule/skin changes LYMPH NODES No cervical lymphadenopathy, No supraclavicular lymphadenopathy, and No axillary lymphadenopathy. ABDOMEN bowel sounds normoactive, soft, non-tender EXTREMITIES No edema NEURO Awake, alert and oriented x 3, Normal gait, and No involuntary motions. SKIN Skin color, texture, turgor normal, no suspicious rashes or lesions LABS: BMP: Pending ASSESSMENT/PLAN: 1. Malignant neoplasm of upper-inner quadrant of left breast in female, estrogen receptor positive (HCC) - ICD9: 174.2, V86.0, ICD10: C50.212, Z17.0 (primary diagnosis) - No concerning findings on exam. - Tolerating femara well. - BMP pending. - Continue femara. - Continue follow up with PCP for routine care and for chronic R knee pain. - Continue zometa every 6 months with BMP for a total of 6 doses. - Proceed with #5 zometa today-pending today's BMP. - R mammogram due January 2026. - Follow up as scheduled. - Pt. aware to call office with any questions/concerns. The patient indicates understanding of these issues and agrees with the plan. All documentatio (more content not included)... [facility] 06-07-2025 History of Presen t illness Narrative Chief Complaint Patient presents with: Established Patient HPI: Ceasar Palacios is a 70 year old female who presents here today for follow up breast cancer. Per Dr. Saleh's previous note: H/o varicose veins. Patient underwent recent evaluation for palpable mass in the left breast. She appreciated a lump around 03/2022. A diagnostic mammogram at [facility] 07/15/2022 revealed heterogeneously dense breasts but with evidence of a 2.5 x 1.5 cm spiculated nodule in the slightly upper retroareolar region of the LEFT breast. There was also evidence of a 1.4 x 1 cm irregular nodule in the upper lateral aspect of the RIGHT breast. Ultrasound of the LEFT breast same day on 07/15/2022 revealed a 2 x 1.8 x 1.5 cm hypoechoic irregular solid mass at the 11 o'clock position 3 cm from the nipple in the left breast. There was also evidence of a 9 x 10 mm x 8 mm hypoechoic solid nodule at the 11 o'clock position in the LEFT breast. Patient underwent ultrasound-guided biopsy of the LEFT breast lesion along with clip placement on 08/04/[address] Mcwilliams here in the office. The lesion in the right breast was not able to be identified by ultrasound. Pathology: Invasive ductal carcinoma with micropapillary features, provisional Friona grade 2, measuring 7 mm in greatest dimension ER positive, 91 200%, strong staining intensity. HI positive, 91 to 100%, strong staining intensity HER2 2+ on IHC. HER2 (ERBB2) Status by FISH: Non amplified Patient returned to [facility] on 08/17 for an ultrasound of the RIGHT breast. That study identified a 2 x 2 x 0.8 cm heterogeneous solid mass at the 10 o'clock position 7 cm from the nipple in the right breast. This lesion was biopsied at that time. Clip was placed according to operative note by Dr. Mcwilliams. Pathology: Hyalinized fibroadenoma with focal intraductal hyperplasia without atypia. Focal microcalcification. Negative for malignancy. MRI breasts and subsequent b/l diagnostic mammogram and b/l US. Started on anastrozole piror to surgery due to travel delays. Tolerating well. Pathology: A. 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 - Margins are negative for carcinoma. - Biopsy site changes present. - Unremarkable nipple/areola complex. - Please see comment and synoptic report. B. [place] lymph node, left axillary, excision: - 1 lymph node, negative for carcinoma (0/1). C. [place] lymph node, left axillary, excision: - 3 lymph nodes, negative for carcinoma (0/3). Current therapy:Femara Previous therapy:arimidex Began February 2023. Stopped due to rash. Pt. here today with her daughter. No new concerns today. Pt. was in [place] for 2 months. Daughter not sure if she was taking her femara regularly while there. Appetite:"Good." Wt. down 6# since last visit. Energy level:"Ok." Denies fevers. Resp:denies cough or sob Cardiac:denies chest pain/palpitations GI:denies abd pain, n/v, moving bowels regularly :denies dysuria/hematuria Extrem:chronic R knee pain, denies new pain Endo:denies hot flashes Skin:denies new rash, followed by derm Heme:denies bleeding The ROS is otherwise negative. Past medical history, appointments, medications, allergies reviewed. No changes. EXAM: BP 132/76 Pulse 62 Temp 37.1 C (98.7 F) (Temporal) Wt 55.7 kg (122 lb 12.7 oz) SpO2 97% BMI 26.57 kg/m APPEARANCE Well appearing, alert, in no acute distress, well-hydrated, well nourished. HEART RRR with normal S1 and S2, no murmurs LUNG clear to auscultation BREAST FEMALE R no mass/nodule, L mastectomy scar no nodule/skin changes LYMPH NODES No cervical lymphadenopathy, No supraclavicular lymphadenopathy, and No axillary lymphadenopathy. ABDOMEN bowel sounds normoactive, soft, non-tender EXTREMITIES No edema NEURO Awake, alert and oriented x 3, Normal gait, and No involuntary motions. SKIN Skin color, texture, turgor normal, no suspicious rashes or lesions LABS: BMP: Pending ASSESSMENT/PLAN: 1. Malignant neoplasm of upper-inner quadrant of left breast in female, estrogen receptor positive (HCC) - ICD9: 174.2, V86.0, ICD10: C50.212, Z17.0 (primary diagnosis) - No concerning findings on exam. - Tolerating femara well. - BMP pending. - Continue femara. - Continue follow up with PCP for routine care and for chronic R knee pain. - Continue zometa every 6 months with BMP for a total of 6 doses. - Proceed with #5 zometa today-pending today's BMP. - R mammogram due January 2026. - Follow up as scheduled. - Pt. aware to call office with any questions/concerns. The patient indicates understanding of these issues and agrees with the plan. All documentation from previous visit of 12/19/24-Dr. Saleh/myself was copied and pasted, documentation has been reviewed and edited as necessary for today's visit. Lizette Iglesias APRN.SISAL PICKER documented in this encounter [facility] 05-21-2025 Radiology Diagnostic study note [facility] Imaging Services [address] [place] [id number] Chest without Contrast MR#: [id number] Acct: [id number] Name: CEASAR PALACIOS Rep #: [id number] : 1955 F 70 From: Kraig Hopkins MD PCP: Dr. Krystle Alford DO Status: REG CLI Study:Chest without Contrast Date of Exam: 05/21/25 Exam# [id number] Ordering Dr: Naya Alford ra, DO PROCEDURE: CHEST WITHOUT CONTRAST 05/21/2025 REASON FOR EXAM: LUNG NODULES Follow-up examination. TECHNIQUE: Chest CT without contrast. Coronal and Sagittal reconstruction series were provided. One or more dose reduction techniques were used (e.g., Automated exposure control, adjustment of the mA and/or kV according to patient size, use of iterative reconstruction technique RADIATION DOSE SUMMARY: CTDlvol: 7.24 mGy DLP: 224.24 mGycm COMPARISON: None FINDINGS: Hardware: None Lymph nodes: Small benign-appearing bilateral axillary lymph nodes. Small benign-appearing mediastinal lymph nodes. Heart and Vasculature: The heart is nonenlarged. Coronary Artery Calcifications: Present Lungs and Airways: No pulmonary nodule is seen. Pleura: No pleural effusion. Upper Abdomen: Unremarkable Bones: Degenerative changes of the thoracic spine. CT/Chest without Contrast IMPRESSION: Coronary artery calcification (CAC) is is present No acute abnormality is seen. Reading Location: [facility] CC: Dr. Krystle Fast, DO ~ [employer] Laborer: Signed [facility] 01-25-2025 Telephone encounter Note Please call daughter to schedule. Left VM on daughters cell that schedulers would be calling to set up apt. Lidia Waller LPN [facility] 01-25-2025 Miscellaneous Notes Please call daughter to schedule. Left VM on daughters cell that schedulers would be calling to set up apt. Lidia Waller LPN Please inform pt. that radiologist would like additional images of right breast. Please schedule R dx mamm/US soon. Thank you. Lizette Iglesias APRN.SISAL PICKER documented in this encounter [facility] 01-24-2025 Telephone encounter Note Please inform pt. that radiologist would like additional images of right breast. Please schedule R dx mamm/US soon. Thank you. Lizette Iglesias APRN.SISAL PICKER [facility] 01-22-2025 History of Presen t illness Narrative Radiology Service Progress Note PATIENT NAME: Ceasar Palacios DATE OF SERVICE: January 22, 2025 TIME: 9:03 AM PATIENT IDENTITY VERIFICATION COMPLETED USING TWO (2) IDENTIFIERS: Name and Date of confirmed by patient verbally. FALL SCREENING: Has the patient had 2 falls in the last year or 1 fall with injury or currently using an Ambulatory Assistive Device (Walker, Cane, Wheelchair, Crutches, etc.)? No PATIENT GENDER DATA: Assigned female at . status: : No status: NO. PATIENT RELEVANT IMPLANT DATA REVIEWED: Not Applicable PATIENT PRESENTS WITH AN IMPLANTABLE OR ATTACHED PRODUCTION GRIP: No RADIOLOGY DEPARTMENT: Mammography PERIPHERAL IV DATA: Not applicable SIGNED BY: RT Reny(Joshua) January 22, 2025 9:03 AM documented in this encounter [facility] 01-22-2025 Note HNO ID: [id number] Author: CRIS ROBERTS RT(R) Service: ? Author Type: Technologist Type: Progress Notes Filed: 01/22/2025 09:04 Note Text: Radiology Service Progress Note PATIENT NAME: Ceasar Palacios DATE OF SERVICE: January 22, 2025 TIME: 9:03 AM PATIENT IDENTITY VERIFICATION COMPLETED USING TWO (2) IDENTIFIERS: Name and Date of confirmed by patient verbally. FALL SCREENING: Has the patient had 2 falls in the last year or 1 fall with injury or currently using an Ambulatory Assistive Device (Walker, Cane, Wheelchair, Crutches, etc.)? No PATIENT GENDER DATA: Assigned female at . status: : No status: NO. PATIENT RELEVANT IMPLANT DATA REVIEWED: Not Applicable PATIENT PRESENTS WITH AN IMPLANTABLE OR ATTACHED PRODUCTION GRIP: No RADIOLOGY DEPARTMENT: Mammography PERIPHERAL IV DATA: Not applicable SIGNED BY: RT Reny(Joshua) January 22, 2025 9:03 AM [facility] 12-19-2024 Note HNO ID: [id number] Author: LIZETTE IGLESIAS APRN.SISAL PICKER Service: ? Author Type: Nurse Practitioner Type: Progress Notes Filed: 12/19/2024 12:30 Note Text: Chief Complaint Patient presents with: Established Patient HPI: Ceasar Palacios is a 69 year old female who presents here today for follow up breast cancer. Per Dr. Saleh's previous note: H/o varicose veins. Patient underwent recent evaluation for palpable mass in the left breast. She appreciated a lump around 03/2022. A diagnostic mammogram at [facility] 07/15/2022 revealed heterogeneously dense breasts but with evidence of a 2.5 x 1.5 cm spiculated nodule in the slightly upper retroareolar region of the LEFT breast. There was also evidence of a 1.4 x 1 cm irregular nodule in the upper lateral aspect of the RIGHT breast. Ultrasound of the LEFT breast same day on 07/15/2022 revealed a 2 x 1.8 x 1.5 cm hypoechoic irregular solid mass at the 11 o'clock position 3 cm from the nipple in the left breast. There was also evidence of a 9 x 10 mm x 8 mm hypoechoic solid nodule at the 11 o'clock position in the LEFT breast. Patient underwent ultrasound-guided biopsy of the LEFT breast lesion along with clip placement on 08/04/[address] Mcwilliams here in the office. The lesion in the right breast was not able to be identified by ultrasound. Pathology: Invasive ductal carcinoma with micropapillary features, provisional Dolores grade 2, measuring 7 mm in greatest dimension ER positive, 91 200%, strong staining intensity. HI positive, 91 to 100%, strong staining intensity HER2 2+ on IHC. HER2 (ERBB2) Status by FISH: Non amplified Patient returned to [facility] on 08/17 for an ultrasound of the RIGHT breast. That study identified a 2 x 2 x 0.8 cm heterogeneous solid mass at the 10 o'clock position 7 cm from the nipple in the right breast. This lesion was biopsied at that time. Clip was placed according to operative note by Dr. Mcwilliams. Pathology: Hyalinized fibroadenoma with focal intraductal hyperplasia without atypia. Focal microcalcification. Negative for malignancy. MRI breasts and subsequent b/l diagnostic mammogram and b/l US. Started on anastrozole piror to surgery due to travel delays. Tolerating well. Pathology: A. 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 - Margins are negative for carcinoma. - Biopsy site changes present. - Unremarkable nipple/areola complex. - Please see comment and synoptic report. B. [place] lymph node, left axillary, excision: - 1 lymph node, negative for carcinoma (0/1). C. [place] lymph node, left axillary, excision: - 3 lymph nodes, negative for carcinoma (0/3). Current therapy:Evangelina Previous therapy:arimidex Began February 2023. Stopped due to rash. Pt. here today with her grandson. No new concerns today. Appetite:"Good." Wt. stable. Energy level:"Ok." Denies fevers. Resp:denies cough or sob Cardiac:denies chest pain/palpitations GI:denies abd pain, n/v, moving bowels regularly :denies dysuria/hematuria Extrem:chronic R knee pain, denies new pain Endo:denies hot flashes Skin:denies new rash Heme:denies bleeding The ROS is otherwise negative. Past medical history, appointments, medications, allergies reviewed. No changes. EXAM: BP 147/87 Pulse 66 Temp 36.3 ?C (97.4 ?F) Wt 58.4 kg (128 lb 12 oz) SpO2 97% BMI 27.86 kg/m? APPEARANCE Well appearing, alert, in no acute distress, well-hydrated, well nourished. HEART RRR with normal S1 and S2, no murmurs LUNG clear to auscultation BREAST FEMALE R no mass/nodule, L mastectomy scar no nodule LYMPH NODES No cervical lymphadenopathy, No supraclavicular lymphadenopathy, and No axillary lymphadenopathy. ABDOMEN bowel sounds normoactive, soft, non-tender EXTREMITIES No edema NEURO Awake, alert and oriented x 3, Normal gait, and No involuntary motions. SKIN Skin color, texture, turgor normal, no suspicious rashes or lesions LABS: Pending ASSESSMENT/PLAN: 1. Malignant neoplasm of upper-inner quadrant of left breast in female, estrogen receptor positive (HCC) - ICD9: 174.2, V86.0, ICD10: C50.212, Z17.0 - No concerning findings on exam. - Tolerating femara well. - BMP pending. - Continue femara. Rx sent. - Continue follow up with PCP for routine care and for chronic R knee pain. - Continue zometa every 6 months with BMP for a total of 6 doses. - Proceed with #4 zometa today-pending today's BMP. - R mammogram due next month. - Follow up as scheduled otherwise. - Pt. aware to call office with any questions/concerns. The sensitive examination was discussed with the Patient or Patient's Authorized Artist'S Manager. As applicable, any other physician, advance practice provider, medical student, or other health professional student that will be observing or involved in the sensitive exa (more content not included)... [facility] 12-19-2024 History of Presen t illness Narrative Chief Complaint Patient presents with: Established Patient HPI: Ceasar Palacios is a 69 year old female who presents here today for follow up breast cancer. Per Dr. Saleh's previous note: H/o varicose veins. Patient underwent recent evaluation for palpable mass in the left breast. She appreciated a lump around 03/2022. A diagnostic mammogram at [facility] 07/15/2022 revealed heterogeneously dense breasts but with evidence of a 2.5 x 1.5 cm spiculated nodule in the slightly upper retroareolar region of the LEFT breast. There was also evidence of a 1.4 x 1 cm irregular nodule in the upper lateral aspect of the RIGHT breast. Ultrasound of the LEFT breast same day on 07/15/2022 revealed a 2 x 1.8 x 1.5 cm hypoechoic irregular solid mass at the 11 o'clock position 3 cm from the nipple in the left breast. There was also evidence of a 9 x 10 mm x 8 mm hypoechoic solid nodule at the 11 o'clock position in the LEFT breast. Patient underwent ultrasound-guided biopsy of the LEFT breast lesion along with clip placement on 08/04/[address] Mcwilliams here in the office. The lesion in the right breast was not able to be identified by ultrasound. Pathology: Invasive ductal carcinoma with micropapillary features, provisional Dolores grade 2, measuring 7 mm in greatest dimension ER positive, 91 200%, strong staining intensity. HI positive, 91 to 100%, strong staining intensity HER2 2+ on IHC. HER2 (ERBB2) Status by FISH: Non amplified Patient returned to [facility] on 08/17 for an ultrasound of the RIGHT breast. That study identified a 2 x 2 x 0.8 cm heterogeneous solid mass at the 10 o'clock position 7 cm from the nipple in the right breast. This lesion was biopsied at that time. Clip was placed according to operative note by Dr. Mcwilliams. Pathology: Hyalinized fibroadenoma with focal intraductal hyperplasia without atypia. Focal microcalcification. Negative for malignancy. MRI breasts and subsequent b/l diagnostic mammogram and b/l US. Started on anastrozole piror to surgery due to travel delays. Tolerating well. Pathology: A. 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 - Margins are negative for carcinoma. - Biopsy site changes present. - Unremarkable nipple/areola complex. - Please see comment and synoptic report. B. [place] lymph node, left axillary, excision: - 1 lymph node, negative for carcinoma (0/1). C. [place] lymph node, left axillary, excision: - 3 lymph nodes, negative for carcinoma (0/3). Current therapy:Femara Previous therapy:arimidex Began February 2023. Stopped due to rash. Pt. here today with her grandson. No new concerns today. Appetite:"Good." Wt. stable. Energy level:"Ok." Denies fevers. Resp:denies cough or sob Cardiac:denies chest pain/palpitations GI:denies abd pain, n/v, moving bowels regularly :denies dysuria/hematuria Extrem:chronic R knee pain, denies new pain Endo:denies hot flashes Skin:denies new rash Heme:denies bleeding The ROS is otherwise negative. Past medical history, appointments, medications, allergies reviewed. No changes. EXAM: BP 147/87 Pulse 66 Temp 36.3 C (97.4 F) Wt 58.4 kg (128 lb 12 oz) SpO2 97% BMI 27.86 kg/m APPEARANCE Well appearing, alert, in no acute distress, well-hydrated, well nourished. HEART RRR with normal S1 and S2, no murmurs LUNG clear to auscultation BREAST FEMALE R no mass/nodule, L mastectomy scar no nodule LYMPH NODES No cervical lymphadenopathy, No supraclavicular lymphadenopathy, and No axillary lymphadenopathy. ABDOMEN bowel sounds normoactive, soft, non-tender EXTREMITIES No edema NEURO Awake, alert and oriented x 3, Normal gait, and No involuntary motions. SKIN Skin color, texture, turgor normal, no suspicious rashes or lesions LABS: Pending ASSESSMENT/PLAN: 1. Malignant neoplasm of upper-inner quadrant of left breast in female, estrogen receptor positive (HCC) - ICD9: 174.2, V86.0, ICD10: C50.212, Z17.0 - No concerning findings on exam. - Tolerating femara well. - BMP pending. - Continue femara. Rx sent. - Continue follow up with PCP for routine care and for chronic R knee pain. - Continue zometa every 6 months with BMP for a total of 6 doses. - Proceed with #4 zometa today-pending today's BMP. - R mammogram due next month. - Follow up as scheduled otherwise. - Pt. aware to call office with any questions/concerns. The sensitive examination was discussed with the Patient or Patient's Authorized Artist'S Manager. As applicable, any other physician, advance practice provider, medical student, or other health professional student that will be observing or involved in the sensitive examination for educational or training purposes was discussed with the Patient or Authorized Artist'S Manager. The Patient or Authorized Artist'S Manager has agreed to proceed with the sensitive examination. (Sensitive examination includes inspection and/or palpation of the breasts, pelvis, prostate and anorectal regions) The patient indicates understanding of these issues and agrees with the plan. All documentation from previous visit of 06/28/24-Dr. Saleh/myself was copied and pasted, documentation has been reviewed and edited as necessary for today's visit. Lizette Iglesias APRN.NADIA documented in this encounter [facility] 12-17-2024 Note HNO ID: [id number] Author: TWYLA MANCIA HUC Service: ? Author Type: Safety Equipment Tester Type: Progress Notes Filed: 12/17/2024 08:34 Note Text: Incidental Lung Nodule Enrollment Outreach attempt: 3rd Attempt Outreach status: Complete Enrolled in Lung Nodule program: No Declined reason: Other Lung Nodule Program Location: [place] Two letter attempts, no response. Discharge letter sent. [facility] 12-17-2024 History of Presen t illness Narrative Incidental Lung Nodule Enrollment Outreach attempt: 3rd Attempt Outreach status: Complete Enrolled in Lung Nodule program: No Declined reason: Other Lung Nodule Program Location: [place] Two letter attempts, no response. Discharge letter sent. documented in this encounter [facility] 12-17-2024 Note Patient Outreach ([facility]) CEASAR PALACIOS ([id number]) 1955 F BEV Date Time Provider Department 12/17/24 TWYLA MANCIA During your visit today, we recorded the following information about you: Twyla Mancia HUC 12/17/2024 8:34 AM Signed Incidental Lung Nodule Enrollment Outreach attempt: 3rd Attempt Outreach status: Complete Enrolled in Lung Nodule program: No Declined reason: Other Lung Nodule Program Location: [place] Two letter attempts, no response. Discharge letter sent. Allergies As of Date: 12/17/2024 (No Known Allergies) Date Reviewed: 06/28/2024 Reviewed by: Charu Tello RN - Fully Assessed Prescriptions as of 12/17/2024 - letrozole (FEMARA) 2.5 mg tablet Take 1 tablet by mouth once daily. - cholecalciferol (VITAMIN D-3) 5,000 unit tab Take 5,000 Units by mouth once daily. - omeprazole (PRILOSEC) 20 mg capsule Take 20 mg by mouth once daily. - glucosamine HCl/chondroitin grover (GLUCOSAMINE-CHONDROITIN ORAL) Take 1 tablet by mouth once daily. - Calcium-Cholecalciferol, D3, 500 mg-10 mcg (400 unit) per tablet Take 1 tablet by mouth once daily. Problem List As Of Date 12/17/2024 Noted Resolved Cancer of central portion of left breast (HCC) *10/28/2022 Abnormal finding on breast imaging [R92.8] 10/28/2022 Family history of breast cancer [Z80.3] 10/28/2022 Elevated blood-pressure reading without diagnos*01/03/2023 Gastroesophageal reflux disease [K21.9] 01/03/2023 LAMINE (obstructive sleep apnea) [G47.33] 01/03/2023 Preop testing [Z01.818] 01/03/2023 Breast cancer, female (HCC) [C50.919] 01/10/2023 Letter Text Encounter Status:Closed by TWYLA MANCIA on 12/17/24 [facility] 12-10-2024 Note HNO ID: [id number] Author: TWYLA MANCIA HUC Service: ? Author Type: Safety Equipment Tester Type: Progress Notes Filed: 12/10/2024 11:10 Note Text: Incidental Lung Nodule Enrollment Outreach attempt: 2nd Attempt Outreach status: Complete Enrolled in Lung Nodule program: Referred Lung Nodule outreach: Needs outreach Lung Nodule Program Location: [address] 12-10-2024 History of Presen t illness Narrative Incidental Lung Nodule Enrollment Outreach attempt: 2nd Attempt Outreach status: Complete Enrolled in Lung Nodule program: Referred Lung Nodule outreach: Needs outreach Lung Nodule Program Location: [address] documented in this encounter [facility] 12-10-2024 Note Patient Outreach ([facility]) CEASAR PALACIOS ([id number]) 1955 [facility] Date Time Provider Department 12/10/24 TWYLA MANCIA During your visit today, we recorded the following information about you: Twyla Mancia HUC 12/10/2024 11:10 AM Signed Incidental Lung Nodule Enrollment Outreach attempt: 2nd Attempt Outreach status: Complete Enrolled in Lung Nodule program: Referred Lung Nodule outreach: Needs outreach Lung Nodule Program Location: [address] Allergies As of Date: 12/10/2024 (No Known Allergies) Date Reviewed: 06/28/2024 Reviewed by: Charu Tello, YIMI - Fully Assessed Prescriptions as of 12/10/2024 - letrozole (FEMARA) 2.5 mg tablet Take 1 tablet by mouth once daily. - cholecalciferol (VITAMIN D-3) 5,000 unit tab Take 5,000 Units by mouth once daily. - omeprazole (PRILOSEC) 20 mg capsule Take 20 mg by mouth once daily. - glucosamine HCl/chondroitin grover (GLUCOSAMINE-CHONDROITIN ORAL) Take 1 tablet by mouth once daily. - Calcium-Cholecalciferol, D3, 500 mg-10 mcg (400 unit) per tablet Take 1 tablet by mouth once daily. Problem List As Of Date 12/10/2024 Noted Resolved Cancer of central portion of left breast (HCC) *10/28/2022 Abnormal finding on breast imaging [R92.8] 10/28/2022 Family history of breast cancer [Z80.3] 10/28/2022 Elevated blood-pressure reading without diagnos*01/03/2023 Gastroesophageal reflux disease [K21.9] 01/03/2023 LAMINE (obstructive sleep apnea) [G47.33] 01/03/2023 Preop testing [Z01.818] 01/03/2023 Breast cancer, female (HCC) [C50.919] 01/10/2023 Letter Text Letter Text Encounter Status:Closed by TWYLA MANCIA on 12/10/24 [facility] 11-30-2024 Note HNO ID: [id number] Author: GELY SALAZAR APRN.SISAL PICKER Service: ? Author Type: Nurse Practitioner Type: Progress Notes Filed: 11/30/2024 09:11 Note Text: Incidental Lung Nodule Enrollment Outreach attempt: 1st Attempt Outreach status: Complete Enrolled in Lung Nodule program: Referred Lung Nodule outreach: Needs outreach Lung Nodule Program Location: [facility] Big Nodule Letter [facility] 11-30-2024 History of Presen t illness Narrative Incidental Lung Nodule Enrollment Outreach attempt: 1st Attempt Outreach status: Complete Enrolled in Lung Nodule program: Referred Lung Nodule outreach: Needs outreach Lung Nodule Program Location: [facility] Big Nodule Letter documented in this encounter [facility] 11-30-2024 Note Patient Outreach ([facility]) CEASAR PALACIOS ([id number]) 1955 [address] Date Time Provider Department 11/30/24 GELY SALAZAR During your visit today, we recorded the following information about you: Gely Salazar APRN.SISAL PICKER 11/30/2024 9:11 AM Signed Incidental Lung Nodule Enrollment Outreach attempt: 1st Attempt Outreach status: Complete Enrolled in Lung Nodule program: Referred Lung Nodule outreach: Needs outreach Lung Nodule Program Location: [facility] Big Nodule Letter Allergies As of Date: 11/30/2024 (No Known Allergies) Date Reviewed: 06/28/2024 Reviewed by: Charu Tello, YIMI - Fully Assessed Prescriptions as of 11/30/2024 - letrozole (FEMARA) 2.5 mg tablet Take 1 tablet by mouth once daily. - cholecalciferol (VITAMIN D-3) 5,000 unit tab Take 5,000 Units by mouth once daily. - omeprazole (PRILOSEC) 20 mg capsule Take 20 mg by mouth once daily. - glucosamine HCl/chondroitin grover (GLUCOSAMINE-CHONDROITIN ORAL) Take 1 tablet by mouth once daily. - Calcium-Cholecalciferol, D3, 500 mg-10 mcg (400 unit) per tablet Take 1 tablet by mouth once daily. Problem List As Of Date 11/30/2024 Noted Resolved Cancer of central portion of left breast (HCC) *10/28/2022 Abnormal finding on breast imaging [R92.8] 10/28/2022 Family history of breast cancer [Z80.3] 10/28/2022 Elevated blood-pressure reading without diagnos*01/03/2023 Gastroesophageal reflux disease [K21.9] 01/03/2023 LAMINE (obstructive sleep apnea) [G47.33] 01/03/2023 Preop testing [Z01.818] 01/03/2023 Breast cancer, female (HCC) [C50.919] 01/10/2023 Letter Text Letter Text Encounter Status:Closed by GELY SALAZAR on 11/30/24 [facility] 11-16-2024 Telephone encounter Note Actionable Finding Follow up Patient Name: Ceasar Palacios eMRN: [id number] : 1955 Patient Preferred PCP: Krystle Alford, DO 12/21/2024 in [facility] with [facility] - (SO)BMP(S)* 12/21/2024 in [facility] with LIZETTE IGLESIAS - OV/LAB EARLY/ZOMETA TODAY* 12/21/2024 in [facility] with TREATMENT RM 16 [facility] - pt requested date/time, 2nd, Q6MO ZOMETA/LAB&OV EARLY/AUTH EXP 05/16/25* Situation: Date of Actionable Finding Scan: 01/04/2024 Type of Imaging: CT chest Actionable Finding(s): Multiple subcentimeter groundglass nodules are unchanged" Radiologist recommendation: Consider additional follow-up in 6 to 12 months Chart review summarized: Breast cancer diagnosis No imaging ordered Outreach attempts for Actionable Finding: MYC user active Outcome: Per our protocol, this Actionable Finding is Closed based on the Final Criterion : Added to Lung Nodule High Priority List [id number] Ceasar Palacios 8 mm groundglass AW Cancer diagnosis Jordan Delatorre APRN.SISAL PICKER Actionable Findings [facility] [place] Office: [phone] [facility] Work Phone: 11-16-2024 Miscellaneous Notes Actionable Finding Follow up Patient Name: Ceasar Palacios eMRN: [id number] : 1955 Patient Preferred PCP: Krystle Alford, DO 12/21/2024 in LAB [facility] with [facility] - (SO)BMP(S)* 12/21/2024 in [facility] with LIZETTE IGLESIAS - OV/LAB EARLY/ZOMETA TODAY* [facility] - pt requested date/time, 2nd, Q6MO ZOMETA/LAB&OV EARLY/AUTH EXP 05/16/25* Situation: Date of Actionable Finding Scan: 01/04/2024 Type of Imaging: CT chest Actionable Finding(s): Multiple subcentimeter groundglass nodules are unchanged" Radiologist recommendation: Consider additional follow-up in 6 to 12 months Chart review summarized: Breast cancer diagnosis No imaging ordered Outreach attempts for Actionable Finding: MYC user active Outcome: Per our protocol, this Actionable Finding is Closed based on the Final Criterion : Added to Lung Nodule High Priority List [id number] Ceasar Palacios 8 mm groundglass AW Cancer diagnosis Jordan Delatorre APRN.NADIA Actionable Findings [facility] [place] Office: [phone] documented in this encounter [facility] 10-30-2024 Telephone encounter Note Spoke with pts. Daughter informed a referral for colonoscopy, which was requested on my chart message needs to come from her PCP. Daughter voiced understanding. Monika Churchill LPN [facility] 10-30-2024 Miscellaneous Notes Spoke with pts. Daughter informed a referral for colonoscopy, which was requested on my chart message needs to come from her PCP. Daughter voiced understanding. Monika Churchill LPN Please see my chart request. This needs to be addressed by PCP. Thank you. Lizette Iglesias APRN.SISAL PICKER documented in this encounter [facility] 10-30-2024 Telephone encounter Note Please see my chart request. This needs to be addressed by PCP. Thank you. Lizette Iglesias APRN.SISAL PICKER [facility] 08-17-2024 Note Ceasar is a 69 y.o. fe male who presents to our office today for evaluation secondary to a history of urticaria/facial redness and what appear to be hives on her neck. She has symptoms on her face and neck and her daughter supplied pictures of facial redness and hives on her neck and she has experienced these periodic symptoms for a year and she last had facial symptoms after swimming about 3 weeks ago. She says she washes her face and symptoms resolve and in the past she had itching of her scalp and washed her head and then this then resolved. She is [place] and her daughter was in the room and a [place] insulation board back tender was in the room by [employer] and Benadryl has helped and she has not attempted any preventative type regimen. Her current medications are Losartan, Biotin and Vit. D3 and Letrozole and she sees Dr. Saleh for Breast Cancer and receives an infusion of Zometa (Zoledronic AC-mannitol) every 6 months. She was diagnosed with breast cancer in July of 2022 and thus far this has remained stable. She is [place] and has been in the [facility] for 33 years. Currently, she denies any skin symptoms of the arms, legs or torso and she describes the areas as pruritic and she thinks maybe beef and shrimp may be associated with the facial symptoms but no other issues. Her history is otherwise unremarkable for any previous skin issues and denies previous hives. Of note, a previous CBC in July of 2023 was normal and she was negative for Hep C and Hep B (see Epic). 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 Smoking/Alcohol/Drug Use or Exposure: No Recreational Activities/Sports: No, she had some facial symptoms at times when doing yardwork as well. Review of Systems/Past Medical History: Constitutional: denies fever, chills, weight loss. Eyes: denies vision changes, color blindness. Ears, nose throat and mouth: see narrative above. Not much in the way of nasal symptoms at baseline Respiratory: denies wheezing, cough or chest tightness/ see above narrative. Gastrointestinal: denies diarrhea, constipation, emesis. Genitourinary: denies dysuria or urine odor. Skin/integumentary: denies nail changes or other rash. Neurologic: denies seizures, weakness or speech problems. Hematologic/lymphatic: denies pallor. Allergic/Immunologic: see narrative above. Beef and shrimp are the only foods of concern. *Regarding bee stings, no issues (she has been stung) No past medical history on file. No past surgical history on file. Breast surgery and no other surgery. Current Outpatient Medications Medication Sig Dispense Refill losartan (COZAAR) 25 MG TABS tablet Take 1 Tablet (25 mg) by mouth daily biotin 800 MCG tablet Take 1 Tablet (800 mcg) by mouth Cholecalciferol (VITAMIN D3) 25 MCG (1000 UT) tablet Take 800 Units by mouth daily No current facility-administered medications for this visit. *She is on Hormone arthur Letrozole for at least 18 months. 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 No family history on file. Allergies: NKDA. PE: Nursing note and Vital signs reviewed. BP 120/68 (BP Site: Right Arm, Patient Position: Sitting, BP Cuff Size: Adult) Pulse 78 Temp 36.4 C (97.5 F) (Temporal) Resp 18 Ht (!) 148.6 cm Wt 57.4 kg BMI 26.00 kg/m Constitutional: She was awake, alert and in no apparent distress. Conjunctivae: clear. Nasal mucosa: normal Nasal turbinates: normal. No polyps visualized. Tympanic membranes: clear. Throat: clear. She did not have cervical adenopathy. Lungs: clear to auscultation bilaterally. Cardio: regular rate and rhythm. Musculoskeletal: good upper extremity strength bilaterally. Neuro: oriented to time and place, good interaction. Skin: upper extremities clear at this visit. No hives at this visit. *After discussion with her and her daughter, epicutaneous testing was done to cat, dog, dust mite, cockroach, mouse, tree, grass, weed and ragweed pollens and beef and shrimp and she was + to [place] grass pollen 6mm/18mm (histamine 6mm/15mm) and she was negative to beef and shrimp. Impression Ceasar Palacios is a 69 yo [place] female with a history over the last year of facial erythema and possible hives and hives of her neck and these symptoms are usually transient and she has experienced facial symptoms in a salon but also when not in the salon so the likelihood of contact dermatitis is low and she denies much in the way of angioedema with the erythema. Also, she has a history of breast cancer and possibly this may have a role in her skin symptoms. [place] and she has not attempted a preventative type regimen. On 08/17/24, environmental allergen and food testing was (more content not included)... [facility] 06-28-2024 Note HNO ID: [id number] Author: LIZETTE IGLESIAS APRN.SISAL PICKER Service: ? Author Type: Nurse Practitioner Type: Progress Notes Filed: 06/28/2024 13:56 Note Text: Chief Complaint Patient presents with: Established Patient HPI: Ceasar Palacios is a 69 year old female who presents here today for follow up breast cancer. Per Dr. Saleh's previous note: H/o varicose veins. Patient underwent recent evaluation for palpable mass in the left breast. She appreciated a lump around 03/2022. A diagnostic mammogram at [facility] 07/15/2022 revealed heterogeneously dense breasts but with evidence of a 2.5 x 1.5 cm spiculated nodule in the slightly upper retroareolar region of the LEFT breast. There was also evidence of a 1.4 x 1 cm irregular nodule in the upper lateral aspect of the RIGHT breast. Ultrasound of the LEFT breast same day on 07/15/2022 revealed a 2 x 1.8 x 1.5 cm hypoechoic irregular solid mass at the 11 o'clock position 3 cm from the nipple in the left breast. There was also evidence of a 9 x 10 mm x 8 mm hypoechoic solid nodule at the 11 o'clock position in the LEFT breast. Patient underwent ultrasound-guided biopsy of the LEFT breast lesion along with clip placement on 08/04/[address] Mcwilliams here in the office. The lesion in the right breast was not able to be identified by ultrasound. Pathology: Invasive ductal carcinoma with micropapillary features, provisional Dolores grade 2, measuring 7 mm in greatest dimension ER positive, 91 200%, strong staining intensity. HI positive, 91 to 100%, strong staining intensity HER2 2+ on IHC. HER2 (ERBB2) Status by FISH: Non amplified Patient returned to [facility] on 08/17 for an ultrasound of the RIGHT breast. That study identified a 2 x 2 x 0.8 cm heterogeneous solid mass at the 10 o'clock position 7 cm from the nipple in the right breast. This lesion was biopsied at that time. Clip was placed according to operative note by Dr. Mcwilliams. Pathology: Hyalinized fibroadenoma with focal intraductal hyperplasia without atypia. Focal microcalcification. Negative for malignancy. MRI breasts and subsequent b/l diagnostic mammogram and b/l US. Started on anastrozole piror to surgery due to travel delays. Tolerating well. Pathology: A. 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 - Margins are negative for carcinoma. - Biopsy site changes present. - Unremarkable nipple/areola complex. - Please see comment and synoptic report. B. [place] lymph node, left axillary, excision: - 1 lymph node, negative for carcinoma (0/1). C. [place] lymph node, left axillary, excision: - 3 lymph nodes, negative for carcinoma (0/3). Current therapy:Femara Previous therapy:arimidex Began February 2023. Stopped due to rash. Pt. here today with her daughter. Pt. on prednisone for facial rash that has occurred twice. Has appt. with allergy in August. Appetite:"Good." Wt. up. Energy level:"Ok." Denies fevers. Resp:denies cough or sob Cardiac:denies chest pain/palpitations GI:denies abd pain, n/v, moving bowels regularly :denies dysuria/hematuria Extrem:chronic R knee pain, denies new pain Endo:denies hot flashes Skin:rashes as above Heme:denies bleeding The ROS is otherwise negative. Past medical history, appointments, medications, allergies reviewed. No changes. EXAM: BP 157/88 Pulse 62 Temp 36.7 ?C (98 ?F) (Temporal) Wt 58.8 kg (129 lb 10.1 oz) SpO2 96% BMI 28.05 kg/m? APPEARANCE Well appearing, alert, in no acute distress, well-hydrated, well nourished. HEART RRR with normal S1 and S2, no murmurs LUNG clear to auscultation BREAST FEMALE R no mass/nodule, L mastectomy scar no nodule LYMPH NODES No cervical lymphadenopathy, No supraclavicular lymphadenopathy, and No axillary lymphadenopathy. ABDOMEN bowel sounds normoactive, soft, non-tender EXTREMITIES No edema NEURO Awake, alert and oriented x 3, Normal gait, and No involuntary motions. SKIN Skin color, texture, turgor normal, no suspicious rashes or lesions, no current facial rash LABS: BMP: Pending ASSESSMENT/PLAN: 1. Malignant neoplasm of upper-inner quadrant of left breast in female, estrogen receptor positive (HCC) - ICD9: 174.2, V86.0, ICD10: C50.212, Z17.0 - No concerning findings on exam. - Tolerating femara well. - BMP pending. - Continue femara. - Follow up with Dr. Caruso as scheduled. - Continue follow up with PCP for routine care and for chronic R knee pain. - Continue zometa every 6 months with BMP for a total of 6 doses. - Proceed with #3 zometa pending today's BMP. - Follow up as scheduled. - Pt. aware to call office with any questions/concerns. The sensitive examination was discussed with the Patient or Patient's Authorized Artist'S Manager. As applicable, any other physician, advance practice provider, medical st (more content not included)... [facility] 06-28-2024 History of Presen t illness Narrative Chief Complaint Patient presents with: Established Patient HPI: Ceasar Palacios is a 69 year old female who presents here today for follow up breast cancer. Per Dr. Saleh's previous note: H/o varicose veins. Patient underwent recent evaluation for palpable mass in the left breast. She appreciated a lump around 03/2022. A diagnostic mammogram at [facility] 07/15/2022 revealed heterogeneously dense breasts but with evidence of a 2.5 x 1.5 cm spiculated nodule in the slightly upper retroareolar region of the LEFT breast. There was also evidence of a 1.4 x 1 cm irregular nodule in the upper lateral aspect of the RIGHT breast. Ultrasound of the LEFT breast same day on 07/15/2022 revealed a 2 x 1.8 x 1.5 cm hypoechoic irregular solid mass at the 11 o'clock position 3 cm from the nipple in the left breast. There was also evidence of a 9 x 10 mm x 8 mm hypoechoic solid nodule at the 11 o'clock position in the LEFT breast. Patient underwent ultrasound-guided biopsy of the LEFT breast lesion along with clip placement on 08/04/[address] Mcwilliams here in the office. The lesion in the right breast was not able to be identified by ultrasound. Pathology: Invasive ductal carcinoma with micropapillary features, provisional Friona grade 2, measuring 7 mm in greatest dimension ER positive, 91 200%, strong staining intensity. HI positive, 91 to 100%, strong staining intensity HER2 2+ on IHC. HER2 (ERBB2) Status by FISH: Non amplified Patient returned to [facility] on 08/17 for an ultrasound of the RIGHT breast. That study identified a 2 x 2 x 0.8 cm heterogeneous solid mass at the 10 o'clock position 7 cm from the nipple in the right breast. This lesion was biopsied at that time. Clip was placed according to operative note by Dr. Mcwilliams. Pathology: Hyalinized fibroadenoma with focal intraductal hyperplasia without atypia. Focal microcalcification. Negative for malignancy. MRI breasts and subsequent b/l diagnostic mammogram and b/l US. Started on anastrozole piror to surgery due to travel delays. Tolerating well. Pathology: A. 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 - Margins are negative for carcinoma. - Biopsy site changes present. - Unremarkable nipple/areola complex. - Please see comment and synoptic report. B. [place] lymph node, left axillary, excision: - 1 lymph node, negative for carcinoma (0/1). C. [place] lymph node, left axillary, excision: - 3 lymph nodes, negative for carcinoma (0/3). Current therapy:Evangelina Previous therapy:arimidex Began February 2023. Stopped due to rash. Pt. here today with her daughter. Pt. on prednisone for facial rash that has occurred twice. Has appt. with allergy in August. Appetite:"Good." Wt. up. Energy level:"Ok." Denies fevers. Resp:denies cough or sob Cardiac:denies chest pain/palpitations GI:denies abd pain, n/v, moving bowels regularly :denies dysuria/hematuria Extrem:chronic R knee pain, denies new pain Endo:denies hot flashes Skin:rashes as above Heme:denies bleeding The ROS is otherwise negative. Past medical history, appointments, medications, allergies reviewed. No changes. EXAM: BP 157/88 Pulse 62 Temp 36.7 C (98 F) (Temporal) Wt 58.8 kg (129 lb 10.1 oz) SpO2 96% BMI 28.05 kg/m APPEARANCE Well appearing, alert, in no acute distress, well-hydrated, well nourished. HEART RRR with normal S1 and S2, no murmurs LUNG clear to auscultation BREAST FEMALE R no mass/nodule, L mastectomy scar no nodule LYMPH NODES No cervical lymphadenopathy, No supraclavicular lymphadenopathy, and No axillary lymphadenopathy. ABDOMEN bowel sounds normoactive, soft, non-tender EXTREMITIES No edema NEURO Awake, alert and oriented x 3, Normal gait, and No involuntary motions. SKIN Skin color, texture, turgor normal, no suspicious rashes or lesions, no current facial rash LABS: BMP: Pending ASSESSMENT/PLAN: 1. Malignant neoplasm of upper-inner quadrant of left breast in female, estrogen receptor positive (HCC) - ICD9: 174.2, V86.0, ICD10: C50.212, Z17.0 - No concerning findings on exam. - Tolerating femara well. - BMP pending. - Continue femara. - Follow up with Dr. Caruso as scheduled. - Continue follow up with PCP for routine care and for chronic R knee pain. - Continue zometa every 6 months with BMP for a total of 6 doses. - Proceed with #3 zometa pending today's BMP. - Follow up as scheduled. - Pt. aware to call office with any questions/concerns. The sensitive examination was discussed with the Patient or Patient's Authorized Artist'S Manager. As applicable, any other physician, advance practice provider, medical student, or other health professional student that will be observing or involved in the sensitive examination for educational or training purposes was discussed with the Patient or Authorized Artist'S Manager. The Patient or Authorized Artist'S Manager has agreed to proceed with the sensitive examination. (Sensitive examination includes inspection and/or palpation of the breasts, pelvis, prostate and anorectal regions) The patient indicates understanding of these issues and agrees with the plan. All documentation from previous visit of 01/12/24-Dr. Saleh/myself was copied and pasted, documentation has been reviewed and edited as necessary for today's visit. Lizette Iglesias APRN.NADIA documented in this encounter [facility] 01-12-2024 Miscellaneous Notes January 12, 2024 PID: [id number] Ceasar Palacios [address] [place] [address] Dear Ms. Palacios, We are pleased to inform you that the results of your recent breast imaging exam on 01/11/2024 are normal. Early detection of cancer is very important. We also understand recommendations regarding breast cancer screening are controversial. Please discuss with your primary care provider which strategy is best for you and whether a mammogram is right for you. Your imaging studies and report will be kept on file at [facility] as part of your permanent medical record and are available for your continuing care. Thank you for allowing us to help in meeting your health care needs. Sincerely, Dr. Morgan Interpreting Radiologist [facility] (Normal over 40) documented in this encounter [facility] 01-12-2024 Miscellaneous Notes Chemo nurse will notify patient. Sujata Nava LPN Please advise pt./daughter to follow up with PCP for low potassium. Pt. is here now receiving zometa. Thank you. Lizette Iglesias APRN.NADIA documented in this encounter [facility] 01-12-2024 History of Presen t illness Narrative Chief Complaint Patient presents with: Established Patient HPI: Ceasar Palacios is a 68 year old female who presents here today for follow up breast cancer. Per Dr. Saleh's previous note: H/o varicose veins. Patient underwent recent evaluation for palpable mass in the left breast. She appreciated a lump around 03/2022. A diagnostic mammogram at [facility] 07/15/2022 revealed heterogeneously dense breasts but with evidence of a 2.5 x 1.5 cm spiculated nodule in the slightly upper retroareolar region of the LEFT breast. There was also evidence of a 1.4 x 1 cm irregular nodule in the upper lateral aspect of the RIGHT breast. Ultrasound of the LEFT breast same day on 07/15/2022 revealed a 2 x 1.8 x 1.5 cm hypoechoic irregular solid mass at the 11 o'clock position 3 cm from the nipple in the left breast. There was also evidence of a 9 x 10 mm x 8 mm hypoechoic solid nodule at the 11 o'clock position in the LEFT breast. Patient underwent ultrasound-guided biopsy of the LEFT breast lesion along with clip placement on 08/04/[address] Mcwilliams here in the office. The lesion in the right breast was not able to be identified by ultrasound. Pathology: Invasive ductal carcinoma with micropapillary features, provisional Friona grade 2, measuring 7 mm in greatest dimension ER positive, 91 200%, strong staining intensity. HI positive, 91 to 100%, strong staining intensity HER2 2+ on IHC. HER2 (ERBB2) Status by FISH: Non amplified Patient returned to [facility] on 08/17 for an ultrasound of the RIGHT breast. That study identified a 2 x 2 x 0.8 cm heterogeneous solid mass at the 10 o'clock position 7 cm from the nipple in the right breast. This lesion was biopsied at that time. Clip was placed according to operative note by Dr. Mcwilliams. Pathology: Hyalinized fibroadenoma with focal intraductal hyperplasia without atypia. Focal microcalcification. Negative for malignancy. MRI breasts and subsequent b/l diagnostic mammogram and b/l US. Started on anastrozole piror to surgery due to travel delays. Tolerating well. Pathology: A. 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 - Margins are negative for carcinoma. - Biopsy site changes present. - Unremarkable nipple/areola complex. - Please see comment and synoptic report. B. [place] lymph node, left axillary, excision: - 1 lymph node, negative for carcinoma (0/1). C. [place] lymph node, left axillary, excision: - 3 lymph nodes, negative for carcinoma (0/3). Current therapy:Femara Previous therapy:arimidex Began February 2023. Stopped due to rash. Pt. here today with her daughter. Pt. was in [place] over the winter for two months. She started femara two days ago. Appetite:"Good." Wt. stable. Energy level:"Sometimes ok sometimes not really." Denies fevers. URI over the winter-symptoms improved. Resp:denies cough or sob Cardiac:denies chest pain/palpitations GI:denies abd pain, n/v, moving bowels regularly :denies dysuria/hematuria Extrem:chronic R knee pain, denies new pain Endo:denies hot flashes Skin:denies new rashes Heme:denies bleeding The ROS is otherwise negative. Past medical history, appointments, medications, allergies reviewed. No changes. EXAM: BP 171/95 Pulse (!) 57 Temp 37.3 C (99.1 F) (Temporal) Wt 56.5 kg (124 lb 9.6 oz) SpO2 95% BMI 26.96 kg/m APPEARANCE Well appearing, alert, in no acute distress, well-hydrated, well nourished. HEART RRR with normal S1 and S2, no murmurs LUNG clear to auscultation BREAST FEMALE L mastectomy scar, no nodule, R no mass/nodule LYMPH NODES No cervical lymphadenopathy, No supraclavicular lymphadenopathy, and No axillary lymphadenopathy. ABDOMEN bowel sounds normoactive, no bruits, soft, non-tender EXTREMITIES No edema NEURO Awake, alert and oriented x 3, Normal gait, and No involuntary motions. SKIN Skin color, texture, turgor normal, no suspicious rashes or lesions ASSESSMENT/PLAN: 1. Malignant neoplasm of upper-inner quadrant of left breast in female, estrogen receptor positive (HCC) - ICD9: 174.2, V86.0, ICD10: C50.212, Z17.0 (primary diagnosis) - No concerning findings on exam. - Reviewed CT chest with pt. and daughter. - R mammogram pending from 01/11/24. - Continue femara. - Follow up with Dr. Caruso. - Continue zometa every 6 months with BMP for a total of 6 doses. - Proceed with #2 zometa pending today's BMP. - PULM consult-recent CT-lung nodules. - Follow up as scheduled. - Pt. aware to call office with any questions/concerns. The patient indicates understanding of these issues and agrees with the plan. All documentation from previous visit of 10/12/23-Dr. Saleh/myself was copied and pasted, documentation has been reviewed and edited as necessary for today's visit. Lizette Iglesias APRN.SISAL PICKER documented in this encounter [facility] 11-10-[address] w/daughterAdelaida Copies of the CT chest and MRI brain faxed here from Dr. Alford's office. Still not clear on why CT chest was done, but schedule non-contrast enhanced CT chest few days before OV in January. Emiliano Saleh DO documented in this encounter [facility] 08-03-2023 History of Presen t illness Narrative Chief Complaint Patient presents with: Established Patient: SCP HPI: Ceasar Palacios is a 68 year old female who presents here today for SCP/breast cancer. Per Dr. Saleh's previous note: H/o varicose veins. Patient underwent recent evaluation for palpable mass in the left breast. She appreciated a lump around 03/2022. A diagnostic mammogram at [facility] 07/15/2022 revealed heterogeneously dense breasts but with evidence of a 2.5 x 1.5 cm spiculated nodule in the slightly upper retroareolar region of the LEFT breast. There was also evidence of a 1.4 x 1 cm irregular nodule in the upper lateral aspect of the RIGHT breast. Ultrasound of the LEFT breast same day on 07/15/2022 revealed a 2 x 1.8 x 1.5 cm hypoechoic irregular solid mass at the 11 o'clock position 3 cm from the nipple in the left breast. There was also evidence of a 9 x 10 mm x 8 mm hypoechoic solid nodule at the 11 o'clock position in the LEFT breast. Patient underwent ultrasound-guided biopsy of the LEFT breast lesion along with clip placement on 08/04/[address] Mcwilliams here in the office. The lesion in the right breast was not able to be identified by ultrasound. Pathology: Invasive ductal carcinoma with micropapillary features, provisional Dolores grade 2, measuring 7 mm in greatest dimension ER positive, 91 200%, strong staining intensity. HI positive, 91 to 100%, strong staining intensity HER2 2+ on IHC. HER2 (ERBB2) Status by FISH: Non amplified Patient returned to [facility] on 08/17 for an ultrasound of the RIGHT breast. That study identified a 2 x 2 x 0.8 cm heterogeneous solid mass at the 10 o'clock position 7 cm from the nipple in the right breast. This lesion was biopsied at that time. Clip was placed according to operative note by Dr. Mcwilliams. Pathology: Hyalinized fibroadenoma with focal intraductal hyperplasia without atypia. Focal microcalcification. Negative for malignancy. MRI breasts and subsequent b/l diagnostic mammogram and b/l US. Started on anastrozole piror to surgery due to travel delays. Tolerating well. Pathology: A. 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 - Margins are negative for carcinoma. - Biopsy site changes present. - Unremarkable nipple/areola complex. - Please see comment and synoptic report. B. [place] lymph node, left axillary, excision: - 1 lymph node, negative for carcinoma (0/1). C. [place] lymph node, left axillary, excision: - 3 lymph nodes, negative for carcinoma (0/3). Current therapy:arimidex Pt. stopped arimidex one week ago d/t hives/itchy rash to face. Rash has improved since being off of arimidex. Pt. here today with her daughter. Appetite:"Good." Energy level:"Good." Denies fevers. Resp:denies cough or sob Cardiac:denies chest pain/palpitations GI:denies abd pain, n/v, moving bowels regularly-adding fiber per PCP :denies dysuria/hematuria Extrem:denies pain to back/bones/joints Endo:denies hot flashes Skin:denies rashes Heme:denies bleeding The ROS is otherwise negative. Past medical history, appointments, medications, allergies reviewed. No changes. EXAM: BP 119/77 Pulse 76 Temp 36.8 C (98.2 F) (Temporal) Wt 56.9 kg (125 lb 8 oz) SpO2 95% BMI 27.16 kg/m APPEARANCE Well appearing, alert, in no acute distress, well-hydrated, well nourished. HEART RRR with normal S1 and S2, no murmurs LUNG clear to auscultation BREAST FEMALE L mastectomy site well healed, no mass/nodule LYMPH NODES No cervical lymphadenopathy, No supraclavicular lymphadenopathy, and No axillary lymphadenopathy. ABDOMEN bowel sounds normoactive, soft, non-tender EXTREMITIES No edema NEURO Awake, alert and oriented x 3, Normal gait, and No involuntary motions. SKIN Skin color, texture, turgor normal, no suspicious rashes or lesions ASSESSMENT/PLAN: 1. Malignant neoplasm of upper-inner quadrant of left breast in female, estrogen receptor positive (HCC) - ICD9: 174.2, V86.0, ICD10: C50.212, Z17.0 cT1c N0 M0 ER+/HI+ HER2 non-amplified (FISH) stage IA invasive ductal carcinoma with micropapillary features of the upper inner quadrant of the LEFT breast. pT1c pN0(sln) M0 grade 1 ER/HI positive, HER2 nonamplified by FISH testing pathologic prognostic stage IA IDC of the left breast. Oncotype test -Recurrence score 22. Estimated chance of distant recurrence at 9 years 8%. Chemotherapy not indicated. No clear indication for radiation given size of tumor and surgical procedure performed i.e. mastectomy with negative margins. - No new concerning findings on exam. - Pt. began with rash/hives while on arimidex. Stopped arimidex one week ago rash improving. Advised pt. to continue to hold arimidex and send an update on her symptoms via my chart in 2 weeks. - Reviewed SCP with pt. and daughter. Copies given. - Discussed follow up plan. - Zometa every 6 months with BMP x6 doses. - Zometa early January with BMP due to pt. being out of town. - Follow up early 2023. - Pt. aware to call office with any questions/concerns. The patient indicates understanding of these issues and agrees with the plan. All documentation from previous visit of 03/01/23-Dr. Saleh was copied and pasted, documentation has been reviewed and edited as necessary for today's visit. Lizette Iglesias APRN.NADIA documented in this encounter [facility] 07-04-2023 History of Presen t illness Narrative Radiology Service Progress Note PATIENT NAME: Ceasar Palacios DATE OF SERVICE: July 04, 2023 TIME: 8:43 AM PATIENT IDENTITY VERIFICATION COMPLETED USING TWO (2) IDENTIFIERS: Name and Date of confirmed by patient verbally. FALL SCREENING: Has the patient had 2 falls in the last year or 1 fall with injury or currently using an Ambulatory Assistive Device (Walker, Cane, Wheelchair, Crutches, etc.)? No PATIENT GENDER DATA: Female. status: : No status: NO. PATIENT RELEVANT IMPLANT DATA REVIEWED: Not Applicable RADIOLOGY DEPARTMENT: Bone Density PERIPHERAL IV DATA: Not applicable SIGNED BY: RT Cris(R) July 04, 2023 8:43 AM documented in this encounter [facility] 02-10-2023 Miscellaneous Notes Spoke with Adelaida. Relayed message and scheduled office visit as requested. Can let her daughter know the Oncotype DX test came back with good results suggesting no need for chemotherapy. I will need to see the patient for an establish complex visit for new patient appointment time when schedule permits to discuss aromatase inhibitor pill. Emiliano Saleh DO documented in this encounter [facility] 02-08-2023 Note HNO ID: [id number] Author: Melida Tavera PA-C Service: ? Author Type: Physician Scrap Handler Type: Progress Notes Filed: 02/08/2023 2:16 PM Note Text: Plastic Surgery Postop Note Subjective: Ceasar Palacios is a 67 year old female who presents 1 month(s) post-op: Left mastectomy with complex closure . Has obtained full arm ROM. Some discomfort with reaching up. 2/10 pain. 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 Incision healing well. ROS: Review of Systems Constitutional: Negative for chills and fever. Cardiovascular: Negative for chest pain. Skin: Negative for rash. Physical Exam There were no vitals taken for this visit. General Appearance: Well appearing, alert, in no acute distress, well-hydrated, well nourished.. Skin: Skin color, texture, turgor normal, no suspicious rashes or lesions. Neurologic: Gait normal. Reflexes normal and symmetric. Sensation grossly intact.. INCISION: left breast incision Dry and intact, without redness Assessment:(Z98.890) Post-operative state (primary encounter diagnosis) Plan: - Aquaphor massage to incisions - Progress to full activity - FU as needed Melida Tavear PA-C [facility] 02-08-2023 Miscellaneous Notes Patient's daughter informed that Oncotype testing has been completed but [facility] cannot release testing results because the insurance company has not finished reviewing the prior authorization information. Adelaida also aware that there are [address] at [facility] in [place], she will call there for a refill. Sujata Nava LPN Adelaida called asking if results were back yet. She requested to speak to clinical about what type of testing this is. She also states patient is out of Arimidex and is asking if patient should continue. Please advise. Spoke with pt and scheduled as directed below Oncotype requisition completed and faxed to [facility]Please schedule appt. Dr. Saleh would like pt. Scheduled to be seen for office visit about 2 weeks after Oncotype order submitted. Please place appointment reminder 2 days prior to the appointment to check on status of Oncotype results. I would probably put appt.for OV Around 02/02 Monika Barron LPN Patient completed mastectomy for breast cancer. We will need to order Oncotype test and I should see her for office visit about 2 weeks after Oncotype order submitted. Please place appointment reminder 2 days prior to the appointment to check on status of Oncotype results. Emiliano Saleh, documented in this encounter [facility] 01-25-2023 Note HNO ID: [id number] Author: Melida Tavera PA-C Service: ? Author Type: Physician Scrap Handler Type: Progress Notes Filed: 01/25/2023 4:50 PM Note Text: Plastic Surgery Postop Note Subjective: Ceasar Palacios is a 67 year old female who presents 3 week(s) post-op: left breast complex closure s/p mastectomy. With daughter for translation assistance. She is still having some superior lateral discomfort and feels some firm scar formation. ROS: Review of Systems Constitutional: Negative for chills and fever. Skin: Negative for rash. Physical Exam General Appearance: Well appearing, alert, in no acute distress, well-hydrated, well nourished.. Skin: Skin color, texture, turgor normal, no suspicious rashes or lesions. Neurologic: Gait normal. Sensation grossly intact.. INCISION: Dry and intact, without redness, No e/o hematoma or infection Assessment: (Z98.890) Post-operative state (primary encounter diagnosis) Plan: - OK to shower - continue activity/ lifting restrictions until 3 weeks post-op - breast massage and Aquaphor to incision once tape comes off - FU in a month Melida Tavera PA-C [facility] 01-19-2023 Note HNO ID: [id number] Author: Kasandra Caruso MD Service: ? Author Type: Physician Type: Progress Notes Filed: 01/19/2023 11:01 AM Note Text: Kasandra Caruso MD Breast [facility] [address] [place] [address] HPI: Ms. Palacios is a Unavailable 67 year old woman who presents for follow up after left breast mastectomy with complex closure by plastics for recent diagnosis of left breast cancer. FAMILY HISTORY Problem Relation Age of Onset Diabetes Mother Cancer Father 79 stomach Breast Cancer Sister 50 Diabetes Sister Diabetes Brother PAST MEDICAL HISTORY Diagnosis Date Arthritis Breast cancer (HCC) 2022 left GERD (gastroesophageal reflux disease) HTN (hypertension) diet controlled Osteopenia Sleep apnea moderate, no cpap Varicose veins of lower extremities with inflammation PAST SURGICAL HISTORY Procedure Laterality Date BREAST BIOPSY HX Left 08/04/2022 BREAST BIOPSY HX Right 08/17/2022 BX OF BREAST; INCISIONAL Right 11/17/2022 COLONOSCOPY 02/24/2015 MASTECTOMY, SIMPLE, COMPLETE Left 01/10/2023 Social History Tobacco Use Smoking status: Never Smokeless tobacco: Never Vaping Use Vaping Use: Never used Substance Use Topics Alcohol use: Never Drug use: Never No question data found. LAB AND IMAGING RESULTS: FINAL DIAGNOSIS A. 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 - Margins are negative for carcinoma. - Biopsy site changes present. - Unremarkable nipple/areola complex. - Please see comment and synoptic report. B. [place] lymph node, left axillary, excision: - 1 lymph node, negative for carcinoma (0/1). C. [place] lymph node, left axillary, excision: - 3 lymph nodes, negative for carcinoma (0/3). Diagnosis Comment A. Sampling of the tumor shows predominantly well-formed tubules with approximately 30% of the tumor showing micropapillary architecture. Dr. Flori Underwood has reviewed part A of this case and agrees with the above diagnosis. Synoptic Report INVASIVE CARCINOMA OF THE BREAST: Resection 8th Edition - Protocol posted: 09/22/2022 INVASIVE CARCINOMA OF THE BREAST: EXCISION - All Specimens SPECIMEN Procedure Total mastectomy Specimen Laterality Left TUMOR Tumor Site Upper inner quadrant Histologic Type Invasive carcinoma with features of: micropapillary Histologic Grade (Dolores Histologic Score) Glandular (Acinar) / Tubular Differentiation Score 2 Nuclear Pleomorphism Score 2 Mitotic Rate Score 1 Overall Grade Grade 1 (scores of 3, 4 or 5) Tumor Size Greatest dimension of largest invasive focus (Millimeters): 17 mm Tumor Focality Single focus of invasive carcinoma Ductal Carcinoma In Situ (DCIS) Not identified Lobular Carcinoma In Situ (LCIS) Not identified Lymphatic and / or Vascular Invasion Not identified Dermal Lymphovascular Invasion Not identified Microcalcifications Present in invasive carcinoma Treatment Effect in the Breast No known presurgical therapy MARGINS Margin Status for Invasive Carcinoma All margins negative for invasive carcinoma Distance from Invasive Carcinoma to Closest Margin 2 mm Closest Margin(s) to Invasive Carcinoma [place] REGIONAL LYMPH NODES Regional Lymph Node Status All regional lymph nodes negative for tumor Total Number of Lymph Nodes Examined (sentinel and non-sentinel) 4 Number of [place] Nodes Examined 4 pTNM CLASSIFICATION (AJCC 8th Edition) Reporting of pT, pN, and (when applicable) pM categories is based on information available to the pathologist at the time the report is issued. As per the AJCC (Chapter 1, 8th Ed.) it is the managing physician?s responsibility to establish the final pathologic stage based upon all pertinent information, including but potentially not limited to this pathology report. pT Category pT1c pN Category pN0 N Suffix (sn) Review of Systems Constitutional: Positive for malaise/fatigue. Negative for chills and fever. PHYSICAL EXAMINATION: BP 132/79 Pulse 71 Ht 144.8 cm (4' 9") Wt 56.2 kg (124 lb) SpO2 97% BMI 26.83 kg/m? General appearance: Well appearing, alert, in no acute distress Skin: skin color, texture, turgor normal, no suspicious rashes or lesions Eyes: Anicteric sclera, Pupils are equally round and reactive Extremities: No clubbing, cyanosis, or edema. Neuro: Alert and oriented times three Left chest surgical site: Her incision is clean dry and intact. There is no evidence of infection, seroma or hematoma. Plan IMPRESSION / PLAN: Ms. Palacios is a Unavailable 67 year old woman who presents for follow up after left breast mastectomy with complex closure by plastics for recent diagnosis of left breast cancer. Clinical examination reveals no evidence of post operative complications. Patho (more content not included)... [facility] 01-19-2023 History of Presen t illness Narrative Images from the original note were not included. Kasandra Caruso MD [facility] [address] [place] [address] HPI: Ms. Palacios is a Unavailable 67 year old woman who presents for follow up after left breast mastectomy with complex closure by plastics for recent diagnosis of left breast cancer. FAMILY HISTORY Problem Relation Age of Onset Diabetes Mother Cancer Father 79 stomach Breast Cancer Sister 50 Diabetes Sister Diabetes Brother PAST MEDICAL HISTORY Diagnosis Date Arthritis Breast cancer (HCC) 2022 left GERD (gastroesophageal reflux disease) HTN (hypertension) diet controlled Osteopenia Sleep apnea moderate, no cpap Varicose veins of lower extremities with inflammation PAST SURGICAL HISTORY Procedure Laterality Date BREAST BIOPSY HX Left 08/04/2022 BREAST BIOPSY HX Right 08/17/2022 BX OF BREAST; INCISIONAL Right 11/17/2022 COLONOSCOPY 02/24/2015 MASTECTOMY, SIMPLE, COMPLETE Left 01/10/2023 Social History Tobacco Use Smoking status: Never Smokeless tobacco: Never Vaping Use Vaping Use: Never used Substance Use Topics Alcohol use: Never Drug use: Never No question data found. LAB & IMAGING RESULTS: FINAL DIAGNOSIS A. 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 - Margins are negative for carcinoma. - Biopsy site changes present. - Unremarkable nipple/areola complex. - Please see comment and synoptic report. B. [place] lymph node, left axillary, excision: - 1 lymph node, negative for carcinoma (0/1). C. [place] lymph node, left axillary, excision: - 3 lymph nodes, negative for carcinoma (0/3). Diagnosis Comment A. Sampling of the tumor shows predominantly well-formed tubules with approximately 30% of the tumor showing micropapillary architecture. Dr. Flori Underwood has reviewed part A of this case and agrees with the above diagnosis. Synoptic Report INVASIVE CARCINOMA OF THE BREAST: Resection 8th Edition - Protocol posted: 09/22/2022 INVASIVE CARCINOMA OF THE BREAST: EXCISION - All Specimens SPECIMEN Procedure Total mastectomy Specimen Laterality Left TUMOR Tumor Site Upper inner quadrant Histologic Type Invasive carcinoma with features of: micropapillary Histologic Grade (Friona Histologic Score) Glandular (Acinar) / Tubular Differentiation Score 2 Nuclear Pleomorphism Score 2 Mitotic Rate Score 1 Overall Grade Grade 1 (scores of 3, 4 or 5) Tumor Size Greatest dimension of largest invasive focus (Millimeters): 17 mm Tumor Focality Single focus of invasive carcinoma Ductal Carcinoma In Situ (DCIS) Not identified Lobular Carcinoma In Situ (LCIS) Not identified Lymphatic and / or Vascular Invasion Not identified Dermal Lymphovascular Invasion Not identified Microcalcifications Present in invasive carcinoma Treatment Effect in the Breast No known presurgical therapy MARGINS Margin Status for Invasive Carcinoma All margins negative for invasive carcinoma Distance from Invasive Carcinoma to Closest Margin 2 mm Closest Margin(s) to Invasive Carcinoma [place] REGIONAL LYMPH NODES Regional Lymph Node Status All regional lymph nodes negative for tumor Total Number of Lymph Nodes Examined (sentinel and non-sentinel) 4 Number of [place] Nodes Examined 4 pTNM CLASSIFICATION (AJCC 8th Edition) Reporting of pT, pN, and (when applicable) pM categories is based on information available to the pathologist at the time the report is issued. As per the AJCC (Chapter 1, 8th Ed.) it is the managing physician s responsibility to establish the final pathologic stage based upon all pertinent information, including but potentially not limited to this pathology report. pT Category pT1c pN Category pN0 N Suffix (sn) Review of Systems Constitutional: Positive for malaise/fatigue. Negative for chills and fever. PHYSICAL EXAMINATION: BP 132/79 Pulse 71 Ht 144.8 cm (4' 9") Wt 56.2 kg (124 lb) SpO2 97% BMI 26.83 kg/m General appearance: Well appearing, alert, in no acute distress Skin: skin color, texture, turgor normal, no suspicious rashes or lesions Eyes: Anicteric sclera, Pupils are equally round and reactive Extremities: No clubbing, cyanosis, or edema. Neuro: Alert and oriented times three Left chest surgical site: Her incision is clean dry and intact. There is no evidence of infection, seroma or hematoma. Plan IMPRESSION / PLAN: Ms. Palacios is a Unavailable 67 year old woman who presents for follow up after left breast mastectomy with complex closure by plastics for recent diagnosis of left breast cancer. Clinical examination reveals no evidence of post operative complications. Pathologic findings are as follows: FINAL DIAGNOSIS A. 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 - Margins are negative for carcinoma. - Biopsy site changes present. - Unremarkable nipple/areola complex. - Please see comment and synoptic report. B. [place] lymph node, left axillary, excision: - 1 lymph node, negative for carcinoma (0/1). C. [place] lymph node, left axillary, excision: - 3 lymph nodes, negative for carcinoma (0/3). Pathologically she is an AJCC prognostic stage Ia. She has an appointment with medical oncology on February 02 to discuss the results of her Oncotype and further recommendations regarding adjuvant care. There is no need for adjuvant radiation therapy. I am releasing her from postoperative care. She can follow-up with me as needed. She was given a prescriptions for 3D screening mammogram as well as postmastectomy garments. DIAGNOSIS: Encounter Diagnosis ICD-10-CM 1. Cancer of central portion of left breast (HCC) C50.112 2. Family history of breast cancer in sister Z80.3 Monthly self breast exams encouraged. I discussed my findings and recommendations with the patient. Ms. Palacios is in agreement with the plan. Kasandra Caruso MD documented in this encounter [facility] 01-19-2023 Nurse Note Patient is here for her post op visit. Patient states that she is having constant dull pain at the middle of her chest and at the surgical site. Patient states that for the first 3 days she was fine but once the nerve block wore off is when the pain begun. Patient states that she is having trouble breathing. ST Elz[facility]eta documented in this encounter [facility] 01-18-2023 Note HNO ID: [id number] Author: Melida Tavera PA-C Service: ? Author Type: Physician Scrap Handler Type: Progress Notes Filed: 01/18/2023 5:13 PM Note Text: Plastic Surgery Postop Note Subjective: Ceasar Palacios is a 67 year old female who presents 1 week(s) post-op: left breast complex closure s/p mastectomy . With daughter for translation assistance. No complaints, pain is mild. Taking Tylenol as needed. No bleeding or drainage. Left drain 15 cc the past 2 days, fluid serosang ROS: Review of Systems Constitutional: Negative for chills and fever. Skin: Negative for rash. Physical Exam General Appearance: Well appearing, alert, in no acute distress, well-hydrated, well nourished.. Skin: Skin color, texture, turgor normal, no suspicious rashes or lesions. Neurologic: Gait normal. Sensation grossly intact.. INCISION: Dry and intact, without redness, drain removed, no e/o hematoma or infection Assessment: (Z98.890) Post-operative state (primary encounter diagnosis) Plan: - OK to shower - Continue activity/lifting restrictions - Continue surgical bra - FU in 1 week Melida Tavera PA-C [facility] 01-18-2023 History of Presen t illness Narrative Plastic Surgery Postop Note Subjective: Ceasar Palacios is a 67 year old female who presents 1 week(s) post-op: left breast complex closure s/p mastectomy . With daughter for translation assistance. No complaints, pain is mild. Taking Tylenol as needed. No bleeding or drainage. Left drain 15 cc the past 2 days, fluid serosang ROS: Review of Systems Constitutional: Negative for chills and fever. Skin: Negative for rash. Physical Exam General Appearance: Well appearing, alert, in no acute distress, well-hydrated, well nourished.. Skin: Skin color, texture, turgor normal, no suspicious rashes or lesions. Neurologic: Gait normal. Sensation grossly intact.. INCISION: Dry and intact, without redness, drain removed, no e/o hematoma or infection Assessment: (Z98.240) Post-operative state (primary encounter diagnosis) Plan: - OK to shower - Continue activity/lifting restrictions - Continue surgical bra - FU in 1 week Melida Tavera PA-C documented in this encounter [facility] 01-11-2023 Note HNO ID: [id number] Author: Tasneem Lockwood MD Service: General Surgery Author Type: Physician Type: Progress Notes Filed: 01/11/2023 10:13 AM Note Text: Fellow/Attending Note I evaluated the patient and personally participated in the banerjee components. I agree with the resident's findings and plan with the following revisions and/or additions: Seen and evaluated at bedside Pain stable on oral meds No acute concerns Stable for discharge home today Signature: Tasneem Lockwood MD Date: 01/11/2023 Time: 10:12 AM Elective General Surgery (Blue [facility]) Progress Note SERVICE DATE: January 11, 2023 Elective General Surgery (Blue Surgery) Service Pager: For questions or concerns Mon-Fri 6a-5p please page [phone]. After 5pm and on Weekends and Holidays, please page [phone] if in ICU or [phone] if on RNF. Subjective SUBJECTIVE: Patient s/p left mastectomy with complex closure. Seems to be doing well overall with mild pain. Tolerating diet DIET REGULAR Objective OBJECTIVE: Vitals: Temp (24hrs), Av.3 ?C (97.3 ?F), Min:35.9 ?C (96.6 ?F), Max:36.9 ?C (98.4 ?F) BP 125/64 Pulse 77 Temp 36.9 ?C (98.4 ?F) (Oral) Resp 18 Ht 144.8 cm (4' 9") Wt 55.3 kg (122 lb) SpO2 93% BMI 26.40 kg/m? O2 Therapy: Room Air IANDO: Date 01/10/23699 - 01/11/23 0659 01/11/23 07 - 01/12/23 0659 Shift 8360-6342 4438-1959 7374-2715 24 Hour Total 5709-9973 3527-7370 5363-0649 24 Hour Total INTAKE PO 220 220 120 120 PO 220 220 120 120 IV 1525 072 2161 Volume (mL) (ceFAZolin iv piggyback 2 g in D5W (iso-osmotic) 100 mL (ANCEF)) 100 100 Volume (mL) (lactated ringers iv infusion) 150 150 Volume (mL) (lactated ringers iv infusion) 1600 1600 Shift Total 6153 414 6076 120 120 OUTPUT Urine 270 270 OR Urine Output 270 270 Urine Not Saved. 1 x 1 x 2 x 2 x 2 x Tubes 80 80 30 30 Drain/Tube Output (Drain/Tube 01/10/23 1422 [place] Left Lateral Breast) 80 80 30 30 Blood 50 50 Estimated Blood loss 50 50 Shift Total 320 80 400 30 30 Weight (kg) 55.3 55.3 55.3 55.3 55.3 55.3 55.3 MEDICATIONS Current Facility-Administered Medications Medication Dose Route Frequency docusate sodium 100 mg cap(s) (COLACE) 100 mg ORAL BID morphine 2 mg injection 2 mg INTRAVENOUS q 4 H PRN ondansetron 4 mg tab(s) (ZOFRAN) 4 mg ORAL q 6 H PRN Or ondansetron (PF) 4 mg injection (ZOFRAN) 4 mg INTRAVENOUS q 6 H PRN heparin 5,000 Units injection 5,000 Units SUBCUTANEOUS q 8 H NaCl 0.9% iv flush bag 20 mL INTRAVENOUS PRN acetaminophen 650 mg tab(s) (TYLENOL) 650 mg ORAL q 6 H oxyCODONE-acetaminophen 5-325 mg 1-2 tablet (PERCOCET) 1-2 tablet ORAL q [address] 20 mg tab(s) (PROTONIX) 20 mg ORAL DAILY sodium chloride 0.9 % (flush) 3-20 mL (BD POSIFLUSH) 3-20 mL INTRAVENOUS q 8 H Labs: Recent Labs 01/11/23 0338 NA 141 K 4.2 CHLOR 107* CO2 24 BUN 12 CREAT 0.54* GLUC 118* ANION 10 CA 9.1 WBC 8.74 HB 12.3 HCT 36.2 PLT 221 Physical Exam: GENERAL: resting comfortably, in no acute distress HEENT: normocephalic, atraumatic, EOMI NECK: trachea midline, no JVD LUNGS: Unlabored breathing, equal chest rise bilaterally CARDIAC: Regular rate, warm and well perfused extremities ABDOMEN: Soft, non-tender, non-distended, no rebound or guarding EXTREMITIES: LUDWIG, No deformities, No edema SKIN: Skin color, texture, turgor normal, No rashes or lesions. Left skin sparing mastectomy site with some incisional ecchymosis and mildly TTP. KELLI with SS output, although slightly more sanguinous. NEURO: AANDOx3, CN II-XII grossly intact PSYCH: normal mood and affect ASSESSMENT AND PLAN: Assessment Active Hospital Problems Diagnosis Date Noted Breast cancer, female (HCC) 01/10/2023 Assessment: 67 year old female s/p left skin sparing mastectomy with complex closure Hospital Course/Operations/Procedures: 01/10/2023 Procedure(s) with comments: LEFT BREAST NIPPLE SKIN SPARING MASTECTOMY, RIGHT PROPHYLACTIC NIPPLE SKIN SPARING MASTECTOMY - ERAS PROTOCOL, PEC BLOCK SENTINEL NODE BIOPSY NUCLEAR INJECTION INJECTION OF LYMPHAZURIN LEFT VS BILATERAL COMPLEX CLOSURE FOLLOWING MASTECTOMY INPATIENT ATTENDING: Dr. Kasandra Caruso MD, Elective High-Risk Geriatric Patient Vulnerabilities: Patient is NOT high risk based on evaluation and assessment Plan: - Continue diet - Continue KELLI drain, training on discharge - Supportive bra for 1-2 weeks - PRN pain/nausea control - Likely Discharge today - Diet: DIET REGULAR - Anticipated discharge: 01/11/2023 To be Discussed with Fellow: Dr. Lockwood Follow up needs: TBD SIGNATURE: Calin Blevins MD PATIENT NAME: Ceasar Palacios DATE: January 11, 2023 TIME: 8:52 AM Pager: see below Elective General Surgery (Blue Surgery) Service Pager: For questions or concerns Mon-Fri 6a-5p please page [phone]. After 5pm and on Weekends and Holidays, please page [phone] if in ICU or [phone] if on RNF. [facility] 01-10-2023 Note HNO ID: [id number] Author: Thalia Gonzales MD Service: Anesthesiology Author Type: Anesthesiologist Type: Anesthesia Procedure Notes Filed: 01/10/2023 12:41 PM Note Text: ANESTHESIOLOGY PROCEDURE NOTE Peripheral Nerve Block General Information Procedure Start Time/Medication Administration: 01/10/2023 12:00 PM Patient location during procedure: OR Timeout Performed Pre-procedure: timeout performed Consent Obtained: Yes Patient identity confirmed: arm band Reason for block: post-op pain management/at surgeon's request Staffing Anesthesiologist: Thalia Gonzales MD Performed by: anesthesiologist Preparation Sterility Preparation: hand hygiene performed prior to procedure, sterile gloves, drapes, and procedure tray, surgical cap used, mask used, skin prep agent completely dried prior to procedure Site Prep: Chloraprep Pre-Procedure Neuro Exam Location: TRUNK Procedure Details Patient Position: supine Monitoring: Pulse OX, EKG and NIBP Block Type Trunk: PECS I block and PECS II block Laterality: left Injection Technique: single-shot Ultrasound Guided: Yes Image in Chart: no Local Infiltration: Yes Needle Needle Type: echogenic Needle Length: 100 mm Needle Localization: ultrasound Assessment Injection assessment: negative aspiration and incremental injection Medications Administered bupivacaine liposome (PF) 1.3 % (13.3 mg/mL) injection (EXPAREL) - INFILTRATION 266 mg - 01/10/2023 12:00:00 PM bupivacaine (PF) 0.25 % (2.5 mg/mL) injection (SENSORCAINE MPF) - peripheral nerve block 30 mL - 01/10/2023 12:00:00 PM Comments Exparel 266 mg, bupivacaine 0.25% 30 cc and NS 10 cc; 30 cc volume in PECS 1/2 and 30 cc given to surgeon for infiltration on the field. JMB [id number] SIGNATURE: Thalia Gonzales MD PATIENT NAME: Ceasar Palacios DATE: January 10, 2023 TIME: 12:37 PM CSN: [id number] [facility] 01-10-2023 Note HNO ID: [id number] Author: Susan Cruz APRN.ASSOCIATE SOFTWARE DEVELOPMENT ENGINEER Service: Anesthesiology Author Type: Nurse Communicable Disease Specialist Type: Anesthesia Procedure Notes Filed: 01/10/2023 12:13 PM Note Text: ANESTHESIOLOGY PROCEDURE NOTE Airway General Information Procedure Start Time/Medication Administration: 01/10/2023 12:04 PM Patient location during procedure: OR Timeout Performed Pre-procedure: timeout performed Consent Obtained: Yes Patient identity confirmed: arm band Staffing ASSOCIATE SOFTWARE DEVELOPMENT ENGINEER: Rosa Rodriguez APRN.ASSOCIATE SOFTWARE DEVELOPMENT ENGINEER Performed by: ALFRED Indications and Patient Condition Indications for airway management: anesthesia Preoxygenated: yes anesthesia circuit Method: sleep Difficult Mask: No Final Airway Details Final airway type: endotracheal airway Final Endotracheal Airway: ETT Cuffed: yes Successful intubation technique: direct laryngoscopy Blade: Taniya Blade size: #3 Placement verified by: capnometry Cormack-Lehane Classification: grade I - full view of glottis Number of attempts at approach: 1 Airway not difficult SIGNATURE: Susan Cruz APRN.ASSOCIATE SOFTWARE DEVELOPMENT ENGINEER PATIENT NAME: Ceasar Palacios DATE: January 10, 2023 TIME: 12:12 PM CSN: [id number] [facility] 01-10-2023 Note HNO ID: [id number] Author: Brandon Grady RT(R) Service: Nuclear Medicine Author Type: Technologist Type: Progress Notes Filed: 01/10/2023 9:46 AM Note Text: RADIOLOGY SERVICE PROGRESS NOTE SERVICE DATE: 01/10/2023 SERVICE TIME: 9:45 AM PATIENT IDENTITY VERIFICATION COMPLETED USING TWO (2) STANDARD IDENTIFIERS: Name and Date of confirmed by patient verbally FALL SCREENING: Has the patient had 2 falls in the last year or 1 fall with injury or currently using an Ambulatory Assistive Device (Walker, Cane, Wheelchair, Crutches, etc.)? No PATIENT GENDER DATA: .female : No ALLERGIES: Reviewed and unchanged MEDICATIONS REVIEWED: Yes PATIENT RELEVANT IMPLANT DATA REVIEWED: Not Applicable CREATININE: Creatinine Date Value Ref Range Status 10/28/2022 0.61 0.58 - 0.96 mg/dL Final Estimated Glomerular Filtration Rate Date Value Ref Range Status 10/28/2022 97 >=60 mL/min/1.73m? Final Comment: Estimated Glomerular Filtration Rate (eGFR) is calculated using the 2020 CKD-EPI creatinine equation. This equation utilizes serum creatinine, sex, and age as parameters. The creatinine assay has traceable calibration to isotope dilution-mass spectrometry. Refer to KDIGO guidelines for clinical interpretation. In patients with unstable renal function, e.g. those with acute kidney injury, the eGFR may not accurately reflect actual GFR. P.O.C.T. RESULTS: N/A January 10, [address] PERFORMED: No IV SITE: Inpatient - refer to LDA documentation POST EXAM PIV STATUS: Inpatient see LDA documentation PROCEDURE TYPE: NM INJECT: Sent Node Injection L Breast. 1.1 mCi Tc99m Lymphoseek. No other medications given.. ADMINISTRATION TIME: 09:30 PATIENT DISCHARGED TO: Patient taken to IP transport area for return to [facility]/ICU/ED. A Diagnostic radioactive procedure has taken place, with no further precautions necessary other than routine body substance precautions. More information regarding radiation safety can be found using this link: [email or web address] [email or web address] SIGNATURE: RT Moriah(R) PATIENT NAME: Ceasar Palacios DATE: January 10, 2023 TIME: 9:45 AM PAGER/CONTACT #: [facility] 04-03-2023 History of Presen t illness Narrative RADIOLOGY SERVICE PROGRESS NOTE SERVICE DATE: 01/10/2023 SERVICE TIME: 9:45 AM PATIENT IDENTITY VERIFICATION COMPLETED USING TWO (2) STANDARD IDENTIFIERS: Name and Date of confirmed by patient verbally FALL SCREENING: Has the patient had 2 falls in the last year or 1 fall with injury or currently using an Ambulatory Assistive Device (Walker, Cane, Wheelchair, Crutches, etc.)? No PATIENT GENDER DATA: .female : No ALLERGIES: Reviewed and unchanged MEDICATIONS REVIEWED: Yes PATIENT RELEVANT IMPLANT DATA REVIEWED: Not Applicable CREATININE: Creatinine Date Value Ref Range Status 10/28/2022 0.61 0.58 - 0.96 mg/dL Final Estimated Glomerular Filtration Rate Date Value Ref Range Status 10/28/2022 97 >=60 mL/min/1.73m Final Comment: Estimated Glomerular Filtration Rate (eGFR) is calculated using the 2020 CKD-EPI creatinine equation. This equation utilizes serum creatinine, sex, and age as parameters. The creatinine assay has traceable calibration to isotope dilution-mass spectrometry. Refer to KDIGO guidelines for clinical interpretation. In patients with unstable renal function, e.g. those with acute kidney injury, the eGFR may not accurately reflect actual GFR. P.O.C.T. RESULTS: N/A January 10, [address] PERFORMED: No IV SITE: Inpatient - refer to LDA documentation POST EXAM PIV STATUS: Inpatient see LDA documentation PROCEDURE TYPE: NM INJECT: Sent Node Injection L Breast. 1.1 mCi Tc99m Lymphoseek. No other medications given.. ADMINISTRATION TIME: 09:30 PATIENT DISCHARGED TO: Patient taken to IP transport area for return to RNF/ICU/ED. A Diagnostic radioactive procedure has taken place, with no further precautions necessary other than routine body substance precautions. More information regarding radiation safety can be found using this link: [email or web address] uclear%[email or web address] df SIGNATURE: RT Moriah(Joshua) PATIENT NAME: Ceasar Palacios DATE: January 10, 2023 TIME: 9:45 AM PAGER/CONTACT #: documented in this encounter [facility] 01-03-2023 History and physical note HISTORY AND PHYSICAL EXAMINATION SERVICE DATE: 01/03/2023 SERVICE TIME: 2:07 PM PRIMARY CARE PHYSICIAN: Krystle Alford DO REASON FOR VISIT: Ceasar Palacios is a 67 year old female who is scheduled for Procedure(s) with comments: LEFT BREAST NIPPLE SKIN SPARING MASTECTOMY, RIGHT PROPHYLACTIC NIPPLE SKIN SPARING MASTECTOMY (Bilateral) - ERAS PROTOCOL, PEC BLOCK SENTINEL NODE BIOPSY (Left) NUCLEAR INJECTION (Left) INJECTION OF LYMPHAZURIN (Left) LEFT VS BILATERAL COMPLEX CLOSURE FOLLOWING MASTECTOMY (Bilateral) at the request of Dr. Kasandra Caruso for routine H&P. My final recommendation will be communicated back to the requesting physician by way of shared medical record or letter. 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 CHIEF COMPLAINT: The reason for this visit is to perform a comprehensive review of the patient's past medical history, assess their current health status and obtain any additional testing required based on anesthesia guidelines. We will also identify any potential anesthesia problems or contraindications to the planned procedure. HPI: Ceasar is a 67 year old female presenting for PAT. She is here with her daughter who will help interpret. She was fund to have left breast cancer and plans to have mastectomy with reconstruction. Does have a family history of breast cancer. Denies pain today. Taking Arimidex. After discussion with the surgeon, the patient agrees to surgical intervention. REVIEW OF SYSTEMS: General: No weight loss, malaise or fevers. Neurological: No history of TIA's, stroke, PANAMA HAT HYDRAULIC PRESS OPERATOR tumor, impaired sensorium, hemiplegia, paraplegia or quadraplegia. No neurological symptoms or problems. Respiratory: Positive for: obstructive sleep apnea and CPAP/BiPAP noncompliant. Negative for: asthma, COPD, current cough, home oxygen, pneumonia within 6 weeks and tobacco use. Cardiovascular: Positive for: hypertension Negative for: abdominal aortic aneurysm, AICD/PPM, anticoagulation therapy, CAD, chest pain, CHF, DVT/PE and hyperlipidemia. GI: Positive for: GERD Negative for: abdominal pain. : No history of dysuria, frequency or incontinence, stones or chronic kidney disease. No difficulty urinating, nocturia > 1 time per night or hematuria. ROLLER INSPECTOR AND MENDER: Negative for abnormal vaginal bleeding, abnormal vaginal discharge. Endocrine: No history of diabetes. Has not taken steroids within the past 30 days. No history of endocrinological symptoms or problems. Hematology: No history of bleeding or clotting disorder. Patient is not taking anti-coagulation or platelet medications. No history of hematological symptoms or problems. Oncology: No history of CA metastasis, chemo within 30 days, or radiotherapy within 90 days. No history of oncological symptoms or problems. Psych: No history of psychiatric symptoms or problems. Musculoskeletal: Negative for joint pain or swelling, back pain or muscle pain. Skin: Negative for lesions, rash and itching. PAST MEDICAL HISTORY Diagnosis Date Breast cancer (HCC) 2022 left GERD (gastroesophageal reflux disease) HTN (hypertension) diet controlled Osteopenia Sleep apnea moderate, no cpap Varicose veins of lower extremities with inflammation PAST SURGICAL HISTORY Procedure Laterality Date BREAST BIOPSY HX Left 08/04/2022 BREAST BIOPSY HX Right 08/17/2022 BX OF BREAST; INCISIONAL Right 11/17/2022 COLONOSCOPY 02/24/2015 FAMILY HISTORY Problem Relation Age of Onset Diabetes Mother Cancer Father 79 stomach Breast Cancer Sister 50 Diabetes Sister Diabetes Brother Social History Tobacco Use Smoking status: Never Smokeless tobacco: Never Vaping Use Vaping Use: Never used Substance Use Topics Alcohol use: Never Drug use: Never Prior to Admission medications as of 01/03/23 1343 Medication Sig Last Dose Taking omeprazole (PRILOSEC) 20 mg capsule Take 20 mg by mouth once daily. Taking Yes anastrozole (ARIMIDEX) 1 mg tablet Take 1 tablet by mouth once daily. Taking Yes glucosamine HCl/chondroitin grover (GLUCOSAMINE-CHONDROITIN ORAL) Take 1 tablet by mouth once daily. Taking Yes Calcium-Cholecalciferol, D3, 500 mg-10 mcg (400 unit) per tablet Take 1 tablet by mouth once daily. Taking Yes lidocaine-prilocaine (EMLA) 2.5-2.5 % cream Apply 1 application to affected area as needed. No medication comments found. ALLERGIES No Known Allergies Objective PHYSICAL EXAM: General: alert and oriented and healthy appearance. Pertinent negatives noted - not distressed. Skin: normal color, no rash or lesions. HEENT: EOM intact and pupils equal round. Cardiovascular: regular rate and rhythm, normal S1 and S2, no rub, murmurs, or gallop. Respiratory: normal breath sounds, no wheezes or crackles. Abdomen: bowel sounds present and soft. Pertinent negatives noted - not tender. Extremities: no deformity, no edema or tenderness, no joint swelling or clubbing. Neurological: normal cognition and motor skills. Gait normal. No weakness or sensory deficit. PAIN ASSESSMENT: VITALS: BP 129/54 Pulse 70 Temp 99.1 Resp 18 Ht 4' 9" (1.45m) Wt 122 lb (55.3kg) SpO2 96% BMI 26.39 kg/(m^2). Diagnostic tests reviewed for today's visit: Lab Value Units Date High Low HB 13.3 g/dL 10/28/2022 15.5 11.5 HCT 39.6 % 10/28/2022 46.0 36.0 WBC 4.76 k/uL 10/28/2022 11.00 3.70 PLT 242 k/uL 10/28/2022 400 150 NA 140 mmol/L 10/28/2022 144 136 K 3.8 mmol/L 10/28/2022 5.1 3.7 GLUC 97 mg/dL 10/28/2022 99 74 BUN 19 mg/dL 10/28/2022 21 7 CREAT 0.61 mg/dL 10/28/2022 0.96 0.58 PTSEC No results within date range. INR No results within date range. APTT No results within date range. ALT 13 U/L 10/28/2022 38 7 AST 14 U/L 10/28/2022 35 13 TBILI 0.5 mg/dL 10/28/2022 1.3 0.2 TSH No results within date range. Lab Value Units Date High Low HCGQT No results within date range. UHCG No results within date range. HCG, BODY* No results within date range. Lab Value Units Date High Low ABORHD No results within date range. ABSCREEN No results within date range. No results found for: HBA1C No results found for this or any previous visit (from the past 8760 hour(s)). No results found for this or any previous visit (from the past 70261 hour(s)). Assessment Patient has the following medical conditions which may affect juan pablo-operative course: Elevated blood-pressure reading without diagnosis of hypertension -some elevated BP readings, but never on antihypertensives -encouraged lifestyle modifications LAMINE (obstructive sleep apnea) - Noncompliant with home device Gastroesophageal reflux disease -controlled on omeprazole -avoidance of triggers encouraged -instructed to take GERD medication with a sip of water on the morning of surgery Preop testing medical condition which may affect the juan pablo-operative course were addressed in the visit today [place] Activity Status Index: METS: Climb a flight of stairs or walk up a hill (5.50 METs) DASI Score: 5.5 Patient denies any chest pain or undue shortness of breath with the above physical activity. ARISCAT Score: Age: 51-80 Preoperative SpO2: >=96% Respiratory infection in the last month: No Preoperative anemia: No Surgical incision: peripheral Duration of surgery: >3 hrs Emergency procedure: No ARISCAT Score: 26 ANESTHESIA FINDINGS: Intubation History: No prior intubation Significant Anesthesia Considerations: none Airway History: No prior intubation I - PHYSICAL EVALUATION AIRWAY Patient intubated: No. DENTAL Dentures, upper: complete. Additional comments: +lower bridge. II - ANESTHESIA PLAN Anesthetic Plan: general Beta Arthur Monitoring Plan Post Procedure Analgesic Plan Prepared for Surgery: . No consults pending CONSULTS: Planned Anesthetic: general The Following Tests/Procedures Have Been Initiated: No orders of the defined types were placed in this encounter. Instructions Given to Patient: Instructions located in the after visit summary. Patient given verbal and written preop instructions and voices comprehension and compliance. SIGNATURE: Emmy Lopez APRN.CNP PATIENT NAME: Ceasar Palacios DATE: January 03, 2023 TIME: 7:55 AM PAGER/CONTACT #: documented in this encounter [facility] 01-03-2023 Instructions Emmy Lopez APRN.CNP - 01/03/2023 7:58 AM EDT PATIENT PREOPERATIVE INSTRUCTIONS Kasandra Caruso MD has scheduled you for your procedure at this surgery center: [facility]: [phone], [address] [id number] Please read below carefully for your personalized instructions. Surgery: DATE: 01/10/23 arrive at 9 am - To obtain your ARRIVAL TIME for surgery, call your physician's office the day before your surgery. - If your surgery is scheduled for Tuesday, call the Tuesday before. Your surgeon s iuss master analyst will tell you what time to call the office. Please be aware that emergency situations arise, which may delay or change your surgical time. If this happens, we will notify you as soon as possible and regret any inconvenience. Dietary Restrictions: - No solid food after midnight. - You may have 12 ounces of clear liquids (water, clear juices such as apple juice or gatorade, carbonated beverages, clear tea, black coffee, jello) until 2 hours before scheduled arrival at facility. Do not eat or drink anything, including water and coffee, after that time on the morning of your surgery. This is important because if you do, your surgery may have to be cancelled - Do not drink any alcohol after midnight the night before your surgery. Medications: Approved medications can be taken the morning of surgery with a sip of water. Take omeprazole AVS was given to patient and specific instructions for each medication reviewed. See medication list. Please continue to take blood pressure medications including day of surgery. Approved medications to take the morning of surgery with a sip of water: blood pressure, heart, thyroid, psych, seizure, and pain medications excluding NSAIDS. Use inhalers as prescribed. Please bring inhalers. Please follow up with the provider that manages your diabetes on how to prepare you for surgery. - Any oral diabetic medications should be held day of surgery. - If you are taking insulin please discuss with prescribing physician for pre op instructions. If you are taking the following medications for Type 2 diabetes: Canagliflozin (INVOKANA), dapagliflozin (FARXIGA), and empagliflozin (JARDIANCE) should each be discontinued at least 3 days before scheduled surgery. Ertugliflozin (STEGLATRO) should be discontinued at least four days before scheduled surgery. If you start any new medications after today's visit, please contact the surgeon's office. Blood Thinning Medications: - Stop NSAIDS (Ibuprofen, Advil, Aleve, Motrin, Celebrex, Mobic, etc.) 7 days before surgery, as directed by your surgeon. - If you take any of the following blood thinners, please contact your surgeon and the physician who prescribes it for you in order to get perioperative instructions as soon as possible Blood thinners: Aspirin,Coumadin, Plavix, Eliquis, Pradaxa, Xarelto, Lovenox, Brilinta, Effient, Savaysa, Arixtra etc. - Stop Vitamin E, fish oil, Ginko, Ashly's Wort, flax seed oil, multivitamins, CBD oil, marijuana and other over the counter herbals and dietary supplements 7 days before surgery. - This would not apply to cancer patients who are prescribed Marinol or any other prescription form of marijuana or CBD. Pain Medications: - You may take Tylenol (Acetaminophen) or any of your current prescribed pain medications that do not contain aspirin or NSAIDS as needed. If you start any new medications after today's visit, please contact the surgeon's office. Important Reminders: - If you have a stimulator, implant or pump that requires a remote please bring the remote with you day of surgery - If you use CPAP/BIPAP, bring the machine with you to the surgery center. - If you are prescribed inhalers for breathing, continue using them AND bring them to the surgery center. - Candy, mints, gum and tobacco products are NOT permitted the morning of surgery. - Hearing aids, dentures and glasses may be worn the morning of surgery. - NO jewelry, body piercings, makeup, hairpins or contacts are to be worn the day of surgery. - NO keys, wallet, watches, or purses - NO lotion, creams, powders or deodorants on the skin the day of surgery - Wear loose, comfortable clothing that will accommodate bandages. - Your length of stay will be determined by your surgeon - You will need to have someone else (Family or friend) drive you home once discharged from the hospital. You are not allowed to drive yourself home after surgery. - YOU MUST HAVE A RESPONSIBLE SUPERVISOR POST WAVE TAKE YOU HOME. A ROUGH AND TRUEING MACHINE OPERATOR, CAB OR UBER SUPERVISOR POST WAVE CANNOT BE MADE A RESPONSIBLE SUPERVISOR POST WAVE. - We recommend that a responsible person stays with you overnight to take care of you. - You cannot stay in a hotel alone after outpatient surgery. You will not be permitted to have your surgery, if you do not have someone to take care of you. --IF you are having a TOTAL KNEE ,HIP REPLACEMENT OR ORTHOPEDIC SURGERY : -Ambulatory surgery center [place]- orthopedic patients needing a walker should bring the walker into the building day of surgery. -Orthopedic patients having surgery [facility] listed as outpatient should bring their walker into the building. -Orthopedic patients having surgery [facility] listed as to be admitted should leave their walkers in the car or with a family member. It is recommended patients have a 72 hour period between getting a vaccine and date of surgery. If you develop symptoms such as a fever, cold, or flu, or have other changes to your health within TWO DAYS of scheduled surgery or the morning of surgery, please contact the surgery center above. Personal Belongings: - Leave ALL valuables and money at home or with family members. - You will need a form of ID and insurance card to check in the morning of surgery. - You will have to wear a hospital gown during your stay but if you wish to bring undergarments for after surgery you may. Visitors are required to wear masks while inside any [facility] facility. Any individual who is sick should not visit. Visitors to patients with COVID-19 must follow these guidelines, which include wearing a mask, eye protection, gown and gloves. Current policy will allow for up to 2 visitors on the day of surgery/procedure. ASC Pre surgery - One visitor in Pre-surgery due to limited space. ASC PACU - No visitors in PACU unless it's a minor due to limited space. If you already have an Advance Directive, please fax a copy to [phone] or email to for it to be added to your chart. If you do not have an Advance Directive, you can find the appropriate form and more information at [email or web address]. We recommend that you complete the Advance Directive form found on the website and bring it with you the day of your surgery. It can be witnessed and scanned into your chart that day. Emmy Lopez APRN.CNP documented in this encounter [facility] 11-26-2022 Note HNO ID: [id number] Author: Cierra Whitten MD Service: ? Author Type: Physician Type: Progress Notes Filed: 11/29/2022 10:40 AM Note Text: [facility] Department of Plastic Surgery BREAST RECONSTRUCTION EVALUATION Name: Ceasar Palacios : 1955 Comorbidities: Hypertension Sleep Apnea Type of Mastectomy: Bilateral Mastectomy Side of Diagnosis: left Prior Breast Surgery: None Prior Abdominal Surgery: None History of Bleeding Disorder: No History of DVT/Pulmonary Embolism: No History of MRSA: No MRSA Infection History of Diabetes: No History of Sleep Apnea: Yes History of HTN: Yes History of Nicotine Use: No CC: breast cancer HPI: Ceasar Palacios is a 67 year old female that presents today for breast reconstruction evaluation. Ceasar Palacios was found to have left breast cancer by recent biopsy. She would like to learn more about her options for reconstruction decide if she would like to proceed with reconstructive surgery. Current Bra Size: 36 B Genetic Testing Results: Negative Radiation Therapy: N/A Chemotherapy: N/A Breast Surgeon: Dr. Caruso Oncologist: Dr. Emiliano Saleh Family History of Breast Cancer: Yes: sister Family History of Bleeding Disorder: No OB HISTORY: OB History No obstetric history on file. PMH: PAST MEDICAL HISTORY Diagnosis Date Breast cancer (HCC) 2022 Osteopenia Sleep apnea Varicose veins of lower extremities with inflammation PSH: PAST SURGICAL HISTORY Procedure Laterality Date BREAST BIOPSY HX Left 08/04/2022 BREAST BIOPSY HX Right 08/17/2022 BX OF BREAST; INCISIONAL Right 11/17/2022 COLONOSCOPY 02/24/2015 Social History Tobacco Use Smoking status: Never Smokeless tobacco: Never Vaping Use Vaping Use: Never used Substance Use Topics Alcohol use: Never Drug use: Never Breast Fed: Yes REVIEW OF SYSTEMS: ROS Meds: Current Outpatient Medications Medication Sig Dispense Refill anastrozole (ARIMIDEX) 1 mg tablet Take 1 tablet by mouth once daily. 30 tablet 1 lidocaine-prilocaine (EMLA) 2.5-2.5 % cream Apply 1 application to affected area as needed. 10 g 0 glucosamine HCl/chondroitin grover (GLUCOSAMINE-CHONDROITIN ORAL) Take 1 tablet by mouth once daily. multivitamin (MULTIPLE VITAMIN ORAL) Take 1 tablet by mouth once daily. Calcium-Cholecalciferol, D3, 500 mg-10 mcg (400 unit) per tablet Take 1 tablet by mouth once daily. BIOTIN ORAL Take 1 tablet by mouth once daily. OTC PRODUCT Tumeric 1 capsule daily No current facility-administered medications for this visit. Use of OTC or Vitamins/Supplements: Yes PHYSICAL EXAM: Ht 4' 9" (1.45m) Wt 123 lb (55.8kg) BMI 26.61 kg/(m2). GENERAL: Well appearing, in no acute distress, speaking in complete sentences. Breast Exam/Assessment: Asymmetry: Minimal Masses: no Subaxillary Rolls: No Notch to Nipple: L 21 R23 Nipple to Crease: L 8 R 7 Base Diameter: 12.5 Note: measurements are in centimeters Ptosis: R: Grade I L: Grade I Medial Displacement of the Nipple: None Striae of the breast skin: No Assessment: 67 year old female who desires to have the least amount of surgery with least amount of risk involved. After a long discussion with the daughter and patient, patient is electing for left sided mastectomy and complex closure without implant reconstruction. She would like to avoid a right sided mastectomy if possible. Plan: Plan for below The risks/benefits of surgery were discussed. I have explained the risks and benefits including but not limited to infection, hematoma, seroma, open wounds, chronic wounds, prolonged time off and possibility for additional surgery. I have answered all patients questions to the best of my ability and to the patients satisfaction. The patient voiced understanding of the above and had no further questions and agreed to proceed with surgery. The patient is seen and examined by Dr. Whitten and the following reflects his/her service. Scribed by Dionne Blum MA I agree with the Chief Complaint, ROS, and Past Histories independently gathered by the clinical technical support internship and the remaining scribed note accurately describes my personal service to the patient. Surgery Scheduling Ceasar Palacios 1955 Procedure: left vs bilateral complex closure following mastectomy OR Time Needed: 1.5 vs 3 hours [place] or [facility] Equipment Request: plastics set, lighted retractors (do not open), 19F drain SA Requested: Yes Anesthesia: General Post op appointment: 1,3,6 Inpatient stay:No Block Needed: Yes Pre Testing Needed: Yes Occupational Therapy: No Cosmetic: No Cierra Whitten MD [facility] 11-26-2022 History of Presen t illness Narrative [facility] Department of Plastic Surgery BREAST RECONSTRUCTION EVALUATION Name: Ceasar Palacios : 1955 Comorbidities: Hypertension Sleep Apnea Type of Mastectomy: Bilateral Mastectomy Side of Diagnosis: left Prior Breast Surgery: None Prior Abdominal Surgery: None History of Bleeding Disorder: No History of DVT/Pulmonary Embolism: No History of MRSA: No MRSA Infection History of Diabetes: No History of Sleep Apnea: Yes History of HTN: Yes History of Nicotine Use: No CC: breast cancer HPI: Ceasar Palacios is a 67 year old female that presents today for breast reconstruction evaluation. Ceasar Palacios was found to have left breast cancer by recent biopsy. She would like to learn more about her options for reconstruction decide if she would like to proceed with reconstructive surgery. Current Bra Size: 36 B Genetic Testing Results: Negative Radiation Therapy: N/A Chemotherapy: N/A Breast Surgeon: Dr. Caruso Oncologist: Dr. Emiliano Saleh Family History of Breast Cancer: Yes: sister Family History of Bleeding Disorder: No OB HISTORY: OB History No obstetric history on file. PMH: PAST MEDICAL HISTORY Diagnosis Date Breast cancer (HCC) 2022 Osteopenia Sleep apnea Varicose veins of lower extremities with inflammation PSH: PAST SURGICAL HISTORY Procedure Laterality Date BREAST BIOPSY HX Left 08/04/2022 BREAST BIOPSY HX Right 08/17/2022 BX OF BREAST; INCISIONAL Right 11/17/2022 COLONOSCOPY 02/24/2015 Social History Tobacco Use Smoking status: Never Smokeless tobacco: Never Vaping Use Vaping Use: Never used Substance Use Topics Alcohol use: Never Drug use: Never Breast Fed: Yes REVIEW OF SYSTEMS: ROS Meds: Current Outpatient Medications Medication Sig Dispense Refill anastrozole (ARIMIDEX) 1 mg tablet Take 1 tablet by mouth once daily. 30 tablet 1 lidocaine-prilocaine (EMLA) 2.5-2.5 % cream Apply 1 application to affected area as needed. 10 g 0 glucosamine HCl/chondroitin grover (GLUCOSAMINE-CHONDROITIN ORAL) Take 1 tablet by mouth once daily. multivitamin (MULTIPLE VITAMIN ORAL) Take 1 tablet by mouth once daily. Calcium-Cholecalciferol, D3, 500 mg-10 mcg (400 unit) per tablet Take 1 tablet by mouth once daily. BIOTIN ORAL Take 1 tablet by mouth once daily. OTC PRODUCT Tumeric 1 capsule daily No current facility-administered medications for this visit. Use of OTC or Vitamins/Supplements: Yes PHYSICAL EXAM: Ht 4' 9" (1.45m) Wt 123 lb (55.8kg) BMI 26.61 kg/(m^2). GENERAL: Well appearing, in no acute distress, speaking in complete sentences. Breast Exam/Assessment: Asymmetry: Minimal Masses: no Subaxillary Rolls: No Notch to Nipple: L 21 R23 Nipple to Crease: L 8 R 7 Base Diameter: 12.5 Note: measurements are in centimeters Ptosis: R: Grade I L: Grade I Medial Displacement of the Nipple: None Striae of the breast skin: No Assessment: 67 year old female who desires to have the least amount of surgery with least amount of risk involved. After a long discussion with the daughter and patient, patient is electing for left sided mastectomy and complex closure without implant reconstruction. She would like to avoid a right sided mastectomy if possible. Plan: Plan for below The risks/benefits of surgery were discussed. I have explained the risks and benefits including but not limited to infection, hematoma, seroma, open wounds, chronic wounds, prolonged time off and possibility for additional surgery. I have answered all patients questions to the best of my ability and to the patients satisfaction. The patient voiced understanding of the above and had no further questions and agreed to proceed with surgery. The patient is seen and examined by Dr. Whitten and the following reflects his/her service. Scribed by Dionne Blum MA I agree with the Chief Complaint, ROS, and Past Histories independently gathered by the clinical technical support internship and the remaining scribed note accurately describes my personal service to the patient. Surgery Scheduling Ceasar Palacios 1955 Procedure: left vs bilateral complex closure following mastectomy OR Time Needed: 1.5 vs 3 hours [place] or [facility] Equipment Request: plastics set, lighted retractors (do not open), 19F drain SA Requested: Yes Anesthesia: General Post op appointment: 1,3,6 Inpatient stay:No Block Needed: Yes Pre Testing Needed: Yes Occupational Therapy: No Cosmetic: No Cierra Whitten MD documented in this encounter [facility] 11-25-2022 Nurse Note Patient here for follow up after breast biopsy. Patient states steri strips are still intact. Denies redness, swelling, or drainage at biopsy site. SONJA Camacho documented in this encounter [facility] 11-25-2022 Note HNO ID: [id number] Author: Kasandra Caruso MD Service: ? 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 She was last seen on 10/28/22 and her diagnosis was discussed at that time. Given the volume of her breast tissue in relation to the size of the IDC, it was recommended she undergo a left breast mastectomy as BCT would result in poor cosmesis. She also elects for contralateral right prophylactic mastectomy with reconstruction as well. A referral was made to plastic surgery as well as genetics due to a history of breast cancer in her sister and she was started on anastrozole in the interim. She is here today for pre-operative planning. PAST MEDICAL HISTORY Diagnosis Date Breast cancer (HCC) 2022 Osteopenia Sleep apnea Varicose veins of lower extremities with inflammation PAST SURGICAL HISTORY Procedure Laterality Date BREAST BIOPSY HX Left 08/04/2022 BREAST BIOPSY HX Right 08/17/2022 BX OF BREAST; INCISIONAL Right 11/17/2022 COLONOSCOPY 02/24/2015 FAMILY HISTORY Problem Relation Age of Onset Diabetes Mother Cancer Father 79 stomach Breast Cancer Sister 50 Diabetes Sister Diabetes Brother Social History Tobacco Use Smoking status: Never Smokeless tobacco: Never Vaping Use Vaping Use: Never used Substance Use Topics Alcohol use: Never Drug use: Never ALLERGIES No Known Allergies There are no exam notes on file for this visit. No question data found. Pathology: FINAL DIAGNOSIS A. Breast, right 9:30 8 cm FN, core biopsy: - Fibroadenoma. REVIEW OF SYSTEMS GENERAL: No weight loss, malaise or fevers Current Outpatient Medications Medication Sig Dispense Refill glucosamine HCl/chondroitin grover (GLUCOSAMINE-CHONDROITIN ORAL) Take 1 tablet by mouth once daily. multivitamin (MULTIPLE VITAMIN ORAL) Take 1 tablet by mouth once daily. Calcium-Cholecalciferol, D3, 500 mg-10 mcg (400 unit) per tablet Take 1 tablet by mouth once daily. BIOTIN ORAL Take 1 tablet by mouth once daily. OTC PRODUCT Tumeric 1 capsule daily anastrozole (ARIMIDEX) 1 mg tablet Take 1 tablet by mouth once daily. 30 tablet 1 No current facility-administered medications for this visit. There were no vitals taken for this visit. PHYSICAL EXAMINATION Exam: General: Alert and oriented x 3. No acute distress. HEENT: Atraumatic, no midline tenderness, no step off deformities CV: Regular rate Respiratory: Unlabored breathing on RA, equal chest rise bilaterally. Abdomen: Soft, nondistended, NTP, no rebound, guarding. Neuro: AANDOx3, CNII-XII grossly intact, sensorimotor function grossly intact. Heme: No bleeding, no ecchymoses Skin: Skin warm and dry. MSK: AROM grossly wnl in all four extremities. Breast: The incision is clean dry intact. There is no evidence of infection or hematoma. ASSESSMENT/PLAN Patient has biopsy proven stage Ib (T2, N0, M0) invasive ductal carcinoma grade 2 ER/HI positive, HER 2 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 Will plan for left nipple sparing mastectomy with left sentinel lymph node biopsy with prophylactic right nipple sparing mastectomy and immediate reconstruction with plastic surgery. She meets with plastic surgery tomorrow. Consent form was signed and surgery will be scheduled. Procedure: Bilateral nipple skin sparing mastectomy and left sentinel lymph node biopsy, nuclear injection, injection of Lymphazurin The risks, benefits and anticipated outcomes of the procedure, the risks and benefits of the alternatives to the procedure, and the roles and tasks of the personnel to be involved, were discussed with the patient, and the patient consents to the procedure and agrees to proceed. Name: Chandler Trevino, Date: 11/25/2022 Time: 7:03 AM [facility] 11-25-2022 History of Enzo rockwell illness Narrative Chief Complaint: Left breast cancer Ceasar Palacios is a 67 year old female who presents with Stage Ib (T2, N0, M0) invasive ductal carcinoma grade 2 ER/HI positive, HER 2 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 She was last seen on 10/28/22 and her diagnosis was discussed at that time. Given the volume of her breast tissue in relation to the size of the IDC, it was recommended she undergo a left breast mastectomy as BCT would result in poor cosmesis. She also elects for contralateral right prophylactic mastectomy with reconstruction as well. A referral was made to plastic surgery as well as genetics due to a history of breast cancer in her sister and she was started on anastrozole in the interim. She is here today for pre-operative planning. PAST MEDICAL HISTORY Diagnosis Date Breast cancer (HCC) 2022 Osteopenia Sleep apnea Varicose veins of lower extremities with inflammation PAST SURGICAL HISTORY Procedure Laterality Date BREAST BIOPSY HX Left 08/04/2022 BREAST BIOPSY HX Right 08/17/2022 BX OF BREAST; INCISIONAL Right 11/17/2022 COLONOSCOPY 02/24/2015 FAMILY HISTORY Problem Relation Age of Onset Diabetes Mother Cancer Father 79 stomach Breast Cancer Sister 50 Diabetes Sister Diabetes Brother Social History Tobacco Use Smoking status: Never Smokeless tobacco: Never Vaping Use Vaping Use: Never used Substance Use Topics Alcohol use: Never Drug use: Never ALLERGIES No Known Allergies There are no exam notes on file for this visit. No question data found. Pathology: FINAL DIAGNOSIS A. Breast, right 9:30 8 cm FN, core biopsy: - Fibroadenoma. REVIEW OF SYSTEMS GENERAL: No weight loss, malaise or fevers Current Outpatient Medications Medication Sig Dispense Refill glucosamine HCl/chondroitin grover (GLUCOSAMINE-CHONDROITIN ORAL) Take 1 tablet by mouth once daily. multivitamin (MULTIPLE VITAMIN ORAL) Take 1 tablet by mouth once daily. Calcium-Cholecalciferol, D3, 500 mg-10 mcg (400 unit) per tablet Take 1 tablet by mouth once daily. BIOTIN ORAL Take 1 tablet by mouth once daily. OTC PRODUCT Tumeric 1 capsule daily anastrozole (ARIMIDEX) 1 mg tablet Take 1 tablet by mouth once daily. 30 tablet 1 No current facility-administered medications for this visit. There were no vitals taken for this visit. PHYSICAL EXAMINATION Exam: General: Alert and oriented x 3. No acute distress. HEENT: Atraumatic, no midline tenderness, no step off deformities CV: Regular rate Respiratory: Unlabored breathing on RA, equal chest rise bilaterally. Abdomen: Soft, nondistended, NTP, no rebound, guarding. Neuro: A&Ox3, CNII-XII grossly intact, sensorimotor function grossly intact. Heme: No bleeding, no ecchymoses Skin: Skin warm and dry. MSK: AROM grossly wnl in all four extremities. Breast: The incision is clean dry intact. There is no evidence of infection or hematoma. ASSESSMENT/PLAN Patient has biopsy proven stage Ib (T2, N0, M0) invasive ductal carcinoma grade 2 ER/HI positive, HER 2 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 Will plan for left nipple sparing mastectomy with left sentinel lymph node biopsy with prophylactic right nipple sparing mastectomy and immediate reconstruction with plastic surgery. She meets with plastic surgery tomorrow. Consent form was signed and surgery will be scheduled. Name: Chandler Trevino DO Date: 11/25/2022 Time: 7:03 AM documented in this encounter [facility] 11-22-2022 Miscellaneous Notes Called and spoke with patient's daughter Adelaida and reviewed pathology results. Patient speaks limited Cymraes. No questions at this time. Instructed to keep follow up appointment as physician will discuss final recommendations for care. Understanding verbalized. FABIO Man, RN documented in this encounter [facility] 11-17-2022 Miscellaneous Notes Results disclosed to patient's daughter Ceasar Palacios's Custom Cancer Panel through [employer] was negative for a pathogenic variant. 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 Please see Bio message for further discussion. ANIRUDH Hudson Licensed, Certified Genetic Counselor documented in this encounter [facility] 11-17-2022 Note HNO ID: [id number] Author: RT Katerin(R) Service: ? Author Type: Technologist Type: Progress Notes Filed: 11/17/2022 12:09 PM Note Text: Radiology Service Progress Note PATIENT NAME: Ceasar Palacios DATE OF SERVICE: November 17, 2022 TIME: 12:08 PM PATIENT IDENTITY VERIFICATION COMPLETED USING TWO (2) IDENTIFIERS: Name and Date of confirmed by patient verbally and Name and Date of confirmed by identification band. FALL SCREENING: Has the patient had 2 falls in the last year or 1 fall with injury or currently using an Ambulatory Assistive Device (Walker, Cane, Wheelchair, Crutches, etc.)? No PATIENT GENDER DATA: Female. status: : No status: NO. PATIENT RELEVANT IMPLANT DATA REVIEWED: Yes RADIOLOGY DEPARTMENT: MR; Exam(s) Completed: Chest: Breast Clip placement PERIPHERAL IV DATA: Not applicable SIGNED BY: RT Katerin(R) November 17, 2022 12:08 PM [facility] 11-17-2022 Note HNO ID: [id number] Author: RT Zina(R) Service: ? Author Type: Technologist Type: Progress Notes Filed: 11/17/2022 10:43 AM Note Text: Radiology Service Progress Note PATIENT NAME: Ceasar Palacios DATE OF SERVICE: November 17, 2022 TIME: 10:43 AM PATIENT IDENTITY VERIFICATION COMPLETED USING TWO (2) IDENTIFIERS: Name and Date of confirmed by patient verbally. FALL SCREENING: Has the patient had 2 falls in the last year or 1 fall with injury or currently using an Ambulatory Assistive Device (Walker, Cane, Wheelchair, Crutches, etc.)? No PATIENT GENDER DATA: Female. status: : No status: NO. PATIENT RELEVANT IMPLANT DATA REVIEWED: Not Applicable RADIOLOGY DEPARTMENT: Biopsy and Ultrasound PERIPHERAL IV DATA: Not applicable SIGNED BY: RT Zina(R) November 17, 2022 10:43 AM [facility] 11-17-2022 History of Presen t illness Narrative Radiology Service Progress Note PATIENT NAME: Ceasar Palacios DATE OF SERVICE: November 17, 2022 TIME: 12:08 PM PATIENT IDENTITY VERIFICATION COMPLETED USING TWO (2) IDENTIFIERS: Name and Date of confirmed by patient verbally and Name and Date of confirmed by identification band. FALL SCREENING: Has the patient had 2 falls in the last year or 1 fall with injury or currently using an Ambulatory Assistive Device (Walker, Cane, Wheelchair, Crutches, etc.)? No PATIENT GENDER DATA: Female. status: : No status: NO. PATIENT RELEVANT IMPLANT DATA REVIEWED: Yes RADIOLOGY DEPARTMENT: MR; Exam(s) Completed: Chest: Breast Clip placement PERIPHERAL IV DATA: Not applicable SIGNED BY: RT Katerin(R) November 17, 2022 12:08 PM documented in this encounter [facility] 11-17-2022 History of Presen t illness Narrative Radiology Service Progress Note PATIENT NAME: Ceasar Palacios DATE OF SERVICE: November 17, 2022 TIME: 10:43 AM PATIENT IDENTITY VERIFICATION COMPLETED USING TWO (2) IDENTIFIERS: Name and Date of confirmed by patient verbally. FALL SCREENING: Has the patient had 2 falls in the last year or 1 fall with injury or currently using an Ambulatory Assistive Device (Walker, Cane, Wheelchair, Crutches, etc.)? No PATIENT GENDER DATA: Female. status: : No status: NO. PATIENT RELEVANT IMPLANT DATA REVIEWED: Not Applicable RADIOLOGY DEPARTMENT: Biopsy and Ultrasound PERIPHERAL IV DATA: Not applicable SIGNED BY: RT Zina(R) November 17, 2022 10:43 AM documented in this encounter [facility] 11-03-2022 Note HNO ID: [id number] Author: ANIRUDH Hudson Service: ? Author Type: Genetic Counselor Type: Progress Notes Filed: 11/10/2022 2:37 PM Note Text: [facility] Consultation Note Genetic Counselor: Rosy Deleon MS, [facility] Patient: Ceasar Palacios Patient Name and confirmed at initiation of visit. This visit was conducted via telephone. Patient's daughter, Adelaida, provided interpreting. HIGH LEVEL SUMMARY: The patient's personal and family history is potentially suggestive of familial breast cancer, or less likely, a hereditary breast cancer syndrome. The patient provided informed consent for Custom Cancer Panel through [employer]. Results are expected in 2-3 weeks. IDENTIFICATION AND CHIEF COMPLAINT: Dr. Kasandra Caruso requested a consultation for genetic counseling and risk assessment for Ceasar Palacios, a 67 year old female, for discussion of her recent diagnosis of breast cancer. She presents to clinic today to discuss the possibility of a genetic predisposition to cancer, and to further clarify her risks, as well as her family members' risks for cancer. 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 She is planning on having left mastectomy with contralateral right prophylactic mastectomy. PAST MEDICAL HISTORY Diagnosis Date Breast cancer (HCC) 2022 Osteopenia Sleep apnea Varicose veins of lower extremities with inflammation PAST SURGICAL HISTORY Procedure Laterality Date BREAST BIOPSY HX Left 08/04/2022 BREAST BIOPSY HX Right 08/17/2022 COLONOSCOPY 02/24/2015 CANCER SURVEILLANCE HISTORY: Colonoscopy: Yes / 6-7 years ago GI Polyps: a couple per patient REPRODUCTIVE HISTORY AND PERSONAL RISK ASSESSMENT FACTORS: Weight: Last 1 Encounter Wt Readings: Date: Wt: 10/28/2022 56.2 kg (124 lb) Height: Last 1 Encounter Ht Readings: Date: Ht: 10/28/2022 144.8 cm (4' 9") Uterus Intact: Yes Ovaries Intact: Yes SOCIAL HISTORY: Social History Tobacco Use Smoking status: Never Smokeless tobacco: Never Vaping Use Vaping Use: Never used Substance Use Topics Alcohol use: Never Drug use: Never FAMILY HISTORY: We obtained a detailed, 4-generation family history. Significant diagnoses are listed below: FAMILY HISTORY Problem Relation Age of Onset Diabetes Mother Cancer Father 79 stomach Breast Cancer Sister 50 Diabetes Sister Diabetes Brother The patient's ancestors are of [place] descent. There is no Ashkenazi Church ancestry. There is no known consanguinity. A copy of the patient's pedigree will be available under the scanned documents tab following today's visit. GENETIC COUNSELING RISK ASSESSMENT, DISCUSSION, AND SUGGESTED FOLLOW UP: We reviewed the natural history and genetic etiology of sporadic, familial and hereditary cancer syndromes. The patient's personal and family history is potentially suggestive of familial breast cancer, or less likely, a hereditary breast cancer syndrome We discussed that given the patient's later age of onset and large family with only one other breast cancer in the family, the likelihood of a hereditary breast cancer syndrome is low. Nonetheless, the patient meets NCCN HBOC testing criteria based on her personal history of breast cancer and close relative with breast cancer <= 50. We discussed that identification of a hereditary cancer syndrome may help her care providers tailor her medical management. If a mutation is detected, the National Comprehensive Cancer Network and/or expert opinion recommendations could include increased cancer surveillance and prophylactic surgery options. If a mutation is detected, the patient will be referred back to the referring provider and to any additional appropriate care providers to discuss the relevant options. Inheritance of hereditary cancer syndromes was discussed with the patient. If a mutation is not found in the patient, this will decrease the likelihood of a hereditary cancer syndrome as the explanation for the patient's recent diagnosis of breast cancer. However, it cannot completely rule out this possibility. Cancer surveillance options would be discussed for the patient according to the appropriate standard National Comprehensive Cancer Network and Citizen [place] Cancer Society guidelines, with consideration of their personal and family history risk factors. In this case, the patient will be referred back to their care providers for discussions of management. After considering the risks, benefits, and limitations, the patient chose to pursue and provided informed consent for the following testing: Custom Cancer Panel through [employer]. The Custom Cancer Panel includes APC, ELIZABETH, AXIN2, BAP1, BARD1, BMPR1A, BRCA1, BRCA2, BRIP1, CDH1, C (more content not included)... [facility] 11-03-2022 History of Enzo rockwell illness Narrative [facility] For Personalized Genetic Healthcare Consultation Note Genetic Counselor: Rosy Deleon, , [facility] Patient: Ceasar Palacios Patient Name and confirmed at initiation of visit. This visit was conducted via telephone. Patient's daughter, Adelaida, provided interpreting. HIGH LEVEL SUMMARY: The patient's personal and family history is potentially suggestive of familial breast cancer, or less likely, a hereditary breast cancer syndrome. The patient provided informed consent for Custom Cancer Panel through [employer]. Results are expected in 2-3 weeks. IDENTIFICATION AND CHIEF COMPLAINT: Dr. Kasandra Caruso requested a consultation for genetic counseling and risk assessment for Ceasar aPlacios, a 67 year old female, for discussion of her recent diagnosis of breast cancer. She presents to clinic today to discuss the possibility of a genetic predisposition to cancer, and to further clarify her risks, as well as her family members' risks for cancer. 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 She is planning on having left mastectomy with contralateral right prophylactic mastectomy. PAST MEDICAL HISTORY Diagnosis Date Breast cancer (HCC) 2022 Osteopenia Sleep apnea Varicose veins of lower extremities with inflammation PAST SURGICAL HISTORY Procedure Laterality Date BREAST BIOPSY HX Left 08/04/2022 BREAST BIOPSY HX Right 08/17/2022 COLONOSCOPY 02/24/2015 CANCER SURVEILLANCE HISTORY: Colonoscopy: Yes / 6-7 years ago GI Polyps: a couple per patient REPRODUCTIVE HISTORY AND PERSONAL RISK ASSESSMENT FACTORS: Weight: Last 1 Encounter Wt Readings: Date: Wt: 10/28/2022 56.2 kg (124 lb) Height: Last 1 Encounter Ht Readings: Date: Ht: 10/28/2022 144.8 cm (4' 9") Uterus Intact: Yes Ovaries Intact: Yes SOCIAL HISTORY: Social History Tobacco Use Smoking status: Never Smokeless tobacco: Never Vaping Use Vaping Use: Never used Substance Use Topics Alcohol use: Never Drug use: Never FAMILY HISTORY: We obtained a detailed, 4-generation family history. Significant diagnoses are listed below: FAMILY HISTORY Problem Relation Age of Onset Diabetes Mother Cancer Father 79 stomach Breast Cancer Sister 50 Diabetes Sister Diabetes Brother The patient's ancestors are of [place] descent. There is no Ashkenazi Church ancestry. There is no known consanguinity. A copy of the patient's pedigree will be available under the scanned documents tab following today's visit. GENETIC COUNSELING RISK ASSESSMENT, DISCUSSION, AND SUGGESTED FOLLOW UP: We reviewed the natural history and genetic etiology of sporadic, familial and hereditary cancer syndromes. The patient's personal and family history is potentially suggestive of familial breast cancer, or less likely, a hereditary breast cancer syndrome We discussed that given the patient's later age of onset and large family with only one other breast cancer in the family, the likelihood of a hereditary breast cancer syndrome is low. Nonetheless, the patient meets NCCN HBOC testing criteria based on her personal history of breast cancer and close relative with breast cancer <= 50. We discussed that identification of a hereditary cancer syndrome may help her care providers tailor her medical management. If a mutation is detected, the National Comprehensive Cancer Network and/or expert opinion recommendations could include increased cancer surveillance and prophylactic surgery options. If a mutation is detected, the patient will be referred back to the referring provider and to any additional appropriate care providers to discuss the relevant options. Inheritance of hereditary cancer syndromes was discussed with the patient. If a mutation is not found in the patient, this will decrease the likelihood of a hereditary cancer syndrome as the explanation for the patient's recent diagnosis of breast cancer. However, it cannot completely rule out this possibility. Cancer surveillance options would be discussed for the patient according to the appropriate standard National Comprehensive Cancer Network and [place] Cancer Society guidelines, with consideration of their personal and family history risk factors. In this case, the patient will be referred back to their care providers for discussions of management. After considering the risks, benefits, and limitations, the patient chose to pursue and provided informed consent for the following testing: Custom Cancer Panel through [employer]. The Custom Cancer Panel includes APC, ELIZABETH, AXIN2, BAP1, BARD1, BMPR1A, BRCA1, BRCA2, BRIP1, CDH1, CDK4, CDKN2A, CHEK2, CTNNA1, DDX41, DICER1, EPCAM, FH, FLCN, GREM1, HOXB13, MAX, MEN1, MET, MITF, MLH1, MSH2, MSH3, MSH6, MUTYH, NF1, NTHL1, PALB2, PMS2, POLD1, POLE, POT1, PTCH1, PTEN, RAD51C, RAD51D, RET, SDHA, SDHAF2, SDHB, SDHC, SDHD, SMAD4, SMARCA4, STK11, ESWS432, TP53, TSC1, TSC2, and VHL We discussed that an NGS panel can rarely result in an unexpected finding in a gene which may or may not be related to the presenting phenotype. Per the patient's request, we will contact her by telephone to discuss these results. A follow up genetic counseling visit will be scheduled if requested. The patient was counseled for a total of 25 minutes. This plan is being carried out under the oversight of Dr. Melba Leavitt. This note will also be sent to the referring provider via the electronic medical record. Rosy Deleon MS, [facility], Licensed Genetic Counselor EPIC CC: Dr. Kasandra Romero documented in this encounter [facility] 11-01-2022 Miscellaneous Notes Spoke with pts. Daughter and given information. Adelaida voiced understanding. Monika Barron LPN Vit D a little low. Start OTC Vit D3 2000 units daily. Continue calcium with D supplement. Emiliano Saleh DO documented in this encounter [facility] 10-28-2022 Note HNO ID: [id number] Author: Kasandra Caruso MD Service: ? Author Type: Physician Type: Progress Notes Filed: 10/29/2022 9:46 AM Note Text: Kasandra Caruso MD Breast [facility] [address] [place] [id number] HPI: Ceasar Palacios is a 67 year old female who presents to discuss surgical management of recent diagnosis of left breast cancer. The patient found the left breast lump in March 2022. She underwent diagnostic breast imaging revealing bilateral breast lesions for which biopsy was recommended. 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 Biopsy of the right breast lesion revealed fibroadenoma. Bilateral breast MRI revealed additional enhancing foci concerning for satellite lesions in the left breast. In addition, it could not be determined if clip placement from the right biopsy was centered within the area of enhancement on MRI. A second look ultrasound was recommended and either ultrasound guided or MRI guided biopsy to ensure that the area of right breast MRI enhancement was adequately sampled. The biopsy proven IDC measures 2.6 cm in max dimension on MRI. There are no abnormal axillary or internal mammary lymph nodes. Nursing Notes: SONJA Camacho 10/28/2022 2:10 PM Signed New patient here for second opinion. SONJA Camacho No question data found. Obstetric History No data available PAST MEDICAL HISTORY Diagnosis Date Breast cancer (HCC) 2022 Osteopenia Sleep apnea Varicose veins of lower extremities with inflammation PAST SURGICAL HISTORY Procedure Laterality Date BREAST BIOPSY HX Left 08/04/2022 BREAST BIOPSY HX Right 08/17/2022 COLONOSCOPY 02/24/2015 FAMILY HISTORY Problem Relation Age of Onset Diabetes Mother Cancer Father stomach Breast Cancer Sister Diabetes Sister Diabetes Brother CURRENT MEDICATIONS: glucosamine HCl/chondroitin grover (GLUCOSAMINE-CHONDROITIN ORAL) Take 1 tablet by mouth once daily. multivitamin (MULTIPLE VITAMIN ORAL) Take 1 tablet by mouth once daily. Calcium-Cholecalciferol, D3, 500 mg-10 mcg (400 unit) per tablet Take 1 tablet by mouth once daily. BIOTIN ORAL Take 1 tablet by mouth once daily. OTC PRODUCT Tumeric 1 capsule daily iv contrast (will be provided with radiology test) MRI RT Breast Bx Inject, intravenously, once for 1 dose. No IV access, insert saline lock prior to the beginning of sedation, infusion, injection of imaging exam. Discontinue saline lock post exam. If Pt has a central line or IVAD, may access for administration according to line specific nursing protocol. Once exam is complete flush line and de-access according to line specific nursing protocol in the MR contrast administration guidelines link anastrozole (ARIMIDEX) 1 mg tablet Take 1 tablet by mouth once daily. CURRENT ALLERGIES: ALLERGIES No Known Allergies Social History Tobacco Use Smoking status: Never Smokeless tobacco: Never Vaping Use Vaping Use: Never used Substance Use Topics Alcohol use: Never Drug use: Never LABS AND IMAGING: IMPRESSION: SUSPICIOUS FINDING - BIOPSY SHOULD BE CONSIDERED The 2.3 cm area in the right breast at 10 o'clock middle depth is indeterminate. This area is felt to correlate with the previously imaged mammographic/sonographic finding (10:00 7 cm FN), which was targeted for biopsy. Clip placement is documented on biopsy images dated 08/17/2022. However, no post biopsy mammogram was performed and potential clip artifact by MRI is not centered within the area of enhancement. Repeat/second look ultrasound and diagnostic mammography is recommended to confirm correlation of findings as well as clip placement. If the biopsy clip is not centered within the mammographic/sonographic finding, re-biopsy would be recommended given enhancement by MRI. The 2.6 cm x 1.8 cm x 2.2 cm irregular mass in the left breast at 11 o'clock posterior depth is consistent with the known carcinoma and is a known biopsy positive for malignancy. Note that this measurement is inclusive of both masses described on prior ultrasound, which appear contiguous by MRI. A surgical consult is recommended. - Multiple additional small foci of enhancement inferior/inferior lateral to the index malignancy may represent satellite lesions. If breast conservation is desired, then second look ultrasound and biopsy of the two farthest away (1.2 and 1.7 cm apart) could be performed. If no sonographic correlate, these would be amenable to MRI guided biopsy. - Diagnostic mammogram is also recommended for evaluation of clip placement (not performed post biopsy); the clip is likely oriented along the superior margin of the dominant mass. SUMMARY: 1. BILATERAL diagnostic mammogram is recommended for evaluation of clip placement. 2. Second look ultrasound of the RIGHT breast is recommended for NME in the upper outer quadra (more content not included)... [facility] 10-28-2022 History of Presen t illness Narrative Images from the original note were not included. Kasandra Caruso MD [facility] [address] [place], [place] [id number] HPI: Ceasar Palacios is a 67 year old female who presents to discuss surgical management of recent diagnosis of left breast cancer. The patient found the left breast lump in March 2022. She underwent diagnostic breast imaging revealing bilateral breast lesions for which biopsy was recommended. 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 Biopsy of the right breast lesion revealed fibroadenoma. Bilateral breast MRI revealed additional enhancing foci concerning for satellite lesions in the left breast. In addition, it could not be determined if clip placement from the right biopsy was centered within the area of enhancement on MRI. A second look ultrasound was recommended and either ultrasound guided or MRI guided biopsy to ensure that the area of right breast MRI enhancement was adequately sampled. The biopsy proven IDC measures 2.6 cm in max dimension on MRI. There are no abnormal axillary or internal mammary lymph nodes. Nursing Notes: SONJA Camacho 10/28/2022 2:10 PM Signed New patient here for second opinion. SONJA Camacho No question data found. Obstetric History No data available PAST MEDICAL HISTORY Diagnosis Date Breast cancer (HCC) 2022 Osteopenia Sleep apnea Varicose veins of lower extremities with inflammation PAST SURGICAL HISTORY Procedure Laterality Date BREAST BIOPSY HX Left 08/04/2022 BREAST BIOPSY HX Right 08/17/2022 COLONOSCOPY 02/24/2015 FAMILY HISTORY Problem Relation Age of Onset Diabetes Mother Cancer Father stomach Breast Cancer Sister Diabetes Sister Diabetes Brother CURRENT MEDICATIONS: glucosamine HCl/chondroitin grover (GLUCOSAMINE-CHONDROITIN ORAL) Take 1 tablet by mouth once daily. multivitamin (MULTIPLE VITAMIN ORAL) Take 1 tablet by mouth once daily. Calcium-Cholecalciferol, D3, 500 mg-10 mcg (400 unit) per tablet Take 1 tablet by mouth once daily. BIOTIN ORAL Take 1 tablet by mouth once daily. OTC PRODUCT Tumeric 1 capsule daily iv contrast (will be provided with radiology test) MRI RT Breast Bx Inject, intravenously, once for 1 dose. No IV access, insert saline lock prior to the beginning of sedation, infusion, injection of imaging exam. Discontinue saline lock post exam. If Pt has a central line or IVAD, may access for administration according to line specific nursing protocol. Once exam is complete flush line and de-access according to line specific nursing protocol in the MR contrast administration guidelines link anastrozole (ARIMIDEX) 1 mg tablet Take 1 tablet by mouth once daily. CURRENT ALLERGIES: ALLERGIES No Known Allergies Social History Tobacco Use Smoking status: Never Smokeless tobacco: Never Vaping Use Vaping Use: Never used Substance Use Topics Alcohol use: Never Drug use: Never LABS AND IMAGING: IMPRESSION: SUSPICIOUS FINDING - BIOPSY SHOULD BE CONSIDERED The 2.3 cm area in the right breast at 10 o'clock middle depth is indeterminate. This area is felt to correlate with the previously imaged mammographic/sonographic finding (10:00 7 cm FN), which was targeted for biopsy. Clip placement is documented on biopsy images dated 08/17/2022. However, no post biopsy mammogram was performed and potential clip artifact by MRI is not centered within the area of enhancement. Repeat/second look ultrasound and diagnostic mammography is recommended to confirm correlation of findings as well as clip placement. If the biopsy clip is not centered within the mammographic/sonographic finding, re-biopsy would be recommended given enhancement by MRI. The 2.6 cm x 1.8 cm x 2.2 cm irregular mass in the left breast at 11 o'clock posterior depth is consistent with the known carcinoma and is a known biopsy positive for malignancy. Note that this measurement is inclusive of both masses described on prior ultrasound, which appear contiguous by MRI. A surgical consult is recommended. - Multiple additional small foci of enhancement inferior/inferior lateral to the index malignancy may represent satellite lesions. If breast conservation is desired, then second look ultrasound and biopsy of the two farthest away (1.2 and 1.7 cm apart) could be performed. If no sonographic correlate, these would be amenable to MRI guided biopsy. - Diagnostic mammogram is also recommended for evaluation of clip placement (not performed post biopsy); the clip is likely oriented along the superior margin of the dominant mass. SUMMARY: 1. BILATERAL diagnostic mammogram is recommended for evaluation of clip placement. 2. Second look ultrasound of the RIGHT breast is recommended for NME in the upper outer quadrant, which may correspond to the previous biopsy site. Note that if the biopsy clip is not centered within the mammographic/sonographic finding, which was targeted for biopsy, then re-biopsy would be recommended given enhancement by MRI. 3. If breast conservation is desired, then second look ultrasound and biopsy of potential satellite lesions inferior/inferior lateral to the index malignancy in the LEFT breast would be recommended. The patient is under the care of Dr. Lana Mcwilliams for surgical management and Dr. Emiliano Saleh for medical oncologic care. Addie crawford/stephanie:09/16/2022 10:12:27 Attending Technologist(s): Carmen Stene RT(R)(M), Mri [facility] Planer Mill Grader(s): Luis Eduardo Corley RT(R), Mri [facility] BI-RADS: 4 Suspicious finding - Biopsy should be considered Review of Systems Constitutional: Positive for malaise/fatigue. Negative for chills, fever and weight loss. HENT: Negative for hearing loss. Eyes: Negative for blurred vision. Respiratory: Positive for shortness of breath. Negative for cough and wheezing. Cardiovascular: Negative for chest pain, palpitations and leg swelling. Gastrointestinal: Negative for abdominal pain, nausea and vomiting. Musculoskeletal: Negative for myalgias. Neurological: Negative for dizziness, tingling and headaches. PHYSICAL EXAM: BP 121/67 Pulse 72 Ht 144.8 cm (4' 9") Wt 56.2 kg (124 lb) BMI 26.83 kg/m General appearance: Well appearing, alert, in no acute distress Skin: skin color, texture, turgor normal, no suspicious rashes or lesions Eyes: Anicteric sclera, Pupils are equally round and reactive Abdomen: soft, non-tender, non-distended Extremities: No clubbing, cyanosis, or edema. Heart: Regular rate and rhythm Lungs: Clear to ascultation bilaterally Neuro: Alert and oriented times three Physical Exam Chest: Breasts: Breasts are symmetrical. Right: No swelling, inverted nipple, mass, nipple discharge, skin change or tenderness. Left: Mass (3 cm mass associated with a bulge at 11 o'clock 4 cm from nipple) present. No swelling, inverted nipple, nipple discharge, skin change or tenderness. Lymphadenopathy: Upper Body: Right upper body: No axillary adenopathy. Left upper body: No axillary adenopathy. The mammogram, breast MRI, and breast ultrasound was reviewed in detail. Plan IMPRESSION/PLAN: Ceasar Palacios is a 67 year old female who presents to discuss surgical management of recent diagnosis of left breast cancer. The patient found the left breast lump in March 2022. She underwent diagnostic breast imaging revealing bilateral breast lesions for which biopsies were recommended. 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 Biopsy of the right breast lesion revealed fibroadenoma. Bilateral breast MRI revealed additional enhancing foci concerning for satellite lesions in the left breast. In addition, it could not be determined if clip placement from the right biopsy was centered within the area of enhancement on MRI. A second look ultrasound was recommended and either ultrasound guided or MRI guided biopsy to ensure that the area of right breast MRI enhancement was adequately sampled. The biopsy proven IDC measures 2.6 cm in max dimension on MRI. There are no abnormal axillary or internal mammary lymph nodes. Clinically she is stage 1B (T2 N0 M0 G2 ER/HI+ HER2-). She has family history of breast cancer diagnosed at age 50. Clinical breast examination confirms a 3 cm mass located in the left breast at 11 o'clock 4 cm from nipple. It is associated with a bulge. There are no overlying skin changes, associated nipple discharge, or palpable lymphadenopathy. The right breast is unremarkable. Recent breast imaging was reviewed both films and reports with Dr. Virginia Tom, breast radiologist. She recommends scheduling the patient for right breast 2nd look ultrasound, ultrasound guided biopsy, and MRI guided biopsy for the same day. If the lesion of concern cannot be confidently located by ultrasound, MRI guided biopsy will be performed. In regards to surgery, I am recommending left breast mastectomy due to the size of the IDC in relation to the volume of her breast tissue, as breast conservation would result in poor cosmesis. She is opting for reconstruction. She would be a candidate for nipple sparing mastectomy. She desires immediate direct implant and not tissue awning craftsperson if possible. She is also opting for contralateral right prophylactic mastectomy with reconstruction. [place] lymph node will be performed on the left. The right breast biopsy will determine if she needs right sentinel node biopsy. The patient was referred to plastic surgery. I am recommending referral to genetic services for family history. The results should not change surgical management/plan of her breasts. I prescribed anastrozole to initiate treatment while we are waiting results of the right breast biopsy and to schedule and coordinate surgery with plastics. The patient speaks limited Cymraes. Her daughter who is a RN served as the insulation board back tender. I will see her after the right breast biopsy to finalize surgical plan. DIAGNOSIS: Encounter Diagnosis ICD-10-CM 1. Cancer of central portion of left breast (HCC) C50.112 CONSULT TO PLASTIC SURGERY CONSULT TO MEDICAL GENETICS - CANCER 2. Abnormal finding on breast imaging R92.8 MRI BREAST BX WO/W IVCON RT US BREAST LTD RT US BIOPSY BREAST RT 3. Family history of breast cancer in sister Z80.3 CONSULT TO MEDICAL GENETICS - CANCER 4. Family history of breast cancer Z80.3 documented in this encounter [facility] 10-28-2022 Nurse Note New patient here for second opinion. SONJA Camacho documented in this encounter [facility] 10-28-2022 History of Presen t illness Narrative Oncologic problem(s): 1) cT1c N0 M0 ER+/HI+ HER2 non-amplified (FISH) stage IA invasive ductal carcinoma with micropapillary features of the upper inner quadrant of the LEFT breast. HPI: The patient is a 67 yo female with a PMH significant for varicose veins. Patient underwent recent evaluation for palpable mass in the left breast. She appreciated a lump around 03/2022. A diagnostic mammogram at [facility] 07/15/2022 revealed heterogeneously dense breasts but with evidence of a 2.5 x 1.5 cm spiculated nodule in the slightly upper retroareolar region of the LEFT breast. There was also evidence of a 1.4 x 1 cm irregular nodule in the upper lateral aspect of the RIGHT breast. Ultrasound of the LEFT breast same day on 07/15/2022 revealed a 2 x 1.8 x 1.5 cm hypoechoic irregular solid mass at the 11 o'clock position 3 cm from the nipple in the left breast. There was also evidence of a 9 x 10 mm x 8 mm hypoechoic solid nodule at the 11 o'clock position in the LEFT breast. Patient underwent ultrasound-guided biopsy of the LEFT breast lesion along with clip placement on 08/04/[address] Mcwilliams here in the office. The lesion in the right breast was not able to be identified by ultrasound. Pathology: Invasive ductal carcinoma with micropapillary features, provisional Friona grade 2, measuring 7 mm in greatest dimension ER positive, 91 200%, strong staining intensity. HI positive, 91 to 100%, strong staining intensity HER2 2+ on IHC. HER2 (ERBB2) Status by FISH: Non amplified Patient returned to [facility] on 08/17 for an ultrasound of the RIGHT breast. That study identified a 2 x 2 x 0.8 cm heterogeneous solid mass at the 10 o'clock position 7 cm from the nipple in the right breast. This lesion was biopsied at that time. Clip was placed according to operative note by Dr. Mcwilliams. Pathology: Hyalinized fibroadenoma with focal intraductal hyperplasia without atypia. Focal microcalcification. Negative for malignancy. Presents for ongoing oncologic management. Interim history: Since last seen, had MRI breasts and subsequent b/l diagnostic mammogram and b/l US. Family history: 1) Sister--Breast cancer age 50. Treated with mastectomy both chemotherapy and radiation in [place]. ROS: Constitutional: Denies episodes of fever and night sweats. Not significantly fatigued. Normal appetite. Neuro: Denies PHAM, vertigo, dizziness and imbalance. Denies symptoms of neuropathy. HEENT: No recent change in voice, vision or hearing. Resp: Denies cough, wheeze and hemoptysis. Denies shortness of breath at rest. Denies WEAVER. CVS: Denies exertional chest pain, PND, orthopnea and LE edema. GI: Denies dysgeusia. Denies symptoms of stomatitis. Denies dysphagia and odynophagia. Denies reflux, n/v, change in bowel habits and abdominal pain. : Denies dysuria or gross hematuria. No symptoms of bladder outlet obstruction. Endo: Denies hot flashes. Denies polyuria and polydipsia. Denies heat and cold intolerance. Musculoskeletal: B/L spurs in the feet. Derm: Denies rash. Denies jaundice and diffuse pruritis. Heme: Denies unusual bleeding and unexplained bruising. Psych: Normal mood. PHYSICAL EXAM: Vitals: Blood pressure 140/65, pulse 70, temperature 36.6 C (97.9 F), height 146.3 cm (4' 9.58"), weight 56.2 kg (124 lb). Well-appearing and in no acute distress. EYES: Sclerae are anicteric bilaterally. LYMPHATIC: There is no palpable cervical, supraclavicular or axillary adenopathy. RESPIRATORY: Inspiratory breath sounds are of normal intensity in all la. No rales, wheezes or rhonchi. CARDIOVASCULAR: Rhythm is regular. BREAST: Daughter acted as manager clinical. In the upper left breast just lateral to the midline there is a mobile tumor roughly 2 x 2 cm. In the right breast there is a 1 cm nodule lateral and just superior to the recent biopsy site. ABDOMEN: The abdomen is nondistended. No organomegaly. No tenderness. Extremities: No swelling or edema. SKIN: No jaundice or rash. No petechiae. NEUROLOGIC: wireless sales representative II-XII are grossly intact. No focal motor weakness. IMAGING: MRI pertinent findings were redemonstration of a 2.3 cm area in the right breast at 10:00 middle depth determined to be indeterminate. It was felt to correlate with the previously imaged mammographic/sonographic finding which was targeted for biopsy. It could not be determined if clip placement was centered within the area of enhancement on MRI. A second look diagnostic mammogram and ultrasound was recommended. Otherwise there was redemonstration of a 2.6 x 1.8 x 2.2 cm irregular mass in the left breast at 11:00 posterior depth consistent with biopsy-proven carcinoma. There were multiple additional small foci of enhancement inferior and inferior lateral to the left breast tumor possibly representing satellite lesions. No abnormality was observed in the axillary lymph nodes or internal mammary nodes. Ultrasound left breast 10/25/2022 demonstrated 2.4 cm irregular mass in the left breast upper inner aspect middle depth. This abnormality was noted to have increased in size since original imaging. There was an associated biopsy clip. No ultrasound correlate for satellite lesions were observed. Ultrasound of the right breast same day demonstrated 2.8 cm irregular mass with indistinct margins in the right breast upper outer aspect middle depth. This mass was of mixed echogenicity. It was noted to have increased in size compared to prior ultrasound. Biopsy clip was not observed. On mammogram, there was an irregular focal asymmetry with indistinct margin in the right breast upper outer aspect middle depth. Biopsy clip was observed 8 mm lateral and 1.2 cm superior to the asymmetry. ASSESSMENT/PLAN: (C50.212, Z17.0) Malignant neoplasm of upper-inner quadrant of left breast in female, estrogen receptor positive (HCC) (primary encounter diagnosis) Assessment: -The patient is a 67-year-old female recently diagnosed with a cT1c N0 M0 ER+/HI+ HER2 non-amplified (FISH) stage IA invasive ductal carcinoma with micropapillary features of the upper inner quadrant of the LEFT breast. -Breasts were noted to be heterogeneously dense on original diagnostic mammogram. I recommended MRI of the breasts for further staging purposes. -Reviewed the MRI findings as well as the subsequent diagnostic mammogram and ultrasound results with the patient and her daughter. Explained rationale/need for MRI guided biopsy of the right breast mass and left breast potential satellite lesions. -No clear indication for neoadjuvant chemotherapy at this juncture unless breast conservation surgery is desired and potentially feasible based on further diagnostic evaluation. -Previously discussed indication for genetic counseling based on her family history. Patient otherwise low risk for hereditary breast cancer. Appointment was not made. Plan: -I left VM with breast imaging center at [facility] regarding scheduling MRI/biopsy. -Labs today including hepatitis screening.. -She is scheduled for surgical consultation at [facility] this afternoon (her PCP recommended Dr. Caruso). -OV following above. Portions of this documentation were copied and pasted from previous office visit notes in order to provide a cohesive continuity of the history. The note has been reviewed and edited and updated as necessary. I spent 45 minutes in the visit, with more than 50% of the total [id number] time of the visit in reviewing test results, plan of care and coordination of care Emiliano Saleh DO cc: Dr. Alford and Dr. Mcwilliams documented in this encounter [facility] 10-28-2022 Nurse Note Est. Pt. Discuss recent Mamm and MRI Pt. Scheduled for MRI of breast with biopsy today. Monika Barron LPN documented in this encounter [facility] 09-17-2022 Miscellaneous Notes Please contact patient's daughter, Adelaida, to schedule. Sujata Nava LPN I entered the orders for diagnostic mammogram and ultrasound of both breasts per recommendations based on MRI findings. I do not know if we can schedule these or if it has to be done through scheduling at main campus. Patient will be out of the country until 10/06. Emiliano Saleh DO Patients daughter called wanting to know if it was still ok for her mother to leave the country. Please contact patient or her daughter at [phone]. documented in this encounter [facility] 09-15-2022 Note HNO ID: [id number] Author: Carmen Anglin RT(R) Service: Radiology Author Type: Technologist Type: Progress Notes Filed: 09/15/2022 8:39 AM Note Text: Radiology Service Progress Note DATE OF SERVICE: September 15, 2022 TIME: 8:38 AM PATIENT IDENTITY VERIFICATION COMPLETED USING TWO (2) STANDARD IDENTIFIERS: Name and Date of confirmed by patient verbally. FALL SCREENING: Has the patient had 2 falls in the last year or 1 fall with injury or currently using an Ambulatory Assistive Device (Walker, Cane, Wheelchair, Crutches, etc.)? No PATIENT GENDER DATA: Female. status: : No status: NO. PATIENT RELEVANT IMPLANT DATA REVIEWED: Not Applicable ALLERGIES: Reviewed and unchanged CONTRAST ALLERGY: NO. EXAM: MRI - CONTRAST TYPE: GROUP II PERIPHERAL IV DATA: Ambulatory: A peripheral IV was started in the Left with a Angio cath: 22 gauge. RADIOLOGY DEPARTMENT: MR; Exam(s) Completed: Chest: Breast SIGNATURE: Luis Eduardo Patricia(Joshua) PATIENT NAME: Ceasar Palacios DATE: September 15, 2022 TIME: 8:38 AM [facility] 09-15-2022 History of Presen t illness Narrative Radiology Service Progress Note DATE OF SERVICE: September 15, 2022 TIME: 8:38 AM PATIENT IDENTITY VERIFICATION COMPLETED USING TWO (2) STANDARD IDENTIFIERS: Name and Date of confirmed by patient verbally. FALL SCREENING: Has the patient had 2 falls in the last year or 1 fall with injury or currently using an Ambulatory Assistive Device (Walker, Cane, Wheelchair, Crutches, etc.)? No PATIENT GENDER DATA: Female. status: : No status: NO. PATIENT RELEVANT IMPLANT DATA REVIEWED: Not Applicable ALLERGIES: Reviewed and unchanged CONTRAST ALLERGY: NO. EXAM: MRI - CONTRAST TYPE: GROUP II PERIPHERAL IV DATA: Ambulatory: A peripheral IV was started in the Left with a Angio cath: 22 gauge. RADIOLOGY DEPARTMENT: MR; Exam(s) Completed: Chest: Breast SIGNATURE: Luis Eduardo Patricia(R) PATIENT NAME: Ceasar Palacios DATE: September 15, 2022 TIME: 8:38 AM documented in this encounter [facility] 09-14-2022 Miscellaneous Notes Spoke with pts. Daughter Adelaida, given information concerning Dr. Saleh calling her with results of MRI . Pt. needs to minimize her time out of the country. There may be findings on the MRI that may require further biopsy, and need to keep her work-up moving along as quickly and smoothly as possible. So we cannot tell them how to make their travel plans exactly. We will try to be sure they know the results of the MRI prior to leaving so there can be some sort of plan in place. Monika Barron LPN I think she needs to minimize her time out of the country. There may be findings on the MRI that may require further biopsy. We need to keep her work-up moving along as quickly and smoothly as possible. So I cannot tell them how to make their travel plans exactly, but I will try to be sure they know the results of the MRI prior to leaving so there can be some sort of plan in place. Emiliano Saleh DO Spoke with daughter Adelaida, she informed that mother will have MRI then is leaving the country to attend wedding on 10/03 , Dr. Saleh will contact daughter with results, and if need be they can return shortly after the first of the year, Rachel Son wants to be sure Dr. Saleh is ok with this plan. Monika Barron LPN We can call her daughter with results. Emiliano Saleh DO Patient moved MRI to 09/16 due to traveling out of the country on 09/19. Patient is asking if able to do a virtual visit or phone call with results instead of in office on 09/23. Please advise. documented in this encounter [facility] 09-07-2022 Miscellaneous Notes Noted. Thank you. Emiliano Saleh DO Spoke with patient's daughter, Adelaida, and there is no sooner MRI appointment available. Adelaida will change travel plans so as to keep MRI appointment and may be back sooner than 2 months for mother's care. Juana Varela I called the daughter and spoke to her. She understands the need for pt to get her MRI prior to travel. Daughter states she is willing the take the pt anywhere withing 2-[address] time to get the MRI done at another campus if something is available. PSS please advise. Lidia Waller LPN Perhaps she could be put on a wait list for MRI if something opens up sooner but for now I recommend she keep the MRI for 09/21. She may have to alter her travel plans because waiting 2 months after the MRI for the next steps in her breast cancer management is not advisable. Emiliano Saleh DO Daughter is calling asking if appointments could be pushed out as there is nothing sooner to complete MRI breast then 09/21 and patient is schedule to leave the country for her sons wedding 09/19 for 2 months but can shorten trip if needed please advise daughter Adelaida [phone] documented in this encounter [facility] 09-03-2022 History of Presen t illness Narrative Patient referred by Dr. Mcwilliams for breast cancer. The impression and plan will be communicated by way of the shared electronic record or faxed under separate cover letter. HPI: The patient is a 67 yo female with a PMH significant for varicose veins. Patient underwent recent evaluation for palpable mass in the left breast. She appreciated a lump around 03/2022. A diagnostic mammogram at [facility] 07/15/2022 revealed heterogeneously dense breasts but with evidence of a 2.5 x 1.5 cm spiculated nodule in the slightly upper retroareolar region of the LEFT breast. There was also evidence of a 1.4 x 1 cm irregular nodule in the upper lateral aspect of the RIGHT breast. Ultrasound of the LEFT breast same day on 07/15/2022 revealed a 2 x 1.8 x 1.5 cm hypoechoic irregular solid mass at the 11 o'clock position 3 cm from the nipple in the left breast. There was also evidence of a 9 x 10 mm x 8 mm hypoechoic solid nodule at the 11 o'clock position in the LEFT breast. Patient underwent ultrasound-guided biopsy of the left breast lesion along with clip placement on 08/04/[address] Mcwilliams here in the office. The lesion in the right breast was not able to be identified by ultrasound. Pathology: Invasive ductal carcinoma with micropapillary features, provisional Friona grade 2, measuring 7 mm in greatest dimension ER positive, 91 200%, strong staining intensity. HI positive, 91 to 100%, strong staining intensity HER2 2+ on IHC. HER2 (ERBB2) Status by FISH: Non amplified Patient returned to [facility] on 08/17 for an ultrasound of the RIGHT breast. That study identified a 2 x 2 x 0.8 cm heterogeneous solid mass at the 10 o'clock position 7 cm from the nipple in the right breast. This lesion was biopsied at that time. Clip was not placed. Pathology: Hyalinized fibroadenoma with focal intraductal hyperplasia without atypia. Focal microcalcification. Negative for malignancy. She feels well in general. Daughter acted as numerical control machine operator. Patient offers no complaints. PAST MEDICAL HISTORY Diagnosis Date Osteopenia Sleep apnea Varicose veins of lower extremities with inflammation PAST SURGICAL HISTORY Procedure Laterality Date COLONOSCOPY 02/24/2015 ALLERGIES No Known Allergies Current Outpatient Medications Medication Sig Magnesium 200 mg tab Take by mouth once daily. vitamin B complex (B COMPLEX 1 ORAL) Take by mouth once daily. CALCIUM ORAL Take by mouth once daily. cholecalciferol, vitamin D3, (VITAMIN D3 ORAL) Take by mouth once daily. OTC NUTRITIONAL SUPPLEMENT assorted supplements- unknown No current facility-administered medications for this visit. Social History Tobacco Use Smoking status: Never Smokeless tobacco: Never Vaping Use Vaping Use: Never used Substance Use Topics Alcohol use: Never Drug use: Never Family history: 1) Sister--Breast cancer age 50. Treated with mastectomy both chemotherapy and radiation in [facility]. ROS: Constitutional: Denies episodes of fever and night sweats. Not significantly fatigued. Normal appetite. Neuro: Denies PHAM, vertigo, dizziness and imbalance. Denies symptoms of neuropathy. HEENT: No recent change in voice, vision or hearing. Resp: Denies cough, wheeze and hemoptysis. Denies shortness of breath at rest. Denies WEAVER. CVS: Denies exertional chest pain, PND, orthopnea and LE edema. GI: Denies dysgeusia. Denies symptoms of stomatitis. Denies dysphagia and odynophagia. Denies reflux, n/v, change in bowel habits and abdominal pain. : Denies dysuria or gross hematuria. No symptoms of bladder outlet obstruction. Endo: Denies hot flashes. Denies polyuria and polydipsia. Denies heat and cold intolerance. Musculoskeletal: B/L spurs in the feet. Derm: Denies rash. Denies jaundice and diffuse pruritis. Heme: Denies unusual bleeding and unexplained bruising. Psych: Normal mood. PHYSICAL EXAM: Vitals: Blood pressure 111/62, pulse 73, temperature 36.7 C (98.1 F), temperature source Temporal, height 146.1 cm (4' 9.5"), weight 55.1 kg (121 lb 8 oz). Well-appearing and in no acute distress. EYES: Sclerae are anicteric bilaterally. LYMPHATIC: There is no palpable cervical, supraclavicular or axillary adenopathy. RESPIRATORY: Inspiratory breath sounds are of normal intensity in all la. No rales, wheezes or rhonchi. CARDIOVASCULAR: Rhythm is regular. BREAST: Daughter acted as manager clinical. In the upper left breast just lateral to the midline there is a mobile tumor roughly 2 x 2 cm. In the right breast there is a 1 cm nodule lateral and just superior to the recent biopsy site. ABDOMEN: The abdomen is nondistended. No organomegaly. No tenderness. Extremities: No swelling or edema. SKIN: No jaundice or rash. No petechiae. NEUROLOGIC: wireless sales representative II-XII are grossly intact. No focal motor weakness. ASSESSMENT/PLAN: (C50.212, Z17.0) Malignant neoplasm of upper-inner quadrant of left breast in female, estrogen receptor positive (HCC) (primary encounter diagnosis) Assessment: -cT1c N0 M0 ER+/HI+ HER2 non-amplified (FISH) stage IA invasive ductal carcinoma with micropapillary features of the upper inner quadrant of the LEFT breast. -Separate 1 cm hypoechoic nodule adjacent to the tumor in left breast. Not visualized at time of biopsy here on 08/04 according to procedure note. -Benign findings in RIGHT breast on recent ultrasound-guided biopsy. -Reviewed mammogram images with her and daughter. -The patient is a 67-year-old female recently diagnosed with an ER/HI positive, HER2 negative grade 2 infiltrating ductal carcinoma the left breast. Breasts were noted to be heterogeneously dense on diagnostic mammogram. She has a younger sister who was diagnosed with breast cancer at age 50. I therefore recommended MRI of the breasts for further staging purposes. Explained that further imaging/biopsies may be indicated based on those findings. After answering their questions to their satisfaction, the patient and daughter expressed an understanding and agreement. -Also discussed indication for genetic counseling based on her family history. Patient otherwise low risk for hereditary breast cancer. Plan: -MRI breasts. -OV following MRI. I spent a total of 60 minutes on the date of the service which included preparing to see the patient, [id number] patient care, completing clinical documentation, obtaining and/or reviewing separately obtained history, performing a medically appropriate examination, counseling and educating the patient/family/caregiver, ordering medications, tests, or procedures, communicating with other HCPs (not separately reported), independently interpreting results (not separately reported), communicating results to the patient/family/caregiver, and care coordination (not separately reported). Emiliano Saleh DO documented in this encounter [facility] 08-24-2022 Miscellaneous Notes Received referral and records from [place]: DX: Breast ca Referred By: Lana Mcwilliams MD Insurance: [facility] Spoke to daughter. Patient scheduled 09/[address] 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 Focal microcalcification. Negative for malignancy. I have asked if she has any questions, she has no questions at this point in time and states that she will discuss with family and call me on Tuesday. documented in this encounter [facility] 08-20-2022 Miscellaneous Notes Received phone call from patient's daughter Adelaida asking for results of patient's breast biopsy that was done at [facility] on 08/17. Please advise. documented in this encounter [facility] 08-17-2022 Miscellaneous Notes Order faxed to [facility] to [phone]. Kasandra Malhotra LPN Gifty from [facility] US calls requesting order for US guided biopsy, R breast. Patient is scheduled tomorrow as indicated below. Fax order to [facility] at [phone] or [phone] when completed. 08/17 RT U/S GUIDED BREATS NEEDLE CORE BX [facility] [place] PER TAMMY. documented in this encounter [facility] 08-06-2022 Miscellaneous Notes 08-17-22 [facility] US GUIDED BREAST NEEDLE CORE BX documented in this encounter [facility] 08-05-2022 Miscellaneous Notes Told patient's daughter, Adelaida, the pathology report - findings of breast cancer. Given that there is an abnormal lesion of the right breast which I could not identify, I have scheduled the patient to have a biopsy at [facility] by me at 12:30 tomorrow. The patient and her daughter will be going out of town the following week. Adelaida acknowledges the above. documented in this encounter [facility] 08-04-2022 Procedure note Procedure(s): BX BREAST W/DEVICE 1ST LESION ULTRASOUND GUID Pre-Procedure Diagnose(s): Abnormal ultrasound of breast; Mass of upper inner quadrant of left breast Post-Procedure Diagnose(s): Abnormal ultrasound of breast; Mass of upper inner quadrant of left breast Ultrasound guided breast needle core biopsy with vacuum assistance Indications - BIRADS 5 breast lesion Description of procedure - After informed consent was obtained, patient was brought to the Procedure Room. Appropriate time out protocol was followed. The patient was placed in the supine position. The ultrasound machine was used for identification of the lesion and facilitation of the biopsy in real time imaging. There was a right breast lesion that was mentioned in the report from [facility]. However, I have scanned the area with the ultrasound transducer and I detect no lesion as indicated by the report. I therefore did not do a biopsy of the right breast. I proceeded with the left breast lesion. The lesion was identified in the left breast with the ultrasound transducer. It was at the 11 o'clock position, 2 cm from the nipple, about mid depth. This was palpable The lesion was measured at about 2 cm in size. The transducer was held in the transverse position. The skin was cleansed with a surgical skin preparation. The skin and subcutaneous tissues were infiltrated with 1% xylocaine. A total of 9 ml was used. A small skin virginia was made lateral to the lesion with an 11 blade scalpel. The Mammotome Elite device was then positioned into the patient's breast at the lesion site. Ultrasound imaging pictures were captured. Using the vacuum suctioning of the Mammotome device, several core samples of breast tissue were obtained. This was done, simultaneously visualizing with the ultrasound transducer. Once adequate sampling was determined to be done, the Mammotome device was removed and a marker clip was placed at the biopsy site, using ultrasound transducer guidance. Hemostasis was achieved by pressure. No evidence of active bleeding was noted after pressure applied for a period of time. Steristrips were placed to reapproximate the wound edges. Sterile dressing was applied over this. Patient tolerated procedure well. Complications - none EBL - minimal documented in this encounter [facility] 08-04-2022 History of Presen t illness Narrative Patient was initially scheduled for right and left US guided needle core biopsies. However, I could not identify the right breast lesion by ultrasound. Therefore, I did only the left breast needle core biopsy. Patient tolerated well. Follow up in the clinic for discussion of results. UNIVERSAL PROTOCOL / SAFETY CHECKLIST Procedure to be Performed: US guided right and left needle core breast biopsy. Sign In: A Moment of CARE was completed. Personnel directly involved with the procedure wore the appropriate PPE (Personal Protective Equipment). Special equipment: Mammotome elite 13 g probe and Mammotome Mammo Star biopsy site identifier 2mm x 17mm Ceasar's daughter, Adelaida, was here to help with interpretation. Patient/Surrogate Stated/Verified: PATIENT VERIFIED(optional for EMERGENT procedures): Patient name, Date of , Relevant allergies, and The intended procedure Time Out Communication: Intended patient and procedure match the source documents. Consent documented and matches the intended procedure. Relevant labs, photos, and/or imaging studies have been reviewed. Correct side/site marked and visible. Medications required for procedure verified. No fire risk assessment and interventions applicable. Implant(s) inserted: Correct implant(s) confirmed including size and side. and Expiration date(s) reviewed. Sign Out: SIGN OUT (optional for EMERGENT procedures): All specimen containers correctly labeled. No instruments, equipment or retained foreign bodies applicable. Post-procedure follow-up management communicated and Plan of Care Visit completed when applicable. Jeannette Andersen RN Addendum: Only the left breast biopsy was completed. Jeannette Andersen RN documented in this encounter [facility] 08-04-2022 Instructions Jeannette Andersen RN - 08/04/2022 1:57 PM EDT The following instructions are important for you related to your office visit today with the [facility] General Surgeons. Instructions After OFFICE BASED BREAST BIOPSY Please do not take aspirin or other blood thinners for the next few days. After the procedure, Steri-Strips and a dressing will be placed on your small incision. The dressing may be removed in two to three days after the procedure. The Steri-Strips should be left in place until they fall off. If you have bleeding from the biopsy site, hold pressure with a clean gauze. If the bleeding continues, contact our office immediately. I recommend taking Advil or Tylenol for the discomfort. You should wear a comfortable but somewhat tight fitting bra. If you have significant bruising, an ice pack may improve your discomfort. Dr. Mcwilliams will call Adelaida with the biopsy results in approximately 7 days. If you note any additional difficulties, questions, or concerns, you should contact our office immediately @ [phone] and ask to be transferred to the General Surgery department. documented in this encounter [facility] 08-03-2022 History of Presen t illness Narrative Ceasar Palacios 1955 REFERRING PHYSICIAN: Ifrah Omalley, * CHIEF COMPLAINT: Consult (Mass in left breast, pain in middle of chest) HPI: The patient is a 67 year old female presents with palpable left breast mass. Also findings of abnormal lesion of the right breast. She denies nipple discharge. She denies previous breast biopsies. Her sister had breast cancer. Her gynecological history is as follows: menarche onset at age 12, , first at age 17, denies exogenous hormones Mammograms/US breast [facility] 07/15/2022 There now is evidence of a 2.5 cm x 1.5 cm spiculated nodule in the slightly upper retroareolar region of the left breast. There is also evidence of a 1.4 cm x 1 cm irregular nodule in the upper lateral aspect of the right breast. Correlation with ultrasound is recommended. Stable small benign-appearing bilateral axillary lymph nodes. IMPRESSION: 2 cm x 2 cm x 0.8 cm heterogeneous solid mass at the 10 o''clock position of the breast at 7 cm a nipple. Biopsy is recommended. ASSESSMENT CATEGORY: BIRADS Category 4: Suspicious - Biopsy Should Be Considered. LEFT Breast: There is a 2 cm x 1.8 cm x 1.5 cm hypoechoic irregular solid mass at the 11 o''clock position of the breast at 3 cm from the nipple. Increased vascularity is seen. There is also evidence of a 9 mm x 10 mm by 8mm hypoechoic solid nodule at the 11 o''clock position of the breast. Biopsy is recommended. IMPRESSION: 2 cm x 1.8 cm x 1.5 cm irregular hypoechoic solid mass at 11 o''clock position of the breast at 3 cm from the nipple. Similar appearing nodule measuring 9 mm x 10 mm by 8mm is seen at that site as well. Biopsy recommended. BIRADS Category 4: Suspicious - Biopsy Should Be Considered. PAST MEDICAL HISTORY Diagnosis Date Osteopenia Sleep apnea Varicose veins of lower extremities with inflammation PAST SURGICAL HISTORY Procedure Laterality Date COLONOSCOPY 02/24/2015 Current Outpatient Medications Medication Sig Magnesium 200 mg tab Take by mouth once daily. vitamin B complex (B COMPLEX 1 ORAL) Take by mouth once daily. CALCIUM ORAL Take by mouth once daily. cholecalciferol, vitamin D3, (VITAMIN D3 ORAL) Take by mouth once daily. OTC NUTRITIONAL SUPPLEMENT assorted supplements- unknown ALLERGIES: Patient has no known allergies. PERSONAL HISTORY: Social History Tobacco Use Smoking status: Never Smokeless tobacco: Never Vaping Use Vaping Use: Never used Substance Use Topics Alcohol use: Never Drug use: Never FAMILY HISTORY Problem Relation Age of Onset Diabetes Mother Cancer Father stomach Breast Cancer Sister Diabetes Sister Diabetes Brother The review of systems data was entered by the nurse and reviewed by me Nursing Notes: Kasandra MalhotraKAROLYN 08/03/2022 8:38 AM Signed REVIEW OF SYSTEMS: General: The patient denies fatigue, denies weight loss, denies weight gain, denies feeling hot, and denies feelings of cold. Eyes: The patient denies glaucoma, denies eye injury/surgery, does not wear glasses or contacts. Ear/Nose/Throat: The patient notes allergies, denies hayfever, denies ear infections, and denies bloody noses. Cardiovascular: The patient denies chest pain, denies heart disease, denies high blood pressure,denies cardiac stent, denies prior heart attack, denies irregular heart beat, denies high cholesterol, denies poor circulation, denies heart failure, other cardiac issues, denies claudication, denies cold feet, denies peripheral arterial stent. Respiratory: The patient denies tuberculosis, denies pneumonia, denies frequent cough, denies pulmonary embolism, denies shortness of breath, and denies coughing up blood. Gastrointestinal: The patient denies difficulty swallowing, denies acid reflux, denies ulcers, denies vomiting, denies jaundice/hepatitis, denies gallbladder problems, denies black or tarry stools, denies hemorrhoids, denies bleeding from rectum, denies diverticulitis, denies constipation, denies diarrhea, denies loss of stool control, and denies hernias. Kidney/Bladder: The patient denies kidney stones, denies urine infections, and denies bloody urine. Skin: The patient denies a history of skin cancer, denies bleeding/changing moles, and denies a history of skin rash. Neurologic: The patient denies a history of epilepsy/convulsions, denies headaches, denies head/spinal injuries, and denies stroke/TIA. Psychiatric: The patient denies psychiatric medications, denies depression, and denies voices, denies substance abuse. Endocrine: The patient denies thyroid disorders, denies diabetes, and denies hormonal problems. Hematologic: The patient denies a history of bruising, denies bleeding, and denies anemia, denies blood clots. Infections: The patient denies a history of measles and mumps, denies rheumatic fever, and denies sexually transmitted diseases. Musculoskeletal: The patient denies back pain/injury, denies back problems, denies sciatica, denies knee/foot trouble, denies arthritis, or denies gout. When was patient's last Mammogram screening? 2021 Last Colonoscopy: 2014 Kasandra Malhotra LPN PHYSICAL EXAMINATION: General: The patient is 67 year old female, well nourished, well hydrated in no acute distress. The patient is oriented to time, place, and person. VITALS: Blood pressure 138/80, pulse 66, temperature 36.9 C (98.5 F), height 152.4 cm (5'), weight 55.3 kg (122 lb), SpO2 99 %. Body mass index is 23.83 kg/m . Head - Normocephalic. EOM intact with sclera clear and no icterus noted. . Neck - supple with no jugular venous distention noted. Trachea is midline. No thyroid enlargement or thyroid nodules detected. No masses noted. Chest/breast - no asymmetry of breasts noted, no suspicious skin lesions noted, no nipple discharge and both nipples everted, upper outer quadrant mass - 2.5 cm Lungs - clear to auscultation. Normal breath sounds. No rales/rhonchi/wheezing noted. No labored breathing noted, such as retractions. No cough heard. Heart - normal S1 and S2 auscultated. No rubs/clicks/murmurs noted. Regular rate. Abdomen - soft and benign.. Extremities - no calf tenderness noted. No pitting edema noted. Skin - normal skin integrity. Lymph - no cervical adenopathy detected, no supraclavicular adenopathy detected, no axillary adenopathy detected Neurological - gait normal, no focal deficits noted Psych - calm and appropriate RADIOLOGIC STUDIES: As Noted Assessment IMPRESSION: left breast mass, abnormal ultrasound of right and left breast PLAN: I have discussed the above with the patient and her daughter, Adelaida. I have offered US guided needle core right and left breast biopsies I have explained the procedure to the patient. I have counseled the patient as to the risks of the procedure, including but not limited to: infection, bleeding, injury to any blood vessels/nerves, scar tissue, wound infections, complications of anesthesia, etc. - the patient understands. The patient wishes to proceed. I have answered all questions to the patient s satisfaction and the patient has no further questions. I have confirmed and edited as necessary, the PFSH and ROS obtained by others. Consultation requested by Dr. Ifrah Omalley for an opinion regarding patient's left breast mass and abnormal breast radiographs. My final recommendations will be communicated back to the requesting physician by way of shared Medical record or letter to requesting physician via US mail. . Diagnoses: (N63.21) Mass of upper outer quadrant of left breast (primary encounter diagnosis) (R92.8) Abnormal mammogram (R92.8) Abnormal ultrasound of breast Return to Clinic: The patient will be schedule for office procedure as above, later this week. Medical Decision Making: Problems: Moderate: New problem with uncertain prognosis Data: Unique test result(s) reviewed: 1 Risk: Low: Low risk from testing/treatment Medical Decision Making Level: 3 - Low Lana Mcwilliams MD documented in this encounter [facility] 08-03-2022 Nurse Note REVIEW OF SYSTEMS: General: The patient denies fatigue, denies weight loss, denies weight gain, denies feeling hot, and denies feelings of cold. Eyes: The patient denies glaucoma, denies eye injury/surgery, does not wear glasses or contacts. Ear/Nose/Throat: The patient notes allergies, denies hayfever, denies ear infections, and denies bloody noses. Cardiovascular: The patient denies chest pain, denies heart disease, denies high blood pressure,denies cardiac stent, denies prior heart attack, denies irregular heart beat, denies high cholesterol, denies poor circulation, denies heart failure, other cardiac issues, denies claudication, denies cold feet, denies peripheral arterial stent. Respiratory: The patient denies tuberculosis, denies pneumonia, denies frequent cough, denies pulmonary embolism, denies shortness of breath, and denies coughing up blood. Gastrointestinal: The patient denies difficulty swallowing, denies acid reflux, denies ulcers, denies vomiting, denies jaundice/hepatitis, denies gallbladder problems, denies black or tarry stools, denies hemorrhoids, denies bleeding from rectum, denies diverticulitis, denies constipation, denies diarrhea, denies loss of stool control, and denies hernias. Kidney/Bladder: The patient denies kidney stones, denies urine infections, and denies bloody urine. Skin: The patient denies a history of skin cancer, denies bleeding/changing moles, and denies a history of skin rash. Neurologic: The patient denies a history of epilepsy/convulsions, denies headaches, denies head/spinal injuries, and denies stroke/TIA. Psychiatric: The patient denies psychiatric medications, denies depression, and denies voices, denies substance abuse. Endocrine: The patient denies thyroid disorders, denies diabetes, and denies hormonal problems. Hematologic: The patient denies a history of bruising, denies bleeding, and denies anemia, denies blood clots. Infections: The patient denies a history of measles and mumps, denies rheumatic fever, and denies sexually transmitted diseases. Musculoskeletal: The patient denies back pain/injury, denies back problems, denies sciatica, denies knee/foot trouble, denies arthritis, or denies gout. When was patient's last Mammogram screening? 2021 Last Colonoscopy: 2014 Kasandra Malhotra LPN documented in this encounter [facility] 06-04-2021 History of Presen t illness Narrative Radiology Service Progress Note PATIENT NAME: Ceasar Palacios DATE OF SERVICE: June 04, 2021 TIME: 2:30 pm PATIENT IDENTITY VERIFICATION COMPLETED USING TWO (2) IDENTIFIERS: Name and Date of confirmed by patient verbally. FALL SCREENING: Has the patient had 2 falls in the last year or 1 fall with injury or currently using an Ambulatory Assistive Device (Walker, Cane, Wheelchair, Crutches, etc.)? No PATIENT GENDER DATA: Female. status: : No status: NO. PATIENT RELEVANT IMPLANT DATA REVIEWED: Not Applicable RADIOLOGY DEPARTMENT: General X-ray: Exam(s) Completed: Lower Extremity X-Ray(s): Foot, Right and Wt. Bearing PERIPHERAL IV DATA: Not applicable SIGNED BY: RT Brandy(R) June 04, 2021 2:45 PM documented in this encounter [facility] Evaluation note No assessment inform ation available [facility] Work Phone: Evaluation note Diagnosis Abnormal ultrasound of breast Other (abnormal) findings on radiological examination of breast Mass of upper inner quadrant of left breast [facility] Mass of upper outer quadrant of left breast- Primary Abnormal mammogram Abnormal mammogram, unspecified Abnormal ultrasound of breast Other (abnormal) findings on radiological examination of breast [facility] Diagnosis Malignant neoplasm of upper-inner quadrant of left breast in female, estrogen receptor positive (HCC)- Primary [facility] Malignant neoplasm of upper-inner quadrant of left breast in female, estrogen receptor positive (HCC) [facility] Malignant neoplasm of upper-inner quadrant of left breast in female, estrogen receptor positive (HCC)- [facility] Malignant neoplasm of upper-inner quadrant of left breast in female, estrogen receptor positive (HCC) [facility] Malignant neoplasm of upper-inner quadrant of left breast in female, estrogen receptor positive (HCC) [facility] Diagnosis Malignant neoplasm of upper-inner quadrant of left breast in female, estrogen receptor positive (HCC)- Primary [facility] Cancer of central portion of left breast (HCC)- Primary Abnormal finding on breast imaging Other (abnormal) findings on radiological examination of breast Family history of breast cancer in sister Family history of malignant neoplasm of breast Family history of breast cancer Family history of malignant neoplasm of breast [facility] Cancer of central portion of left breast (HCC)- Primary Family history of malignant neoplasm of breast [facility] Diagnosis Abnormal finding on breast imaging Other (abnormal) findings on radiological examination of breast [facility] Diagnosis Abnormal finding on breast imaging Other (abnormal) findings on radiological examination of breast [facility] Abnormal finding on breast imaging Other (abnormal) findings on radiological examination of breast [facility] Diagnosis Cancer of central portion of left breast (HCC)- Primary Fibroadenoma of right breast Benign neoplasm of breast Family history of breast cancer in sister Family history of malignant neoplasm of breast [facility] Diagnosis Abnormal finding on breast imaging- Primary Other (abnormal) findings on radiological examination of breast [facility] Diagnosis Cancer of central portion of left breast (HCC) [C50.112 (ICD-10-CM)]- Primary LAMINE (obstructive sleep apnea) Obstructive sleep apnea (adult) (pediatric) Preop testing Preoperative examination, unspecified Elevated blood-pressure reading without diagnosis of hypertension Elevated blood pressure reading without diagnosis of hypertension Gastroesophageal reflux disease without esophagitis Esophageal reflux Cancer of central portion of left breast (HCC) [facility] Cancer of central portion of left breast (HCC) [facility] Diagnosis Post-operative state- Primary Other postprocedural status [facility] Diagnosis Cancer of central portion of left breast (HCC)- Primary Family history of breast cancer in sister Family history of malignant neoplasm of breast Visit for screening mammogram Other screening mammogram [facility] Diagnosis Cancer of central portion of left breast (HCC)- Primary [facility] Diagnosis Malignant neoplasm of upper-inner quadrant of left breast in female, estrogen receptor positive (HCC)- Primary Hyperlipidemia, unspecified hyperlipidemia type Elevated hemoglobin (HCC) Other hemoglobinopathies Vitamin D deficiency Unspecified vitamin D deficiency [facility] Diagnosis Lung nodules- Primary Other nonspecific abnormal finding of lung field Cancer of central portion of left breast (HCC) [facility] Diagnosis Visit for screening mammogram Other screening mammogram [facility] Diagnosis Cancer of central portion of left breast (HCC)- Primary documented in this encounter [facility] note* Diagnosis Cancer of central portion of left breast (HCC) [C50.112 (ICD-10-CM)]- Primary LAMINE (obstructive sleep apnea) Obstructive sleep apnea (adult) (pediatric) Preop testing Preoperative examination, unspecified Elevated blood-pressure reading without diagnosis of hypertension Elevated blood pressure reading without diagnosis of hypertension Gastroesophageal reflux disease without esophagitis Esophageal reflux Malignant neoplasm of upper-inner quadrant of left breast in female, estrogen receptor positive (HCC)- Primary Cancer of central portion of left breast (HCC) [facility] Diagnosis Cancer of central portion of left breast (HCC) [C50.112 (ICD-10-CM)]- Primary LAMINE (obstructive sleep apnea) Obstructive sleep apnea (adult) (pediatric) Preop testing Preoperative examination, unspecified Elevated blood-pressure reading without diagnosis of hypertension Elevated blood pressure reading without diagnosis of hypertension Gastroesophageal reflux disease without esophagitis Esophageal reflux Malignant neoplasm of upper-inner quadrant of left breast in female, estrogen receptor positive (HCC)- Primary [facility] Diagnosis Malignant neoplasm of upper-inner quadrant of left breast in female, estrogen receptor positive (HCC)- Primary Lung nodules Other nonspecific abnormal finding of lung field documented in this encounter [facility] note* Diagnosis Chronic idiopathic urticaria Idiopathic urticaria Urticaria Urticaria, unspecified Facial rash Rash and other nonspecific skin eruption [facility] Diagnosis Cancer of central portion of left breast (HCC) [C50.112 (ICD-10-CM)]- Primary LAMINE (obstructive sleep apnea) Obstructive sleep apnea (adult) (pediatric) Preop testing Preoperative examination, unspecified Elevated blood-pressure reading without diagnosis of hypertension Elevated blood pressure reading without diagnosis of hypertension Gastroesophageal reflux disease without esophagitis Esophageal reflux Cancer of central portion of left breast (HCC)- Primary [facility] Diagnosis Cancer of central portion of left breast (HCC) [C50.112 (ICD-10-CM)]- Primary LAMINE (obstructive sleep apnea) Obstructive sleep apnea (adult) (pediatric) Preop testing Preoperative examination, unspecified Elevated blood-pressure reading without diagnosis of hypertension Elevated blood pressure reading without diagnosis of hypertension Gastroesophageal reflux disease without esophagitis Esophageal reflux Malignant neoplasm of upper-inner quadrant of left breast in female, estrogen receptor positive (HCC)- Primary Encounter for screening mammogram for high-risk patient documented in this encounter [facility] note* Diagnosis Cancer of central portion of left breast (HCC) [C50.112 (ICD-10-CM)]- Primary LAMINE (obstructive sleep apnea) Obstructive sleep apnea (adult) (pediatric) Preop testing Preoperative examination, unspecified Elevated blood-pressure reading without diagnosis of hypertension Elevated blood pressure reading without diagnosis of hypertension Gastroesophageal reflux disease without esophagitis Esophageal reflux Malignant neoplasm of upper-inner quadrant of left breast in female, estrogen receptor positive (HCC) Encounter for screening mammogram for high-risk patient documented in this encounter [facility] note* Diagnosis Cancer of central portion of left breast (HCC) [C50.112 (ICD-10-CM)]- Primary LAMINE (obstructive sleep apnea) Obstructive sleep apnea (adult) (pediatric) Preop testing Preoperative examination, unspecified Elevated blood-pressure reading without diagnosis of hypertension Elevated blood pressure reading without diagnosis of hypertension Gastroesophageal reflux disease without esophagitis Esophageal reflux Cancer of central portion of left breast (HCC)- Primary Abnormal mammogram of right breast documented in this encounter [facility] note* Diagnosis Cancer of central portion of left breast (HCC) [C50.112 (ICD-10-CM)]- Primary LAMINE (obstructive sleep apnea) Obstructive sleep apnea (adult) (pediatric) Preop testing Preoperative examination, unspecified Elevated blood-pressure reading without diagnosis of hypertension Elevated blood pressure reading without diagnosis of hypertension Gastroesophageal reflux disease without esophagitis Esophageal reflux Malignant neoplasm of upper-inner quadrant of left breast in female, estrogen receptor positive (HCC)- Primary Encounter for screening mammogram for high-risk patient documented in this encounter [facility]* Name Dates Details Patient Instructions Indication:Breast cancer Start:23-Aug-2022 Instruction Type:Provider Instructions for Treatment How to Access Health Informa tion Online using Patient Portal and [employer] Apps Indication:Breast cancer Start:23-Aug-2022 Instruction Type:Patient Education [facility]; [facility] Work Phone: Instructions* Name Dates Details Patient Instructions Indication:Breast cancer Start:23-Aug-2022 Instruction Type:Provider Instructions for Treatment How to Access Health Informa tion Online using Patient Portal and [employer] Apps Indication:Breast cancer Start:23-Aug-2022 Instruction Type:Patient Education [facility]; [facility] Work Phone: instructions* Name Dates Details Patient Instructions Indication:Breast cancer Start:23-Aug-2022 Instruction Type:Provider Instructions for Treatment How to Access Health Informa tion Online using Patient Portal and [employer] Apps Indication:Breast cancer Start:23-Aug-2022 Instruction Type:Patient Education [facility]; [facility] Work Phone: instructions* Name Dates Details Patient Instructions Indication:Breast cancer Start:23-Aug-2022 Instruction Type:Provider Instructions for Treatment How to Access Health Informa tion Online using Patient Portal and [employer] Apps Indication:Breast cancer Start:23-Aug-2022 Instruction Type:Patient Education [facility]; [facility] Work Phone: instructions* Name Dates Details Patient Instructions Indication:[facility] Start:21-Dec-2022 Instruction Type:Provider Instructions for Treatment How to Access Health Informa tion Online using Patient Portal and [employer] Apps Indication:[facility] Start:21-Dec-2022 Instruction Type:Patient Education Patient Instructions Indication:Breast cancer Start:23-Aug-2022 Instruction Type:Provider Instructions for Treatment How to Access Health Informa tion Online using Patient Portal and [employer] Apps Indication:Breast cancer Start:23-Aug-2022 Instruction Type:Patient Education [facility]; [facility] Work Phone: instructions* Name Dates Details Patient Instructions Indication:Nonsmoker Start:30-Mar-2023 Instruction Type:Provider Instructions for Treatment How to Access Health Informa tion Online using Patient Portal and [employer] Apps Indication:Nonsmoker Start:30-Mar-2023 Instruction Type:Patient Education Patient Instructions Indication:BMI 25.0-25.9,adult Start:22-Feb-2023 Instruction Type:Provider Instructions for Treatment How to Access Health Informa tion Online using Patient Portal and [employer] Apps Indication:BMI 25.0-25.9,adult Start:22-Feb-2023 Instruction Type:Patient Education Patient Instructions Indication:[facility] Start:21-Dec-2022 Instruction Type:Provider Instructions for Treatment How to Access Health Informa tion Online using Patient Portal and [employer] Apps Indication:[facility] Start:21-Dec-2022 Instruction Type:Patient Education Patient Instructions Indication:Breast cancer Start:23-Aug-2022 Instruction Type:Provider Instructions for Treatment How to Access Health Informa tion Online using Patient Portal and [employer] Apps Indication:Breast cancer Start:23-Aug-2022 Instruction Type:Patient Education [facility]; [facility] Work Phone: Instructions* Name Dates Details Patient Instructions Indication:GERD (gastroesophageal reflux disease) Start:26-Apr-2023 Instruction Type:Provider Instructions for Treatment How to Access Health Informa tion Online using Patient Portal and [employer] Apps Indication:GERD (gastroesophageal reflux disease) Start:26-Apr-2023 Instruction Type:Patient Education Patient Instructions Indication:Nonsmoker Start:30-Mar-2023 Instruction Type:Provider Instructions for Treatment How to Access Health Informa tion Online using Patient Portal and [employer] Apps Indication:Nonsmoker Start:30-Mar-2023 Instruction Type:Patient Education Patient Instructions Indication:BMI 25.0-25.9,adult Start:22-Feb-2023 Instruction Type:Provider Instructions for Treatment How to Access Health Informa tion Online using Patient Portal and [employer] Apps Indication:BMI 25.0-25.9,adult Start:22-Feb-2023 Instruction Type:Patient Education Patient Instructions Indication:[facility] Start:21-Dec-2022 Instruction Type:Provider Instructions for Treatment How to Access Health Informa tion Online using Patient Portal and [employer] Apps Indication:[facility] Start:21-Dec-2022 Instruction Type:Patient Education Patient Instructions Indication:Breast cancer Start:23-Aug-2022 Instruction Type:Provider Instructions for Treatment How to Access Health Informa tion Online using Patient Portal and [employer] Apps Indication:Breast cancer Start:23-Aug-2022 Instruction Type:Patient Education [facility]; [facility] Work Phone: instructions* Name Dates Details Patient Instructions Indication:GERD (gastroesophageal reflux disease) Start:26-Apr-2023 Instruction Type:Provider Instructions for Treatment How to Access Health Informa tion Online using Patient Portal and [employer] Apps Indication:GERD (gastroesophageal reflux disease) Start:26-Apr-2023 Instruction Type:Patient Education Patient Instructions Indication:Nonsmoker Start:30-Mar-2023 Instruction Type:Provider Instructions for Treatment How to Access Health Informa tion Online using Patient Portal and [employer] Apps Indication:Nonsmoker Start:30-Mar-2023 Instruction Type:Patient Education Patient Instructions Indication:BMI 25.0-25.9,adult Start:22-Feb-2023 Instruction Type:Provider Instructions for Treatment How to Access Health Informa tion Online using Patient Portal and [employer] Apps Indication:BMI 25.0-25.9,adult Start:22-Feb-2023 Instruction Type:Patient Education Patient Instructions Indication:[facility] Start:21-Dec-2022 Instruction Type:Provider Instructions for Treatment How to Access Health Informa tion Online using Patient Portal and [employer] Apps Indication:[facility] Start:21-Dec-2022 Instruction Type:Patient Education Patient Instructions Indication:Breast cancer Start:23-Aug-2022 Instruction Type:Provider Instructions for Treatment How to Access Health Informa tion Online using Patient Portal and [employer] Apps Indication:Breast cancer Start:23-Aug-2022 Instruction Type:Patient Education [facility]; [facility] Work Phone: Instructions* Name Dates Details Patient Instructions Indication:GERD (gastroesophageal reflux disease) Start:26-Apr-2023 Instruction Type:Provider Instructions for Treatment How to Access Health Informa tion Online using Patient Portal and [employer] Apps Indication:GERD (gastroesophageal reflux disease) Start:26-Apr-2023 Instruction Type:Patient Education Patient Instructions Indication:Nonsmoker Start:30-Mar-2023 Instruction Type:Provider Instructions for Treatment How to Access Health Informa tion Online using Patient Portal and [employer] Apps Indication:Nonsmoker Start:30-Mar-2023 Instruction Type:Patient Education Patient Instructions Indication:BMI 25.0-25.9,adult Start:22-Feb-2023 Instruction Type:Provider Instructions for Treatment How to Access Health Informa tion Online using Patient Portal and [employer] Apps Indication:BMI 25.0-25.9,adult Start:22-Feb-2023 Instruction Type:Patient Education Patient Instructions Indication:[facility] Start:21-Dec-2022 Instruction Type:Provider Instructions for Treatment How to Access Health Informa tion Online using Patient Portal and [employer] Apps Indication:[facility] Start:21-Dec-2022 Instruction Type:Patient Education Patient Instructions Indication:Breast cancer Start:23-Aug-2022 Instruction Type:Provider Instructions for Treatment How to Access Health Informa tion Online using Patient Portal and [employer] Apps Indication:Breast cancer Start:23-Aug-2022 Instruction Type:Patient Education [facility]; [facility] Work Phone: Instructions* Name Dates Details Patient Instructions Indication:Vitamin D deficiency Start:02-Aug-2023 Instruction Type:Provider Instructions for Treatment How to Access Health Informa tion Online using Patient Portal and [employer] Apps Indication:Vitamin D deficiency Start:02-Aug-2023 Instruction Type:Patient Education Patient Instructions Indication:GERD (gastroesophageal reflux disease) Start:26-Apr-2023 Instruction Type:Provider Instructions for Treatment How to Access Health Informa tion Online using Patient Portal and [employer] Apps Indication:GERD (gastroesophageal reflux disease) Start:26-Apr-2023 Instruction Type:Patient Education Patient Instructions Indication:Nonsmoker Start:30-Mar-2023 Instruction Type:Provider Instructions for Treatment How to Access Health Informa tion Online using Patient Portal and [employer] Apps Indication:Nonsmoker Start:30-Mar-2023 Instruction Type:Patient Education Patient Instructions Indication:BMI 25.0-25.9,adult Start:22-Feb-2023 Instruction Type:Provider Instructions for Treatment How to Access Health Informa tion Online using Patient Portal and [employer] Apps Indication:BMI 25.0-25.9,adult Start:22-Feb-2023 Instruction Type:Patient Education Patient Instructions Indication:[facility] Start:21-Dec-2022 Instruction Type:Provider Instructions for Treatment How to Access Health Informa tion Online using Patient Portal and [employer] Apps Indication:[facility] Start:21-Dec-2022 Instruction Type:Patient Education Patient Instructions Indication:Breast cancer Start:23-Aug-2022 Instruction Type:Provider Instructions for Treatment How to Access Health Informa tion Online using Patient Portal and [employer] Apps Indication:Breast cancer Start:23-Aug-2022 Instruction Type:Patient Education [facility]; [facility] Work Phone: Instructions* Name Dates Details Patient Instructions Indication:Vitamin D deficiency Start:02-Aug-2023 Instruction Type:Provider Instructions for Treatment How to Access Health Informa tion Online using Patient Portal and [employer] Apps Indication:Vitamin D deficiency Start:02-Aug-2023 Instruction Type:Patient Education Patient Instructions Indication:GERD (gastroesophageal reflux disease) Start:26-Apr-2023 Instruction Type:Provider Instructions for Treatment How to Access Health Informa tion Online using Patient Portal and [employer] Apps Indication:GERD (gastroesophageal reflux disease) Start:26-Apr-2023 Instruction Type:Patient Education Patient Instructions Indication:Nonsmoker Start:30-Mar-2023 Instruction Type:Provider Instructions for Treatment How to Access Health Informa tion Online using Patient Portal and [employer] Apps Indication:Nonsmoker Start:30-Mar-2023 Instruction Type:Patient Education Patient Instructions Indication:BMI 25.0-25.9,adult Start:22-Feb-2023 Instruction Type:Provider Instructions for Treatment How to Access Health Informa tion Online using Patient Portal and [employer] Apps Indication:BMI 25.0-25.9,adult Start:22-Feb-2023 Instruction Type:Patient Education Patient Instructions Indication:[facility] Start:21-Dec-2022 Instruction Type:Provider Instructions for Treatment How to Access Health Informa tion Online using Patient Portal and [employer] Apps Indication:[facility] Start:21-Dec-2022 Instruction Type:Patient Education Patient Instructions Indication:Breast cancer Start:23-Aug-2022 Instruction Type:Provider Instructions for Treatment How to Access Health Informa tion Online using Patient Portal and [employer] Apps Indication:Breast cancer Start:23-Aug-2022 Instruction Type:Patient Education [facility]; [facility] Work Phone: reason for referral (narrative)* Diagnostic Procedure Only (Routine) - Pending Review Specialty Diagnoses / Procedures Referred By Contac t Referred To Contact [facility] Diagnoses Abnormal ultrasound of breast Procedures LORENA DIAGNOSTIC BILAT DIAGNOSTIC MAMMOGRAPHY COMPUTER-AIDED DETCJ Lana Joseph MD [address] [place] [address] [facility] [address] [place] [address] Referral ID Status Reason Start Date Expiration Date Visits Requested Visits Authorized [id number] Pending Review Auto-Generat ed Referral 2 09/03/2023 [address] [facility] for referral (narrative)* Diagnostic Procedure Only (Routine) - Pending Review Specialty Diagnoses / Procedures Referred By Corey t Referred To Contact [facility] Diagnoses Malignant neoplasm of upper-inner quadrant of left breast in female, estrogen receptor positive (HCC) Procedures US BREAST LTD LT US BREAST UNI REAL TIME WITH IMAGE LIMITED Emiliano Saleh, DO [address] [facility] [place] [address] [facility] Imaging [address] [place] [address] Referral ID Status Reason Start Date Expiration Date Visits Requested Visits Authorized [id number] Pending Review Auto-Generat ed Referral 09/17/2022 10/17/2023 1 1 * Diagnostic Procedure Only (Routine) - Pending Review Specialty Diagnoses / Procedures Referred By Corey t Referred To Contact [facility] Diagnoses Malignant neoplasm of upper-inner quadrant of left breast in female, estrogen receptor positive (HCC) Procedures LORENA DIAGNOSTIC LT DIAGNOSTIC MAMMOGRAPHY COMPUTER-AIDED DETCJ UNI Emiliano Saleh, DO [address] [place] [address] Br Imaging [address] [place] [address] Referral ID Status Reason Start Date Expiration Date Visits Requested Visits Authorized [id number] Pending Review Auto-Generat ed Referral 09/17/2022 10/17/2023 1 1 * Diagnostic Procedure Only (Routine) - Pending Review Specialty Diagnoses / Procedures Referred By Corey t Referred To Contact [facility] Diagnoses Malignant neoplasm of upper-inner quadrant of left breast in female, estrogen receptor positive (HCC) Procedures US BREAST LTD RT US BREAST UNI REAL TIME WITH IMAGE LIMITED Emiliano Saleh, DO [address] [place] [address] Br Imaging [address] [place] [address] Referral ID Status Reason Start Date Expiration Date Visits Requested Visits Authorized [id number] Pending Review Auto-Generat ed Referral 09/17/2022 10/17/2023 1 1 * Diagnostic Procedure Only (Routine) - Pending Review Specialty Diagnoses / Procedures Referred By Villaac t Referred To Contact [facility] Diagnoses Malignant neoplasm of upper-inner quadrant of left breast in female, estrogen receptor positive (HCC) Procedures LORENA DIAGNOSTIC RT DIAGNOSTIC MAMMOGRAPHY COMPUTER-AIDED DETCJ UNI Emiliano Saleh, DO [address] [place] [address] [facility] Imaging [address] [place] [address] Referral ID Status Reason Start Date Expiration Date Visits Requested Visits Authorized [id number] Pending Review Auto-Generat ed Referral 09/17/2022 10/17/2023 [address] [facility] for referral (narrative)* Diagnostic Procedure Only (Routine) - Closed Specialty Diagnoses / Procedures Referred By Corey t Referred To Contact [facility] Diagnoses Malignant neoplasm of upper-inner quadrant of left breast in female, estrogen receptor positive (HCC) Procedures US BREAST LTD LT US BREAST UNI REAL TIME WITH IMAGE LIMITED Emiliano Saleh, DO [address] [place] [address] Br Imaging [address] [place] [address] Referral ID Status Reason Start Date Expiration Date V isits Requested Visits Authorized [id number] Closed Auto-Generate d Referral 09/17/2022 10/17/2023 1 1 * Diagnostic Procedure Only (Routine) - Closed Specialty Diagnoses / Procedures Referred By Contac t Referred To Contact [facility] IMAGING Diagnoses Malignant neoplasm of upper-inner quadrant of left breast in female, estrogen receptor positive (HCC) Procedures US BREAST LTD RT US BREAST UNI REAL TIME WITH IMAGE LIMITED Emiliano Saleh, DO [address] [facility] [place] [address] Br Imaging [address] [place] [address] Referral ID Status Reason Start Date Expiration Date V isits Requested Visits Authorized [id number] Closed Auto-Generate d Referral 09/17/2022 10/17/2023 1 1 [facility] Diagnostic Procedure Only (Routine) - Authorized Specialty Diagnoses / Procedures Referred By Contac t Referred To Contact [facility] IM[facility] Diagnoses Abnormal finding on breast imaging Procedures US BIOPSY BREAST RT BX BREAST W/DEVICE 1ST LESION ULTRASOUND Kasandra Fernandez MD [address] [place] [address] [facility] Imaging [address] [place] [address] Referral ID Status Reason Start Date Expiration Date Visits Requested Visits Authorized [id number] Authorized Auto-Generat ed Referral 10/10/2022 10/09/2023 1 1 * Diagnostic Procedure Only (Routine) - Authorized Specialty Diagnoses / Procedures [facility] Diagnoses Abnormal finding on breast imaging Procedures US BREAST LTD RT US BREAST UNI REAL TIME WITH IMAGE LIMITED Kasandra Caruso MD [address] [place] [address] Br Imaging [address] [place] [address] Referral ID Status Reason Start Date Expiration Date Visits Requested Visits Authorized [id number] Authorized Auto-Generat ed Referral 10/10/2022 10/09/2023 1 1 * MRI/CT (Routine) - Closed Specialty Diagnoses / Procedures [facility] To Contact [facility] Diagnoses Abnormal finding on breast imaging Procedures MRI BREAST BX WO/W IVCON RT BX BREAST W/DEVICE 1ST LESION MAGNETIC RES Kasandra Fernandez MD [address] [place] [address] Mr Imaging Referral ID Status Reason Start Date Expiration Date V isits Requested Visits Authorized [id number] Closed Auto-Generate d Referral 10/28/2022 11/27/2023 1 1 * Consult, Test, Treat (Routine) - Pending Review Specialty Diagnoses / Procedures Referred By Contac t Referred To Contact Diagnoses Cancer of central portion of left breast (HCC) Family history of breast cancer in sister Procedures CONSULT TO MEDICAL GENETICS - CANCER MEDICAL GENETICS COUNSELING EACH 30 MINUTES Kasandra Caruso MD [address] [place] [address] [facility] [place] [address] [place] [address] Referral ID Status Reason Start Date Expiration Date Visits Requested Visits Authorized [id number] Pending Review PCP Requested Referral Auto-Generate d Referral 10/28/2022 10/28/2023 1 1 * Consult, Test, Treat (Routine) - Pending Review Specialty Diagnoses / Procedures Referred By Contac t Referred To Contact Plastic Surgery Diagnoses Cancer of central portion of left breast (HCC) Procedures CONSULT TO PLASTIC SURGERY OFFICE/OUTPATIENT [facility] 60-74 MINUTES Kasandra Caruso MD [address] [place] [address] Referral ID Status Reason Start Date Expiration Date Visits Requested Visits Authorized [id number] Pending Review PCP Requested Referral 10/28/2022 01/26/2023 1 1 [facility] Diagnostic Procedure Only (Routine) - Closed Specialty Diagnoses / Procedures [facility] To Contact [facility] Diagnoses Abnormal finding on breast imaging Procedures US BREAST LTD RT US BREAST UNI REAL TIME WITH IMAGE LIMITED Kasandra Caruso MD [address] [place] [id number] [facility] [address] [place] [address] Referral ID Status Reason Start Date Expiration Date V isits Requested Visits Authorized [id number] Closed Auto-Generate d Referral 10/10/2022 10/09/2023 1 1 [facility] for referral (narrative)* Diagnostic Procedure Only (Routine) - Closed Specialty Diagnoses / Procedures Referred By Corey rockwell Referred To Contact BR IMAGING Diagnoses Abnormal finding on breast imaging Procedures US BIOPSY BREAST RT BX BREAST W/DEVICE 1ST LESION ULTRASOUND Kasandra Fernandez MD [address] [place] [address] Br Imaging [address] [place] [address] Referral ID Status Reason Start Date Expiration Date V isits Requested Visits Authorized [id number] Closed Auto-Generate d Referral 10/10/2022 10/09/2023 1 1 [facility] for referral (narrative)* Diagnostic Procedure Only (Routine) - Authorized Specialty Diagnoses / Procedures Referred By Corey rockwell Referred To Contact [facility] Diagnoses Visit for screening mammogram Procedures LORENA SCREENING W JIL SCREENING DIGITAL BREAST TOMOSYNTHESIS BI SCREENING MAMMOGRAPHY BI 2-VIEW BREAST INC CAD Kasandra Caruso MD [address] [place] [address] [facility] Imaging [address] [place] [address] Referral ID Status Reason Start Date Expiration Date Visits Requested Visits Authorized [id number] Authorized Auto-Generat ed Referral 01/19/2023 02/18/2024 1 1 * Durable Medical Equipment (Routine) - Closed Specialty Diagnoses / Procedures Referred By Corey rockwell Referred To Contact Diagnoses Cancer of central portion of left breast (HCC) Procedures BREAST PROSTHESIS, MASTECTOMY BRA BREAST PROSTHESIS, MASTECTOMY BRA Kasandra Caruso MD [address] [place] [address] Referral ID Status Reason Start Date Expiration Date V isits Requested Visits Authorized [id number] Closed Auto-Generate d Referral 01/19/2023 01/20/2024 [address] [facility] for referral (narrative)No reason for referral information [facility] Work Phone: Reason for visit Narrative* Diagnostic Procedure Only (Routine) - Closed Specialty Diagnoses / Procedures Referred By Contac t Referred To Contact [facility] IMAGING Diagnoses Malignant neoplasm of upper-inner quadrant of left breast in female, estrogen receptor positive (HCC) Procedures LORENA DIAGNOSTIC LT DIAGNOSTIC MAMMOGRAPHY COMPUTER-AIDED DETCJ [employer] ThereseEmiliano, DO [address] [place] [address] Br Imaging [address] [place] [address] Referral ID Status Reason Start Date Expiration Date V isits Requested Visits Authorized [id number] Closed Auto-Generate d Referral 09/17/2022 10/17/2023 [address] [facility] for visit Narrative* Diagnostic Procedure Only (Routine) - Closed Specialty Diagnoses / Procedures Referred By Contac t Referred To Contact BR IMAGING Diagnoses Malignant neoplasm of upper-inner quadrant of left breast in female, estrogen receptor positive (HCC) Procedures LORENA DIAGNOSTIC RT DIAGNOSTIC MAMMOGRAPHY COMPUTER-AIDED DETCJ SmartKickzcheriEmiliano, DO [address] [place] [address] Br Imaging [address] [place] [address] Referral ID Status Reason Start Date Expiration Date V isits Requested Visits Authorized [id number] Closed Auto-Generate d Referral 09/17/2022 10/17/2023 [address] [facility] for visit Narrative* Diagnostic Procedure Only (Routine) - Closed Specialty Diagnoses / Procedures Referred By Contac t Referred To Contact [facility] Diagnoses Righ Procedures BX BREAST W/DEVICE 1ST LESION MAGNETIC RES GUID MRI BREAST BX UNILATERAL Kasandra Caruso MD 1 [facility] [place] [address] [facility] [address] [place] [address] Referral ID Status Reason Start Date Expiration Date Visits Re quested Visits Authorized [id number] Closed 10/10/2022 10/09/2023 [address] [facility] for visit Narrative* Diagnostic Procedure Only (Routine) - Closed Specialty Diagnoses / Procedures Referred By Contac t Referred To Contact [facility] IM[facility] Diagnoses Abnormal finding on breast imaging Procedures US BREAST LTD RT US BREAST UNI REAL TIME WITH IMAGE LIMITED Kasandra Caruso MD [address] [place] [address] [facility] Imaging [address] [place] [address] Referral ID Status Reason Start Date Expiration Date V isits Requested Visits Authorized [id number] Closed Auto-Generate d Referral 10/10/2022 10/09/2023 [address] [facility] for visit Narrative* Diagnostic Procedure Only (Routine) - Closed Specialty Diagnoses / Procedures Referred By Corey t Referred To Contact BR IMAG[facility] Diagnoses Abnormal finding on breast imaging Procedures US BIOPSY BREAST RT BX BREAST W/DEVICE 1ST LESION ULTRASOUND GUID Kasandra Caruso MD [address] [place] [address] Br Imaging [address] [place] [address] Referral ID Status Reason Start Date Expiration Date V isits Requested Visits Authorized [id number] Closed Auto-Generate d Referral 10/10/2022 10/09/2023 [address] [facility] for visit Narrative* Diagnostic Procedure Only (Routine) - Closed Specialty Diagnoses / Procedures Referred By Corey t Referred To Contact BR IMAG[facility] Diagnoses Visit for screening mammogram Procedures LORENA SCREENING W JIL SCREENING DIGITAL BREAST TOMOSYNTHESIS BI SCREENING MAMMOGRAPHY BI 2-VIEW BREAST INC CAD Kasandra Caruso MD [address] [place] [address] [facility] Imaging [address] [place] [address] Referral ID Status Reason Start Date Expiration Date V isits Requested Visits Authorized [id number] Closed Auto-Generate d Referral 01/19/2023 02/18/2024 [address] [facility] for visit Narrative* Diagnostic Procedure Only (Routine) - Closed Specialty Diagnoses / Procedures Referred By Corey t Referred To Contact BR IMAG[facility] Diagnoses Malignant neoplasm of upper-inner quadrant of left breast in female, estrogen receptor positive (HCC) Encounter for screening mammogram for high-risk patient Procedures LORENA SCREENING W JIL SCREENING DIGITAL BREAST TOMOSYNTHESIS BI SCREENING MAMMOGRAPHY BI 2-VIEW BREAST INC Lizette Alexander APRN.SISAL PICKER [address] [place] [address] Phone: tel: fax: [facility] [address] [place] [address] Referral ID Status Reason Start Date Expiration Date V isits Requested Visits Authorized [id number] Closed Auto-Generate d Referral 01/19/2025 01/18/2026 1 1 [facility] Chief Complaint and Reason for Visit Chief Complaint BLOATING, PELVIC BRANDI N Chief Complaint BLOATING, PELVIC BRANDI N PALPABLE LUMP ON LEFT BREAST Chief Complaint BLOATING, PELVIC BRANDI N PALPABLE LUMP ON LEFT BREAST ABNORMAL MAMM RIGHT BREAST Chief Complaint Admit Date LUNG NODULES May 21, 2025 8: 10am HYPERLIPIDEMIA May 21, 2025 8: 12am Advance Directives No Advanced Directives Records Found Advance Directive Response Recorded Date/ Time Advance Directives No February 24 8:57am Living Will No July 04, 2015 11:37am Power of Blast Setter No June 11:37am Advance Directive Response Recorded Date/ Time Advance Directives No February 24 5 7:57am Living Will No July 04, 2015 10:37am Power of Blast Setter No June 10:37am Advance Directive Response Recorded Date/ Time Advance Directives No February 24 5 8:57am Family History No Family History Records FoundUnknown Family Member Name Dates Details Family Members In General Comments:Non-Insulin Depende nt Diabetes Mellitus Status:Active Unknown Family Member Name Dates Details Family Members In General Comments:Non-Insulin Depende nt Diabetes Mellitus Status:Active Unknown Family Member Name Dates Details Family Members In General Comments:Non-Insulin Depende nt Diabetes Mellitus Status:Active Unknown Family Member Name Dates Details Family Members In General Comments:Non-Insulin Depende nt Diabetes Mellitus Status:Active Unknown Family Member Name Dates Details Family Members In General Comments:Non-Insulin Depende nt Diabetes Mellitus Status:Active sister breast cancer age 50 Status:Active Unknown Family Member Name Dates Details Family Members In General Comments:Non-Insulin Depende nt Diabetes Mellitus Status:Active sister breast cancer age 50 Status:Active Unknown Family Member Name Dates Details Family Members In General Comments:Non-Insulin Depende nt Diabetes Mellitus Status:Active sister breast cancer age 50 Status:Active Unknown Family Member Name Dates Details Family Members In General Comments:Non-Insulin Depende nt Diabetes Mellitus Status:Active sister breast cancer age 50 Status:Active Unknown Family Member Name Dates Details Family Members In General Comments:Non-Insulin Depende nt Diabetes Mellitus Status:Active sister breast cancer age 50 Status:Active Unknown Family Member Name Dates Details Family Members In General Comments:Non-Insulin Depende nt Diabetes Mellitus Status:Active sister breast cancer age 50 Status:Active Unknown Family Member Name Dates Details Family Members In General Comments:Non-Insulin Depende nt Diabetes Mellitus Status:Active sister breast cancer age 50 Status:Active Unknown Family Member Name Dates Details Family Members In General Comments:Non-Insulin Depende nt Diabetes Mellitus Status:Active sister breast cancer age 50 Status:Active Unknown Family Member Name Dates Details Family Members In General Comments:Non-Insulin Depende nt Diabetes Mellitus Status:Active sister breast cancer age 50 Status:Active Reason for Referral Specialty Diagnoses / Procedures Referred By Corey rockwell Referred To Contact Diagnoses Malignant neoplasm of upper-inner quadrant of left breast in female, estrogen receptor positive (HCC) Procedures CONSULT TO MEDICAL GENETICS - CANCER MEDICAL GENETICS COUNSELING EACH 30 MINUTES Emiliano Saleh DO [address] [place] [address] [address] Referral ID Status Reason Start Date Expiration Date Visits Requested Visits Authorized [id number] Pending Review PCP Requested Referral Auto-Generate d Referral 2 09/03/2023 1 1 Specialty Diagnoses / Procedures Referred By Corey rockwell Referred To Contact MR IMAGING Diagnoses Malignant neoplasm of upper-inner quadrant of left breast in female, estrogen receptor positive (HCC) Procedures MRI BREAST WO/W IVCON BILAT MRI BREAST WITHOUT&WITH CONTRAST W/CAD BILATERAL Emiliano Saleh DO [address] [place] [address] Mr Imaging Referral ID Status Reason Start Date Expiration Date Visits Requested Visits Authorized [id number] Additional Clinical Info Needed Auto-Generat ed Referral 10/03/2023 1 1 Referral ID Status Reason Start Date Expiration Date V isits Requested Visits Authorized [id number] Closed Auto-Generate d Referral 09/03/2022 12/03/2022 1 1 Specialty Diagnoses / Procedures Referred By Corey rockwell Referred To Contact CT IMAGING Diagnoses Lung nodules Cancer of central portion of left breast (HCC) Procedures CT CHEST WO IVCON DIAGNOSTIC COMPUTED TOMOGRAPHY THORAX W/O CNTRST Emiliano Saleh, DO [address] [place] [address] [place] [address] Referral ID Status Reason Start Date Expiration Date Visits Requested Visits Authorized [id number] Authorized Auto-Generat ed Referral 11/05/2023 12/04/2024 1 1 Specialty Diagnoses / Procedures Referred By Corey t Referred To Contact Pulmonary and Critical Care Medicine Diagnoses Malignant neoplasm of upper-inner quadrant of left breast in female, estrogen receptor positive (HCC) Lung nodules Procedures CONSULT TO PULM/CRITICAL CARE OFFICE/OUTPATIENT [facility] 60 MINUTES Lizette Iglesias APRN.SISAL PICKER [address] [place] [address] Referral ID Status Reason Start Date Expiration Date Visits Requested Visits Authorized [id number] Authorized PCP Requested Referral 01/12/2024 01/11/2025 1 1 Summary Purpose Medications Administered Section Inactive Administered Medications - up to 3 most recent administrations Medication Order MAR Action Action Date Dose Rate Site lidocaine 10 mg/mL (1 %) injection (XYLOCAINE) OTHER, NEEDED, Starting on Tue11/17/22 at 1125, Until Tue11/17/22 at 1125, Intraprocedure Given 11/17/2022 11:25 AM EST 70 mg Breast, Right Inactive Administered Medications - up to 3 most recent administrations Medication Order MAR Action Action Date Dose Rate Site acetaminophen 650 mg tab(s) (TYLENOL) 650 mg, ORAL, ONCE, 1 dose, On Tue06/07/23 at 1530, Give 30 minutes before infusion. No more than 4000 mg of acetaminophen should be given per day (FROM ALL SOURCES), If ordered PRN for pain, patient/guardian may elect to receive this medication for higher pain levels INSTEAD of the opioid, if preferred: N/A Given 06/07/2023 3:16 PM EDT 650 mg zoledronic ql-qgbckxbr-0.9NaCl 4 mg iv piggyback 100 mL (ZOMETA) 4 mg, INTRAVENOUS, Administer over 15 Minutes, ONCE, 1 dose, On Tue06/07/23 at 1530, Hazardous Potential Reproductive Risk Drug: Use appropriate PPE. New Bag/Syringe/Bottle 06/07/2023 3:26 PM EDT 4 mg Additional Source Comments Goals (unrecognized section and content) Goals may be documented in a n alternate sectionGoals may be documented in an alternate sectionGoals may be documented in an alternate sectionGoals may be documented in an alternate section Source Comments (unrecognize d section and content) In the event this informatio n is protected by the Federal Confidentiality of Alcohol and Drug Abuse Patient Records regulations: The Federal rules restrict any use of the information to criminally investigate or prosecute any alcohol or drug abuse patient.[facility] the event this information is protected by the Federal Confidentiality of Alcohol and Drug Abuse Patient Records regulations: The Federal rules restrict any use of the information to criminally investigate or prosecute any alcohol or drug abuse patient.[facility] the event this information is protected by the Federal Confidentiality of Alcohol and Drug Abuse Patient Records regulations: The Federal rules restrict any use of the information to criminally investigate or prosecute any alcohol or drug abuse patient.[facility] the event this information is protected by the Federal Confidentiality of Alcohol and Drug Abuse Patient Records regulations: The Federal rules restrict any use of the information to criminally investigate or prosecute any alcohol or drug abuse patient.[facility] Center[facility] the event this information is protected by the Federal Confidentiality of Alcohol and Drug Abuse Patient Records regulations: The Federal rules restrict any use of the information to criminally investigate or prosecute any alcohol or drug abuse patient.[facility] Center[facility] the event this information is protected by the Federal Confidentiality of Alcohol and Drug Abuse Patient Records regulations: The Federal rules restrict any use of the information to criminally investigate or prosecute any alcohol or drug abuse patient.[facility] Center[facility] the event this information is protected by the Federal Confidentiality of Alcohol and Drug Abuse Patient Records regulations: The Federal rules restrict any use of the information to criminally investigate or prosecute any alcohol or drug abuse patient.[facility] CenterIn the event this information is protected by the Federal Confidentiality of Alcohol and Drug Abuse Patient Records regulations: The Federal rules restrict any use of the information to criminally investigate or prosecute any alcohol or drug abuse patient.[facility] CenterIn the event this information is protected by the Federal Confidentiality of Alcohol and Drug Abuse Patient Records regulations: The Federal rules restrict any use of the information to criminally investigate or prosecute any alcohol or drug abuse patient.[facility] CenterIn the event this information is protected by the Federal Confidentiality of Alcohol and Drug Abuse Patient Records regulations: The Federal rules restrict any use of the information to criminally investigate or prosecute any alcohol or drug abuse patient.[facility] CenterIn the event this information is protected by the Federal Confidentiality of Alcohol and Drug Abuse Patient Records regulations: The Federal rules restrict any use of the information to criminally investigate or prosecute any alcohol or drug abuse patient.[facility] CenterIn the event this information is protected by the Federal Confidentiality of Alcohol and Drug Abuse Patient Records regulations: The Federal rules restrict any use of the information to criminally investigate or prosecute any alcohol or drug abuse patient.[facility] CenterIn the event this information is protected by the Federal Confidentiality of Alcohol and Drug Abuse Patient Records regulations: The Federal rules restrict any use of the information to criminally investigate or prosecute any alcohol or drug abuse patient.[facility] CenterIn the event this information is protected by the Federal Confidentiality of Alcohol and Drug Abuse Patient Records regulations: The Federal rules restrict any use of the information to criminally investigate or prosecute any alcohol or drug abuse patient.[facility] CenterIn the event this information is protected by the Federal Confidentiality of Alcohol and Drug Abuse Patient Records regulations: The Federal rules restrict any use of the information to criminally investigate or prosecute any alcohol or drug abuse patient.[facility] CenterIn the event this information is protected by the Federal Confidentiality of Alcohol and Drug Abuse Patient Records regulations: The Federal rules restrict any use of the information to criminally investigate or prosecute any alcohol or drug abuse patient.[facility] CenterIn the event this information is protected by the Federal Confidentiality of Alcohol and Drug Abuse Patient Records regulations: The Federal rules restrict any use of the information to criminally investigate or prosecute any alcohol or drug abuse patient.[facility] CenterIn the event this information is protected by the Federal Confidentiality of Alcohol and Drug Abuse Patient Records regulations: The Federal rules restrict any use of the information to criminally investigate or prosecute any alcohol or drug abuse patient.[facility] CenterIn the event this information is protected by the Federal Confidentiality of Alcohol and Drug Abuse Patient Records regulations: The Federal rules restrict any use of the information to criminally investigate or prosecute any alcohol or drug abuse patient.[facility] CenterIn the event this information is protected by the Federal Confidentiality of Alcohol and Drug Abuse Patient Records regulations: The Federal rules restrict any use of the information to criminally investigate or prosecute any alcohol or drug abuse patient.[facility] CenterIn the event this information is protected by the Federal Confidentiality of Alcohol and Drug Abuse Patient Records regulations: The Federal rules restrict any use of the information to criminally investigate or prosecute any alcohol or drug abuse patient.[facility] CenterIn the event this information is protected by the Federal Confidentiality of Alcohol and Drug Abuse Patient Records regulations: The Federal rules restrict any use of the information to criminally investigate or prosecute any alcohol or drug abuse patient.[facility] CenterIn the event this information is protected by the Federal Confidentiality of Alcohol and Drug Abuse Patient Records regulations: The Federal rules restrict any use of the information to criminally investigate or prosecute any alcohol or drug abuse patient.[facility] CenterIn the event this information is protected by the Federal Confidentiality of Alcohol and Drug Abuse Patient Records regulations: The Federal rules restrict any use of the information to criminally investigate or prosecute any alcohol or drug abuse patient.[facility] CenterIn the event this information is protected by the Federal Confidentiality of Alcohol and Drug Abuse Patient Records regulations: The Federal rules restrict any use of the information to criminally investigate or prosecute any alcohol or drug abuse patient.[facility] CenterIn the event this information is protected by the Federal Confidentiality of Alcohol and Drug Abuse Patient Records regulations: The Federal rules restrict any use of the information to criminally investigate or prosecute any alcohol or drug abuse patient.[facility] CenterIn the event this information is protected by the Federal Confidentiality of Alcohol and Drug Abuse Patient Records regulations: The Federal rules restrict any use of the information to criminally investigate or prosecute any alcohol or drug abuse patient.[facility] CenterIn the event this information is protected by the Federal Confidentiality of Alcohol and Drug Abuse Patient Records regulations: The Federal rules restrict any use of the information to criminally investigate or prosecute any alcohol or drug abuse patient.[facility] CenterIn the event this information is protected by the Federal Confidentiality of Alcohol and Drug Abuse Patient Records regulations: The Federal rules restrict any use of the information to criminally investigate or prosecute any alcohol or drug abuse patient.[facility] CenterIn the event this information is protected by the Federal Confidentiality of Alcohol and Drug Abuse Patient Records regulations: The Federal rules restrict any use of the information to criminally investigate or prosecute any alcohol or drug abuse patient.[facility] CenterIn the event this information is protected by the Federal Confidentiality of Alcohol and Drug Abuse Patient Records regulations: The Federal rules restrict any use of the information to criminally investigate or prosecute any alcohol or drug abuse patient.[facility] CenterIn the event this information is protected by the Federal Confidentiality of Alcohol and Drug Abuse Patient Records regulations: The Federal rules restrict any use of the information to criminally investigate or prosecute any alcohol or drug abuse patient.[facility] CenterIn the event this information is protected by the Federal Confidentiality of Alcohol and Drug Abuse Patient Records regulations: The Federal rules restrict any use of the information to criminally investigate or prosecute any alcohol or drug abuse patient.[facility] CenterIn the event this information is protected by the Federal Confidentiality of Alcohol and Drug Abuse Patient Records regulations: The Federal rules restrict any use of the information to criminally investigate or prosecute any alcohol or drug abuse patient.[facility] CenterIn the event this information is protected by the Federal Confidentiality of Alcohol and Drug Abuse Patient Records regulations: The Federal rules restrict any use of the information to criminally investigate or prosecute any alcohol or drug abuse patient.[facility] CenterIn the event this information is protected by the Federal Confidentiality of Alcohol and Drug Abuse Patient Records regulations: The Federal rules restrict any use of the information to criminally investigate or prosecute any alcohol or drug abuse patient.[facility] CenterIn the event this information is protected by the Federal Confidentiality of Alcohol and Drug Abuse Patient Records regulations: The Federal rules restrict any use of the information to criminally investigate or prosecute any alcohol or drug abuse patient.[facility] CenterIn the event this information is protected by the Federal Confidentiality of Alcohol and Drug Abuse Patient Records regulations: The Federal rules restrict any use of the information to criminally investigate or prosecute any alcohol or drug abuse patient.[facility] CenterIn the event this information is protected by the Federal Confidentiality of Alcohol and Drug Abuse Patient Records regulations: The Federal rules restrict any use of the information to criminally investigate or prosecute any alcohol or drug abuse patient.[facility] CenterIn the event this information is protected by the Federal Confidentiality of Alcohol and Drug Abuse Patient Records regulations: The Federal rules restrict any use of the information to criminally investigate or prosecute any alcohol or drug abuse patient.[facility] CenterIn the event this information is protected by the Federal Confidentiality of Alcohol and Drug Abuse Patient Records regulations: The Federal rules restrict any use of the information to criminally investigate or prosecute any alcohol or drug abuse patient.[facility] CenterIn the event this information is protected by the Federal Confidentiality of Alcohol and Drug Abuse Patient Records regulations: The Federal rules restrict any use of the information to criminally investigate or prosecute any alcohol or drug abuse patient.[facility] CenterIn the event this information is protected by the Federal Confidentiality of Alcohol and Drug Abuse Patient Records regulations: The Federal rules restrict any use of the information to criminally investigate or prosecute any alcohol or drug abuse patient.[facility] CenterIn the event this information is protected by the Federal Confidentiality of Alcohol and Drug Abuse Patient Records regulations: The Federal rules restrict any use of the information to criminally investigate or prosecute any alcohol or drug abuse patient.[facility] CenterIn the event this information is protected by the Federal Confidentiality of Alcohol and Drug Abuse Patient Records regulations: The Federal rules restrict any use of the information to criminally investigate or prosecute any alcohol or drug abuse patient.[facility] CenterIn the event this information is protected by the Federal Confidentiality of Alcohol and Drug Abuse Patient Records regulations: The Federal rules restrict any use of the information to criminally investigate or prosecute any alcohol or drug abuse patient.[facility] CenterIn the event this information is protected by the Federal Confidentiality of Alcohol and Drug Abuse Patient Records regulations: The Federal rules restrict any use of the information to criminally investigate or prosecute any alcohol or drug abuse patient.[facility] CenterIn the event this information is protected by the Federal Confidentiality of Alcohol and Drug Abuse Patient Records regulations: The Federal rules restrict any use of the information to criminally investigate or prosecute any alcohol or drug abuse patient.[facility] CenterIn the event this information is protected by the Federal Confidentiality of Alcohol and Drug Abuse Patient Records regulations: The Federal rules restrict any use of the information to criminally investigate or prosecute any alcohol or drug abuse patient.[facility] CenterIn the event this information is protected by the Federal Confidentiality of Alcohol and Drug Abuse Patient Records regulations: The Federal rules restrict any use of the information to criminally investigate or prosecute any alcohol or drug abuse patient.[facility] CenterIn the event this information is protected by the Federal Confidentiality of Alcohol and Drug Abuse Patient Records regulations: The Federal rules restrict any use of the information to criminally investigate or prosecute any alcohol or drug abuse patient.[facility] CenterIn the event this information is protected by the Federal Confidentiality of Alcohol and Drug Abuse Patient Records regulations: The Federal rules restrict any use of the information to criminally investigate or prosecute any alcohol or drug abuse patient.[facility] CenterIn the event this information is protected by the Federal Confidentiality of Alcohol and Drug Abuse Patient Records regulations: The Federal rules restrict any use of the information to criminally investigate or prosecute any alcohol or drug abuse patient.[facility] CenterIn the event this information is protected by the Federal Confidentiality of Alcohol and Drug Abuse Patient Records regulations: The Federal rules restrict any use of the information to criminally investigate or prosecute any alcohol or drug abuse patient.[facility] CenterIn the event this information is protected by the Federal Confidentiality of Alcohol and Drug Abuse Patient Records regulations: The Federal rules restrict any use of the information to criminally investigate or prosecute any alcohol or drug abuse patient.[facility] CenterIn the event this information is protected by the Federal Confidentiality of Alcohol and Drug Abuse Patient Records regulations: The Federal rules restrict any use of the information to criminally investigate or prosecute any alcohol or drug abuse patient.[facility] Care Teams (unrecognized sec tion and content) Cogeneration Operator Relationship Specialty Start Date End Date Ifrah Omalley [address] [facility] [place] [address] PCP - General Family Medicine 08/15/19 Cogeneration Operator Relationship Specialty Start Date End Date Ifrah Omalley [address] [place] [address] PCP - General Family Medicine 08/15/19 Cogeneration Operator Relationship Specialty Start Date End Date Ifrah Omalley [address] [place] [address] PCP - General Family Medicine 08/15/19 Cogeneration Operator Relationship Specialty Start Date End Date Ifrah Omalley [address] [place] [address] PCP - General Family Medicine 08/15/19 Cogeneration Operator Relationship Specialty Start Date End Date Ifrah Omalley [place] [address] PCP - General Family Medicine 08/15/19 Cogeneration Operator Relationship Specialty Start Date End Date Ifrah Omalley[address] [place] [address] PCP - General Family Medicine 08/15/19 Cogeneration Operator Relationship Specialty Start Date End Date Ifrah Omalley[address] [place] [address] PCP - General Family Medicine 08/15/19 Cogeneration Operator Relationship Specialty Start Date End Date Ifrah Omalley [address] [place] [address] PCP - General Family Medicine 08/15/19 Cogeneration Operator Relationship Specialty Start Date End Date Ifrah Omalley [address] [place] [address] PCP - General Family Medicine 08/15/19 Cogeneration Operator Relationship Specialty Start Date End Date Krystle Alford DO [address] [facility] [address] [place] [address] PCP - General Internal Medicine 09/20/22 Emiliano Saleh, DO [address] [place] [address] Hematology/Oncology 09/22/22 Cogeneration Operator Relationship Specialty Start Date End Date Krystle Alford, DO [address] [facility] [address] [place] [address] PCP - General Internal Medicine 09/20/22 Emiliano Saleh, DO [address] [place] [address] Hematology/Oncology 09/22/22 Cogeneration Operator Relationship Specialty Start Date End Date Krystle Alford, DO [address] [facility] [address] [place] [address] PCP - General Internal Medicine 09/20/22 Emiliano Saleh, DO [address] [place] [address] Hematology/Oncology 09/22/22 Cogeneration Operator Relationship Specialty Start Date End Date Krystle Alford, DO [address] [facility] [address] [place] [address] PCP - General Internal Medicine 09/20/22 Emiliano Saleh, DO [address] [place] [address] Hematology/Oncology 09/22/22 Cogeneration Operator Relationship Specialty Start Date End Date Krystle Alford DO [address] [facility] [address] [place] [address] PCP - General Internal Medicine 09/20/22 Emiliano Saleh, DO [address] [place] [address] Hematology/Oncology 09/22/22 Cogeneration Operator Relationship Specialty Start Date End Date Arturo Krystle Kale DO [address] [facility] [address] [place] [address] PCP - General Internal Medicine 09/20/22 Emiliano Saleh, DO [address] [place] [address] Hematology/Oncology 09/22/22 Cogeneration Operator Relationship Specialty Start Date End Date Arturo Krystle Henley DO [address] [facility] [address] [place] [address] PCP - General Internal Medicine 09/20/22 Emiliano Saleh, DO [address] [place] [address] Hematology/Oncology 09/22/22 Cogeneration Operator Relationship Specialty Start Date End Date Arturo Krystle Henley DO [address] [facility] [address] [place] [address] PCP - General Internal Medicine 09/20/22 Emiliano Saleh, DO [address] [place] [address] Hematology/Oncology 09/22/22 Cogeneration Operator Relationship Specialty Start Date End Date Arturo Krystle Kale DO [address] [facility] [address] [place] [address] PCP - General Internal Medicine 09/20/22 Emiliano Saleh, DO [address] [place] [address] Hematology/Oncology 09/22/22 Cogeneration Operator Relationship Specialty Start Date End Date Krystle Alford, DO [address] [facility] [address] [place] [address] PCP - General Internal Medicine 09/20/22 Emiliano Saleh, DO [address] [place] [address] Hematology/Oncology 09/22/22 Cogeneration Operator Relationship Specialty Start Date End Date Krystle Alford, [address] [facility] [address] [place] [address] PCP - General Internal Medicine 09/20/22 Emiliano Saleh, DO [address] [place] [address] Hematology/Oncology 09/22/22 Cogeneration Operator Relationship Specialty Start Date End Date Krystle Alford DO [address] [facility] [address] [place] [address] PCP - General Internal Medicine 09/20/22 Emiliano Saleh, DO [address] [place] [address] Hematology/Oncology 09/22/22 Cogeneration Operator Relationship Specialty Start Date End Date Krystle Alford DO [address] [facility] [address] [place] [address] PCP - General Internal Medicine 09/20/22 Emiliano Saleh, DO [address] [place] [address] Hematology/Oncology 09/22/22 Cogeneration Operator Relationship Specialty Start Date End Date Krystle Alford DO [address] [facility] [address] [place] [address] PCP - General Internal Medicine 09/20/22 Emiliano Saleh, DO [address] [place] [address] Hematology/Oncology 09/22/22 Cogeneration Operator Relationship Specialty Start Date End Date Krystle Alford DO [address] [facility] [address] [place] [address] PCP - General Internal Medicine 09/20/22 Emiliano Saleh, DO [address] [place] [address] Hematology/Oncology 09/22/22 Cogeneration Operator Relationship Specialty Start Date End Date Krystle Alford DO [address] [facility] [address] [place] [address] PCP - General Internal Medicine 09/20/22 Emiliano Saleh, DO [address] [place] [address] Hematology/Oncology 09/22/22 Cogeneration Operator Relationship Specialty Start Date End Date Krystle Alford DO [address] [facility] [address] [place] [address] PCP - General Internal Medicine 09/20/22 Emiliano Saleh, DO [address] [place] [address] Hematology/Oncology 09/22/22 Cogeneration Operator Relationship Specialty Start Date End Date Krystle Alford DO [address] [facility] [address] [place] [address] PCP - General Internal Medicine 09/20/22 Emiliano Saleh, DO [address] [place] [address] Hematology/Oncology 09/22/22 Cogeneration Operator Relationship Specialty Start Date End Date Krystle Alford DO [address] [facility] [address] [place] [address] PCP - General Internal Medicine 09/20/22 Emiliano Saleh DO [address] [place] [address] Hematology/Oncology 09/22/22 Cogeneration Operator Relationship Specialty Start Date End Date Krystle Alford DO [address] [facility] [address] [place] [address] PCP - General Internal Medicine 09/20/22 Emiliano Saleh DO [address] [place] [address] Hematology/Oncology 09/22/22 Cogeneration Operator Relationship Specialty Start Date End Date Krystle Alford DO [address] [facility] [address] [place] [address] PCP - General Internal Medicine 09/20/22 Emiliano Saleh DO [address] [place] [address] Hematology/Oncology 09/22/22 Cogeneration Operator Relationship Specialty Start Date End Date Krystle Alford DO [address] [facility] [address] [place] [address] PCP - General Internal Medicine 09/20/22 Emiliano Saleh DO [address] [facility] [place] [address] Hematology/Oncology 09/22/22 Cogeneration Operator Relationship Specialty Start Date End Date Krystle Alford DO [address] [facility] [address] [place] [address] PCP - General Internal Medicine 09/20/22 Emiliano Saleh DO [address] [place] [facility] [place] [address] Hematology/Oncology 09/22/22 Cogeneration Operator Relationship Specialty Start Date End Date Arturo Krystle ADO [address] [facility] [address] [place] [address] PCP - General Internal Medicine 09/20/22 Emiliano Saleh DO [address] [place] [address] Hematology/Oncology 09/22/22 Cogeneration Operator Relationship Specialty Start Date End Date Krystle Alford KaleDO [address] [facility] [address] [place] [address] PCP - General Internal Medicine 09/20/22 Emiliano Saleh DO [address] [place] [place] [address] Hematology/Oncology 09/22/22 Cogeneration Operator Relationship Specialty Start Date End Date Krystle Alford DO [address] [facility] [address] [place] [address] PCP - General Internal Medicine 09/20/22 Emiliano Saleh DO [address] [place] [address] Hematology/Oncology 09/22/22 Cogeneration Operator Relationship Specialty Start Date End Date Ifrah Omalley MD [address] [facility] [place], [place] [address] PCP - General Family Medicine 08/15/19 09/19/22 Cogeneration Operator Relationship Specialty Start Date End Date Krystle Alford DO [address] [facility] [address] [place] [address] PCP - General Internal Medicine 09/20/22 Emiliano Saleh DO [address] [place] [place] [address] Hematology/Oncology 09/22/22 Cogeneration Operator Relationship Specialty Start Date End Date Krystle Alford DO [address] [facility] [address] [place] [address] PCP - General Internal Medicine 09/20/22 Emiliano Saleh DO [address] [place] [place] [address] Hematology/Oncology 09/22/22 Cogeneration Operator Relationship Specialty Start Date End Date ArturoKrystle [address] [facility] [address] [place] [address] PCP - General Internal Medicine 08/17/24 Cogeneration Operator Relationship Specialty Start Date End Date Arturo Krystle Kale [address] [facility] [address] [place] [address] PCP - General Internal Medicine 09/20/22 Emiliano Saleh DO [address] [place] [facility] [place] [address] Hematology/Oncology 09/22/22 Cogeneration Operator Relationship Specialty Start Date End Date Krystle Alford Kale [address] [facility] [address] [place] [address] PCP - General Internal Medicine 09/20/22 Emiliano Saleh DO [address] [place] [address] Hematology/Oncology 09/22/22 Cogeneration Operator Relationship Specialty Start Date End Date Krystle Alford DO [address] [facility] [address] [place], [place] [id number] PCP - General Internal Medicine 09/20/22 Emiliano Saleh DO [address] [facility], [place] [id number] Hematology/Oncology 09/22/22 Cogeneration Operator Relationship Specialty Start Date End Date Krystle Alford DO [address] [facility] [address] [place], [place] [address] PCP - General Internal Medicine 09/20/22 Emiliano Saleh DO [address] [place], [place] [id number] Hematology/Oncology 09/22/22 Team Status: Active Member Role/Relationship Status Dates Dr. Krystle Alford DO Primary Care Provider Active Team Status: Inactive Member Role/Relationship Status Dates Dr. Krystle Alford DO Primary Care Provider Active Start: May 21, 2025 End: May 21, 2025 Dr. Krystle Alford DO Attending Provider Active St art: May 21, 2025 End: May 21, 2025 Dr. Krystle Alford DO Referring Provider Active St art: May 21, 2025 End: May 21, 2025 Team Status: Active Member Role/Relationship Status Dates Dr. Krystle Alford DO Primary Care Provider Active Start: May 21, 2025 Dr. Krystle Alford DO Attending Provider Active St art: May 21, 2025 Dr. Krystle Alford DO Referring Provider Active St art: May 21, 2025 Cogeneration Operator Relationship Specialty Start Date End Date Krytsle Alford DO [address] [facility] [address] [place] [address] PCP - General Internal Medicine 09/20/22 Emiliano Saleh DO [address] [place] [address] Hematology/Oncology 09/22/22 Reason for Visit (unrecogniz ed section and content) Reason Comments Non-Chemotherapy Treatment Specialty Diagnoses / Procedures Referred By Contac t Referred To Contact Diagnoses Cancer of central portion of left breast (HCC) Procedures INJECTION, ZOLEDRONIC ACID, 1 MG Emiliano Saleh DO [address] [place] [address] [facility] [address] [place] [address] Referral ID Status Reason Start Date Expiration Date V isits Requested Visits Authorized [id number] Authorized 03/03/2023 03/24/2024 0 2 Reason Comments Results Reason Comments Consult Mass in left breast, pain in middle of chest Reason Comments 08-17-22 [facility] US GUIDED BREAST NEEDLE COR E BX Reason Comments 08/17 RT U/S GUIDED BREATS NEEDLE CORE BX [facility] Reason Comments New Patient Reason Comments New Patient Evaluation Reason Comments Patient Question Reason Comments Appointment Specialty Diagnoses / Procedures [facility] To Contact MR IMAGING Diagnoses Malignant neoplasm of upper-inner quadrant of left breast in female, estrogen receptor positive (HCC) Procedures MRI BREAST WO/W IVCON BILAT MRI BREAST WITHOUT&WITH CONTRAST W/CAD BILATERAL Emiliano Saleh DO [address] [place] [address] Mr Imaging Referral ID Status Reason Start Date Expiration Date V isits Requested Visits Authorized [id number] Closed Auto-Generate d Referral 09/03/2022 12/03/2022 1 1 Reason Comments Patient Question Reason Comments Established Patient Reason Comments Consult Specialty Diagnoses / Procedures [facility] Referred To Contact General Surgery / GENERAL SURGERY Diagnoses new breast cancer 2nd opinion requesting Dr. Caruso. Patient's records are in [facility]. Patient will need an insulation board back tender greek Procedures NEW PATIENT Krystle Alford, [address] [place] [address] Kasandra Caruso MD [address] [place] [address] Referral ID Status Reason Start Date Expiration Date Visits Re quested Visits Authorized [id number] Closed 10/10/2022 10/09/2023 1 1 Reason Comments Results Mildly low vit D Reason Comments Breast Cancer Specialty Diagnoses / Procedures Referred By [facility] Referred To Contact Genetics / GENERAL SURGERY Diagnoses New breast ca- Procedures PROVIDER SPECIALTY PHONE CALL Kasandra Caruso MD [address] [place] [address] Rosy Deleon, [facility] [address] [place] [address] Referral ID Status Reason Start Date Expiration Date Visits Re quested Visits Authorized [id number] Closed 10/10/2022 10/09/2023 1 1 Reason Comments Results Genetic testing nega tive Reason Comments Follow Up Tests Results Specialty Diagnoses / Procedures Referred By [facility] Referred To Contact General Surgery / GENERAL SURGERY Diagnoses Post Right US, US biopsy, MRI guided biopsy, plastics, genetics Procedures EST PATIENT Kasandra Caruso MD [address] [place] [address] Kasandra Caruso MD [address] [place] [address] Referral ID Status Reason Start Date Expiration Date Visits Re quested Visits Authorized [id number] Closed 10/10/2022 10/09/2023 1 1 Reason Comments Post Op Reason Comments Follow Up Reason Comments Results Oncotype DX Reason Comments Zometa Reason Comments Established Patient SCP Reason Comments Follow Up Referral ID Status Reason Start Date Expiration Date V isits Requested Visits Authorized [id number] Authorized 03/03/2023 05/16/2025 5 5 Reason Comments Established Patient Specialty Diagnoses / Procedures Referred By Contac t Referred To Contact Diagnoses Cancer of central portion of left breast (HCC) Procedures INJECTION, ZOLEDRONIC ACID, 1 MG Emiliano Saleh DO [address] [place] [address] Phone: tel: fax: Hematology/Oncology [address] [place] [address] Phone: tel: fax: Referral ID Status Reason Start Date Expiration Date V isits Requested Visits Authorized [id number] Authorized 03/03/2023 04/18/2026 6 6 INFORMATION SOURCE (unrecogn ized section and content) DATE CREATED AUTHOR 10/26/2022 [facility] DATE CREATED AUTHOR AUTHOR'S ORGANIZ ATION 02/09/2023 [facility] DATE CREATED AUTHOR AUTHOR'S ORGANIZ ATION 02/22/2023 [facility] DATE CREATED AUTHOR AUTHOR'S ORGANIZ ATION 12/05/[address] [facility] DATE CREATED AUTHOR AUTHOR'S ORGANIZ ATION 06/09/2025 [facility] DATE CREATED AUTHOR AUTHOR'S ORGANIZ ATION 07/26/2025 [facility] Inactive Administered Medications - up to 3 most recent administrations Administered Medications (un recognized section and content) Medication Order MAR Action Action Date Dose Rate Site zoledronic [id number]-[id number] 4 mg iv piggyback 100 mL (ZOMETA) 4 mg, INTRAVENOUS, Administer over 15 Minutes, ONCE, 1 dose, On Zandra 01/12/24 at 0930, Hazardous Potential Reproductive Risk Drug: Use appropriate PPE. New Bag/Syringe/Bottle 01/12/2024 9:31 AM EDT 4 mg FOR RECORDS PERTAINING TO PATIENTS WHO ARE OR HAVE BEEN ENROLLED IN A CHEMICAL DEPENDENCY/SUBSTANCEABUSE PROGRAM, SOME INFORMATION MAY BE OMITTED. This clinical summary was aggregated from multiple sources. Caution should be exercised in using it in the provision of clinical care. This summary normalizes information from multiple sources, and as a consequence, information in this document may materially change the coding, format and clinical context of patient data. In addition, data may be omitted in some cases. CLINICAL DECISIONS SHOULD BE BASED ON THE PRIMARY CLINICAL RECORDS. [facility] [employer] [facility] provides no warranty or guarantee of the accuracy or completeness of information in this document.
--- NOTE | 2025-07-31 09:54 | STRESSREP_ITS ---
Stress Test Report Date: 07/31/2025 Procedure: Pharmacologic stress nuclear imaging study Indications: Coronary artery disease Consent: Per the patient Procedure: The patient underwent pharmacologic (Regadenoson 0.4mg ) evaluation with a peak heart rate of 91 beats per minute (61%predicted maximal heart rate) and a peak blood pressure of 122/70 mmHg. The baseline ECG demonstrated sinus rhythm. The peak pharmacologic ECG did not show any ischemic changes. There were no cardiac dysrhythmias pretest, during pharmacologic infusion, or recovery. There was no complaint of chest discomfort during pharmacologic infusion or recovery. The patient was injected with 11.6 millicuries of technetium 99m Cardiolite and subsequently rest SPECT Cardiolite nuclear imaging was obtained in the horizontal long, vertical long, and short axis views. The patient underwent pharmacologic (Regadenoson) evaluation. The patient was injected with 34.7 millicuries of technetium 99m Cardiolite and subsequently stress SPECT Cardiolite nuclear imaging was obtained in the horizontal long, vertical long, and short axis views. A gated Cardiolite study at peak stress was obtained. The examination was stopped secondary to completion of protocol. Rest and stress SPECT Cardiolite nuclear imaging status post realignment, normalization, and attenuation correction demonstrate no fixed or reversible perfusion defects. There is end systolic thickening and brightening. The gated Cardiolite study demonstrates myocardial thickening and inward wall motion. The reported LVEF is 85%. Impression: 1. Pharmacologic (Regadenoson) evaluation 2. Peak pharmacologic ECG with no ischemic changes. 3. There were no cardiac dysrhythmias pretest, during pharmacologic infusion, or recovery. 5. Rest and stress SPECT Cardiolite nuclear imaging demonstrate relative uniform tracer uptake and myocardial perfusion appearing within normal limits. 6. The gated Cardiolite study reports an LVEF of 85%. This note was generated with [employer] software. It may contain incorrect words, spelling, and punctuation that were not noted in checking the note before signing.
== END | disposition home or self-care (01) ==
LOC: CVS 06:49
PROVIDERS: PCP Internal Medicine; Referring Provider Internal Medicine; Visit Provider Internal Medicine
DX: I25.10 Atherosclerotic heart disease of native coronary artery without angina pectoris (principal)
CPT/HCPCS: 78452; 93017; A9500; A4216; J2785